=== PATIENT | male | born 1935 | race Caucasian/White ===

== ENCOUNTER 2018-07-28 12:15 | Inpatient (IN) | payer MEDICARE, SELFPAY ==
[2018-07-28] VITALS (18 sets, daily range): BP systolic 102–166; BP diastolic 55–80; PULSE 86–126; RESP 16–36; TEMP 36.4–37.7; O2SAT 92–98; BMI 24.1; BMI 22.6; BMI 22.7
--- NOTE | 2018-07-28 12:29 | EKG12_ITS ---
Test Reason : SOB Blood Pressure : / mmHG Vent. Rate : 105 BPM Atrial Rate : 105 BPM P-R Int : 144 ms QRS Dur : 076 ms QT Int : 324 ms P-R-T Axes : 073 072 028 degrees QTc Int : 428 ms Sinus tachycardia Nonspecific ST abnormality Abnormal ECG Confirmed by AMANDA CALLEJAS, JENNIFER ([id number]), associate entertainment editor BEBO CHANG ([id number]) on 07/31/2018 3:16:14 PM Referred By: Khang Crawford Confirmed By:JENNIFER PATEL MD
[2018-07-28] MEDS: Albuterol 2.5 MG/3 ML VIAL.NEB. INHALATION (12:49)
[2018-07-28] MEDS: Ipratropium/Albuterol Sulfate 3 ML AMPUL.NEB INHALATION (12:49)
[2018-07-28 13:03] LABS: Absolute Lymphocyte Count 5.32 X10^3/ul (0.83-4.51); Absolute Neutrophil Count 13.1 X10^3/uL (2.0-7.7); Basophil# 0.03 X10^3/uL; Basophil% 0.2 % (0-1); Eosinophil# 0.05 X10^3/uL; Eosinophils% 0.3 % (0-5); Hematocrit 39.6 % (40-54); Hemoglobin 13.4 g/dl (13.0-16.5); Lymphocyte # 5.32 X10^3/ul (4.0); Lymphocyte % 26.6 % (19-41); Mean Corp Hgb Conc 33.8 g/gl (32-36); Mean Corpuscular Hgb 30.7 pg (27.0-32.0); Mean Corpuscular Volume 90.8 fL (80-94); Mean Platelet Vol. 9.8 fl (6.2-12.0); Monocyte# 1.41 X10^3/uL; Monocyte% 7.1 % (0-10); Neutrophil # 13.11 X10^3/uL (2.7-7.7); Neutrophil % 65.5 % (47-70); Platelet Count 209 K/mm3 (150-450); RBC Distribution Width CV 12.5 % (11.6-14.6); RBC Distribution Width SD 41.6 fl (35.1-43.9); Red Blood Count 4.36 M/mm3 (4.6-6.2)
--- NOTE | 2018-07-28 13:10 | RAD_ITS ---
STUDY: X-RAY CHEST REASON FOR EXAM: Male, 82 years old. Cough and shortness of breath TECHNIQUE: PA and lateral views of the chest. COMPARISON: None. FINDINGS: There is hyperinflation of the lungs consistent with chronic obstructive lung disease (COPD). In the right upper lobe and right lower lobe, there is masslike consolidation. Right upper lobe area measuring 1.9 x 1.7 cm and right lower lobe measuring 2.5 x 3.5 cm. No focal infiltrate Normal size heart. Normal mediastinum and chuck. Normal visualized pulmonary arteries. Normal visualized aortic arch and descending thoracic aorta. There are diffuse degenerative changes of the visualized thoracic spine. There is degenerative osteoarthritis of the bilateral shoulders. There is no demonstrated abnormality of the visualized soft tissue structures of the upper abdomen. RAD/Chest PA and Lateral IMPRESSION: Masslike consolidation in the right upper lobe and right lower lobe. Lungs are otherwise clear. CT chest needed to further evaluate. Electronically Signed: Javid Patterson DO at 14:13 EST Tel , Service support ,
[2018-07-28 13:13] LABS: Anion Gap 12 (5-15); BUN 20 mg/dL (7-18); BUN/Creat Ratio 15.7 RATIO (10-20); Calcium,Total 9.1 mg/dL (8.5-10.1); Chloride 98 mmol/L (98-107); Creatinine, Serum 1.27 mg/dL (0.70-1.30); Differential Indicated SCAN CRITERIA MET; EST Glomerular Filtration Rate 58 mL/min (>60); Est Glom Filt Rate - Afr Amer 70 mL/min (>60); Estimated Creatinine Clearance 35.83 ml/min; Glucose 119 mg/dL (74-106); POSITIVE COUNT NO; POSITIVE DIFFERENTIAL YES; POSITIVE MORPHOLOGY YES; Potassium 3.6 mmol/L (3.5-5.1); Sodium Level 133 mmol/L (136-145)
[2018-07-28 13:20] LABS: Differential Comment SCANNED
--- NOTE | 2018-07-28 13:39 | ED.RN ---
DR. MARVIN AWARE OFF LAB CALL OF LACTIC 2.3
[2018-07-28 13:40] LABS: Lactic Acid 2.3 mmol/L (0.4-2.0)
--- NOTE | 2018-07-28 13:46 | ED.VISSUMM ---
- ER Visit Summary Date of Service: 07/28/18 Chief Complaint: Cough, fever and I feel terrible History of Present Illness: The patient is a 82 M who presents with respiratory symptoms that started several days ago. He was seen in urgent care on Friday and reports they did nothing for me . He presents with subjective fever. He does report nasal symptoms. He denies ocular or auditory symptoms. Denies sore throat. Denies change in voice. Does report cough, which is nonproductive. Does report shortness of breath at rest and difficulty walking room to room. Minimal activity and his saturation dropped from 90-93% on room air to 90%. He denies nausea, vomiting diarrhea. He denies hematemesis, melena hematochezia. He denies dysuria, frequency, urgency or hematuria. He denies history of PE or DVT. He denies leg pain, swelling discoloration. He states he is weak and has difficulty walking. He states he almost fell several times today. Patient states he got his flu shot and Pneumovax shot this year. He was a smoker until 4 years ago. He admits to 1 pack/day since he was a teenager. Physical Examination: Vital signs noted and remarkable for tachycardia, tachypnea. Temporal temperature is 97.7. Patient appears ill. Pupils equal round reactive. Extra muscle intact. TMs normal. Nares minimal clear drainage. Posterior pharynx without erythema or exudate. Trachea midline. There is no stridor. There is decreased breath sounds bilaterally with increased x-ray phase and wheezing. There is rales noted right side posteriorly. Abdomen is soft nontender. There is no hepatospleno megaly. There is no palpable cell mass. There is no abdominal bruit. There are no skin lesions noted. Neuro exam is nonfocal. Test Results: EKG sinus tachycardia at 105 with decreased anterior force. There is artifact secondary to his breathing. Two-view chest x-ray reveals infiltrate right lower lobe. White count is 20,000 with shift. There is no bandemia. Electric panel is remarkable for BUN of 20 and a creatinine 1.27. Lactate is 2.3. Emergency Department Course and Treatment: Appropriate blood work was obtained including lactate and blood cultures. Patient was treated with DuoNeb and albuterol. He received 700 mg levofloxacin. He was reassessed at 1345. He is still tachycardic and tachypneic. His wheezing has improved. Treatment Plan: IV antibiotics, aerosol treatments and monitoring Disposition: PCU Impression: 1. Severe sepsis 2. Sinus tachycardia documented on monitor and EKG 3. Bronchospasm 4. Continued acquired pneumonia 5. History of hypercholesterolemia 6. History of obstructive sleep apnea This note was generated with [employer] dictation software. It may contain incorrect words, spelling, and punctuation that were not noted in review of the chart prior to signing ED Disposition - Plan for ED Patient: Chief Complaint: Shortness of Breath Referrals: Vidhi Main MD [Primary Care Provider] -
[2018-07-28] MEDS: levoFLOXacin IV 750 MG/150 ML BAG 100 MG IV (13:57)
[2018-07-28] MEDS: 0.9% Normal Saline 1,000 ML 999 ML IV ×2 (14:27→18:20)
--- NOTE | 2018-07-28 14:52 | HP.PCM_ITS ---
Problem List (1) Pneumonia Status: Acute Qualifiers: Laterality: right (2) HTN (hypertension) Status: Chronic (3) Restless leg syndrome Status: Chronic (4) Hyperlipidemia Status: Chronic (5) DELANEY (obstructive sleep apnea) Status: Chronic History of Present Illness Date of Admission: 07/28/18 Chief Complaint: Cough The patient is a 82 year old M with a PMH as below who presents with a 5-day history of not feeling well. He states that he went to an urgent care when he had upper respiratory-like symptoms. He was told that it was a virus at that time and was sent home. He presents now with worsening cough, shortness of breath which is not normal for him. In the ER he was found to be tachycardic, but afebrile. His lactic acid was 2.3 and a chest x-ray reveals an infiltrate in the right lower lobe, with a leukocytosis of 20,000. He was given a 1 L bolus done in the ER as well as a dose of Levaquin. He was also tachypneic to 24 Past Medical History Past Medical History (Chronic Problems): Chronic Problems HTN (hypertension) (Chronic) S/P laminectomy (Chronic) Restless leg syndrome (Chronic) Hyperlipidemia (Chronic) Osteoarthritis of lumbar spine (Chronic) Generalized anxiety disorder (Chronic) Spondylolisthesis, cervical region (Chronic) Cervical spondylosis (Chronic) Cervical spine degeneration (Chronic) DELANEY (obstructive sleep apnea) (Chronic) Allergies niacin Allergy (Verified 07/28/18 12:17) Rash Home Medications: Ambulatory Orders Medication Instructions Recorded Aspirin E.C. [Ecotrin] 81 mg PO DAILY@0800 10/22/15 Clonazepam [Klonopin] 1 mg PO QHS 10/22/15 Pramipexole Di-HCl [Mirapex] 0.25 mg PO BID 10/22/15 Venlafaxine XR [Effexor Xr] 37.5 mg PO BID 10/22/15 Magnesium Oxide [Mag-Ox 400] 400 mg PO DAILYCM #0 tablet 10/27/15 Pravastatin [Pravachol] 20 mg PO QHS #30 tablet 10/27/15 Cyanocobalamin (Vitamin B-12) 2,500 mcg PO DAILY 02/13/17 [Vitamin B-12] DiphenhydrAMINE [Benadryl] 50 mg PO QHS PRN PRN 07/13/17 Ergocalciferol [Vitamin D] 50,000 unit PO Q7D 02/13/17 Hydrocodone Bitart/Apap 5-325 1 tablet PO Q6H PRN PRN 02/13/17 [[place] 5/325] Lactobacillus Acidophilus 1 each PO PRN PRN 02/13/17 [Acidophilus] buPROPion XL [Wellbutrin Xl] 150 mg PO DAILY 02/13/17 Amlodipine Besylate 2.5 mg PO DAILY 07/28/18 Surgical History: appendectomy, herniorrhaphy, - - Back surgery 2011, basal cell cancer right eye 2013 Psychiatric History: No pertinent psych hx Smoking Status: Former smoker Alcohol: None Drugs: None - *Family History Maternal History Items: Heart Disease - age 90 Paternal History Items: Cancer - lung, age 88 Review of Systems Constitutional: Reports: Fever. Denies: Chills, Weight Change HEENT: Denies: Head Aches, Sinus Congestion, Sinus Drainage Cardiovascular: Denies: Chest Pain, Palpitations Respiratory: Reports: Cough - Nonproductive, Shortness of Breath. Denies: Shortness of breath at rest, Sputum production Gastrointestinal: Denies: Abdominal Pain, Diarrhea, Nausea, Vomiting Genitourinary: Denies: Dysuria Musculoskeletal: Denies: Joint Pain, Joint Tenderness Skin: Denies: Rash, Wounds Neurological: Denies: Numbness, Tingling, Focal weakness Psychiatric: Denies: Anxiety, Depression Hematologic/ Lymphatic: Denies: Easy Bruising, Easy Bleeding VTE Information - Inpt Only VTE Present on Admission: No Patient Problems: Active and Suspected Problems Pneumonia (Acute) - Physical Exam General: Alert, Oriented x3, Cooperative, No apparent distress HEENT: Atraumatic, EOMI, Normocephalic Oral: Dry Mucosa Neck: Supple, No JVD Lungs: Clear to auscultation, Normal air movement, No rhonchi, No wheeze, No rales Cardiovascular: Regular Rhythm, Normal S1, Normal S2, No murmurs, Tachycardic Abdomen: Soft, Non Tender, Non-Distended, No Hepato-splenomegaly Extremities: No edema, Capillary Refill Less than 3 Seconds Skin: No rashes, No breakdown Neurological: Neuro grossly intact, Sensory exam intact to light touch and pain Psych/Mental Status: Normal Affect, Appropriate Vital Signs Temp Pulse Resp BP Pulse Ox 97.7 F L 115 H 19 H 122/60 H 93 07/28/18 14:30 07/28/18 14:30 07/28/18 14:30 07/28/18 14:30 07/28/18 14:30 Oxygen Delivery Method Room Air Weight: 132 lb Body Mass Index (BMI) 24.1 Microbiology Past 72 Hours 07/28/18 12:46 Influenza Types A,B Direct FA (LEXY) - Final Mucosa - Nose Laboratory Tests Past 24 Hrs 07/28/18 07/28/18 07/28/18 12:34 12:34 12:34 WBC 20.0 H RBC 4.36 L Hgb 13.4 Hct 39.6 L MCV 90.8 MCH 30.7 MCHC 33.8 RDW 12.5 RDW Differential 41.6 Plt Count 209 MPV 9.8 Immature Gran % (Auto) 0.300 Neut % (Auto) 65.5 Lymph % (Auto) 26.6 [place] % (Auto) 7.1 Eos % (Auto) 0.3 Baso % (Auto) 0.2 Absolute Neuts (auto) 13.1 H Absolute Lymphs (auto) 5.32 H Total Counted Not Reportable Differential Comment SCANNED Sodium 133 L Potassium 3.6 Chloride 98 Carbon Dioxide 23.0 Anion Gap 12 BUN 20 H Creatinine 1.27 Estim Creat Clear Calc 35.83 Est GFR (MDRD) Af Amer 70 Est GFR (MDRD) Non-Af 58 L BUN/Creatinine Ratio 15.7 Glucose 119 H Lactic Acid Cancelled Calcium 9.1 07/28/18 13:05 WBC RBC Hgb Hct MCV MCH MCHC RDW RDW Differential Plt Count MPV Immature Gran % (Auto) Neut % (Auto) Lymph % (Auto) [place] % (Auto) Eos % (Auto) Baso % (Auto) Absolute Neuts (auto) Absolute Lymphs (auto) Total Counted Differential Comment Sodium Potassium Chloride Carbon Dioxide Anion Gap BUN Creatinine Estim Creat Clear Calc Est GFR (MDRD) Af Amer Est GFR (MDRD) Non-Af BUN/Creatinine Ratio Glucose Lactic Acid 2.3 H Calcium Assessment/Plan All Active Problems Pneumonia (Acute) Spinal stenosis (Acute) Urinary retention (Acute) S/P lumbar fusion (Acute) History of TIA (transient ischemic attack) (Resolved) 1. Sepsis secondary to community-acquired pneumonia/right lung mass/history of tobacco use -In the setting of a leukocytosis we will treat as a community-acquired pneumonia given 3 out of 4 Sirs criteria were met -Pending repeat lactic acid -Will obtain CT chest in a.m. with contrast to better evaluate the right lung masses -IVF at 100 -Levaquin 750 mg every 48 hours -CBC and BMP in a.m. 2. Hypertension/hyperlipidemia -SBP in the 120s -Continue with home medications of Norvasc and pravastatin 3. Restless leg syndrome -Stable -Continue with Mirapex 4. Depression/anxiety -Stable -Continue with home medications DVT: Heparin/SCDs Code Visit Inpatient E&M: 52663 Init Hosp L3
[2018-07-28] MEDS: 0.9% Normal Saline 1,000 ML 100 ML IV ×2 (16:24→19:26)
[2018-07-28 17:08] LABS: Reflex Lactate? Y
[2018-07-28 18:29] LABS: Lactic Acid 2.7 mmol/L (0.4-2.0)
[2018-07-28] MEDS: Heparin Injection (Vial) 5,000 UNIT/ML VIAL 5000 UNIT SC (21:28)
[2018-07-29] VITALS (7 sets, daily range): BP systolic 102–138; BP diastolic 43–62; PULSE 67–98; RESP 17–31; TEMP 36.5–37.3; O2SAT 94–98
[2018-07-29] MEDS: guaiFENesin 1,200 MG Tablet 1200 MG PO ×3 (00:18→21:09)
[2018-07-29 06:28] LABS: Absolute Lymphocyte Count 3.99 X10^3/ul (0.83-4.51); Absolute Neutrophil Count 9.3 X10^3/uL (2.0-7.7); Basophil# 0.02 X10^3/uL; Basophil% 0.1 % (0-1); Eosinophil# 0.04 X10^3/uL; Eosinophils% 0.3 % (0-5); Hematocrit 34.7 % (40-54); Hemoglobin 11.6 g/dl (13.0-16.5); Lymphocyte # 3.99 X10^3/ul (4.0); Lymphocyte % 26.7 % (19-41); Mean Corp Hgb Conc 33.4 g/gl (32-36); Mean Corpuscular Hgb 30.9 pg (27.0-32.0); Mean Corpuscular Volume 92.5 fL (80-94); Neutrophil # 9.33 X10^3/uL (2.7-7.7); Neutrophil % 62.6 % (47-70); POSITIVE COUNT NO; POSITIVE DIFFERENTIAL NO; POSITIVE MORPHOLOGY NO; Platelet Count 165 K/mm3 (150-450); RBC Distribution Width CV 12.5 % (11.6-14.6); Red Blood Count 3.75 M/mm3 (4.6-6.2); White Blood Count 14.9 K/mm3 (4.4-11.0)
[2018-07-29] MEDS: 0.9% Normal Saline 1,000 ML 100 ML IV ×2 (06:29→15:43)
[2018-07-29 06:47] LABS: Anion Gap 10 (5-15); BUN 15 mg/dL (7-18); BUN/Creat Ratio 14.4 RATIO (10-20); Calcium,Total 8.2 mg/dL (8.5-10.1); Chloride 104 mmol/L (98-107); Creatinine, Serum 1.04 mg/dL (0.70-1.30); EST Glomerular Filtration Rate 73 mL/min (>60); Est Glom Filt Rate - Afr Amer 88 mL/min (>60); Estimated Creatinine Clearance 47.44 ml/min; Glucose 98 mg/dL (74-106); Potassium 3.8 mmol/L (3.5-5.1); Sodium Level 137 mmol/L (136-145)
--- NOTE | 2018-07-29 06:59 | PN_ITS ---
Patient Problems: Active and Suspected Problems Pneumonia (Acute) Subjective: feeling better. Remains afebrile still with non-productive cough Vitals/I&O's: Vital Signs Temp Pulse Resp BP Pulse Ox 99.1 F 98 24 H 138/62 H 94 07/29/18 03:02 07/29/18 03:02 07/29/18 03:11 07/29/18 03:02 07/29/18 03:02 Oxygen Delivery Method Room Air Weight: 132 lb Body Mass Index (BMI) 22.6 Intake and Output for Last 24 Hours 07/27/18 07/28/18 07/29/18 23:59 23:59 23:59 Intake Total 600 / 600 2140 / 2140 Output Total 450 / 450 Balance 600 / 600 1690 / 1690 General: Alert, Oriented x3, Cooperative, No apparent distress HEENT: Atraumatic, EOMI, Normocephalic Oral: Dry Mucosa Neck: Supple, No JVD Lungs: Clear to auscultation, Normal air movement, No rhonchi, No wheeze, No rales Cardiovascular: Regular Rhythm, Normal S1, Normal S2, No murmurs, Tachycardic Abdomen: Soft, Non Tender, Non-Distended, No Hepato-splenomegaly Extremities: No edema, Capillary Refill Less than 3 Seconds Skin: No rashes, No breakdown Neurological: Neuro grossly intact, Sensory exam intact to light touch and pain Psych/Mental Status: Normal Affect, Appropriate Microbiology Past 72 Hours 07/28/18 12:46 Mucosa - Nose Influenza Types A,B Direct FA (LEXY) - Final Laboratory Results 07/28/18 12:34: WBC 20.0 H, RBC 4.36 L, Hgb 13.4, Hct 39.6 L, MCV 90.8, MCH 30.7, MCHC 33.8, RDW 12.5, RDW Differential 41.6, Plt Count 209, MPV 9.8, Immature Gran % (Auto) 0.300, Neut % (Auto) 65.5, Lymph % (Auto) 26.6, [place] % (Auto) 7.1, Eos % (Auto) 0.3, Baso % (Auto) 0.2, Absolute Neuts (auto) 13.1 H, Absolute Lymphs (auto) 5.32 H, Total Counted Not Reportable, Differential Comment SCANNED 07/28/18 12:34: Sodium 133 L, Potassium 3.6, Chloride 98, Carbon Dioxide 23.0, Anion Gap 12, BUN 20 H, Creatinine 1.27, Estim Creat Clear Calc 35.83, Est GFR (MDRD) Af Amer 70, Est GFR (MDRD) Non-Af 58 L, BUN/Creatinine Ratio 15.7, Glucose 119 H, Calcium 9.1 07/28/18 12:34: Lactic Acid Cancelled 07/28/18 13:05: Lactic Acid 2.3 H 07/28/18 17:40: Lactic Acid 2.7 H 07/29/18 05:40: WBC 14.9 H, RBC 3.75 L, Hgb 11.6 L, Hct 34.7 L, MCV 92.5, MCH 30.9, MCHC 33.4, RDW 12.5, RDW Differential 41.0, Plt Count 165, MPV 10.0, Immature Gran % (Auto) 0.300, Neut % (Auto) 62.6, Lymph % (Auto) 26.7, [place] % (Auto) 10.0, Eos % (Auto) 0.3, Baso % (Auto) 0.1, Absolute Neuts (auto) 9.3 H, Absolute Lymphs (auto) 3.99, Total Counted Not Reportable 07/29/18 05:40: Sodium 137, Potassium 3.8, Chloride 104, Carbon Dioxide 23.0, Anion Gap 10, BUN 15, Creatinine 1.04, Estim Creat Clear Calc 47.44, Est GFR (MDRD) Af Amer 88, Est GFR (MDRD) Non-Af 73, BUN/Creatinine Ratio 14.4, Glucose 98, Calcium 8.2 L Current Medications Guaifenesin (Mucinex) 1,200 mg PO BID [facility] Last Admin: 07/29/18 00:18 Dose: 1,200 mg Heparin Sodium (Porcine) (Heparin Na) 5,000 unit SC Q12 [facility] Last Admin: 07/28/18 21:28 Dose: 5,000 unit Sodium Chloride () 1,000 mls @ 100 mls/hr IV .Q10H [facility] Last Admin: 07/29/18 06:29 Dose: 100 mls/hr Levofloxacin (Levaquin Iv) 750 mg in 150 mls @ 100 mls/hr IV Q48 [facility] Magnesium Hydroxide (Milk Of Magnesia) 30 ml PO DAILY PRN PRN PRN Reason: Constipation Sodium Chloride () 5 - 15 ml IV UD PRN PRN Reason: SALINE FLUSH Medical Necessity - Tobacco Use Smoking Status: Former smoker Assessment/Plan All Active Problems Pneumonia (Acute) Spinal stenosis (Acute) Urinary retention (Acute) S/P lumbar fusion (Acute) History of TIA (transient ischemic attack) (Resolved) 1. Sepsis secondary to community-acquired pneumonia/right lung mass/history of tobacco use -In the setting of a leukocytosis we will treat as a community-acquired pneumonia given 3 out of 4 Sirs criteria were met -Pending repeat lactic acid -Will obtain CT chest with contrast to better evaluate the right lung masses -IVF at 100 -Levaquin 750 mg every 48 hours -CBC and BMP in a.m. 2. Hypertension/hyperlipidemia -SBP in the 120s -Continue with home medications of Norvasc and pravastatin 3. Restless leg syndrome -Stable -Continue with Mirapex 4. Depression/anxiety -Stable -Continue with home medications DVT: Heparin/SCDs
[2018-07-29 07:48] LABS: Lactic Acid 1.2 mmol/L (0.4-2.0)
[2018-07-29] MEDS: Heparin Injection (Vial) 5,000 UNIT/ML VIAL 5000 UNIT SC ×2 (11:00→21:09)
--- NOTE | 2018-07-29 13:10 | CASEMGMT ---
Addendum entered by Adan Boudreaux 07/29/18 17:44: 1620: Call placed to pt's daughter, Melva. Melva states she plans for pt to come stay with her upon discharge. She states she is agreeable for HHC to come see pt while he is in her home. Inquired if she has a preference of HHC agency and she states she would like a list of [facility] agencies that Insurance will cover. List of [facility] agencies within network with [facility] printed off. CM to give pt list tomorrow 07/30. Original Note: RN AMANDA ASSESSMENT Face to Face with patient for initial transition planning/care coordination assessment. CHINO PATEL introduced self and role at [facility]. Pt voices understanding and consents to assessment at this time. Pt resting in bed in no distress at this time. Pt is A/O at this time and answers all questions appropriately. Care providers, pharmacy, and demographics verified/updated at this time. PCP: Etelvina Specialists: Denies Preferred [facility]: [facility] Prescription Benefit: Yes Living Will/HPOA: Pt states he has both LW and HCPOA, who is his daughter, Melva. LNOK: , Ann, who lives at [facility]. Has a daughter, Melva, and 2 sons, Richard and You. Living Arrangements: Lives alone in a one-story home. States prior to this past week, he was fairly independent. States since he has been become ill this past week that his vision has worsened and he is only able to see shadows now. Pt states his daughter wants him to come stay with her once he is discharged. He states she lives in a one-story home as well. Transportation: Pt does not drive. States his friend helps provide transportation or his daughter and granddaughters. DME: States has the following DME: shower chair, grab bars in the shower, walker. Does not wear home O2. Pt may need Home O2 qualification testing completed prior to discharge. Pt states no need for further DME at this time. HHC/SNF: Pt states he has never used HHC or been to a SNF. States he does not want to go to a nursing facility but would be agreeable to HHC for therapy. Pt states he will probably be going home to stay with his daughter on discharge. He states he is agreeable to HHC at her home. He does not have a preference of agency. CM to follow for home oxygen needs and any further discharge planning/needs. Pt voices no further concerns/needs at this time. Advised pt to ask for CM if any further questions/concerns/needs arise. Voices understanding. Plan: Discharge to daughter's home with family support and HHC for PT/OT. Tristin PRAJAPATI RN CM
[2018-07-29] MEDS: Pramipexole Di-HCl 0.25 MG Tablet PO ×2 (16:15→21:09)
[2018-07-29] MEDS: guaiFENesin/Codeine 5 ML UDC PO ×2 (16:15→23:27)
[2018-07-29] MEDS: Venlafaxine XR 37.5 MG Capsule PO (21:09)
[2018-07-29] MEDS: clonazePAM 1 MG Tablet PO (21:11)
[2018-07-30] VITALS (8 sets, daily range): BP systolic 115–170; BP diastolic 46–76; PULSE 85–109; RESP 18–28; TEMP 36.3–37.4; O2SAT 88–97
[2018-07-30] MEDS: 0.9% Normal Saline 1,000 ML 100 ML IV (01:58)
[2018-07-30 06:01] LABS: Absolute Lymphocyte Count 4.97 X10^3/ul (0.83-4.51); Absolute Neutrophil Count 7.5 X10^3/uL (2.0-7.7); Basophil# 0.04 X10^3/uL; Basophil% 0.3 % (0-1); Eosinophils% 2.1 % (0-5); Hematocrit 35.9 % (40-54); Hemoglobin 11.7 g/dl (13.0-16.5); Lymphocyte # 4.97 X10^3/ul (4.0); Lymphocyte % 34.7 % (19-41); Mean Corp Hgb Conc 32.6 g/gl (32-36); Mean Corpuscular Hgb 30.5 pg (27.0-32.0); Mean Corpuscular Volume 93.7 fL (80-94); Mean Platelet Vol. 10.1 fl (6.2-12.0); Monocyte# 1.42 X10^3/uL; Monocyte% 9.9 % (0-10); Neutrophil # 7.52 X10^3/uL (2.7-7.7); Neutrophil % 52.4 % (47-70); Platelet Count 190 K/mm3 (150-450); RBC Distribution Width CV 12.7 % (11.6-14.6); RBC Distribution Width SD 42.4 fl (35.1-43.9); Red Blood Count 3.83 M/mm3 (4.6-6.2); White Blood Count 14.3 K/mm3 (4.4-11.0)
[2018-07-30 06:22] LABS: POSITIVE COUNT NO; POSITIVE DIFFERENTIAL NO; POSITIVE MORPHOLOGY NO
[2018-07-30] MEDS: guaiFENesin/Codeine 5 ML UDC PO ×2 (06:57→18:41)
--- NOTE | 2018-07-30 09:36 | NURSING ---
PT WITH WHEEZES THROUGHOUT, SOB W/EXERTION. DR BARNETT NOTIFIED, NEW ORDER FOR AEROSOLS.
[2018-07-30] MEDS: Heparin Injection (Vial) 5,000 UNIT/ML VIAL 5000 UNIT SC ×2 (09:40→22:39)
[2018-07-30] MEDS: guaiFENesin 1,200 MG Tablet 1200 MG PO ×2 (09:40→22:40)
[2018-07-30] MEDS: levoFLOXacin IV 750 MG/150 ML BAG 100 MG IV (09:40)
[2018-07-30] MEDS: amLODIPine 2.5 MG Tablet PO (09:40)
[2018-07-30] MEDS: Pramipexole Di-HCl 0.25 MG Tablet PO ×2 (09:40→22:39)
[2018-07-30] MEDS: Venlafaxine XR 37.5 MG Capsule PO ×2 (09:40→22:39)
[2018-07-30] MEDS: Ipratropium/Albuterol Sulfate 3 ML AMPUL.NEB INHALATION ×3 (10:10→19:31)
--- NOTE | 2018-07-30 11:43 | PCM.PN.HOSP ---
Patient Problems: Active and Suspected Problems Pneumonia (Acute) Subjective: Still feels SOB, no CP. He is oxygenating well on 1 L NC. Cough is improved, still non-productive Vitals/I&O's: Vital Signs Temp Pulse Resp BP Pulse Ox 99.3 F H 100 23 H 118/46 L 95 07/30/18 07:51 07/30/18 10:10 07/30/18 10:10 07/30/18 07:51 07/30/18 10:10 Oxygen Flow Rate (L/min) 1 Oxygen Delivery Method Nasal Cannula Weight: 132 lb 0.91 oz Body Mass Index (BMI) 22.6 Intake and Output for Last 24 Hours 07/28/18 07/29/18 07/30/18 23:59 23:59 23:59 Intake Total 600 / 600 3873 / 3873 1724 / 1724 Output Total 950 / 950 250 / 250 Balance 600 / 600 2923 / 2923 1474 / 1474 General: Alert, Oriented x3, Cooperative, No apparent distress HEENT: Atraumatic, EOMI, Normocephalic Oral: Dry Mucosa Neck: Supple, No JVD Lungs: Normal air movement, Wheezing and coarse BS in RLL Cardiovascular: Regular Rhythm, Normal S1, Normal S2, No murmurs, Tachycardic Abdomen: Soft, Non Tender, Non-Distended, No Hepato-splenomegaly Extremities: No edema, Capillary Refill Less than 3 Seconds Skin: No rashes, No breakdown Neurological: Neuro grossly intact, Sensory exam intact to light touch and pain Psych/Mental Status: Normal Affect, Appropriate Microbiology Past 72 Hours 07/28/18 12:46 Mucosa - Nose Influenza Types A,B Direct FA (LEXY) - Final Laboratory Results 07/30/18 05:15: WBC 14.3 H, RBC 3.83 L, Hgb 11.7 L, Hct 35.9 L, MCV 93.7, MCH 30.5, MCHC 32.6, RDW 12.7, RDW Differential 42.4, Plt Count 190, MPV 10.1, Immature Gran % (Auto) 0.600, Neut % (Auto) 52.4, Lymph % (Auto) 34.7, [place] % (Auto) 9.9, Eos % (Auto) 2.1, Baso % (Auto) 0.3, Absolute Neuts (auto) 7.5, Absolute Lymphs (auto) 4.97 H, Total Counted Not Reportable Current Medications Albuterol/Ipratropium (Duoneb) 3 ml INHALATION Q4HWA.RT [facility] Last Admin: 07/30/18 10:10 Dose: 3 ml Amlodipine Besylate (Norvasc) 2.5 mg PO DAILY [facility] Last Admin: 07/30/18 09:40 Dose: 2.5 mg Clonazepam (Klonopin) 1 mg PO QHS [facility] Last Admin: 07/29/18 21:11 Dose: 1 mg Guaifenesin (Mucinex) 1,200 mg PO BID [facility] Last Admin: 07/30/18 09:40 Dose: 1,200 mg Guaifenesin/Codeine Phosphate (Robitussin Ac) 5 ml PO Q6H PRN PRN PRN Reason: COUGH Last Admin: 07/30/18 06:57 Dose: 5 ml Heparin Sodium (Porcine) (Heparin Na) 5,000 unit SC Q12 [facility] Last Admin: 07/30/18 09:40 Dose: 5,000 unit Sodium Chloride () 1,000 mls @ 100 mls/hr IV .Q10H [facility] Last Admin: 07/30/18 01:58 Dose: 100 mls/hr Levofloxacin (Levaquin Iv) 750 mg in 150 mls @ 100 mls/hr IV Q48 [facility] Last Admin: 07/30/18 09:40 Dose: 100 mls/hr Magnesium Hydroxide (Milk Of Magnesia) 30 ml PO DAILY PRN PRN PRN Reason: Constipation Pramipexole Dihydrochloride (Mirapex) 0.25 mg PO BID [facility] Last Admin: 07/30/18 09:40 Dose: 0.25 mg Sodium Chloride () 5 - 15 ml IV UD PRN PRN Reason: SALINE FLUSH Venlafaxine HCl (Effexor Xr) 37.5 mg PO BID [facility] Last Admin: 07/30/18 09:40 Dose: 37.5 mg Medical Necessity - Tobacco Use Smoking Status: Former smoker Assessment/Plan All Active Problems Pneumonia (Acute) Spinal stenosis (Acute) Urinary retention (Acute) S/P lumbar fusion (Acute) History of TIA (transient ischemic attack) (Resolved) 1. Sepsis secondary to community-acquired pneumonia/right lung mass/history of tobacco use -In the setting of a leukocytosis we will treat as a community-acquired pneumonia given 3 out of 4 Sirs criteria were met -Will obtain CT chest with contrast to better evaluate the right lung masses -IVF at 100, will DC for now and encourage PO intake - Duoneb -Levaquin 750 mg every 48 hours -CBC and BMP in a.m. 2. Hypertension/hyperlipidemia -SBP in the 120s -Continue with home medications of Norvasc and pravastatin 3. Restless leg syndrome -Stable -Continue with Mirapex 4. Depression/anxiety -Stable -Continue with home medications DVT: Heparin/SCDs Code Visit Inpatient E&M: 77366 Subs Hosp L2
--- NOTE | 2018-07-30 11:46 | CT_ITS ---
STUDY: CT CHEST WITH CONTRAST REASON FOR EXAM: Male, 82 years old. Nodule. Abnormal chest x-ray RADIATION DOSAGE (If Supplied By Facility): CTDIvol = ( 13.99 ) mGy, DLP = ( 261.19 ) mGycm TECHNIQUE: Transaxial imaging was performed following intravenous administration of 100 ml of Isovue 300 contrast material. Multiplanar coronal and sagittal images were reformatted. Individualized dose optimization techniques were used for this CT. COMPARISON: July 28, 2018 chest x-ray FINDINGS: There are moderate groundglass, reticulonodular, and airspace infiltrates of the right upper and lower lung. Small patchy areas of similar consolidation in the left lung. There are granulomatous calcifications on the right and left. There is moderate right pleural effusion. There is small left pleural effusion. There are calcifications of the coronary arteries. There are calcified mediastinal lymph nodes. Normal hilar regions. Normal enhanced pulmonary arteries. There is atherosclerotic calcification of the aortic arch with tortuosity and elongation of the aortic arch and descending thoracic aorta. There are multi-level degenerative changes of the thoracic spine. There is no demonstrated abnormality of the visualized upper abdomen. Calcified granulomata in the spleen. CT/Chest WITH Contrast IMPRESSION: Right greater than left infiltrates and pleural effusions. Electronically Signed: Claus Chandra MD at 18:40 EST , Service support ,
--- NOTE | 2018-07-30 11:49 | PN_ITS ---
Patient Problems: Active and Suspected Problems Pneumonia (Acute) Subjective: Still feels SOB, no CP. He is oxygenating well on 1 L NC. Cough is improved, still non-productive Vitals/I&O's: Vital Signs Temp Pulse Resp BP Pulse Ox 99.3 F H 100 23 H 118/46 L 95 07/30/18 07:51 07/30/18 10:10 07/30/18 10:10 07/30/18 07:51 07/30/18 10:10 Oxygen Flow Rate (L/min) 1 Oxygen Delivery Method Nasal Cannula Weight: 132 lb 0.91 oz Body Mass Index (BMI) 22.6 Intake and Output for Last 24 Hours 07/28/18 07/29/18 07/30/18 23:59 23:59 23:59 Intake Total 600 / 600 3873 / 3873 1724 / 1724 Output Total 950 / 950 250 / 250 Balance 600 / 600 2923 / 2923 1474 / 1474 General: Alert, Oriented x3, Cooperative, No apparent distress HEENT: Atraumatic, EOMI, Normocephalic Oral: Dry Mucosa Neck: Supple, No JVD Lungs: Normal air movement, Wheezing and coarse BS in RLL Cardiovascular: Regular Rhythm, Normal S1, Normal S2, No murmurs, Tachycardic Abdomen: Soft, Non Tender, Non-Distended, No Hepato-splenomegaly Extremities: No edema, Capillary Refill Less than 3 Seconds Skin: No rashes, No breakdown Neurological: Neuro grossly intact, Sensory exam intact to light touch and pain Psych/Mental Status: Normal Affect, Appropriate Microbiology Past 72 Hours 07/28/18 12:46 Mucosa - Nose Influenza Types A,B Direct FA (LEXY) - Final Laboratory Results 07/30/18 05:15: WBC 14.3 H, RBC 3.83 L, Hgb 11.7 L, Hct 35.9 L, MCV 93.7, MCH 30.5, MCHC 32.6, RDW 12.7, RDW Differential 42.4, Plt Count 190, MPV 10.1, Immature Gran % (Auto) 0.600, Neut % (Auto) 52.4, Lymph % (Auto) 34.7, [place] % (Auto) 9.9, Eos % (Auto) 2.1, Baso % (Auto) 0.3, Absolute Neuts (auto) 7.5, Absolute Lymphs (auto) 4.97 H, Total Counted Not Reportable Current Medications Albuterol/Ipratropium (Duoneb) 3 ml INHALATION Q4HWA.RT [facility] Last Admin: 07/30/18 10:10 Dose: 3 ml Amlodipine Besylate (Norvasc) 2.5 mg PO DAILY [facility] Last Admin: 07/30/18 09:40 Dose: 2.5 mg Clonazepam (Klonopin) 1 mg PO QHS [facility] Last Admin: 07/29/18 21:11 Dose: 1 mg Guaifenesin (Mucinex) 1,200 mg PO BID [facility] Last Admin: 07/30/18 09:40 Dose: 1,200 mg Guaifenesin/Codeine Phosphate (Robitussin Ac) 5 ml PO Q6H PRN PRN PRN Reason: COUGH Last Admin: 07/30/18 06:57 Dose: 5 ml Heparin Sodium (Porcine) (Heparin Na) 5,000 unit SC Q12 [facility] Last Admin: 07/30/18 09:40 Dose: 5,000 unit Sodium Chloride () 1,000 mls @ 100 mls/hr IV .Q10H [facility] Last Admin: 07/30/18 01:58 Dose: 100 mls/hr Levofloxacin (Levaquin Iv) 750 mg in 150 mls @ 100 mls/hr IV Q48 [facility] Last Admin: 07/30/18 09:40 Dose: 100 mls/hr Magnesium Hydroxide (Milk Of Magnesia) 30 ml PO DAILY PRN PRN PRN Reason: Constipation Pramipexole Dihydrochloride (Mirapex) 0.25 mg PO BID [facility] Last Admin: 07/30/18 09:40 Dose: 0.25 mg Sodium Chloride () 5 - 15 ml IV UD PRN PRN Reason: SALINE FLUSH Venlafaxine HCl (Effexor Xr) 37.5 mg PO BID [facility] Last Admin: 07/30/18 09:40 Dose: 37.5 mg Medical Necessity - Tobacco Use Smoking Status: Former smoker Assessment/Plan All Active Problems Pneumonia (Acute) Spinal stenosis (Acute) Urinary retention (Acute) S/P lumbar fusion (Acute) History of TIA (transient ischemic attack) (Resolved) 1. Sepsis secondary to community-acquired pneumonia/right lung mass/history of tobacco use -In the setting of a leukocytosis we will treat as a community-acquired pneumonia given 3 out of 4 Sirs criteria were met -Will obtain CT chest with contrast to better evaluate the right lung masses -IVF at 100, will DC for now and encourage PO intake - Duoneb -Levaquin 750 mg every 48 hours -CBC and BMP in a.m. 2. Hypertension/hyperlipidemia -SBP in the 120s -Continue with home medications of Norvasc and pravastatin 3. Restless leg syndrome -Stable -Continue with Mirapex 4. Depression/anxiety -Stable -Continue with home medications DVT: Heparin/SCDs Code Visit Inpatient E&M: 77667 Subs Hosp L2
--- NOTE | 2018-07-30 13:16 | PCA ---
pt off floor
[2018-07-30] MEDS: clonazePAM 1 MG Tablet PO (22:39)
[2018-07-30] MEDS: Magnesium Hydroxide 30 ML UDC PO (22:40)
[2018-07-31] VITALS (9 sets, daily range): BP systolic 97–124; BP diastolic 50–65; PULSE 79–98; RESP 18–20; TEMP 36.3–37.5; O2SAT 91–95
[2018-07-31] MEDS: guaiFENesin/Codeine 5 ML UDC PO ×3 (00:45→22:02)
[2018-07-31 06:00] LABS: Absolute Lymphocyte Count 3.29 X10^3/ul (0.83-4.51); Absolute Neutrophil Count 5.7 X10^3/uL (2.0-7.7); Basophil# 0.03 X10^3/uL; Basophil% 0.3 % (0-1); Eosinophil# 0.26 X10^3/uL; Eosinophils% 2.5 % (0-5); Hemoglobin 10.6 g/dl (13.0-16.5); Lymphocyte # 3.29 X10^3/ul (4.0); Lymphocyte % 31.7 % (19-41); Mean Corp Hgb Conc 33.1 g/gl (32-36); Mean Corpuscular Volume 93.6 fL (80-94); Mean Platelet Vol. 9.9 fl (6.2-12.0); Monocyte# 1.01 X10^3/uL; Monocyte% 9.7 % (0-10); Neutrophil # 5.73 X10^3/uL (2.7-7.7); Neutrophil % 55.1 % (47-70); Platelet Count 211 K/mm3 (150-450); RBC Distribution Width CV 12.6 % (11.6-14.6); RBC Distribution Width SD 41.5 fl (35.1-43.9); Red Blood Count 3.42 M/mm3 (4.6-6.2); White Blood Count 10.4 K/mm3 (4.4-11.0)
[2018-07-31 06:08] LABS: Anion Gap 10 (5-15); BUN 13 mg/dL (7-18); BUN/Creat Ratio 15.3 RATIO (10-20); Calcium,Total 8.4 mg/dL (8.5-10.1); Chloride 105 mmol/L (98-107); Creatinine, Serum 0.85 mg/dL (0.70-1.30); EST Glomerular Filtration Rate 92 mL/min (>60); Est Glom Filt Rate - Afr Amer 111 mL/min (>60); Estimated Creatinine Clearance 58.04 ml/min; Glucose 95 mg/dL (74-106); Potassium 3.5 mmol/L (3.5-5.1); Sodium Level 139 mmol/L (136-145)
[2018-07-31 06:12] LABS: Differential Indicated SCAN CRITERIA MET; POSITIVE COUNT NO; POSITIVE DIFFERENTIAL NO; POSITIVE MORPHOLOGY YES
[2018-07-31] MEDS: Ipratropium/Albuterol Sulfate 3 ML AMPUL.NEB INHALATION ×3 (06:29→15:29)
[2018-07-31] MEDS: Venlafaxine XR 37.5 MG Capsule PO ×2 (09:27→21:51)
--- NOTE | 2018-07-31 09:27 | PCM.PN.HOSP ---
Patient Problems: Active and Suspected Problems Pneumonia (Acute) Subjective: Feels much better today, his work of breathing seems improved. No chest pain and shortness of breath is better, afebrile Vitals/I&O's: Vital Signs Temp Pulse Resp BP Pulse Ox 97.7 F L 83 18 118/65 91 07/31/18 06:09 07/31/18 06:29 07/31/18 06:29 07/31/18 06:09 07/31/18 06:29 Oxygen Flow Rate (L/min) 2 Oxygen Delivery Method Nasal Cannula Weight: 132 lb 0.91 oz Body Mass Index (BMI) 22.6 Intake and Output for Last 24 Hours 07/29/18 07/30/18 07/31/18 23:59 23:59 23:59 Intake Total 3873 / 3873 2494 / 2494 400 / 400 Output Total 950 / 950 400 / 400 200 / 200 Balance 2923 / 2923 2094 / 2094 200 / 200 General: Alert, Oriented x3, Cooperative, No apparent distress HEENT: Atraumatic, EOMI, Normocephalic Oral: Dry Mucosa Neck: Supple, No JVD Lungs: Normal air movement, minimal wheeze, no rales or rhonchi Cardiovascular: Regular Rhythm, Normal S1, Normal S2, No murmurs, Tachycardic Abdomen: Soft, Non Tender, Non-Distended, No Hepato-splenomegaly Extremities: No edema, Capillary Refill Less than 3 Seconds Skin: No rashes, No breakdown Neurological: Neuro grossly intact, Sensory exam intact to light touch and pain Psych/Mental Status: Normal Affect, Appropriate Microbiology Past 72 Hours 07/28/18 13:05 Blood Culture (Wb) #2 - Anticubital Right Blood Culture - Preliminary No growth in 48 hours. 07/28/18 12:34 Blood Culture (Wb) - Anticubital Left Blood Culture - Preliminary No growth in 48 hours. 07/28/18 12:46 Mucosa - Nose Influenza Types A,B Direct FA (LEXY) - Final Laboratory Results 07/31/18 05:00: WBC 10.4, RBC 3.42 L, Hgb 10.6 L, Hct 32.0 L, MCV 93.6, MCH 31.0, MCHC 33.1, RDW 12.6, RDW Differential 41.5, Plt Count 211, MPV 9.9, Immature Gran % (Auto) 0.700, Neut % (Auto) 55.1, Lymph % (Auto) 31.7, [place] % (Auto) 9.7, Eos % (Auto) 2.5, Baso % (Auto) 0.3, Absolute Neuts (auto) 5.7, Absolute Lymphs (auto) 3.29, Total Counted Not Reportable 07/31/18 05:00: Sodium 139, Potassium 3.5, Chloride 105, Carbon Dioxide 24.0, Anion Gap 10, BUN 13, Creatinine 0.85, Estim Creat Clear Calc 58.04, Est GFR (MDRD) Af Amer 111, Est GFR (MDRD) Non-Af 92, BUN/Creatinine Ratio 15.3, Glucose 95, Calcium 8.4 L Current Medications Albuterol/Ipratropium (Duoneb) 3 ml INHALATION Q4HWA.RT [facility] Last Admin: 07/31/18 06:29 Dose: 3 ml Amlodipine Besylate (Norvasc) 2.5 mg PO DAILY [facility] Last Admin: 07/30/18 09:40 Dose: 2.5 mg Clonazepam (Klonopin) 1 mg PO QHS [facility] Last Admin: 07/30/18 22:39 Dose: 1 mg Guaifenesin (Mucinex) 1,200 mg PO BID [facility] Last Admin: 07/30/18 22:40 Dose: 1,200 mg Guaifenesin/Codeine Phosphate (Robitussin Ac) 5 ml PO Q6H PRN PRN PRN Reason: COUGH Last Admin: 07/31/18 00:45 Dose: 5 ml Heparin Sodium (Porcine) (Heparin Na) 5,000 unit SC Q12 [facility] Last Admin: 07/30/18 22:39 Dose: 5,000 unit Levofloxacin (Levaquin Tablet) 750 mg PO Q48@0600 [facility] Magnesium Hydroxide (Milk Of Magnesia) 30 ml PO DAILY PRN PRN PRN Reason: Constipation Last Admin: 07/30/18 22:40 Dose: 30 ml Pramipexole Dihydrochloride (Mirapex) 0.25 mg PO BID [facility] Last Admin: 07/30/18 22:39 Dose: 0.25 mg Sodium Chloride () 5 - 15 ml IV UD PRN PRN Reason: SALINE FLUSH Venlafaxine HCl (Effexor Xr) 37.5 mg PO BID [facility] Last Admin: 07/30/18 22:39 Dose: 37.5 mg Medical Necessity - Tobacco Use Smoking Status: Former smoker Assessment/Plan All Active Problems Pneumonia (Acute) Spinal stenosis (Acute) Urinary retention (Acute) S/P lumbar fusion (Acute) History of TIA (transient ischemic attack) (Resolved) 1. Sepsis secondary to community-acquired pneumonia/right lung mass/history of tobacco use -In the setting of a leukocytosis we will treat as a community-acquired pneumonia given 3 out of 4 Sirs criteria were met -CT chest demonstrated infiltrates no mention of lung masses seen on chest x-ray. -DuoNeb, significant improvement in cough -Levaquin 750 mg every 48 hours -Attempt to wean oxygen today, his plan for discharge is to live with his daughter until he is able to get back on his feet. 2. Hypertension/hyperlipidemia -SBP in the 120s -Continue with home medications of Norvasc and pravastatin 3. Restless leg syndrome -Stable -Continue with Mirapex 4. Depression/anxiety -Stable -Continue with home medications DVT: Heparin/SCDs Code Visit Inpatient E&M: 02215 Subs Hosp L2
[2018-07-31] MEDS: amLODIPine 2.5 MG Tablet PO (09:28)
[2018-07-31] MEDS: Heparin Injection (Vial) 5,000 UNIT/ML VIAL 5000 UNIT SC ×2 (09:28→21:51)
[2018-07-31] MEDS: Pramipexole Di-HCl 0.25 MG Tablet PO ×2 (09:28→21:50)
[2018-07-31] MEDS: guaiFENesin 1,200 MG Tablet 1200 MG PO ×2 (09:28→21:50)
--- NOTE | 2018-07-31 09:30 | PN_ITS ---
Patient Problems: Active and Suspected Problems Pneumonia (Acute) Subjective: Feels much better today, his work of breathing seems improved. No chest pain and shortness of breath is better, afebrile Vitals/I&O's: Vital Signs Temp Pulse Resp BP Pulse Ox 97.7 F L 83 18 118/65 91 07/31/18 06:09 07/31/18 06:29 07/31/18 06:29 07/31/18 06:09 07/31/18 06:29 Oxygen Flow Rate (L/min) 2 Oxygen Delivery Method Nasal Cannula Weight: 132 lb 0.91 oz Body Mass Index (BMI) 22.6 Intake and Output for Last 24 Hours 07/29/18 07/30/18 07/31/18 23:59 23:59 23:59 Intake Total 3873 / 3873 2494 / 2494 400 / 400 Output Total 950 / 950 400 / 400 200 / 200 Balance 2923 / 2923 2094 / 2094 200 / 200 General: Alert, Oriented x3, Cooperative, No apparent distress HEENT: Atraumatic, EOMI, Normocephalic Oral: Dry Mucosa Neck: Supple, No JVD Lungs: Normal air movement, minimal wheeze, no rales or rhonchi Cardiovascular: Regular Rhythm, Normal S1, Normal S2, No murmurs, Tachycardic Abdomen: Soft, Non Tender, Non-Distended, No Hepato-splenomegaly Extremities: No edema, Capillary Refill Less than 3 Seconds Skin: No rashes, No breakdown Neurological: Neuro grossly intact, Sensory exam intact to light touch and pain Psych/Mental Status: Normal Affect, Appropriate Microbiology Past 72 Hours 07/28/18 13:05 Blood Culture (Wb) #2 - Anticubital Right Blood Culture - Preliminary No growth in 48 hours. 07/28/18 12:34 Blood Culture (Wb) - Anticubital Left Blood Culture - Preliminary No growth in 48 hours. 07/28/18 12:46 Mucosa - Nose Influenza Types A,B Direct FA (LEXY) - Final Laboratory Results 07/31/18 05:00: WBC 10.4, RBC 3.42 L, Hgb 10.6 L, Hct 32.0 L, MCV 93.6, MCH 31.0, MCHC 33.1, RDW 12.6, RDW Differential 41.5, Plt Count 211, MPV 9.9, Immature Gran % (Auto) 0.700, Neut % (Auto) 55.1, Lymph % (Auto) 31.7, [place] % (Auto) 9.7, Eos % (Auto) 2.5, Baso % (Auto) 0.3, Absolute Neuts (auto) 5.7, Absolute Lymphs (auto) 3.29, Total Counted Not Reportable 07/31/18 05:00: Sodium 139, Potassium 3.5, Chloride 105, Carbon Dioxide 24.0, Anion Gap 10, BUN 13, Creatinine 0.85, Estim Creat Clear Calc 58.04, Est GFR (MDRD) Af Amer 111, Est GFR (MDRD) Non-Af 92, BUN/Creatinine Ratio 15.3, Glucose 95, Calcium 8.4 L Current Medications Albuterol/Ipratropium (Duoneb) 3 ml INHALATION Q4HWA.RT [facility] Last Admin: 07/31/18 06:29 Dose: 3 ml Amlodipine Besylate (Norvasc) 2.5 mg PO DAILY [facility] Last Admin: 07/30/18 09:40 Dose: 2.5 mg Clonazepam (Klonopin) 1 mg PO QHS [facility] Last Admin: 07/30/18 22:39 Dose: 1 mg Guaifenesin (Mucinex) 1,200 mg PO BID [facility] Last Admin: 07/30/18 22:40 Dose: 1,200 mg Guaifenesin/Codeine Phosphate (Robitussin Ac) 5 ml PO Q6H PRN PRN PRN Reason: COUGH Last Admin: 07/31/18 00:45 Dose: 5 ml Heparin Sodium (Porcine) (Heparin Na) 5,000 unit SC Q12 [facility] Last Admin: 07/30/18 22:39 Dose: 5,000 unit Levofloxacin (Levaquin Tablet) 750 mg PO Q48@0600 [facility] Magnesium Hydroxide (Milk Of Magnesia) 30 ml PO DAILY PRN PRN PRN Reason: Constipation Last Admin: 07/30/18 22:40 Dose: 30 ml Pramipexole Dihydrochloride (Mirapex) 0.25 mg PO BID [facility] Last Admin: 07/30/18 22:39 Dose: 0.25 mg Sodium Chloride () 5 - 15 ml IV UD PRN PRN Reason: SALINE FLUSH Venlafaxine HCl (Effexor Xr) 37.5 mg PO BID [facility] Last Admin: 07/30/18 22:39 Dose: 37.5 mg Medical Necessity - Tobacco Use Smoking Status: Former smoker Assessment/Plan All Active Problems Pneumonia (Acute) Spinal stenosis (Acute) Urinary retention (Acute) S/P lumbar fusion (Acute) History of TIA (transient ischemic attack) (Resolved) 1. Sepsis secondary to community-acquired pneumonia/right lung mass/history of tobacco use -In the setting of a leukocytosis we will treat as a community-acquired pneumonia given 3 out of 4 Sirs criteria were met -CT chest demonstrated infiltrates no mention of lung masses seen on chest x- ray. -DuoNeb, significant improvement in cough -Levaquin 750 mg every 48 hours -Attempt to wean oxygen today, his plan for discharge is to live with his daughter until he is able to get back on his feet. 2. Hypertension/hyperlipidemia -SBP in the 120s -Continue with home medications of Norvasc and pravastatin 3. Restless leg syndrome -Stable -Continue with Mirapex 4. Depression/anxiety -Stable -Continue with home medications DVT: Heparin/SCDs Code Visit Inpatient E&M: 62621 Subs Hosp L2
--- NOTE | 2018-07-31 16:29 | CASEMGMT ---
RN AMANDA spoke with daughter Melva regarding home health care. Patient and family agreeable to [facility]. Referral sent to [facility] and they can accept the patient. CM will continue to follow this patient and plan for a safe discharge.
[2018-07-31] MEDS: clonazePAM 1 MG Tablet PO (21:54)
[2018-08-01 03:00] VITALS: BP 114/58; PULSE 88; RESP 20; TEMP 37.1; O2SAT 94
[2018-08-01] MEDS: Benzonatate 100 MG Capsule PO (03:04)
[2018-08-01 03:10] VITALS: PULSE 88; RESP 20; O2SAT 94
[2018-08-01] MEDS: levoFLOXacin 750 MG Tablet PO (05:38)
[2018-08-01] MEDS: guaiFENesin/Codeine 5 ML UDC PO (05:38)
[2018-08-01 06:40] LABS: Absolute Lymphocyte Count 3.21 X10^3/ul (0.83-4.51); Absolute Neutrophil Count 4.8 X10^3/uL (2.0-7.7); Basophil# 0.04 X10^3/uL; Basophil% 0.4 % (0-1); Eosinophils% 3.3 % (0-5); Hematocrit 31.5 % (40-54); Hemoglobin 10.5 g/dl (13.0-16.5); Lymphocyte # 3.21 X10^3/ul (4.0); Lymphocyte % 34.9 % (19-41); Mean Corp Hgb Conc 33.3 g/gl (32-36); Mean Corpuscular Hgb 31.2 pg (27.0-32.0); Mean Corpuscular Volume 93.5 fL (80-94); Mean Platelet Vol. 9.9 fl (6.2-12.0); Monocyte# 0.82 X10^3/uL; Monocyte% 8.9 % (0-10); Neutrophil # 4.76 X10^3/uL (2.7-7.7); Neutrophil % 51.6 % (47-70); Platelet Count 230 K/mm3 (150-450); RBC Distribution Width CV 12.6 % (11.6-14.6); RBC Distribution Width SD 41.6 fl (35.1-43.9); Red Blood Count 3.37 M/mm3 (4.6-6.2); White Blood Count 9.2 K/mm3 (4.4-11.0)
[2018-08-01 06:45] LABS: POSITIVE COUNT NO; POSITIVE DIFFERENTIAL NO; POSITIVE MORPHOLOGY NO
[2018-08-01 07:01] LABS: Anion Gap 8 (5-15); BUN 13 mg/dL (7-18); BUN/Creat Ratio 15.6 RATIO (10-20); Calcium,Total 8.1 mg/dL (8.5-10.1); Chloride 102 mmol/L (98-107); Creatinine, Serum 0.84 mg/dL (0.70-1.30); EST Glomerular Filtration Rate 94 mL/min (>60); Est Glom Filt Rate - Afr Amer 114 mL/min (>60); Estimated Creatinine Clearance 58.73 ml/min; Glucose 88 mg/dL (74-106); Potassium 3.6 mmol/L (3.5-5.1); Sodium Level 136 mmol/L (136-145)
[2018-08-01 08:18] VITALS: O2SAT 92
[2018-08-01] MEDS: Venlafaxine XR 37.5 MG Capsule PO (10:30)
[2018-08-01] MEDS: Pramipexole Di-HCl 0.25 MG Tablet PO (10:31)
[2018-08-01] MEDS: guaiFENesin 1,200 MG Tablet 1200 MG PO (10:31)
[2018-08-01] MEDS: amLODIPine 2.5 MG Tablet PO (10:31)
[2018-08-01] MEDS: Heparin Injection (Vial) 5,000 UNIT/ML VIAL 5000 UNIT SC (10:31)
[2018-08-01 10:41] VITALS: BP 99/46; PULSE 81; RESP 20; TEMP 37.1; O2SAT 93
--- NOTE | 2018-08-01 10:56 | DCINST_ITS ---
- Discharge Diagnoses Current Active Problems: Current Active and Chronic Problems Pneumonia (Acute) HTN (hypertension) (Chronic) You will use the following diet at home:: Regular Your food should be the consistency of: Regular Your liquids should be the consistency of: Regular/Thin Discharge Activity: Return to Normal Activity Call your doctor if you observe: Fever of 101 or Higher, Shortness of breath, Dizziness, Fainting spells Allergies/Adverse Reactions: Allergies niacin Allergy (Verified 07/28/18 12:17) Rash Medications to take at Discharge Aspirin E.C. [Ecotrin] 81 mg PO DAILY@0800 10/22/15 Clonazepam [Klonopin] 1 mg PO QHS 10/22/15 Pramipexole Di-HCl [Mirapex] 0.25 mg PO BID 10/22/15 Venlafaxine XR [Effexor Xr] 37.5 mg PO BID 10/22/15 Magnesium Oxide [Mag-Ox 400] 400 mg PO DAILYCM #0 tablet 10/27/15 Cyanocobalamin (Vitamin B-12) [Vitamin B-12] 2,500 mcg PO DAILY 02/13/17 DiphenhydrAMINE [Benadryl] 50 mg PO QHS PRN PRN 02/13/17 Ergocalciferol [Vitamin D] 50,000 unit PO Q7D 02/13/17 Hydrocodone Bitart/Apap 5-325 [[place] 5/325] 1 tablet PO Q6H PRN PRN 02/13/17 Lactobacillus Acidophilus [Acidophilus] 1 each PO PRN PRN 02/13/17 buPROPion XL [Wellbutrin Xl] 150 mg PO DAILY 02/13/17 Amlodipine Besylate 2.5 mg PO DAILY 07/28/18 Albuterol Inhaler [Ventolin Hfa] 2 puff INHALATION Q4H PRN PRN 07/29/18 Benzonatate [Tessalon Perle] 100 mg PO TID PRN PRN 07/29/18 Pravastatin [Pravachol] 20 mg PO QHS 07/29/18 levoFLOXacin tablet [Levaquin tablet] 750 mg PO DAILY #6 tablet 08/01/18 The following prescriptions were given: levoFLOXacin tablet [Levaquin tablet] 750 mg PO DAILY #6 tablet Primary Care Physician: Vidhi Main MD [Primary Care Provider] - Please follow up with your Primary Care Physician in: 3-5 days Test Results: Test results from this visit will be discussed in further detail at your follow- up appointment, if applicable.
--- NOTE | 2018-08-01 10:56 | PCM.DC.SUM ---
Discharge Date and Diagnosis - Problem List Patient Problems: Active and Suspected Problems Pneumonia (Acute) Date of Admission: 07/28/18 Date of Discharge: 08/01/18 - Primary Discharge Diagnosis Active and Suspected Problems Pneumonia (Acute) - Secondary Discharge Diagnosis Chronic Problems HTN (hypertension) (Chronic) S/P laminectomy (Chronic) Restless leg syndrome (Chronic) Hyperlipidemia (Chronic) Osteoarthritis of lumbar spine (Chronic) Generalized anxiety disorder (Chronic) Spondylolisthesis, cervical region (Chronic) Cervical spondylosis (Chronic) Cervical spine degeneration (Chronic) DELANEY (obstructive sleep apnea) (Chronic) Hospital Course and Treatment Imaging Results: CXR: IMPRESSION: Masslike consolidation in the right upper lobe and right lower lobe. Lungs are otherwise clear. CT chest needed to further evaluate. CT Chest: FINDINGS: There are moderate groundglass, reticulonodular, and airspace infiltrates of the right upper and lower lung. Small patchy areas of similar consolidation in the left lung. There are granulomatous calcifications on the right and left. There is moderate right pleural effusion. There is small left pleural effusion. There are calcifications of the coronary arteries. There are calcified mediastinal lymph nodes. Normal hilar regions. Normal enhanced pulmonary arteries. There is atherosclerotic calcification of the aortic arch with tortuosity and elongation of the aortic arch and descending thoracic aorta. There are multi-level degenerative changes of the thoracic spine. There is no demonstrated abnormality of the visualized upper abdomen. Calcified granulomata in the spleen. Consults: None Operations: None Procedures: None Summary of Care Provided: Per HPI: The patient is a 82 year old M with a PMH as below who presents with a 5-day history of not feeling well. He states that he went to an urgent care when he had upper respiratory-like symptoms. He was told that it was a virus at that time and was sent home. He presents now with worsening cough, shortness of breath which is not normal for him. In the ER he was found to be tachycardic, but afebrile. His lactic acid was 2.3 and a chest x-ray reveals an infiltrate in the right lower lobe, with a leukocytosis of 20,000. He was given a 1 L bolus done in the ER as well as a dose of Levaquin. He was also tachypneic to 24 General: Alert, Oriented x3, Cooperative, No apparent distress HEENT: Atraumatic, EOMI, Normocephalic Oral: Dry Mucosa Neck: Supple, No JVD Lungs: Normal air movement, minimal wheeze, no rales or rhonchi Cardiovascular: Regular Rhythm, Normal S1, Normal S2, No murmurs, Tachycardic Abdomen: Soft, Non Tender, Non-Distended, No Hepato-splenomegaly Extremities: No edema, Capillary Refill Less than 3 Seconds Skin: No rashes, No breakdown Neurological: Neuro grossly intact, Sensory exam intact to light touch and pain Psych/Mental Status: Normal Affect, Appropriate Hospital Course: 1. Sepsis secondary to community-acquired pneumonia/right lung mass/history of tobacco use - He was admitted with 3-4-day history of upper respiratory infection he had gone to urgent care and was told that he does have a virus and was sent home. He presented to the ER with new infiltrates and possible mass. He was tachypneic so CT scan was done a couple of days after admission, and just demonstrated groundglass opacities consistent with an infiltrate in both right and left lungs. He has been on Levaquin 750 mg since admission initially as every 48 hours due to his creatinine clearance being less than 49, however his renal function has recovered and his creatinine clearance is at 58 on the day of discharge and therefore he will be discharged on Levaquin 750 mg daily. His cough has significantly improved, and on room air he is satting 93%, I obtained an ambulatory pulse ox prior to discharge for home oxygen, however he maintained his saturations above 92%. Follow-up with his primary care physician in 3-5 days. I discussed with him this plan which she is agreeable to he states that he will be living with his daughter until he gets stronger and back on his feet. 2. Other diagnoses were evaluated and his home medications were continued where appropriate Patient Problems: Active and Suspected Problems Pneumonia (Acute) - Physical Exam Vital Signs Temp Pulse Resp BP Pulse Ox 98.7 F 81 20 H 99/46 L 93 08/01/18 10:41 08/01/18 10:41 08/01/18 10:41 08/01/18 10:41 08/01/18 10:41 Oxygen Flow Rate (L/min) 1 Oxygen Delivery Method Room Air Weight: 132 lb 0.91 oz Body Mass Index (BMI) 22.6 Intake and Output for Last 24 Hours 07/30/18 07/31/18 08/01/18 23:59 23:59 23:59 Intake Total 2494 / 2494 400 / 400 850 / 850 Output Total 400 / 400 200 / 200 675 / 675 Balance 2093 / 2093 200 / 200 175 / 175 Microbiology Past 72 Hours 07/28/18 13:05 Blood Culture - Preliminary Blood Culture (Wb) #2 - Anticubital Right No growth in 48 hours. 07/28/18 12:34 Blood Culture - Preliminary Blood Culture (Wb) - Anticubital Left No growth in 48 hours. Laboratory Tests Past 24 Hrs 08/01/18 08/01/18 06:05 06:05 WBC 9.2 RBC 3.37 L Hgb 10.5 L Hct 31.5 L MCV 93.5 MCH 31.2 MCHC 33.3 RDW 12.6 RDW Differential 41.6 Plt Count 230 MPV 9.9 Immature Gran % (Auto) 0.900 Neut % (Auto) 51.6 Lymph % (Auto) 34.9 [place] % (Auto) 8.9 Eos % (Auto) 3.3 Baso % (Auto) 0.4 Absolute Neuts (auto) 4.8 Absolute Lymphs (auto) 3.21 Total Counted Not Reportable Sodium 136 Potassium 3.6 Chloride 102 Carbon Dioxide 26.0 Anion Gap 8 BUN 13 Creatinine 0.84 Estim Creat Clear Calc 58.73 Est GFR (MDRD) Af Amer 114 Est GFR (MDRD) Non-Af 94 BUN/Creatinine Ratio 15.6 Glucose 88 Calcium 8.1 L Discharge Activity: Return to Normal Activity Call your doctor if you observe: Fever of 101 or Higher, Shortness of breath, Dizziness, Fainting spells Home Medications: Medications to take at Discharge Aspirin E.C. [Ecotrin] 81 mg PO DAILY@0800 10/22/15 Clonazepam [Klonopin] 1 mg PO QHS 10/22/15 Pramipexole Di-HCl [Mirapex] 0.25 mg PO BID 10/22/15 Venlafaxine XR [Effexor Xr] 37.5 mg PO BID 10/22/15 Magnesium Oxide [Mag-Ox 400] 400 mg PO DAILYCM #0 tablet 10/27/15 Cyanocobalamin (Vitamin B-12) [Vitamin B-12] 2,500 mcg PO DAILY 02/13/17 DiphenhydrAMINE [Benadryl] 50 mg PO QHS PRN PRN 02/13/17 Ergocalciferol [Vitamin D] 50,000 unit PO Q7D 02/13/17 Hydrocodone Bitart/Apap 5-325 [[place] 5/325] 1 tablet PO Q6H PRN PRN 02/13/17 Lactobacillus Acidophilus [Acidophilus] 1 each PO PRN PRN 02/13/17 buPROPion XL [Wellbutrin Xl] 150 mg PO DAILY 02/13/17 Amlodipine Besylate 2.5 mg PO DAILY 07/28/18 Albuterol Inhaler [Ventolin Hfa] 2 puff INHALATION Q4H PRN PRN 07/29/18 Benzonatate [Tessalon Perle] 100 mg PO TID PRN PRN 07/29/18 Pravastatin [Pravachol] 20 mg PO QHS 07/29/18 levoFLOXacin tablet [Levaquin tablet] 750 mg PO DAILY #6 tablet 08/01/18 Following Prescrptions Were Given to Patient: levoFLOXacin tablet [Levaquin tablet] 750 mg PO DAILY #6 tablet Primary Care Physician: Vidhi Main MD [Primary Care Provider] - Please follow up with your Primary Care Physician in: 3-5 days Disposition: Home Minutes spent on discharge:: 35 Patient Condition:: Good Medical Necessity - Tobacco Use Smoking Status: Former smoker Meaningful Use Info Meaningful Use Diagnoses (Choose all that apply): None applicable Code Visit Inpatient E&M: 58478 Disch Hosp
[2018-08-01 14:38] VITALS: BP 110/49; PULSE 95; RESP 18; TEMP 36.7; O2SAT 93
== END 2018-08-01 14:52 | disposition home or self-care (01) | DRG 195 ==
LOC: ED 13:07 → MS3 18:16
PROVIDERS: Admitting Provider Family Medicine; Emergency Provider Emergency Medicine; Family Provider Internal Medicine; PCP Internal Medicine; Referring Provider Family Medicine; Visit Provider Family Medicine
DX: J18.9 Pneumonia, unspecified organism (principal); E78.5 Hyperlipidemia, unspecified; I10 Essential (primary) hypertension; G25.81 Restless legs syndrome; M43.12 Spondylolisthesis, cervical region; M47.812 Spondylosis without myelopathy or radiculopathy, cervical region; G47.33 Obstructive sleep apnea (adult) (pediatric); M47.816 Spondylosis without myelopathy or radiculopathy, lumbar region; F41.1 Generalized anxiety disorder; Z87.891 Personal history of nicotine dependence
CPT/HCPCS: 36415; 71046; 71260; 80048; 83605; 85025; 87040; 87804; 93005; 94640; 97110; 97162; 97165; 97530; 97802; 99283; J7030; A4216

== ENCOUNTER 2018-10-23 02:30 | Emergency (ER) | payer MEDICARE, SELFPAY ==
[2018-10-23 02:30] VITALS: BMI 24.1
[2018-10-23 02:31] VITALS: BP 132/55; PULSE 78; RESP 26; TEMP 36.3; O2SAT 93; BMI 23.1
--- NOTE | 2018-10-23 02:40 | EKG12_ITS ---
Test Reason : GEN ILLNESS Blood Pressure : / mmHG Vent. Rate : 077 BPM Atrial Rate : 077 BPM P-R Int : 150 ms QRS Dur : 090 ms QT Int : 394 ms P-R-T Axes : 067 064 027 degrees QTc Int : 445 ms Normal sinus rhythm Normal ECG No previous ECGs available Confirmed by RESHMA CALLEJAS, CEDRICK ([id number]), pictures editor MASSIEL MELO ([id number]) on 10/30/2018 2:06:05 PM Referred By: GIOVANNI Confirmed By:CEDRICK JUSTICE MD
--- NOTE | 2018-10-23 02:40 | RAD_ITS ---
HISTORY: SOB EXAM:XR Chest 1 View: Portable COMPARISON: 07/28/2018 FINDINGS: EKG leads in place. Shallow inspiration. Normal heart size. Subcarinal calcified lymph nodes and left mid and lower lung calcified granulomas. No vascular congestion or acute pulmonary infiltration. No significant pleural effusion. No pneumothorax. Atherosclerotic thoracic aorta. RAD/Chest 1 View (Portable) IMPRESSION: 1. No acute cardiopulmonary disease. 2. Old, healed granulomatous disease. at 0308 Reported and signed by: Stanley Smith MD Electronically Signed: Stanley Smith, at 3:07 EDT Tel , Service support ,
[2018-10-23 02:44] VITALS: RESP 25; O2SAT 95
[2018-10-23 02:53] LABS: Absolute Lymphocyte Count 2.07 X10^3/ul (0.83-4.51); Absolute Neutrophil Count 3.1 X10^3/uL (2.0-7.7); Basophil# 0.01 X10^3/uL; Basophil% 0.2 % (0-1); Hematocrit 37.2 % (40-54); Hemoglobin 12.5 g/dl (13.0-16.5); Lymphocyte # 2.07 X10^3/ul (4.0); Lymphocyte % 38.3 % (19-41); Mean Corp Hgb Conc 33.6 g/gl (32-36); Mean Corpuscular Hgb 30.6 pg (27.0-32.0); Mean Corpuscular Volume 91.2 fL (80-94); Mean Platelet Vol. 10.5 fl (6.2-12.0); Monocyte# 0.22 X10^3/uL; Monocyte% 4.1 % (0-10); Neutrophil % 57.4 % (47-70); POSITIVE COUNT NO; POSITIVE DIFFERENTIAL NO; POSITIVE MORPHOLOGY NO; Platelet Count 134 K/mm3 (150-450); RBC Distribution Width CV 13.1 % (11.6-14.6); RBC Distribution Width SD 42.9 fl (35.1-43.9); Red Blood Count 4.08 M/mm3 (4.6-6.2); White Blood Count 5.4 K/mm3 (4.4-11.0)
[2018-10-23 03:12] LABS: Anion Gap 5 (5-15); BUN 24 mg/dL (7-18); BUN/Creat Ratio 20.5 RATIO (10-20); Calcium,Total 8.6 mg/dL (8.5-10.1); Chloride 107 mmol/L (98-107); Creatinine, Serum 1.17 mg/dL (0.70-1.30); EST Glomerular Filtration Rate 64 mL/min (>60); Est Glom Filt Rate - Afr Amer 77 mL/min (>60); Estimated Creatinine Clearance 42.17 ml/min; Glucose 257 mg/dL (74-106); Potassium 4.1 mmol/L (3.5-5.1); Sodium Level 137 mmol/L (136-145)
--- NOTE | 2018-10-23 03:28 | ED.VISSUMM ---
- ER Visit Summary Date of Service: 10/23/18 Chief Complaint: Cough History of Present Illness: The patient is a 82 M who presents with a nonproductive cough. It is been present for 1 week. He reports subjective fever no documented fever. He was seen in urgent care and prescribed cough syrup. He then saw his primary care physician and was put on antibiotics and steroids. He denies feeling short of breath. He denies any pain. No nausea vomiting or diarrhea. Family was concerned because he seemed restless tonight was kicking his legs. Physical Examination: Afebrile vitals unremarkable Patient resting comfortably no distress able to speak full sentences Patient has scattered wheezing he is not tachypneic Heart is regular rate and rhythm Abdomen soft Alert Test Results: EKG shows sinus rhythm at a rate of 77. Chest x-ray shows no acute disease. Labs unremarkable with a negative troponin. Emergency Department Course and Treatment: Patient's presentation is consistent with bronchitis. He is not febrile. He is not tachycardic. He has no leukocytosis. There is no infiltrate on chest x-ray. I advised that he continue current treatment. He was given a DuoNeb aerosol here prior to discharge. They understand return for new or worsening symptoms and otherwise to follow-up with primary care. Treatment Plan: [] Disposition: Discharge Impression: Bronchitis This note was generated with [employer] dictation software. It may contain incorrect words, spelling, and punctuation that were not noted in review of the chart prior to signing ED Disposition - Plan for ED Patient: Referrals: Vidhi Main MD [Primary Care Provider] -
--- NOTE | 2018-10-23 03:29 | ED.DEP ---
ED Disposition - Plan for ED Patient: Instructions: Acute Bronchitis Referrals: Vidhi Main MD [Primary Care Provider] -
[2018-10-23 03:40] VITALS: PULSE 72; RESP 18
[2018-10-23] MEDS: Ipratropium/Albuterol Sulfate 3 ML AMPUL.NEB INHALATION (03:40)
[2018-10-23 03:45] VITALS: O2SAT 95
[2018-10-23 04:15] VITALS: BP 122/53; PULSE 77; RESP 25; O2SAT 95; O2SAT 96
== END 2018-10-23 04:16 | disposition home or self-care (01) ==
PROVIDERS: Emergency Provider Emergency Medicine; Family Provider Internal Medicine; PCP Internal Medicine
DX: J40 Bronchitis, not specified as acute or chronic (principal); I10 Essential (primary) hypertension; Z79.82 Long term (current) use of aspirin; Z79.899 Other long term (current) drug therapy
CPT/HCPCS: 71045; 80048; 84484; 85025; 93005; 94640; 94760; 99285; A4216

== ENCOUNTER → 2018-12-04 | Outpatient (CLI) | payer MEDICARE, SELFPAY ==
[2018-12-04 11:40] LABS: Cholesterol 203 mg/dL (200); Creatinine, Serum 1.07 mg/dL (0.70-1.30); EST Glomerular Filtration Rate 71 mL/min (>60); Est Glom Filt Rate - Afr Amer 85 mL/min (>60); High Density Lipoprotein 43 mg/dL; Triglycerides 108 mg/dL; Very Low Density Lipoprotein 22 mg/dL (5-40)
== END | disposition home or self-care (01) ==
PROVIDERS: Family Provider Internal Medicine; PCP Internal Medicine; Referring Provider Internal Medicine; Visit Provider Internal Medicine
DX: I67.89 Other cerebrovascular disease (principal); E78.2 Mixed hyperlipidemia; Z13.89 Encounter for screening for other disorder
CPT/HCPCS: 80061; 82565

== ENCOUNTER 2019-02-06 19:37 | Emergency (ER) | payer MEDICARE, SELFPAY ==
[2019-02-06 19:38] VITALS: BP 156/74; PULSE 74; RESP 15; TEMP 36.3; BMI 23.1
--- NOTE | 2019-02-06 20:38 | ED.DCSUM_ITS ---
- ER Visit Summary Date of Service: 02/06/19 Chief Complaint: Left index finger laceration History of Present Illness: The patient is a 83 M who presents with a left index finger laceration that occurred today. Patient was using a knife to open a bag of vegetables when it slipped and cut his left index finger. Patient is right- hand dominant. Patient states his last tetanus was within 5 years. Patient states the bleeding stopped after several minutes of pressure. Patient denies any paresthesias or weakness. Patient describes the pain as a burning. Patient states nothing makes it better or worse. Physical Examination: Vital signs are stable. Patient is afebrile. Patient is in no acute distress. Skin is warm dry. There is a 0.7 cm flap laceration on the pad of the left index finger. There is only one small area of skin holding it on. There is no active bleeding noted. There are no foreign bodies noted. Sensation was intact to light touch in all digits. Capillary refill is less than 2 seconds in all digits. Emergency Department Course and Treatment: The small flap of skin was removed. Bacitracin dressing was applied. Patient tolerated procedure well. Patient was instructed to keep the area clean. Patient was instructed to follow-up with his primary care physician in 5 to 7 days. Patient understood and was agreeable with the plan. All questions were answered. Disposition: Discharge home Impression: Avulsion laceration left index finger This note was generated with [employer] (ABAM) dictation software. It may contain incorrect words, spelling, and punctuation that were not noted in review of the chart prior to signing ED Disposition - Plan for ED Patient: Disposition: Home or Assisted Living Diagnosis: Avulsion of skin of finger Instructions: LACERATION, Small/superficial, Not sutured Referrals: Vidhi Main MD [Primary Care Provider] - 5-7 Days
--- NOTE | 2019-02-06 20:44 | ED.RN ---
PT DID NOT WANT TO WAIT FOR D/C INSTRUCTIONS. PT STATES I HAVE A TAXI WAITING. PT AMBULATES FROM DEPARTMENT ON OWN WITHOUT ASSISTANCE FROM STAFF. DR BOYCE NOTIFIED OF THE SAME
== END 2019-02-06 20:45 | disposition home or self-care (01) ==
PROVIDERS: Emergency Provider Emergency Medicine; Family Provider Internal Medicine; PCP Internal Medicine
DX: S61.211A Laceration without foreign body of left index finger without damage to nail, initial encounter (principal); W26.0XXA Contact with knife, initial encounter; Y93.9 Activity, unspecified; Y92.9 Unspecified place or not applicable; H54.7 Unspecified visual loss; Z86.73 Personal history of transient ischemic attack (TIA), and cerebral infarction without residual deficits; Z79.82 Long term (current) use of aspirin; Z79.899 Other long term (current) drug therapy
CPT/HCPCS: 99282

== ENCOUNTER → 2019-04-14 12:47 | Outpatient (CLI) | payer MEDICARE, SELFPAY ==
[2019-04-14 14:31] LABS: Hematocrit 40.8 % (40-54); Hemoglobin 13.4 g/dL (13.0-16.5); Mean Corp Hgb Conc 32.8 g/dL (32-36); Mean Corpuscular Hgb 31.4 pg (27.0-32.0); Mean Corpuscular Volume 95.6 fL (80-94); Mean Platelet Vol. 9.8 fl (6.2-12.0); Platelet Count 179 K/mm3 (150-450); RBC Distribution Width CV 12.4 % (11.6-14.6); RBC Distribution Width SD 43.6 fl (35.1-43.9); Red Blood Count 4.27 M/mm3 (4.6-6.2); White Blood Count 7.7 K/mm3 (4.4-11.0)
[2019-04-14 14:44] LABS: Erythrocyte Sedimentation Rate 9 mm/hr (0-20)
[2019-04-14 14:50] LABS: Vitamin D,25 Hydroxy 26.5 ng/mL (29.95-100.01)
[2019-04-14 14:51] LABS: AST(SGOT) 13 U/L (15-37); Alanine Aminotransfer ALT/SGPT 18 U/L (16-61); Albumin, Serum 3.4 g/dL (3.2-5.0); Alkaline Phosphatase 92 U/L (45-117); Anion Gap 3 (5-15); BUN 18 mg/dL (7-18); BUN/Creat Ratio 17.6 RATIO (10-20); Calcium,Total 9.1 mg/dL (8.5-10.1); Chloride 109 mmol/L (98-107); Creatinine, Serum 1.02 mg/dL (0.70-1.30); EST Glomerular Filtration Rate 74 mL/min (>60); Est Glom Filt Rate - Afr Amer 90 mL/min (>60); Globulin 3.5 g/dL (2.2-4.2); Glucose 114 mg/dL (74-106); Potassium 4.4 mmol/L (3.5-5.1); Protein, Total 6.9 g/dL (6.4-8.2); Sodium Level 140 mmol/L (136-145); T4 Free Direct 0.86 ng/dL (0.76-1.46); Thyroid Stim Hormone (TSH) 1.31 uIU/mL (0.358-3.74)
[2019-04-19 12:07] LABS: Lyme IgG P18 Ab Absent (.); Lyme IgG P23 Ab Absent (.); Lyme IgG P28 Ab Absent (.); Lyme IgG P30 Ab Absent (.); Lyme IgG P39 Ab Absent (.); Lyme IgG P41 Ab Absent (.); Lyme IgG P45 Ab Absent (.); Lyme IgG P58 Ab Absent (.); Lyme IgG P66 Ab Absent (.); Lyme IgG P93 Ab Absent (.); Lyme IgM P23 Ab Absent (.); Lyme IgM P39 Ab Absent (.); Lyme IgM P41 Ab Absent (.)
[2019-04-19 13:43] LABS: Lyme IgG WB Interpretation Negative (.); Lyme IgM WB Interpretation Negative (.)
== END ==
PROVIDERS: Family Provider Internal Medicine; PCP Internal Medicine; Referring Provider Internal Medicine; Visit Provider Internal Medicine
DX: M19.041 Primary osteoarthritis, right hand (principal); M19.042 Primary osteoarthritis, left hand; F41.1 Generalized anxiety disorder; R53.83 Other fatigue; Z79.899 Other long term (current) drug therapy; E55.9 Vitamin D deficiency, unspecified
CPT/HCPCS: 80053; 82306; 84439; 84443; 85027; 85652; 86617

== ENCOUNTER → 2019-04-28 12:28 | Outpatient (CLI) | payer MEDICARE, SELFPAY | PROVIDERS: Family Provider Internal Medicine; PCP Internal Medicine | DX: J02.9 Acute pharyngitis, unspecified (principal) | CPT/HCPCS: 87880 ==

== ENCOUNTER 2019-05-12 11:04 | Emergency (ER) | payer MEDICARE, SELFPAY ==
[2019-05-12 11:05] VITALS: BP 120/62; PULSE 92; RESP 25; TEMP 36.3; O2SAT 96; BMI 24.7
[2019-05-12 11:11] VITALS: O2SAT 96
--- NOTE | 2019-05-12 11:34 | EKG12_ITS ---
Test Reason : SOB Blood Pressure : / mmHG Vent. Rate : 089 BPM Atrial Rate : 089 BPM P-R Int : 140 ms QRS Dur : 074 ms QT Int : 356 ms P-R-T Axes : 064 047 020 degrees QTc Int : 433 ms Normal sinus rhythm Nonspecific ST and T wave abnormality Abnormal ECG Confirmed by BERENICE CALLEJAS, GUS ([id number]), multimedia editor MASSIEL MELO ([id number]) on 05/19/2019 9:36:44 A M Referred By: GINGER Confirmed By:ZARIA NG MD
--- NOTE | 2019-05-12 11:35 | ED.DCSUM_ITS ---
History of Present Illness Chief Complaint: Shortness of Breath Informant: Patient, EMS Onset: Weeks - 1 Activity at onset: Rest Timing: Continuous, Waxes and wanes Quality: Wheezing. Negative for: Dyspnea on exertion Current Severity: Gone Maximum Severity: Mild Worsened by: Nothing. Not Worsened By: Coughing, Exertion, Lying flat Relieved by: Albuterol Associated Symptoms: Negative for: Cough Chest Pain: None Narrative: Patient states his dyspnea has been when wheezing and has been mild. He went to urgent care today because a family member was talking with him over the phone and thought he sounded short of breath although he did not think he really did. He denies having any chest discomfort or having any significant coughing. Denies any fevers, palpitations, leg pain or swelling, recent travel, or hospitalization although he did have an outpatient screening colonoscopy about a week ago. He states his abdomen has been fine since then, and he is now back to eating normally and having normal stools. Reviewed notes from urgent care, which are relatively limited but states he is being transferred to the emergency department with complaints of shortness of breath and weakness for 1 week, pulse ox 94% before and after an albuterol treatment, which the patient states helped, and he really does not feel dyspneic now, and they state that patient is mildly confused, weak, requiring the assistance of one for ambulation in the office and dyspnea with exertion. Past Medical History - Allergies and Home Meds Allergies/Adverse Reactions: Allergies niacin Allergy (Verified 05/12/19 11:10) Rash Primary Care Physician: Vidhi Main MD [Primary Care Provider] - Surgical History: appendectomy, herniorrhaphy, - - Back surgery 2011, basal cell cancer right eye 2014 Smoking Status: Former smoker - Family History Maternal Family History: Reports: Heart Disease - age 90 Paternal Family History: Reports: Cancer - lung, age 88 Review of Systems General: Reports: Malaise. Denies: Chills, Fever, Sweats Eyes: Denies: Visual changes - bilaterally, Diplopia ENT: Denies: Rhinorrhea, Sore throat Cardiovascular: Denies: Chest pain, Palpitations, Heart racing Respiratory: Reports: Dyspnea. Denies: Cough, Dyspnea on exertion Gastrointestinal: Denies: Abdominal pain, Nausea, Vomiting, Diarrhea, Melena, Hematochezia Genitourinary: Denies: Dysuria, Hematuria, Frequency Musculoskeletal: Denies: Back pain, Swelling, Extremity Pain Skin: Denies: Rash, Wounds Neurological: Denies: Headache, Weakness, Numbness Physical Exam Vital Signs/Narrative: Vital Signs Temp Pulse Resp BP Pulse Ox 05/12/19 11:05 97.4 F L 92 25 H 120/62 96 Inital Vital Signs reviewed: Yes General: Well nourished, Well developed, No Acute Distress Head: Normocephalic, Atraumatic Eyes: Perrl, EOMI ENT: Moist mucous membranes, No rhinorrhea Neck: Supple, Nontender Cardiovascular: Regular rate, Regular rhythm, No murmurs Respiratory: No distress, Chest nontender, Rhonchi - very mild, high-pitched bilat bases, - - Mild upper lobe asymmetry, sounds more bronchial on right and comparably diminished on left, but trachea midline. Abdomen: Soft, Nontender, Nondistended, Normal bowel sounds Back: Nontender, Normal Inspection Extremities: Nontender, Edema - 1+ BLE symmetric to ankles. Negative for: Calf Tenderness Skin: Normal color, No rash, No Trauma Neurological: Alert, Oriented x3, Cranial nerves II-XII grossly intact, Normal Strength, Normal Sensation Psychological: Normal affect, Normal Mood Diagnostic/Tx/Re-eval Impressions Chest X-Ray 05/12/19 11:58 IMPRESSION: Early pneumonic infiltrate with apical pleural thickening right upper lobe and right lung apex which has increased. Electronically Signed: Mahesh Bass, at 12:20 EDT Tel , Service support , 05/12/19 11:58 Chest PA and Lateral [RAD] Stat Laboratory Results 05/12/19 05/12/19 05/12/19 11:45 11:45 11:45 WBC 11.0 RBC 4.15 L Hgb 12.8 L Hct 39.9 L MCV 96.1 H MCH 30.8 MCHC 32.1 RDW Std Deviation 46.4 H RDW Coeff of Franco 13.1 Plt Count 138 L MPV 8.6 Immature Gran % (Auto) 0.500 Neut % (Auto) 60.4 Lymph % (Auto) 30.2 [place] % (Auto) 6.0 Eos % (Auto) 2.6 Baso % (Auto) 0.3 Absolute Neuts (auto) 6.6 Absolute Lymphs (auto) 3.31 Nucleated RBC % 0 Sodium 137 Potassium 3.9 Chloride 102 Carbon Dioxide 33.0 H Anion Gap 2 L BUN 15 Creatinine 1.07 Estim Creat Clear Calc 45.34 Est GFR (MDRD) Af Amer 85 Est GFR (MDRD) Non-Af 70 BUN/Creatinine Ratio 14.0 Glucose 101 Calcium 8.9 Troponin I < 0.015 B-Natriuretic Peptide 42.9 - Rhythm Strip Rhythm Strip: Sinus Rhythm Rate: 90 Ectopy: None - EKG Initial EKG Interpretation: Sinus Rhythm, No Acute Injury Pattern, Non-Specific ST Changes Prior: Unchanged - Medical Decision Making Chest x-ray shows right upper lobe early infiltrate. Cardiac work-up is unremarkable, EKG is similar to his prior. He was given a dose of IV Zosyn. We ambulated him, he did very well, required no assistance, and I do not think he is confused at all. He initially was a very poor historian with regards to details of his symptoms, but I suspect that is because his symptoms have been relatively mild. He provides details about his colonoscopy and states I wonder if this could be related. Certainly it is possible that he developed pneumonia or aspirated due to the sedation, but he does not recall any obvious events and I do not have access to these records which were performed at [facility]. I offered admission, if he was feeling bad enough to stay. He refuses and wants to go home. For that reason we will place him on Augmentin and I advised that he follow-up with his PCP Dr. Main closely. He is comfortable with that plan and we discussed reasons to return to the ER. ED Disposition - Plan for ED Patient: Disposition: Home or Assisted Living Diagnosis: Community acquired pneumonia Instructions: PNEUMONIA (Adult) Prescriptions: Amoxicillin/Potassium Clav [Augmentin 875-125 Tablet] 1 ea PO BID #20 tab Transmission Status: Pending to [id number] Albuterol Inhaler [Ventolin Hfa] 1 - 2 puff INHALATION Q4H PRN PRN #1 inhaler PRN Reason: Wheezing Transmission Status: Pending to [id number] Referrals: Vidhi Main MD [Primary Care Provider] - 3-5 Days
[2019-05-12 11:53] LABS: Absolute Lymphocyte Count 3.31 X10^3/uL (0.83-4.51); Absolute Neutrophil Count 6.6 X10^3/uL (2.0-7.7); Basophil# 0.03 X10^3/uL; Basophil% 0.3 % (0-1); Eosinophil# 0.29 X10^3/uL; Eosinophils% 2.6 % (0-5); Hematocrit 39.9 % (40-54); Hemoglobin 12.8 g/dL (13.0-16.5); Lymphocyte # 3.31 X10^3/ul (4.0); Lymphocyte % 30.2 % (19-41); Mean Corp Hgb Conc 32.1 g/dL (32-36); Mean Corpuscular Hgb 30.8 pg (27.0-32.0); Mean Corpuscular Volume 96.1 fL (80-94); Mean Platelet Vol. 8.6 fl (6.2-12.0); Monocyte# 0.66 X10^3/uL; NRBC Flagged by Analyzer 0 % (0-5); Neutrophil # 6.63 X10^3/uL (2.7-7.7); Neutrophil % 60.4 % (47-70); Platelet Count 138 K/mm3 (150-450); RBC Distribution Width CV 13.1 % (11.6-14.6); RBC Distribution Width SD 46.4 fl (35.1-43.9); Red Blood Count 4.15 M/mm3 (4.6-6.2)
--- NOTE | 2019-05-12 11:58 | RAD_ITS ---
EXAM DESCRIPTION: PA and lateral chest CLINICAL HISTORY: 83 years Male, wheezing shortness of breath COMPARISON: Previous chest obtained on 10/28/2018, previous CT scan of the chest obtained on 07/30/2018 FINDINGS: The thorax is intact. The heart and mediastinum appear to be within normal limits. Apical pleural thickening is again identified with some faint alveolar infiltrates in the right upper lobe which have increased when compared with the chest obtained on 10/23/2018. This most likely represents an early pneumonic infiltrate with right apical pleural thickening which is also slightly increased. RAD/Chest PA and Lateral IMPRESSION: Early pneumonic infiltrate with apical pleural thickening right upper lobe and right lung apex which has increased. Electronically Signed: Mahesh Bass, at 12:20 EDT Tel , Service support ,
[2019-05-12 12:09] LABS: Anion Gap 2 (5-15); BUN 15 mg/dL (7-18); Calcium,Total 8.9 mg/dL (8.5-10.1); Chloride 102 mmol/L (98-107); Creatinine, Serum 1.07 mg/dL (0.70-1.30); EST Glomerular Filtration Rate 70 mL/min (>60); Est Glom Filt Rate - Afr Amer 85 mL/min (>60); Estimated Creatinine Clearance 45.34 ml/min; Glucose 101 mg/dL (74-106); Potassium 3.9 mmol/L (3.5-5.1); Sodium Level 137 mmol/L (136-145)
[2019-05-12 12:22] LABS: BNP,B-Type NATRIURETIC PEPTIDE 42.9 pg/mL (0-100)
[2019-05-12 13:04] VITALS: BP 127/61; PULSE 78; RESP 16; O2SAT 97
[2019-05-12 14:23] VITALS: O2SAT 96
== END 2019-05-12 15:11 | disposition home or self-care (01) ==
PROVIDERS: Emergency Provider Emergency Medicine; Family Provider Internal Medicine; PCP Internal Medicine
DX: J18.9 Pneumonia, unspecified organism (principal); R06.00 Dyspnea, unspecified; Z87.891 Personal history of nicotine dependence
CPT/HCPCS: 71046; 80048; 83880; 84484; 85025; 93005; 96365; 96366; 99285; A4216

== ENCOUNTER 2019-05-18 14:29 | Emergency (ER) | payer MEDICARE, SELFPAY ==
[2019-05-18] VITALS (7 sets, daily range): BP systolic 129–138; BP diastolic 61–70; PULSE 85–104; RESP 16–24; TEMP 37.7; O2SAT 92–96; BMI 24.1
--- NOTE | 2019-05-18 15:57 | RAD_ITS ---
STUDY: X-RAY CHEST REASON FOR EXAM: Male, 83 years old. Pain. TECHNIQUE: Frontal view of the chest COMPARISON: 05/12/2019 FINDINGS: There are calcified granulomata noted in the lungs. The lungs are otherwise clear. There are no pleural effusions. There is no pneumothorax. The heart is normal in size. The visualized osseous structures are within normal limits. RAD/Chest 1 View (Portable) IMPRESSION: No acute thoracic pathology. Electronically Signed: Sean Rangel, at 16:21 EDT Tel , Service support ,
--- NOTE | 2019-05-18 15:58 | EKG12_ITS ---
Test Reason : Blood Pressure : / mmHG Vent. Rate : 086 BPM Atrial Rate : 086 BPM P-R Int : 146 ms QRS Dur : 076 ms QT Int : 352 ms P-R-T Axes : 074 060 032 degrees QTc Int : 421 ms Normal sinus rhythm Normal ECG Confirmed by NATALIE QUINN ([id number]), newspaper photo editor DELIA PATTERSON ([id number]) on 05/21/2019 10:13:46 AM Referred By: PHILLIP Confirmed By:NATALIE QUINN
--- NOTE | 2019-05-18 16:04 | ED.VIS.GEN ---
History of Present Illness Chief Complaint: GI Bleed Informant: Patient Onset: Days Context: Gradual Onset Narrative: Patient is an 83-year-old male presenting initially for concern of GI bleed. 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 Patient did bring him in a stool sample which was green in color. He notes that 2 weeks ago he had a colonoscopy and is concerned that this might be related. Of note triage note said that he had an ileostomy but in fact he had a colonoscopy. Patient was also diagnosed with pneumonia 1 week ago (05/12/2019) and started on Augmentin. Patient finished that course of antibiotics and that was prescribed Levaquin and urgent care earlier today. He states he is continued to feel very weak and had decreased appetite. He states he is been laying in bed a lot. He notes that he lives home alone and normally is able to take care of himself well. Patient states he has had 2-3 episodes of diarrhea today. He denies any nausea or vomiting but does state he has some mild periumbilical abdominal pain. He continues to have some cough and shortness of breath. He does not have any chest pain or fevers. Past Medical History - Allergies and Home Meds Allergies/Adverse Reactions: Allergies niacin Allergy (Verified 05/18/19 14:30) Rash Primary Care Physician: Vidhi Main MD [Primary Care Provider] - Past Medical History: - - Hypertension, spinal stenosis, restless leg syndrome, hyperlipidemia, anxiety, DELANEY Surgical History: appendectomy, herniorrhaphy, - - Back surgery 2011, basal cell cancer right eye 2013 Lives: Alone Smoking Status: Former smoker - Family History Maternal Family History: Reports: Heart Disease - age 90 Paternal Family History: Reports: Cancer - lung, age 88 Review of Systems All systems negative except as indicated General: Reports: Malaise Eyes: Reports: - - Legally blind Respiratory: Reports: Dyspnea, Cough Gastrointestinal: Reports: Abdominal pain, Diarrhea, - - Concern for blood in stool Physical Exam Vital Signs/Narrative: Vital Signs Temp Pulse Resp BP Pulse Ox 05/18/19 14:31 100 F H 104 H 16 132/64 H 95 Inital Vital Signs reviewed: Yes General: Well nourished, Well developed, No Acute Distress Head: Normocephalic, Atraumatic Eyes: Perrl, EOMI ENT: Moist mucous membranes, No rhinorrhea Neck: Supple, Nontender Cardiovascular: Regular rate, Regular rhythm, No murmurs Respiratory: No distress, CTA bilaterally, Chest nontender Abdomen: Soft, Nontender, Nondistended, Normal bowel sounds Back: Nontender, Normal Inspection Extremities: Nontender, No edema Skin: Normal color, No rash Neurological: Alert, Oriented x3, Cranial nerves II-XII grossly intact, Normal Strength, Normal Sensation Psychological: Normal affect, Normal Mood Diagnostic/Tx/Re-eval Chest X-Ray - ED: 2 View, Read by Radiologist, No Acute Disease Clinical Impression(s) from Imaging Studies Chest X-Ray 05/18/19 15:57 IMPRESSION: No acute thoracic pathology. Electronically Signed: Sean Juan Carlos, at 16:21 EDT Tel , Service support , Abdomen/Pelvis CT 05/18/19 18:55 IMPRESSION: No acute abdominal or pelvic pathology demonstrated on this noncontrast CT. No acute findings, as above. Electronically Signed: Sean Juan Carlos, at 19:38 EDT Tel , Service support , Laboratory Data 05/18/19 05/18/19 05/18/19 16:15 16:15 16:15 WBC 9.2 RBC 4.22 L Hgb 13.1 Hct 39.1 L MCV 92.7 MCH 31.0 MCHC 33.5 RDW Std Deviation 42.5 RDW Coeff of Franco 12.5 Plt Count 239 MPV 8.4 Immature Gran % (Auto) 0.600 Neut % (Auto) 58.1 Lymph % (Auto) 29.7 [place] % (Auto) 8.1 Eos % (Auto) 3.1 Baso % (Auto) 0.4 Absolute Neuts (auto) 5.4 Absolute Lymphs (auto) 2.74 Nucleated RBC % 0 PT 14.9 INR 1.2 APTT 41.6 H Sodium 134 L Potassium 4.2 Chloride 99 Carbon Dioxide 27.0 Anion Gap 8 BUN 19 H Creatinine 1.09 Estim Creat Clear Calc 41.05 Est GFR (MDRD) Af Amer 83 Est GFR (MDRD) Non-Af 69 BUN/Creatinine Ratio 17.4 Glucose 90 Lactic Acid Calcium 9.1 Total Bilirubin 0.90 AST 27 ALT 32 Alkaline Phosphatase 97 Troponin I < 0.015 Total Protein 7.2 Albumin 2.8 L Globulin 4.4 H Albumin/Globulin Ratio 0.6 L Lipase 92 Urine Color Urine Clarity Urine pH Ur Specific [place] Urine Protein Urine Glucose (UA) Urine Ketones Urine Occult Blood Urine Nitrite Urine Bilirubin Urine Urobilinogen Ur Leukocyte Esterase Urine RBC Urine WBC Ur Squamous Epith Cells Urine Bacteria Urine Mucus 05/18/19 05/18/19 16:15 18:23 WBC RBC Hgb Hct MCV MCH MCHC RDW Std Deviation RDW Coeff of Franco Plt Count MPV Immature Gran % (Auto) Neut % (Auto) Lymph % (Auto) [place] % (Auto) Eos % (Auto) Baso % (Auto) Absolute Neuts (auto) Absolute Lymphs (auto) Nucleated RBC % PT INR APTT Sodium Potassium Chloride Carbon Dioxide Anion Gap BUN Creatinine Estim Creat Clear Calc Est GFR (MDRD) Af Amer Est GFR (MDRD) Non-Af BUN/Creatinine Ratio Glucose Lactic Acid 1.2 Calcium Total Bilirubin AST ALT Alkaline Phosphatase Troponin I Total Protein Albumin Globulin Albumin/Globulin Ratio Lipase Urine Color Yellow Urine Clarity Clear Urine pH 6.0 Ur Specific [place] 1.015 Urine Protein Negative Urine Glucose (UA) Normal Urine Ketones 5 H Urine Occult Blood 25 H Urine Nitrite Negative Urine Bilirubin Negative Urine Urobilinogen Normal Ur Leukocyte Esterase Negative Urine RBC 0 SEEN Urine WBC 0 SEEN Ur Squamous Epith Cells 0 SEEN Urine Bacteria 0 SEEN Urine Mucus 0 SEEN - Rhythm Strip Rhythm Strip: Sinus Rhythm Rate: 86 Ectopy: None - EKG Initial EKG Interpretation: Sinus Rhythm, - - Sinus rhythm at a rate of 86 [place] interval 146 QRS 76 QT/QTc 352/[address] segments No acute change compared to prior EKG on 10/23/2018 - Medical Decision Making Patient is evaluated for shortness of breath and weakness is been occurring over the past 1 to 2 weeks. Patient attributes this to his recent colonoscopy. He was recently treated for pneumonia. Patient completed a course of Augmentin. Chest x-ray shows no infiltrate. Patient has mild tachypnea but otherwise has normal vital signs. He is afebrile. His normal white blood cell count. CBC and BMP are largely unremarkable. He does have trace blood in his urine but no red blood cells and a CT abdomen and pelvis is obtained. This is negative for any acute process. Patient does not have any blood in his stool and I do not suspect GI bleed at this time. His hemoglobin is normal. Patient is given IV fluids in the ER. He is ambulated and his O2 saturation does not go below 92%. He states he feels great. I suspect patient has viral syndrome or is still healing from his prior pneumonia which is why he is feeling weak. He does not have signs of colitis or GI bleed. He does not have gross diarrhea in the ER and I do not suspect C. difficile. Patient had been prescribed a course of Levaquin today but in light of a resolved chest x-ray, normal white blood cell count and normal O2 saturation I do not think he should take it. I suspect that antibiotics are contributing to his diarrhea. Patient is informed of this. Patient is counseled on signs and symptoms requiring return to the emergency room. Patient verbalizes agreement and understand this plan. Patient discharged home in stable and improved condition. ED Disposition - Plan for ED Patient: Disposition: Home or Assisted Living Diagnosis: Weakness, Diarrhea Instructions: Self-Care for Vomiting and Diarrhea, WEAKNESS, Unk Cause Referrals: Vidhi Main MD [Primary Care Provider] - Additional Instructions: Do not start new antibiotics. Follow-up with your primary care doctor in 1 to 2 days for reevaluation. You do not have any signs of blood in your stool today. Return to the emergency room if you have any worsening symptoms.
[2019-05-18 16:31] LABS: Absolute Lymphocyte Count 2.74 X10^3/uL (0.83-4.51); Absolute Neutrophil Count 5.4 X10^3/uL (2.0-7.7); Basophil# 0.04 X10^3/uL; Basophil% 0.4 % (0-1); Eosinophil# 0.29 X10^3/uL; Eosinophils% 3.1 % (0-5); Hematocrit 39.1 % (40-54); Hemoglobin 13.1 g/dL (13.0-16.5); Lymphocyte # 2.74 X10^3/ul (4.0); Lymphocyte % 29.7 % (19-41); Mean Corp Hgb Conc 33.5 g/dL (32-36); Mean Corpuscular Volume 92.7 fL (80-94); Mean Platelet Vol. 8.4 fl (6.2-12.0); Monocyte# 0.75 X10^3/uL; Monocyte% 8.1 % (0-10); NRBC Flagged by Analyzer 0 % (0-5); Neutrophil # 5.36 X10^3/uL (2.7-7.7); Neutrophil % 58.1 % (47-70); Platelet Count 239 K/mm3 (150-450); RBC Distribution Width CV 12.5 % (11.6-14.6); RBC Distribution Width SD 42.5 fl (35.1-43.9); Red Blood Count 4.22 M/mm3 (4.6-6.2); White Blood Count 9.2 K/mm3 (4.4-11.0)
[2019-05-18 16:38] LABS: International Normalized Ratio 1.2; Prothrombin Time (Protime)PT. 14.9 SECONDS (11.7-14.9)
[2019-05-18 16:39] LABS: Partial Thromboplast Time 41.6 Seconds (24.1-36.2)
[2019-05-18] MEDS: 0.9% Normal Saline 1,000 ML 1000 ML IV (16:40)
[2019-05-18 16:49] LABS: ALB/GLOB Ratio 0.6 RATIO (0.9-2.4); AST(SGOT) 27 U/L (15-37); Alanine Aminotransfer ALT/SGPT 32 U/L (16-61); Albumin, Serum 2.8 g/dL (3.2-5.0); Alkaline Phosphatase 97 U/L (45-117); Anion Gap 8 (5-15); BUN 19 mg/dL (7-18); BUN/Creat Ratio 17.4 RATIO (10-20); Calcium,Total 9.1 mg/dL (8.5-10.1); Chloride 99 mmol/L (98-107); Creatinine, Serum 1.09 mg/dL (0.70-1.30); EST Glomerular Filtration Rate 69 mL/min (>60); Est Glom Filt Rate - Afr Amer 83 mL/min (>60); Estimated Creatinine Clearance 41.05 ml/min; Globulin 4.4 g/dL (2.2-4.2); Glucose 90 mg/dL (74-106); Lipase 92 U/L (73-393); Potassium 4.2 mmol/L (3.5-5.1); Protein, Total 7.2 g/dL (6.4-8.2); Sodium Level 134 mmol/L (136-145)
[2019-05-18 17:02] LABS: Lactic Acid 1.2 mmol/L (0.4-2.0)
[2019-05-18 18:30] LABS: Bacteria 0 SEEN /hpf (None Seen); Mucous, Urine 0 SEEN /hpf (<or=2+); Red Blood Cells-Urine 0 SEEN /hpf (0-5); Squamous Epithelial Cells - UA 0 SEEN /hpf (0-5); White Blood Cells 0 SEEN /hpf (0-5)
[2019-05-18 18:34] LABS: Color, Urine Yellow (Yellow); Glucose, Dipstick Normal (Normal); Ketone-Dipstick 5 mg/dl (Negative); Leukocyte Esterase-Dipstick Negative /ul (Negative); Nitrite-Dipstick Negative (Negative); Occult Blood-Urine 25 /ul (Negative); Protein-Dipstick Negative (Negative); Specific Gravity, Urine 1.015 (1.002-1.030); Urine Bilirubin Dipstick Negative (Negative); Urine Clarity Clear (Clear); Urine Urobilinogen Normal (Normal)
--- NOTE | 2019-05-18 18:55 | CT_ITS ---
STUDY: CT ABDOMEN AND PELVIS WITHOUT CONTRAST REASON FOR EXAM: Male, 83 years old. Diarrhea. History of ileostomy and appendectomy. RADIATION DOSAGE (If Supplied By Facility): CTDIvol = ( 10.96 ) mGy, DLP = ( 399.80 ) mGycm TECHNIQUE: Transaxial images were obtained from the dome of the diaphragm to the symphysis pubis without oral contrast, and without intravenous contrast. Sagittal and coronal images were reconstructed. Individualized dose optimization techniques were used for this CT. COMPARISON: None. FINDINGS: Evaluation of the abdominal viscera is limited in the absence of intravenous contrast. There is a calcified granuloma in the left lower lobe. The visualized portions of the heart and pericardium are within normal limits. There are no calcified gallstones present. The liver demonstrates an unremarkable unenhanced appearance. The spleen is normal in size. There are calcified granulomata noted in the spleen. The pancreas demonstrates an unremarkable unenhanced appearance. The adrenal glands are within normal limits. There are no renal or ureteral stones. There is no hydronephrosis. Normal visualized stomach. There is no bowel obstruction or inflammation. The patient is status post appendectomy. The patient is status post prior hernia repair. There is no evidence of a recurrent hernia. The aorta is normal in caliber. There are atherosclerotic calcifications noted in the aorta and its branches. There is no abdominal or pelvic free air, free fluid, fluid collection or lymphadenopathy. The prostate is enlarged. There are no destructive osseous lesions. There is posterior fusion hardware spanning L3-L5. There is grade 1 anterolisthesis of L4 with respect to L5. CT/Abdomen/Pelvis W IV Cont ONLY IMPRESSION: No acute abdominal or pelvic pathology demonstrated on this noncontrast CT. No acute findings, as above. Electronically Signed: Sean Rangel, at 19:38 EDT Tel , Service support ,
== END 2019-05-18 21:33 | disposition home or self-care (01) ==
PROVIDERS: Emergency Provider Emergency Medicine; Family Provider Internal Medicine; PCP Internal Medicine
DX: R53.1 Weakness (principal); R19.7 Diarrhea, unspecified; R10.33 Periumbilical pain; R05 Cough; R06.00 Dyspnea, unspecified; I10 Essential (primary) hypertension; M48.00 Spinal stenosis, site unspecified; G25.81 Restless legs syndrome; E78.5 Hyperlipidemia, unspecified; F41.9 Anxiety disorder, unspecified; G47.33 Obstructive sleep apnea (adult) (pediatric); H54.8 Legal blindness, as defined in USA; Z87.01 Personal history of pneumonia (recurrent); Z85.828 Personal history of other malignant neoplasm of skin; Z79.899 Other long term (current) drug therapy; Z87.891 Personal history of nicotine dependence
CPT/HCPCS: 71045; 74177; 80053; 81001; 82274; 83605; 83690; 84484; 85025; 85610; 85730; 87040; 93005; 96360; 96361; 99285; J7030; Q9967; A4216

== ENCOUNTER → 2019-05-21 15:59 | Outpatient (CLI) | payer MEDICARE, SELFPAY ==
[2019-05-18 14:31] VITALS: BMI 24.1
== END ==
PROVIDERS: Family Provider Internal Medicine; PCP Internal Medicine; Referring Provider Nurse Practitioner Primary Care; Visit Provider Nurse Practitioner Primary Care
DX: R19.7 Diarrhea, unspecified (principal)
CPT/HCPCS: 87493; 87506

== ENCOUNTER 2019-05-24 10:21 | Emergency (ER) | payer MEDICARE, SELFPAY ==
[2019-05-18 14:31] VITALS: BMI 24.1
[2019-05-24 10:26] VITALS: BP 116/68; PULSE 115; RESP 20; TEMP 37.6; O2SAT 95; BMI 24.1
--- NOTE | 2019-05-24 11:01 | EKG12_ITS ---
Test Reason : SOB Blood Pressure : / mmHG Vent. Rate : 093 BPM Atrial Rate : 093 BPM P-R Int : 140 ms QRS Dur : 082 ms QT Int : 334 ms P-R-T Axes : 069 050 037 degrees QTc Int : 415 ms Normal sinus rhythm Normal ECG Confirmed by RESHMA CALLEJAS, CEDRICK ([id number]), restaurant expeditor BEBO CHANG ([id number]) on 05/28/2019 10:34:00 AM Referred By: Jm Templeton Confirmed By:CEDRICK JUSTICE MD
--- NOTE | 2019-05-24 11:02 | ED.DCSUM_ITS ---
- ER Visit Summary Date of Service: 05/24/19 Chief Complaint: Generalized weakness History of Present Illness: The patient is a 83 M 3 of prior TIAs, hypertension and status post pneumonia about 2 weeks ago which was treated with Augmentin. Patient states that a colonoscopy 3 weeks ago done at the [facility] here in town and just has not felt well. Generally weak. Denies nausea, vomiting or diarrhea. No melena. No fever. No chest pain. No dysuria. No hematuria. Physical Examination: Elderly male no acute distress. Vital signs are stable. Temperature 99.2 orally. Pulse ox 95% on room air no signs of hypoxia. HEENT exam dry mixed memories. Otherwise unremarkable. No signs of trauma. Pupils round react to light. Neck nontender no lymphadenopathy. Lungs clear to auscultation bilaterally. Heart regular rate and rhythm no murmur. Rate about 100. Abdomen is soft and nontender normal bowel sounds no peritoneal signs. No signs of obstruction. Soft. Patient moving all 4 extremities. Neurovascular intact. Calves are nontender without edema. No cords. Neurologically is awake alert with no focal motor deficits. He is legally blind. Test Results: See white count 8. Hemoglobin 12.1. Letter lites unremarkable sodium less than 3. Normal gap is 6. Creatinine 18 1. UA normal. Troponin less than 0.015. Patient EKG sinus rhythm rate 93 with no signs of TN or ischemia. Chest x-ray shows chronic changes and streaking in the right upper lobe that may be a pneumonia or could also be chronic scarring and chronic lung changes. Radiologist is reading out as a acute infiltrate. I discussed all test results with patient and family. Emergency Department Course and Treatment: Dehydrated. We will do screening labs along with an x-ray and urinalysis. He will be treated with IV fluids x1 L. Treatment Plan: Patient and daughter and I will discuss his care. Recently been written for antibiotics and codeine cough syrup. She was concerned with antibiotic they chose which was Levaquin. Reportedly he is done well with Zithromax in the past and she preferred that. Will be given a dose of Zithromax here and placed on for 4 more days. He needs to follow-up with his primary care physician this week. Return if he is feeling worse. He really does not want to be admitted and clinically his vital signs are stable and he wants to be discharged home. I will add blood cultures. Disposition: Discharge Impression: Acute generalized weakness Recurrent or non-resolved right upper lobe infiltrate treated as pneumonia This note was generated with [employer] dictation software. It may contain incorrect words, spelling, and punctuation that were not noted in review of the chart prior to signing ED Disposition - Plan for ED Patient: Referrals: Vidhi Main MD [Primary Care Provider] -
[2019-05-24 11:16] LABS: Absolute Lymphocyte Count 2.08 X10^3/uL (0.83-4.51); Absolute Neutrophil Count 5.2 X10^3/uL (2.0-7.7); Basophil# 0.06 X10^3/uL; Basophil% 0.7 % (0-1); Eosinophil# 0.26 X10^3/uL; Eosinophils% 3.1 % (0-5); Hematocrit 35.7 % (40-54); Hemoglobin 12.1 g/dL (13.0-16.5); Lymphocyte # 2.08 X10^3/ul (4.0); Lymphocyte % 24.5 % (19-41); Mean Corp Hgb Conc 33.9 g/dL (32-36); Mean Corpuscular Hgb 31.1 pg (27.0-32.0); Mean Corpuscular Volume 91.8 fL (80-94); Mean Platelet Vol. 8.5 fl (6.2-12.0); Monocyte# 0.73 X10^3/uL; Monocyte% 8.6 % (0-10); NRBC Flagged by Analyzer 0 % (0-5); Neutrophil # 5.24 X10^3/uL (2.7-7.7); Neutrophil % 61.7 % (47-70); Platelet Count 267 K/mm3 (150-450); RBC Distribution Width CV 12.4 % (11.6-14.6); RBC Distribution Width SD 41.5 fl (35.1-43.9); Red Blood Count 3.89 M/mm3 (4.6-6.2); White Blood Count 8.5 K/mm3 (4.4-11.0)
[2019-05-24 11:33] LABS: Anion Gap 6 (5-15); BUN 18 mg/dL (7-18); BUN/Creat Ratio 17.3 RATIO (10-20); Calcium,Total 9.2 mg/dL (8.5-10.1); Chloride 99 mmol/L (98-107); Creatinine, Serum 1.04 mg/dL (0.70-1.30); EST Glomerular Filtration Rate 73 mL/min (>60); Est Glom Filt Rate - Afr Amer 88 mL/min (>60); Estimated Creatinine Clearance 43.02 ml/min; Glucose 107 mg/dL (74-106); Potassium 4.3 mmol/L (3.5-5.1); Sodium Level 133 mmol/L (136-145)
[2019-05-24] MEDS: 0.9% Normal Saline 1,000 ML 999 ML IV (11:40)
[2019-05-24 11:43] VITALS: BP 138/60; PULSE 100; RESP 27; O2SAT 95
[2019-05-24 11:47] LABS: Bacteria 0 SEEN /hpf (None Seen)
[2019-05-24 11:48] LABS: Color, Urine Yellow (Yellow); Glucose, Dipstick Normal (Normal); Ketone-Dipstick 5 mg/dl (Negative); Leukocyte Esterase-Dipstick 25 /ul (Negative); Nitrite-Dipstick Negative (Negative); Occult Blood-Urine 50 /ul (Negative); Protein-Dipstick 30 mg/dl (Negative); Specific Gravity, Urine 1.025 (1.002-1.030); Urine Bilirubin Dipstick Negative (Negative); Urine Clarity Sl. Cloudy (Clear); Urine Urobilinogen 1 mg/dl (Normal)
[2019-05-24 11:54] LABS: Mucous, Urine 1+ /hpf (<or=2+); Red Blood Cells-Urine 0-5 SEEN /hpf (0-5); Squamous Epithelial Cells - UA 0-5 SEEN /hpf (0-5); White Blood Cells 0-5 SEEN /hpf (0-5)
--- NOTE | 2019-05-24 12:26 | RAD_ITS ---
STUDY: X-RAY CHEST REASON FOR EXAM: Male, 83 years old. Dyspnea. Recent diagnosis of pneumonia. TECHNIQUE: PA and lateral views of the chest. COMPARISON: Comparison is made with prior study dated May 18, 2019. FINDINGS: EKG electrodes are seen. Focal infiltrate in the right upper lobe. Follow-up is recommended. There is no demonstrated pleural abnormality. Normal size heart. Normal mediastinum and chuck. Normal visualized pulmonary arteries. There is atherosclerotic calcification of the aortic arch with tortuosity. There are diffuse degenerative changes of the visualized thoracic spine. Normal visualized ribs, clavicles, and shoulders. There is no demonstrated abnormality of the visualized soft tissue structures of the upper abdomen. RAD/Chest PA and Lateral IMPRESSION: Focal right upper lobe infiltrate. Follow-up is recommended. Electronically Signed: Rosendo Diaz, at 13:00 EDT , Service support ,
[2019-05-24 13:04] VITALS: BP 128/57; PULSE 88; RESP 30; O2SAT 93
[2019-05-24 15:13] VITALS: BP 112/48; PULSE 87; RESP 16; O2SAT 99
--- NOTE | 2019-05-24 15:14 | ED.DEP ---
ED Disposition - Plan for ED Patient: Disposition: Home or Assisted Living Instructions: PNEUMONIA (Adult) Prescriptions: Azithromycin [Zithromax] 250 mg PO DAILY #4 tab Prescription Printed Referrals: Vidhi Main MD [Primary Care Provider] - 3-5 Days Additional Instructions: Follow-up with Dr. Main later this week. Plenty of fluids and rest. Zithromax 1 pill a day starting tomorrow for 4 more days.
[2019-05-24] MEDS: Azithromycin 250 MG Tablet 500 MG PO (15:29)
== END 2019-05-24 15:47 | disposition home or self-care (01) ==
PROVIDERS: Emergency Provider Emergency Medicine; Family Provider Internal Medicine; PCP Internal Medicine
DX: R53.1 Weakness (principal); J18.9 Pneumonia, unspecified organism; I10 Essential (primary) hypertension; Z86.73 Personal history of transient ischemic attack (TIA), and cerebral infarction without residual deficits; Z85.828 Personal history of other malignant neoplasm of skin; Z79.82 Long term (current) use of aspirin; Z79.899 Other long term (current) drug therapy
CPT/HCPCS: 71046; 80048; 81001; 84484; 85025; 87040; 93005; 96360; 96361; 99285; J7030; A4216

== ENCOUNTER 2019-08-29 01:43 | Emergency (ER) | payer MEDICARE, SELFPAY ==
[2019-08-29 01:44] VITALS: BP 204/85; PULSE 86; RESP 22; TEMP 36.3; BMI 26.5
--- NOTE | 2019-08-29 01:50 | CT_ITS ---
HISTORY: DICKSON, RIGHT SIDED FACIAL NUMBNESS X 1 HOUR Technique:CT Head or Brain W/O Contrast Injection Number of Images including paperwork:247 Comparison: Comparison study is a CT scan of the brain from May 24, 2012 Findings: CT images of the head were obtained without contrast. Periventricular deep and subcortical white matter disease is present. 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 This was present previously. Paranasal sinuses are clear. The brain is atrophic. Calcific ASCVD involves intracranial arteries. No acute intracranial edema or hemorrhage. No acute abnormality of orbits. Middle ear cavities and mastoid air cells are well aerated. Skull is normal. CT/Brain/Head without Contrast IMPRESSION: No acute intracranial abnormality. Chronic changes as above. ASPECT 10. Individualized dose optimization techniques were used for this CT. at 0255 Reported and signed by: Tutu Dean MD Electronically Signed: Tutu Dean MD at 2:54 EST Tel , Service support ,
--- NOTE | 2019-08-29 01:51 | EKG12_ITS ---
Test Reason : NUMB TINGLING Blood Pressure : / mmHG Vent. Rate : 080 BPM Atrial Rate : 080 BPM P-R Int : 158 ms QRS Dur : 076 ms QT Int : 376 ms P-R-T Axes : 058 055 003 degrees QTc Int : 433 ms Normal sinus rhythm Normal ECG Confirmed by RESHMA CALLEJAS, CEDRICK ([id number]), photography editor DARYL DIAZ ([id number]) on 08/30/2019 12:30:38 PM Referred By: Vidhi Main Confirmed By:CEDRICK JUSTICE MD
--- NOTE | 2019-08-29 01:59 | ED.DCSUM_ITS ---
- ER Visit Summary Date of Service: 08/29/19 Chief Complaint: Facial weakness and headache History of Present Illness: The patient is a 83 M who presents with left facial weakness and headache that began approximately 1 hour prior to arrival. Patient states this began rather suddenly. Patient states he has almost no vision but this is chronic. There are no visual changes. Patient denies any extremity paresthesias or weakness. Patient states the paresthesias are localized to the left side of his face. Patient denies any difficulty swallowing or difficulty breathing. Patient denies any changes in his speech. Physical Examination: Vital signs are stable except for an elevated blood pressure 204/85. Patient is afebrile. Patient is in no acute distress. Cranial nerves II through XII are intact except for left facial droop including some weakness of his left forehead. Strength is 5/5 bilaterally upper and lower extremities. There are no sensory deficits in the upper and lower extremities. Sensation was diminished to light touch in the face on the left. [id number] was intact. Heart was regular rate and rhythm. Lungs are clear and equal bilaterally. Abdomen is soft. Bowel sounds are normal. There is no tenderness. Test Results: EKG showed normal sinus rhythm with a rate of 80. There are no acute ST or T wave changes. CBC, comprehensive metabolic profile, and troponin were obtained were within normal limits. CT scan of the brain was obtained. There is no acute intracranial process. This was interpreted by the radiologist and reviewed by myself. Emergency Department Course and Treatment: Patient was ordered a dose of labetalol here however his blood pressure improved without this. Patient states his numbness has resolved. Patient still has some left facial weakness includi ng his forehead. Patient was given a prescription for prednisone. Patient states he also needs a refill of his albuterol inhaler. Patient was given a prescription for this. Patient was instructed to follow-up with his primary care physician in 3 to 5 days. Patient understood and was agreeable with the plan. All questions were answered. Disposition: Discharge home Impression: Tracey's palsy This note was generated with [employer] software. It may contain incorrect words, spelling, and punctuation that were not noted in review of the chart prior to signing ED Disposition - Plan for ED Patient: Disposition: Home or Assisted Living Diagnosis: Tracey's palsy Instructions: Tracey's Palsy Prescriptions: Prednisone 10 mg PO DAILY #63 tab Prescription Printed Albuterol Inhaler [Ventolin Hfa] 1 - 2 puff INHALATION Q4H PRN PRN #1 inhaler PRN Reason: Wheezing Prescription Printed Referrals: Vidhi Main MD [Primary Care Provider] - 3-5 Days
[2019-08-29 02:02] VITALS: BP 164/71; PULSE 75; RESP 26; O2SAT 97
[2019-08-29 02:26] VITALS: BP 131/64
--- NOTE | 2019-08-29 02:26 | ED.RN ---
DR BOYCE SAID TO HOLD THE TRANDATE BECAUSE HIS BP IS COMING DOWN.
[2019-08-29 02:53] LABS: Absolute Lymphocyte Count 5.19 X10^3/uL (0.83-4.51); Absolute Neutrophil Count 3.9 X10^3/uL (2.0-7.7); Basophil# 0.04 X10^3/uL; Basophil% 0.4 % (0-1); Eosinophil# 0.15 X10^3/uL; Eosinophils% 1.5 % (0-5); Hematocrit 42.7 % (40-54); Hemoglobin 13.8 g/dL (13.0-16.5); Lymphocyte # 5.19 X10^3/ul (4.0); Lymphocyte % 50.9 % (19-41); Mean Corp Hgb Conc 32.3 g/dL (32-36); Mean Corpuscular Volume 92.8 fL (80-94); Mean Platelet Vol. 9.3 fl (6.2-12.0); Monocyte# 0.85 X10^3/uL; Monocyte% 8.3 % (0-10); NRBC Flagged by Analyzer 0 % (0-5); Neutrophil # 3.94 X10^3/uL (2.7-7.7); Neutrophil % 38.6 % (47-70); POSITIVE DIFFERENTIAL YES; Platelet Count 180 K/mm3 (150-450); RBC Distribution Width CV 12.8 % (11.6-14.6); RBC Distribution Width SD 43.7 fl (35.1-43.9); White Blood Count 10.2 K/mm3 (4.4-11.0)
[2019-08-29 02:55] LABS: AST(SGOT) 18 U/L (15-37); Alanine Aminotransfer ALT/SGPT 20 U/L (16-61); Albumin, Serum 3.7 g/dL (3.2-5.0); Alkaline Phosphatase 83 U/L (45-117); Anion Gap 4 (5-15); BUN 21 mg/dL (7-18); BUN/Creat Ratio 18.9 RATIO (10-20); Calcium,Total 9.3 mg/dL (8.5-10.1); Chloride 108 mmol/L (98-107); Creatinine, Serum 1.11 mg/dL (0.70-1.30); Differential Indicated SCAN CRITERIA MET; EST Glomerular Filtration Rate 68 mL/min (>60); Est Glom Filt Rate - Afr Amer 82 mL/min (>60); Estimated Creatinine Clearance 40.31 ml/min; Globulin 3.7 g/dL (2.2-4.2); Glucose 91 mg/dL (74-106); Potassium 4.3 mmol/L (3.5-5.1); Protein, Total 7.4 g/dL (6.4-8.2); Sodium Level 140 mmol/L (136-145)
[2019-08-29 03:03] VITALS: BP 139/81; PULSE 75; RESP 24; O2SAT 97
[2019-08-29 03:34] LABS: Reactive Lymphocyte 2+
[2019-08-29 03:42] VITALS: BP 163/81; PULSE 78; RESP 24; O2SAT 96
[2019-08-29 03:51] LABS: Bedside Glucose 87 mg/dL (70-110)
== END 2019-08-29 03:49 | disposition home or self-care (01) ==
PROVIDERS: Emergency Provider Emergency Medicine; PCP Internal Medicine; Referring Provider Internal Medicine
DX: G51.0 Bell's palsy (principal); R51 Headache; R03.0 Elevated blood-pressure reading, without diagnosis of hypertension; Z79.899 Other long term (current) drug therapy; Z79.82 Long term (current) use of aspirin
CPT/HCPCS: 70450; 80053; 82962; 84484; 85025; 93005; 99283; A4216

== ENCOUNTER → 2019-12-22 14:18 | Outpatient (CLI) | payer MEDICARE, SELFPAY ==
--- NOTE | 2019-12-22 15:29 | NEURO ---
NCS and/or EMG Patient Report Ordering Doctor: Claus Fernandez DATE OF SERVICE: 12/22/19 Per Kwan is an 84-year-old male presents for electrodiagnostic testing of the right upper limb. He reports numbness and tingling in the right hand. Electrodiagnostic findings: The right median motor nerve demonstrates prolonged distal latency with normal amplitude and reduced conduction velocity. Normal right ulnar motor response, including conduction across the elbow. Prolonged right median F wave. Absent right median sensory responses at the wrist and palm. Normal ulnar and radial sensory responses. On needle EMG, all muscles tested in the right upper limb showed no evidence of denervation with normal motor unit action potentials. Electrodiagnostic assessment: This is an abnormal study in the right upper limb. 1. Electrodiagnostic findings demonstrate right-sided median mononeuropathy. This is consistent with advanced right carpal tunnel syndrome.
== END ==
LOC: PSN 14:19
PROVIDERS: PCP Internal Medicine; Referring Provider Orthopaedic Surgery; Visit Provider Orthopaedic Surgery
DX: G56.03 Carpal tunnel syndrome, bilateral upper limbs (principal)
CPT/HCPCS: 95886; 95910

== ENCOUNTER → 2020-01-03 16:53 | Outpatient (CLI) | payer MEDICARE, SELFPAY ==
--- NOTE | 2020-01-03 17:00 | RAD_ITS ---
STUDY: X-RAY - LUMBAR SPINE REASON FOR EXAM: Male, 84 years old. BACK PAIN TECHNIQUE: 2 view(s) of the lumbar spine were obtained. COMPARISON: None FINDINGS: Again seen are changes of prior L3-L5 laminectomies and posterior L3-L5 fusion with metal hardware. Bilateral transpedicular screws L3-L5 are connected on either side the longitudinal metal rods. Normal lumbar lordosis. There is no substantial scoliosis. There is stable grade 1 spondylolisthesis of L4 on L5. There is stable mild multilevel endplate spondylosis of the thoracolumbar vertebrae compress most prominent at L2-3. There is multi-level degenerative disc disease with multi-level disc space narrowing. There is no demonstrated osseous destructive lesion or acute fracture. There is stable degenerative arthroses of the lumbar facet joints. There is atherosclerotic calcification of the abdominal aorta without a demonstrated aneurysm. The numerous to count metal fixation coils consistent with prior herniorrhaphies again project in the anterior low abdomen. RAD/Lumbar Spine 2 or 3 Views IMPRESSION: 1. Stable post surgical and degenerative changes of the lumbar spine, as described. 2. Stable aortoiliac T calcific plaquing. No demonstrated aneurysm. 3. Stable changes of probable bilateral herniorrhaphies at the low anterior abdominal wall. Electronically Signed: Jim Singh MD at 20:03 EDT , Service support ,
== END ==
LOC: RAD 16:54
PROVIDERS: PCP Internal Medicine; Visit Provider Anesthesiology Pain Medicine
DX: M54.9 Dorsalgia, unspecified (principal)
CPT/HCPCS: 72100

== ENCOUNTER 2020-04-09 17:29 | Inpatient (IN) | payer MEDICARE, SELFPAY ==
[2020-04-09] VITALS (7 sets, daily range): BP systolic 164–200; BP diastolic 58–78; PULSE 94–109; RESP 16–20; TEMP 36.6–37; O2SAT 96–98; BMI 25.7; BMI 24.0
--- NOTE | 2020-04-09 17:44 | CT_ITS ---
STUDY: CT ABDOMEN AND PELVIS WITHOUT CONTRAST REASON FOR EXAM: Male, 84 years old. DIFFUSE ABD PAIN/NAUSEA X 3-4 HOURS. Prior appendectomy, ileostomy and back surgery. Hx of TIA, HTN RADIATION DOSAGE (If Supplied By Facility): CTDIvol = ( 8.03 ) mGy, DLP = ( 568.31 ) mGycm TECHNIQUE: Transaxial images were obtained from the dome of the diaphragm to the symphysis pubis without oral contrast, and without intravenous contrast. Sagittal and coronal images were reconstructed. Individualized dose optimization techniques were used for this CT. COMPARISON: 05/18/2019 FINDINGS: Mild chronic interstitial and emphysematous changes at the lung bases.. The visualized portions of the heart are within normal limits. Normal liver. Normal gallbladder and extrahepatic biliary system. Tiny granulomatous calcifications within normal size spleen.. Normal pancreas. Normal bilateral adrenal glands. Normal right kidney. Normal left kidney. Diffuse gastric distention with air-fluid level. Multiple distended loops of large and small bowel consistent with ileus. No definitive evidence for small bowel obstruction.. Diverticular disease of the colon most pronounced in the descending and sigmoid segments without evidence for acute diverticulitis. Appendix not visualized consistent with appendectomy Atherosclerotic changes of the aorta without evidence for aneurysm.. Normal inferior vena cava. Normal retroperitoneum. Incompletely distended thick-walled bladder likely of no significance Postsurgical changes status post herniorrhaphy. Lumbar spine demonstrates degenerative changes. Grade 1 spondylolisthesis at L4-5. Status post bilateral laminectomy and posterior fusion at L4-5 and L3-4 CT/Abdomen/Pelvis W IV Cont ONLY IMPRESSION: Distended stomach and diffuse ileus possibly on the basis of gastroenteritis. No definitive evidence for small bowel obstruction. Diverticular disease of the descending and sigmoid colon without evidence for acute diverticulitis Electronically Signed: Blu Ozuna MD at 19:26 EDT , Service support ,
--- NOTE | 2020-04-09 17:47 | ED.DCSUM_ITS ---
History of Present Illness Chief Complaint: Abd Pain Informant: Patient - Abdominal Pain/Flank Pain Onset: Hours - several Context: Gradual Onset - worsened Timing: Continuous Quality: Aching Location: Diffuse Current Severity: Moderate Maximum Severity: Moderate Worsened by: Nothing Relieved by: Nothing - Nausea/Vomiting/Emesis GI Symptom: Nausea. Negative for: Vomiting - Diarrhea/Melena/Hematochezia GI Symptom: - - last BM yesterday. unk appearance, pt is blind.. Negative for: Diarrhea Associated Symptoms: Negative for: Dysuria, Frequency Narrative: Patient had diffuse abdominal pain that started couple hours prior to arrival. He is nauseated but has not vomited. He feels bloated. States he has never had this before. Had remote herniorrhaphy and appendectomy. No issues urinating or having bowel movements, his last one was yesterday. No other recent illnesses or injuries. Patient states he is legally blind and does not know what his last bowel movement look like. - Past Medical History (1) Spinal stenosis Status: Chronic (2) Cervical spondylosis Status: Chronic (3) Generalized anxiety disorder Status: Chronic (4) HTN (hypertension) Status: Chronic (5) Hyperlipidemia Status: Chronic (6) DELANEY (obstructive sleep apnea) Status: Chronic (7) Restless leg syndrome Status: Chronic Past Medical History - Allergies and Home Meds Allergies/Adverse Reactions: Allergies niacin Allergy (Verified 04/09/20 17:31) Rash Primary Care Physician: Vidhi Main MD [Primary Care Provider] - Surgical History: appendectomy, herniorrhaphy, - - Back surgery 2011, basal cell cancer right eye 2013 Smoking Status: Former smoker Alcohol: None - Family History Maternal Family History: Reports: Heart Disease - age 90 Paternal Family History: Reports: Cancer - lung, age 88 Review of Systems General: Denies: Chills, Fever, Sweats Eyes: Denies: Visual changes - bilaterally, Diplopia ENT: Denies: Rhinorrhea, Sore throat Cardiovascular: Denies: Chest pain, Palpitations Respiratory: Denies: Dyspnea, Cough, Dyspnea on exertion Gastrointestinal: Reports: Abdominal pain, Nausea. Denies: Vomiting, Diarrhea Genitourinary: Denies: Dysuria, Frequency Musculoskeletal: Denies: Myalgias, Swelling, Extremity Pain Skin: Denies: Rash, Wounds Neurological: Denies: Headache, Weakness, Numbness Physical Exam Vital Signs/Narrative: Vital Signs Temp Pulse Resp BP Pulse Ox 04/09/20 17:30 97.9 F 94 16 176/78 H 98 Inital Vital Signs reviewed: Yes General: Well nourished, Well developed, No Acute Distress Head: Normocephalic, Atraumatic Eyes: Perrl, EOMI ENT: Moist mucous membranes, No rhinorrhea Neck: Supple, Nontender Cardiovascular: Regular rate, Regular rhythm, No murmurs Respiratory: No distress, CTA bilaterally, Chest nontender Abdomen: Soft, Tender - Diffusely, Hypoactive bowel sounds, - - Mildly distended, very soft. Negative for: Guarding, Rebound tenderness, Pulsatile mass Back: Nontender, Normal Inspection. Negative for: CVA tenderness Extremities: Nontender, No edema. Negative for: Calf Tenderness Skin: Normal color, No rash, No Trauma Neurological: Alert, Oriented x3, Cranial nerves II-XII grossly intact, Normal Strength, Normal Sensation Psychological: Normal affect, Normal Mood Diagnostic/Tx/Re-eval Impressions Abdomen/Pelvis CT 04/09/20 17:44 IMPRESSION: Distended stomach and diffuse ileus possibly on the basis of gastroenteritis. No definitive evidence for small bowel obstruction. Diverticular disease of the descending and sigmoid colon without evidence for acute diverticulitis Electronically Signed: Blu Ozuna MD at 19:26 EDT , Service support , 04/09/20 17:44 Abdomen/Pelvis W IV Cont ONLY [CT] Stat Laboratory Results 04/09/20 04/09/20 18:07 18:07 WBC 22.0 H RBC 5.04 Hgb 16.3 Hct 47.9 MCV 95.0 H MCH 32.3 H MCHC 34.0 RDW Std Deviation 46.2 H RDW Coeff of Franco 13.2 Plt Count 219 MPV 9.2 Immature Gran % (Auto) 0.600 Neut % (Auto) 66.6 Lymph % (Auto) 29.4 Boyd % (Auto) 2.9 Eos % (Auto) 0.4 Baso % (Auto) 0.1 Absolute Neuts (auto) 14.7 H Absolute Lymphs (auto) 6.47 H Nucleated RBC % 0 Sodium 142 Potassium 4.0 Chloride 107 Carbon Dioxide 29.0 Anion Gap 6 BUN 19 H Creatinine 1.12 Estim Creat Clear Calc 40.93 Est GFR (MDRD) Af Amer 81 Est GFR (MDRD) Non-Af 67 BUN/Creatinine Ratio 17.0 Glucose 108 H Calcium 9.4 Total Bilirubin 0.70 AST 27 ALT 46 Alkaline Phosphatase 89 Troponin I < 0.015 Total Protein 7.9 Albumin 4.0 Globulin 3.9 Albumin/Globulin Ratio 1.0 Lipase 690 H - Medical Decision Making Patiently was initially treated with IV fluids, Zofran, morphine, but he had no improvement. He tried have a bowel movement but was unable, except for very small amounts of some mucus. His nausea is improved, and he has not vomited. CT as above, he has had no surgery or medication changes recently that could explain an ileus. CT is inconsistent with a bowel or stomach outlet obstruction. He does have a significant leukocytosis. Lipase is elevated but there is no radiographic evidence of pancreatitis. Will retreat his pain and plan is for admission. Discussed with hospitalist who is requesting an NG tube be placed in the ED prior to admission. ED Disposition - Plan for ED Patient: Disposition: Acute Care Hospital [facility] Diagnosis: Diffuse abdominal pain, Ileus, unspecified, Elevated lipase Referrals: Vidhi Main MD [Primary Care Provider] -
[2020-04-09] MEDS: Ondansetron 4 MG/2 ML Vial IV (18:09)
[2020-04-09] MEDS: 0.9% Normal Saline 1,000 ML 1000 ML IV (18:09)
[2020-04-09] MEDS: Morphine 2 MG/ML Syringe IV ×2 (18:09→23:25)
[2020-04-09 18:18] LABS: Absolute Lymphocyte Count 6.47 X10^3/uL (0.83-4.51); Absolute Neutrophil Count 14.7 X10^3/uL (2.0-7.7); Basophil# 0.03 X10^3/uL; Basophil% 0.1 % (0-1); Eosinophil# 0.09 X10^3/uL; Eosinophils% 0.4 % (0-5); Hematocrit 47.9 % (40-54); Hemoglobin 16.3 g/dL (13.0-16.5); Lymphocyte # 6.47 X10^3/ul (4.0); Lymphocyte % 29.4 % (19-41); Mean Corpuscular Hgb 32.3 pg (27.0-32.0); Mean Platelet Vol. 9.2 fl (6.2-12.0); Monocyte# 0.63 X10^3/uL; Monocyte% 2.9 % (0-10); NRBC Flagged by Analyzer 0 % (0-5); Neutrophil # 14.65 X10^3/uL (2.7-7.7); Neutrophil % 66.6 % (47-70); POSITIVE DIFFERENTIAL YES; Platelet Count 219 K/mm3 (150-450); RBC Distribution Width CV 13.2 % (11.6-14.6); RBC Distribution Width SD 46.2 fl (35.1-43.9); Red Blood Count 5.04 M/mm3 (4.6-6.2)
[2020-04-09 18:19] LABS: Differential Indicated SCAN CRITERIA MET
[2020-04-09 18:37] LABS: AST(SGOT) 27 U/L (15-37); Alanine Aminotransfer ALT/SGPT 46 U/L (16-61); Alkaline Phosphatase 89 U/L (45-117); Anion Gap 6 (5-15); BUN 19 mg/dL (7-18); Calcium,Total 9.4 mg/dL (8.5-10.1); Chloride 107 mmol/L (98-107); Creatinine, Serum 1.12 mg/dL (0.70-1.30); EST Glomerular Filtration Rate 67 mL/min (>60); Est Glom Filt Rate - Afr Amer 81 mL/min (>60); Estimated Creatinine Clearance 40.93 ml/min; Globulin 3.9 g/dL (2.2-4.2); Glucose 108 mg/dL (74-106); Lipase 690 U/L (73-393); Protein, Total 7.9 g/dL (6.4-8.2); Sodium Level 142 mmol/L (136-145)
--- NOTE | 2020-04-09 19:52 | HP.PCM_ITS ---
Problem List (1) HTN (hypertension) Status: Chronic (2) Diffuse abdominal pain Status: Acute (3) Ileus, unspecified Status: Acute (4) Elevated lipase Status: Acute (5) Spinal stenosis Status: Chronic Qualifiers: Spinal region: lumbar (6) S/P laminectomy Status: Chronic (7) Restless leg syndrome Status: Chronic (8) Hyperlipidemia Status: Chronic (9) Osteoarthritis of lumbar spine Status: Chronic Qualifiers: Spinal osteoarthritis complication: with radiculopathy Qualified Code(s): M47.26 - Other spondylosis with radiculopathy, lumbar region (10) Generalized anxiety disorder Status: Chronic (11) Spondylolisthesis, cervical region Status: Chronic (12) Cervical spondylosis Status: Chronic (13) Cervical spine degeneration Status: Chronic (14) S/P lumbar fusion Status: Chronic (15) DELANEY (obstructive sleep apnea) Status: Chronic History of Present Illness Date of Admission: 04/09/20 Chief Complaint: abdominal pain The patient is a 84 year old M with a significant history of legal blindness; depression; appendectomy and hernia repair who presents at the emergency department with excruciating progressively worsening bartolome-umbilical pain that started about 2 hours after eating a trail balogna sandwich. He describes his pain as a pressure and with a feeling of a bloated stomach. He denies any aggravating or ameliorating factors to his pain. His pain radiates to his back. He is very nauseous and feels the taste of his dinner in his mouth. He has not vomited yet. Last time his bowels moved was a day before presentation. Abdomen and pelvis CT at emergency department showed distended stomach and diffuse ileus. Patient's lipase was only mildly elevated. His white count was elevated at 22,000. Past Medical History Past Medical History (Chronic Problems): Chronic Problems HTN (hypertension) (Chronic) Spinal stenosis (Chronic) S/P laminectomy (Chronic) Restless leg syndrome (Chronic) Hyperlipidemia (Chronic) Osteoarthritis of lumbar spine (Chronic) Generalized anxiety disorder (Chronic) Spondylolisthesis, cervical region (Chronic) Cervical spondylosis (Chronic) Cervical spine degeneration (Chronic) S/P lumbar fusion (Chronic) DELANEY (obstructive sleep apnea) (Chronic) Allergies niacin Allergy (Verified 04/09/20 17:31) Rash Home Medications: Ambulatory Orders Medication Instructions Recorded Clonazepam [Klonopin] 1 - 2 tab PO QHS 03/20/16 Pramipexole Di-HCl [Mirapex] 1 - 2 tab PO BID 10/22/15 Venlafaxine XR [Effexor Xr] 37.5 mg PO BID 10/22/15 Cyanocobalamin (Vitamin B-12) 2,500 mcg PO DAILY 02/13/17 [Vitamin B-12] DiphenhydrAMINE [Benadryl] 50 mg PO QHS 02/13/17 Lactobacillus Acidophilus 1 each PO PRN PRN 02/13/17 [Acidophilus] Amlodipine Besylate 2.5 mg PO DAILY 07/28/18 Albuterol Inhaler [Ventolin Hfa] 2 puff INHALATION Q4H PRN PRN 07/29/18 Pravastatin [Pravachol] 20 mg PO QHS 07/29/18 Codeine Phosphate/Guaifenesin 5 ml PO TID PRN PRN 10/23/18 [Guaifen-Codeine 100-10 mg/5 ml] Tamsulosin HCl [Flomax] 0.4 mg PO QHS 10/23/18 Albuterol Inhaler [Ventolin Hfa] 1 - 2 puff INHALATION Q4H PRN PRN 08/29/19 #1 inhaler Aspirin 650 mg PO DAILY 08/29/19 Prednisone 10 mg PO DAILY #63 tab 08/29/19 Surgical History: appendectomy, herniorrhaphy, - - Back surgery 2011, basal cell cancer right eye 2013 Psychiatric History: Depression Smoking Status: Former smoker Alcohol: None - *Family History Maternal History Items: Heart Disease - age 90 Paternal History Items: Cancer - lung, age 88 Review of Systems Constitutional: Denies: Chills, Fever, Weight Change HEENT: Denies: Head Aches, Sinus Congestion, Sinus Drainage Cardiovascular: Denies: Chest Pain, Palpitations Respiratory: Denies: Cough, Shortness of breath at rest, Sputum production Gastrointestinal: Reports: Abdominal Pain, Nausea, Vomiting Genitourinary: Denies: Dysuria Musculoskeletal: Reports: Back Pain. Denies: Joint Pain, Joint Tenderness Skin: Denies: Rash, Wounds Neurological: Denies: Numbness, Tingling, Focal weakness Psychiatric: Denies: Anxiety, Depression, Homicidal Ideations, Suicidal Ideations Hematologic/ Lymphatic: Denies: Easy Bruising, Easy Bleeding VTE Information - Inpt Only VTE Present on Admission: No VTE Mechan Device Prophylaxis: SCD's VTE Pharm Prophylaxis ordered?: No Patient Problems: Active and Suspected Problems Diffuse abdominal pain (Acute) Ileus, unspecified (Acute) Elevated lipase (Acute) - Physical Exam Vitals/I&O's: Vital Signs Temp Pulse Resp BP Pulse Ox 97.9 F 94 16 176/78 H 98 04/09/20 17:30 04/09/20 17:30 04/09/20 17:30 04/09/20 17:30 04/09/20 17:30 Oxygen Delivery Method Room Air Weight: 65.771 kg Body Mass Index (BMI) 25.7 General: Alert, Oriented x3, Cooperative HEENT: Atraumatic, PERRLA, EOMI, Normocephalic Neck: Supple, No JVD, Negative Carotid Bruits Lungs: Clear to auscultation, Normal air movement Cardiovascular: Regular rate, Regular Rhythm, Normal S1, Normal S2, No murmurs Abdomen: Bowel Sounds Present, Soft, Tender Extremities: No edema, Capillary Refill Less than 3 Seconds Skin: No rashes, No breakdown Musculoskeletal: No Tenderness to Palpation of Joints or Extremities Neurological: Cranial nerves II-XII grossly intact - Poor vision. Psych/Mental Status: Normal Affect, Appropriate Laboratory Results 04/09/20 18:07: WBC 22.0 H, RBC 5.04, Hgb 16.3, Hct 47.9, MCV 95.0 H, MCH 32.3 H , MCHC 34.0, RDW Std Deviation 46.2 H, RDW Coeff of Franco 13.2, Plt Count 219, MPV 9.2, Immature Gran % (Auto) 0.600, Neut % (Auto) 66.6, Lymph % (Auto) 29.4, [place] % (Auto) 2.9, Eos % (Auto) 0.4, Baso % (Auto) 0.1, Absolute Neuts (auto) 14.7 H, Absolute Lymphs (auto) 6.47 H, Nucleated RBC % 0 04/09/20 18:07: Sodium 142, Potassium 4.0, Chloride 107, Carbon Dioxide 29.0, Anion Gap 6, BUN 19 H, Creatinine 1.12, Estim Creat Clear Calc 40.93, Est GFR (MDRD) Af Amer 81, Est GFR (MDRD) Non-Af 67, BUN/Creatinine Ratio 17.0, Glucose 108 H, Calcium 9.4, Total Bilirubin 0.70, AST 27, ALT 46, Alkaline Phosphatase 89, Troponin I < 0.015, Total Protein 7.9, Albumin 4.0, Globulin 3.9, Albumin/Globulin Ratio 1.0, Lipase 690 H Assessment/Plan All Active Problems Diffuse abdominal pain (Acute) Ileus, unspecified (Acute) Elevated lipase (Acute) History of TIA (transient ischemic attack) (Resolved) The patient is a 84 year old M with a significant history of legal blindness; depression; appendectomy and hernia repair who presents emergency department with excruciating progressively worsening bartolome-umbilical pain that started about 2 hours after eating a trail balogna and with nausea; leukocytosis; mild elevation of lipase and CT of abdomen and pelvis finding of distended stomach and diffuse ileus. Ileus Etiology is unclear at this time. Actual abdomen and pelvis CT was independently reviewed. Diffuse stomach and ileus distention noted. NG tube was attempted at emergency department. After the first attempt patient refused any further NG. 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 Received morphine IV and zofran IV at emergency department. Morphine IV PRN; Zofran IV PRN and Compazine IV as needed ordered. Received normal saline bolus in the emergency department. Lactated Ringer's 100 MS per hour. Discussed the case with , General Surgeon; appreciate his assistance. Will follow recommendation and get a UA; repeat lipase in a.m. and Check CMP in a.m. Can not rule out gastroenteritis causing ileus. Metronidazole IV and Cipro Floxin IV ordered. CBC in a.m. Hypertensive emergency PRN hydralazine IV ordered Trend blood parameters. Adjust blood pressure medications as necessary. DVT prophylaxis SCD ordered. No chemical thromboprophylaxis at this time since his cause of ileus and course is unclear at this time. Inpatient E&M: [id number] Init Hosp L3
[2020-04-09] MEDS: Morphine 4 MG/ML Syringe IV (20:02)
[2020-04-09] MEDS: Oxymetazoline 0.05% 1 SPRAY SPRAY.BTL 2 SPRAY NASAL (20:37)
[2020-04-09] MEDS: Lidocaine 2% Jelly 1 APPLIC Tube 3 APPLIC TOPICAL (20:38)
--- NOTE | 2020-04-09 20:39 | ED.RN ---
Addendum entered by Jermaine Mauricio 04/09/20 20:40: Pt refused additional attempts. Original Note: one NG attempt failed by Carolynn Paez RN and this RN. Dr Langley and Dr Pizarro aware.
[2020-04-09] MEDS: Lactated Ringers 1,000 ML 100 ML IV (21:00)
[2020-04-09] MEDS: proCHLORPERazine 10 MG/2 ML Vial 5 MG IV (21:06)
[2020-04-09] MEDS: metroNIDAZOLE 500 MG/100 ML BAG 100 MG IV (21:31)
[2020-04-09] MEDS: hydrALAZINE 20 MG/ML Vial 10 MG IV (21:31)
[2020-04-09] MEDS: Ciprofloxacin 400 MG/200 ML BAG 200 MG IV (23:25)
[2020-04-09 23:41] LABS: Bacteria 0 SEEN /hpf (None Seen); Mucous, Urine 0 SEEN /hpf (<or=2+); Red Blood Cells-Urine 0 SEEN /hpf (0-5); Squamous Epithelial Cells - UA 0 SEEN /hpf (0-5)
[2020-04-09 23:43] LABS: Color, Urine Yellow (Yellow); Glucose, Dipstick Normal (Normal); Ketone-Dipstick Negative (Negative); Leukocyte Esterase-Dipstick Negative /ul (Negative); Nitrite-Dipstick Negative (Negative); Occult Blood-Urine 10 /ul (Negative); Protein-Dipstick 30 mg/dl (Negative); Urine Bilirubin Dipstick Negative (Negative); Urine Clarity Clear (Clear); Urine Urobilinogen Normal (Normal)
[2020-04-09] MEDS: LORazepam 2 MG/ML Syringe 1 MG IV (23:44)
[2020-04-09 23:52] LABS: White Blood Cells 0-5 SEEN /hpf (0-5)
[2020-04-10 02:18] VITALS: BP 141/65; PULSE 89; RESP 18; TEMP 37.2; O2SAT 97
[2020-04-10] MEDS: metroNIDAZOLE 500 MG/100 ML BAG 100 MG IV ×3 (06:02→21:09)
[2020-04-10 06:07] LABS: Absolute Lymphocyte Count 4.62 X10^3/uL (0.83-4.51); Absolute Neutrophil Count 8.5 X10^3/uL (2.0-7.7); Basophil# 0.02 X10^3/uL; Basophil% 0.1 % (0-1); Eosinophil# 0.04 X10^3/uL; Eosinophils% 0.3 % (0-5); Hematocrit 42.3 % (40-54); Lymphocyte # 4.62 X10^3/ul (4.0); Lymphocyte % 32.8 % (19-41); Mean Corp Hgb Conc 33.1 g/dL (32-36); Mean Corpuscular Volume 96.6 fL (80-94); Mean Platelet Vol. 9.2 fl (6.2-12.0); Monocyte# 0.86 X10^3/uL; Monocyte% 6.1 % (0-10); NRBC Flagged by Analyzer 0 % (0-5); Neutrophil # 8.49 X10^3/uL (2.7-7.7); Neutrophil % 60.2 % (47-70); Platelet Count 184 K/mm3 (150-450); RBC Distribution Width CV 13.4 % (11.6-14.6); Red Blood Count 4.38 M/mm3 (4.6-6.2); White Blood Count 14.1 K/mm3 (4.4-11.0)
[2020-04-10] MEDS: Morphine 2 MG/ML Syringe IV (06:33)
[2020-04-10] MEDS: 0.9% Saline Lock 10 ML Syringe IV (06:37)
[2020-04-10 06:58] LABS: AST(SGOT) 13 U/L (15-37); Alanine Aminotransfer ALT/SGPT 30 U/L (16-61); Albumin, Serum 2.8 g/dL (3.2-5.0); Alkaline Phosphatase 62 U/L (45-117); Anion Gap 8 (5-15); BUN 18 mg/dL (7-18); BUN/Creat Ratio 17.6 RATIO (10-20); Calcium,Total 7.9 mg/dL (8.5-10.1); Chloride 106 mmol/L (98-107); Creatinine, Serum 1.02 mg/dL (0.70-1.30); EST Glomerular Filtration Rate 74 mL/min (>60); Est Glom Filt Rate - Afr Amer 90 mL/min (>60); Estimated Creatinine Clearance 46.75 ml/min; Globulin 2.8 g/dL (2.2-4.2); Glucose 110 mg/dL (74-106); Lipase 65 U/L (73-393); Potassium 3.7 mmol/L (3.5-5.1); Protein, Total 5.6 g/dL (6.4-8.2); Sodium Level 141 mmol/L (136-145)
[2020-04-10 08:00] VITALS: RESP 18
[2020-04-10 08:15] VITALS: BP 151/65; PULSE 73; RESP 18; TEMP 37.2; O2SAT 98
--- NOTE | 2020-04-10 08:28 | CON.PCM_ITS ---
Problem List (1) Ileus, unspecified Status: Acute Reason for Consult Date of Consultation: 04/10/20 Reason for Consultation: Ileus History of Present Illness: The patient is a 84 year old M who presented to the emergency room with nausea and epigastric/left upper quadrant pain. Patient reports he has not been able to pass gas or have a bowel movement and he feels like he needs to. The patient has never had bowel obstruction in the past. His only abdominal surgery was hernia repair. Patient does not report any fevers or chills. He did not have any vomiting but he did have nausea. The patient reports his nausea is improved since yesterday. NG was attempted but is unable to be placed. Past Medical History Past Medical History (Chronic Problems): Chronic Problems HTN (hypertension) (Chronic) Spinal stenosis (Chronic) S/P laminectomy (Chronic) Restless leg syndrome (Chronic) Hyperlipidemia (Chronic) Osteoarthritis of lumbar spine (Chronic) Generalized anxiety disorder (Chronic) Spondylolisthesis, cervical region (Chronic) Cervical spondylosis (Chronic) Cervical spine degeneration (Chronic) S/P lumbar fusion (Chronic) DELANEY (obstructive sleep apnea) (Chronic) Allergies niacin Allergy (Verified 04/09/20 17:31) Rash Home Medications: Ambulatory Orders Medication Instructions Recorded Clonazepam [Klonopin] 1 - 2 tab PO QHS 10/22/15 Pramipexole Di-HCl [Mirapex] 1 - 2 tab PO BID 10/22/15 Venlafaxine XR [Effexor Xr] 37.5 mg PO BID 10/22/15 Cyanocobalamin (Vitamin B-12) 2,500 mcg PO DAILY 02/13/17 [Vitamin B-12] DiphenhydrAMINE [Benadryl] 50 mg PO QHS 02/13/17 Lactobacillus Acidophilus 1 each PO PRN PRN 02/13/17 [Acidophilus] Amlodipine Besylate 2.5 mg PO DAILY 07/28/18 Albuterol Inhaler [Ventolin Hfa] 2 puff INHALATION Q4H PRN PRN 07/29/18 Pravastatin [Pravachol] 20 mg PO QHS 07/29/18 Codeine Phosphate/Guaifenesin 5 ml PO TID PRN PRN 10/23/18 [Guaifen-Codeine 100-10 mg/5 ml] Tamsulosin HCl [Flomax] 0.4 mg PO QHS 10/23/18 Albuterol Inhaler [Ventolin Hfa] 1 - 2 puff INHALATION Q4H PRN PRN 08/29/19 #1 inhaler Aspirin 650 mg PO DAILY 08/29/19 Prednisone 10 mg PO DAILY #63 tab 08/29/19 Surgical History: appendectomy, herniorrhaphy, - - Back surgery 2011, basal cell cancer right eye 2014 Psychiatric History: Depression Smoking Status: Former smoker Alcohol: None - *Family History Maternal History Items: Heart Disease - age 90 Paternal History Items: Cancer - lung, age 88 Review of Systems Constitutional: Denies: Anorexia, Fever Eyes: Denies: Blurred vision HEENT: Denies: Difficulty Hearing, Difficulty Swallowing Cardiovascular: Denies: Chest Pain Respiratory: Denies: Cough, Shortness of Breath Gastrointestinal: Reports: Abdominal Pain, Nausea. Denies: Hematemesis, Hematochezia, Melena, Vomiting Genitourinary: Reports: Dysuria, Retention Skin: Denies: Jaundice Neurological: Denies: Balance problems Hematologic/ Lymphatic: Denies: Anemia Patient Problems: Active and Suspected Problems Diffuse abdominal pain (Acute) Ileus, unspecified (Acute) Elevated lipase (Acute) - Physical Exam Vitals/I&O's: Vital Signs Temp Pulse Resp BP Pulse Ox 98.9 F 89 18 141/65 H 97 04/10/20 02:18 04/10/20 02:18 04/10/20 02:18 04/10/20 02:18 04/10/20 02:18 Oxygen Delivery Method Room Air Weight: 139 lb 15.896 oz Body Mass Index (BMI) 24.0 Intake and Output for Last 24 Hours 04/08/20 04/09/20 04/10/20 23:59 23:59 23:59 Intake Total 1240 / 1240 200 / 200 Output Total 750 / 750 Balance 1240 / 1140 -550 / -550 General: Alert, Oriented x3 Neck: No JVD Lungs: Clear to auscultation, Normal air movement Cardiovascular: Regular rate, Regular Rhythm Abdomen: Soft, Distended, Tender - Mild epigastric tenderness Extremities: No clubbing Musculoskeletal: No Muscle Wasting Neurological: Cranial nerves II-XII grossly intact Psych/Mental Status: Normal Affect Laboratory Results 04/09/20 18:07: WBC 22.0 H, RBC 5.04, Hgb 16.3, Hct 47.9, MCV 95.0 H, MCH 32.3 H , MCHC 34.0, RDW Std Deviation 46.2 H, RDW Coeff of Franco 13.2, Plt Count 219, MPV 9.2, Immature Gran % (Auto) 0.600, Neut % (Auto) 66.6, Lymph % (Auto) 29.4, [place] % (Auto) 2.9, Eos % (Auto) 0.4, Baso % (Auto) 0.1, Absolute Neuts (auto) 14.7 H, Absolute Lymphs (auto) 6.47 H, Nucleated RBC % 0 04/09/20 18:07: Sodium 142, Potassium 4.0, Chloride 107, Carbon Dioxide 29.0, Anion Gap 6, BUN 19 H, Creatinine 1.12, Estim Creat Clear Calc 40.93, Est GFR (MDRD) Af Amer 81, Est GFR (MDRD) Non-Af 67, BUN/Creatinine Ratio 17.0, Glucose 108 H, Calcium 9.4, Total Bilirubin 0.70, AST 27, ALT 46, Alkaline Phosphatase 89, Troponin I < 0.015, Total Protein 7.9, Albumin 4.0, Globulin 3.9, Albumin/Globulin Ratio 1.0, Lipase 690 H 04/09/20 22:50: Urine Color Yellow, Urine Clarity Clear, Urine pH 5.0, Ur Specific [place] 1.020, Urine Protein 30 H, Urine Glucose (UA) Normal, Urine Ketones Negative, Urine Occult Blood 10 H, Urine Nitrite Negative, Urine Bilirubin Negative, Urine Urobilinogen Normal, Ur Leukocyte Esterase Negative, Urine RBC 0 SEEN, Urine WBC 0-5 SEEN, Ur Squamous Epith Cells 0 SEEN, Urine Bacteria 0 SEEN, Urine Mucus 0 SEEN 04/10/20 05:44: WBC 14.1 H, RBC 4.38 L, Hgb 14.0, Hct 42.3, MCV 96.6 H, MCH 32.0, MCHC 33.1, RDW Std Deviation 48.0 H, RDW Coeff of Franco 13.4, Plt Count 184, MPV 9.2, Immature Gran % (Auto) 0.500, Neut % (Auto) 60.2, Lymph % (Auto) 32.8, [place] % (Auto) 6.1, Eos % (Auto) 0.3, Baso % (Auto) 0.1, Absolute Neuts (auto) 8.5 H, Absolute Lymphs (auto) 4.62 H, Nucleated RBC % 0 04/10/20 05:44: Sodium 141, Potassium 3.7, Chloride 106, Carbon Dioxide 27.0, Anion Gap 8, BUN 18, Creatinine 1.02, Estim Creat Clear Calc 46.75, Est GFR (MDRD) Af Amer 90, Est GFR (MDRD) Non-Af 74, BUN/Creatinine Ratio 17.6, Glucose 110 H, Calcium 7.9 L, Total Bilirubin 0.90, AST 13 L, ALT 30, Alkaline Phosphatase 62, Total Protein 5.6 L, Albumin 2.8 L, Globulin 2.8, Albumin/Globulin Ratio 1.0, Lipase 65 L Clinical Impression(s) from Imaging Studies Abdomen/Pelvis CT 04/09/20 17:44 IMPRESSION: Distended stomach and diffuse ileus possibly on the basis of gastroenteritis. No definitive evidence for small bowel obstruction. Diverticular disease of the descending and sigmoid colon without evidence for acute diverticulitis Electronically Signed: Blu Ozuna MD at 19:26 EDT , Service support , Current Medications Hydralazine HCl (Apresoline Iv) 10 mg IV Q4H PRN PRN PRN Reason: SBP > 160 or DBP > 120 Last Admin: 04/09/20 21:31 Dose: 10 mg Documented by: Lactated Ringer's () 1,000 mls @ 100 mls/hr IV .Q10H [facility] Last Infusion: 04/10/20 00:30 Dose: 100 mls/hr Documented by: Ciprofloxacin (Cipro) 400 mg in 200 mls @ 200 mls/hr IV Q12 [facility] Last Infusion: 04/10/20 00:30 Dose: Infused Documented by: Metronidazole (Flagyl) 500 mg in 100 mls @ 100 mls/hr IV Q8 [facility] Last Admin: 04/10/20 06:02 Dose: 100 mls/hr Documented by: Sodium Chloride () 250 mls @ 15 mls/hr IV .[id number] PRN PRN Reason: Saline Flush Sodium Chloride () 250 mls @ 15 mls/hr IV .[id number] PRN PRN Reason: Additional IVPB Infusion Morphine Sulfate () 2 mg IV Q3H PRN PRN PRN Reason: Pain Score 6-10/10 Last Admin: 04/10/20 06:33 Dose: 2 mg Documented by: Ondansetron HCl (Zofran) 4 mg IV Q8H PRN PRN PRN Reason: NAUSEA/VOMITING Prochlorperazine Edisylate (Compazine Iv) 5 mg IV Q4H PRN PRN PRN Reason: Breakthrough nausea/vomiting Last Admin: 04/09/20 21:06 Dose: 5 mg Documented by: Sodium Chloride () 10 - 40 ml IV UD PRN PRN Reason: SALINE FLUSH Last Admin: 04/10/20 06:37 Dose: 10 ml Documented by: Assessment/Plan All Active Problems Diffuse abdominal pain (Acute) Ileus, unspecified (Acute) Elevated lipase (Acute) History of TIA (transient ischemic attack) (Resolved) 84-year-old male with ileus versus gastroenteritis 1. Patient reports his symptoms started after eating [place] bologna. The patient is not having diarrhea which I would expect if he was having gastroenteritis. This is likely an ileus but I am unsure of the etiology. The patient reports no coughing or shortness of breath. He does say that he was having some burning with urination and he needed a straight cath overnight due to retention. The patient has not urinated since his straight cath at 2 AM. The UA was normal with no signs of UTI. The patient's prostate appears enlarged on his CT scan. 2. At this time the patient does not have any peritoneal signs. We are unable to place an NG in the emergency room yesterday due to previous facial surgery. The patient should be kept n.p.o. and encouraged ambulation and up to chair. The patient is still not passing any flatus. Continue n.p.o. with IV fluids. I am unsure as to the etiology of his ileus but it may have something to do with his urinary tract as that is the only other issue he is having at this time. Kenny Abraham MD Pager: [facility] [address] [place] [address], [address] [place] [address] Office:
[2020-04-10] MEDS: Ciprofloxacin 400 MG/200 ML BAG 200 MG IV ×2 (10:08→22:32)
[2020-04-10] MEDS: Lactated Ringers 1,000 ML 100 ML IV ×2 (10:09→21:07)
--- NOTE | 2020-04-10 11:51 | PCM.PN.HOSP ---
<Ney Esparza - Last Filed: 04/10/20 11:51> Patient Problems: Active and Suspected Problems Diffuse abdominal pain (Acute) Ileus, unspecified (Acute) Elevated lipase (Acute) Reason for Visit: Mild nausea no vomiting today. Ongoing severe abdominal pain - diffuse. No BM. No flatus. + bowel sounds. No fever/chills. Vitals/I&O's: Vital Signs Temp Pulse Resp BP Pulse Ox 98.9 F 73 18 151/65 H 98 04/10/20 08:15 04/10/20 08:15 04/10/20 08:15 04/10/20 08:15 04/10/20 08:15 Oxygen Delivery Method Room Air Weight: 139 lb 15.896 oz Body Mass Index (BMI) 24.0 Intake and Output for Last 24 Hours 04/08/20 04/09/20 04/10/20 23:59 23:59 23:59 Intake Total 1240 / 1240 1360 / 1360 Output Total 750 / 750 Balance 1240 / 1140 610 / 610 General: Alert, Oriented x3, Cooperative HEENT: Atraumatic, PERRLA, EOMI, Normocephalic Neck: Supple, No JVD, Negative Carotid Bruits Lungs: Clear to auscultation, Normal air movement Cardiovascular: Regular rate, No murmurs Abdomen: Bowel Sounds Present, Soft, Tender - diffusely Extremities: No edema, Capillary Refill Less than 3 Seconds Skin: No rashes, No breakdown Musculoskeletal: No Tenderness to Palpation of Joints or Extremities Neurological: Cranial nerves II-XII grossly intact Psych/Mental Status: Normal Affect, Appropriate, Alert and oriented to time, place, person, mood and affect Laboratory Results 04/09/20 18:07: WBC 22.0 H, RBC 5.04, Hgb 16.3, Hct 47.9, MCV 95.0 H, MCH 32.3 H, MCHC 34.0, RDW Std Deviation 46.2 H, RDW Coeff of Franco 13.2, Plt Count 219, MPV 9.2, Immature Gran % (Auto) 0.600, Neut % (Auto) 66.6, Lymph % (Auto) 29.4, [place] % (Auto) 2.9, Eos % (Auto) 0.4, Baso % (Auto) 0.1, Absolute Neuts (auto) 14.7 H, Absolute Lymphs (auto) 6.47 H, Nucleated RBC % 0 04/09/20 18:07: Sodium 142, Potassium 4.0, Chloride 107, Carbon Dioxide 29.0, Anion Gap 6, BUN 19 H, Creatinine 1.12, Estim Creat Clear Calc 40.93, Est GFR (MDRD) Af Amer 81, Est GFR (MDRD) Non-Af 67, BUN/Creatinine Ratio 17.0, Glucose 108 H, Calcium 9.4, Total Bilirubin 0.70, AST 27, ALT 46, Alkaline Phosphatase 89, Troponin I < 0.015, Total Protein 7.9, Albumin 4.0, Globulin 3.9, Albumin/Globulin Ratio 1.0, Lipase 690 H 04/09/20 22:50: Urine Color Yellow, Urine Clarity Clear, Urine pH 5.0, Ur Specific Isabela 1.020, Urine Protein 30 H, Urine Glucose (UA) Normal, Urine Ketones Negative, Urine Occult Blood 10 H, Urine Nitrite Negative, Urine Bilirubin Negative, Urine Urobilinogen Normal, Ur Leukocyte Esterase Negative, Urine RBC 0 SEEN, Urine WBC 0-5 SEEN, Ur Squamous Epith Cells 0 SEEN, Urine Bacteria 0 SEEN, Urine Mucus 0 SEEN 04/10/20 05:44: WBC 14.1 H, RBC 4.38 L, Hgb 14.0, Hct 42.3, MCV 96.6 H, MCH 32.0, MCHC 33.1, RDW Std Deviation 48.0 H, RDW Coeff of Franco 13.4, Plt Count 184, MPV 9.2, Immature Gran % (Auto) 0.500, Neut % (Auto) 60.2, Lymph % (Auto) 32.8, [place] % (Auto) 6.1, Eos % (Auto) 0.3, Baso % (Auto) 0.1, Absolute Neuts (auto) 8.5 H, Absolute Lymphs (auto) 4.62 H, Nucleated RBC % 0 04/10/20 05:44: Sodium 141, Potassium 3.7, Chloride 106, Carbon Dioxide 27.0, Anion Gap 8, BUN 18, Creatinine 1.02, Estim Creat Clear Calc 46.75, Est GFR (MDRD) Af Amer 90, Est GFR (MDRD) Non-Af 74, BUN/Creatinine Ratio 17.6, Glucose 110 H, Calcium 7.9 L, Total Bilirubin 0.90, AST 13 L, ALT 30, Alkaline Phosphatase 62, Total Protein 5.6 L, Albumin 2.8 L, Globulin 2.8, Albumin/Globulin Ratio 1.0, Lipase 65 L Current Medications Hydralazine HCl (Apresoline Iv) 10 mg IV Q4H PRN PRN PRN Reason: SBP > 160 or DBP > 120 Last Admin: 04/09/20 21:31 Dose: 10 mg Documented by: Lactated Ringer's () 1,000 mls @ 100 mls/hr IV .Q10H [facility] Last Admin: 04/10/20 10:09 Dose: 100 mls/hr Documented by: Ciprofloxacin (Cipro) 400 mg in 200 mls @ 200 mls/hr IV Q12 [facility] Last Infusion: 04/10/20 11:10 Dose: Infused Documented by: Metronidazole (Flagyl) 500 mg in 100 mls @ 100 mls/hr IV Q8 [facility] Last Infusion: 04/10/20 07:05 Dose: Infused Documented by: Sodium Chloride () 250 mls @ 15 mls/hr IV .[id number] PRN PRN Reason: Saline Flush Sodium Chloride () 250 mls @ 15 mls/hr IV .[id number] PRN PRN Reason: Additional IVPB Infusion Morphine Sulfate () 2 mg IV Q3H PRN PRN PRN Reason: Pain Score 6-10/10 Last Admin: 04/10/20 06:33 Dose: 2 mg Documented by: Ondansetron HCl (Zofran) 4 mg IV Q8H PRN PRN PRN Reason: NAUSEA/VOMITING Prochlorperazine Edisylate (Compazine Iv) 5 mg IV Q4H PRN PRN PRN Reason: Breakthrough nausea/vomiting Last Admin: 04/09/20 21:06 Dose: 5 mg Documented by: Sodium Chloride () 10 - 40 ml IV UD PRN PRN Reason: SALINE FLUSH Last Admin: 04/10/20 06:37 Dose: 10 ml Documented by: STROKE Vital Signs/Narrative: Vital Signs Temp Pulse Resp BP Pulse Ox 04/10/20 08:15 98.9 F 73 18 151/65 H 98 04/10/20 08:00 18 Medical Necessity - Tobacco Use Smoking Status: Former smoker Assessment/Plan All Active Problems Diffuse abdominal pain (Acute) Ileus, unspecified (Acute) Elevated lipase (Acute) History of TIA (transient ischemic attack) (Resolved) 1. Ileus - + BS but ongoing pain, nausea, no BM/flatus. Gen surg following. Continue supportive care consider NG. CT does not show diverticulitis. Lipase negative. 2. Possible gastroenteritis associated with #1 - cipro flagyl. WBCs improving. No fever UA neg 3. HTN emergency - impvoed. possibly 2/2 pain. prn hydralazine. 4. BPH - flomax (held) 5. Chronic prednisone use - pt unsure why he is on this. 6. RLS - mirapex (hed) 7. Anx/depression - klonopin, effexor, held. prn ativan if needed. DVT ppx: SCDs This patient was seen by Ney Espazra PA-C under the supervision of Doctor Yusra. <Lyudmila Meng - Last Filed: 04/10/20 12:46> Vitals/I&O's: Vital Signs Temp Pulse Resp BP Pulse Ox 98.9 F 73 18 151/65 H 98 04/10/20 08:15 04/10/20 08:15 04/10/20 08:15 04/10/20 08:15 04/10/20 08:15 Oxygen Delivery Method Room Air Weight: 139 lb 15.896 oz Body Mass Index (BMI) 24.0 Intake and Output for Last 24 Hours 04/08/20 04/09/20 04/10/20 23:59 23:59 23:59 Intake Total 1240 / 1240 1360 / 1360 Output Total 750 / 750 Balance 1240 / 1140 610 / 610 Laboratory Results 04/09/20 18:07: WBC 22.0 H, RBC 5.04, Hgb 16.3, Hct 47.9, MCV 95.0 H, MCH 32.3 H, MCHC 34.0, RDW Std Deviation 46.2 H, RDW Coeff of Franco 13.2, Plt Count 219, MPV 9.2, Immature Gran % (Auto) 0.600, Neut % (Auto) 66.6, Lymph % (Auto) 29.4, [place] % (Auto) 2.9, Eos % (Auto) 0.4, Baso % (Auto) 0.1, Absolute Neuts (auto) 14.7 H, Absolute Lymphs (auto) 6.47 H, Nucleated RBC % 0 04/09/20 18:07: Sodium 142, Potassium 4.0, Chloride 107, Carbon Dioxide 29.0, Anion Gap 6, BUN 19 H, Creatinine 1.12, Estim Creat Clear Calc 40.93, Est GFR (MDRD) Af Amer 81, Est GFR (MDRD) Non-Af 67, BUN/Creatinine Ratio 17.0, Glucose 108 H, Calcium 9.4, Total Bilirubin 0.70, AST 27, ALT 46, Alkaline Phosphatase 89, Troponin I < 0.015, Total Protein 7.9, Albumin 4.0, Globulin 3.9, Albumin/Globulin Ratio 1.0, Lipase 690 H 04/09/20 22:50: Urine Color Yellow, Urine Clarity Clear, Urine pH 5.0, Ur Specific Isabela 1.020, Urine Protein 30 H, Urine Glucose (UA) Normal, Urine Ketones Negative, Urine Occult Blood 10 H, Urine Nitrite Negative, Urine Bilirubin Negative, Urine Urobilinogen Normal, Ur Leukocyte Esterase Negative, Urine RBC 0 SEEN, Urine WBC 0-5 SEEN, Ur Squamous Epith Cells 0 SEEN, Urine Bacteria 0 SEEN, Urine Mucus 0 SEEN 04/10/20 05:44: WBC 14.1 H, RBC 4.38 L, Hgb 14.0, Hct 42.3, MCV 96.6 H, MCH 32.0, MCHC 33.1, RDW Std Deviation 48.0 H, RDW Coeff of Franco 13.4, Plt Count 184, MPV 9.2, Immature Gran % (Auto) 0.500, Neut % (Auto) 60.2, Lymph % (Auto) 32.8, [place] % (Auto) 6.1, Eos % (Auto) 0.3, Baso % (Auto) 0.1, Absolute Neuts (auto) 8.5 H, Absolute Lymphs (auto) 4.62 H, Nucleated RBC % 0 04/10/20 05:44: Sodium 141, Potassium 3.7, Chloride 106, Carbon Dioxide 27.0, Anion Gap 8, BUN 18, Creatinine 1.02, Estim Creat Clear Calc 46.75, Est GFR (MDRD) Af Amer 90, Est GFR (MDRD) Non-Af 74, BUN/Creatinine Ratio 17.6, Glucose 110 H, Calcium 7.9 L, Total Bilirubin 0.90, AST 13 L, ALT 30, Alkaline Phosphatase 62, Total Protein 5.6 L, Albumin 2.8 L, Globulin 2.8, Albumin/Globulin Ratio 1.0, Lipase 65 L Current Medications Hydralazine HCl (Apresoline Iv) 10 mg IV Q4H PRN PRN PRN Reason: SBP > 160 or DBP > 120 Last Admin: 04/09/20 21:31 Dose: 10 mg Documented by: Lactated Ringer's () 1,000 mls @ 100 mls/hr IV .Q10H [facility] Last Admin: 04/10/20 10:09 Dose: 100 mls/hr Documented by: Ciprofloxacin (Cipro) 400 mg in 200 mls @ 200 mls/hr IV Q12 [facility] Last Infusion: 04/10/20 11:10 Dose: Infused Documented by: Metronidazole (Flagyl) 500 mg in 100 mls @ 100 mls/hr IV Q8 [facility] Last Infusion: 04/10/20 07:05 Dose: Infused Documented by: Sodium Chloride () 250 mls @ 15 mls/hr IV .[id number] PRN PRN Reason: Saline Flush Sodium Chloride () 250 mls @ 15 mls/hr IV .[id number] PRN PRN Reason: Additional IVPB Infusion Morphine Sulfate () 2 mg IV Q3H PRN PRN PRN Reason: Pain Score 6-10/10 Last Admin: 04/10/20 06:33 Dose: 2 mg Documented by: Ondansetron HCl (Zofran) 4 mg IV Q8H PRN PRN PRN Reason: NAUSEA/VOMITING Prochlorperazine Edisylate (Compazine Iv) 5 mg IV Q4H PRN PRN PRN Reason: Breakthrough nausea/vomiting Last Admin: 04/09/20 21:06 Dose: 5 mg Documented by: Sodium Chloride () 10 - 40 ml IV UD PRN PRN Reason: SALINE FLUSH Last Admin: 04/10/20 06:37 Dose: 10 ml Documented by: Assessment/Plan Patient seen by Ney Esparza PA-C under my supervision Patient was admitted with a complaint of abdominal pain after he ate a sandwich. He was found to have intestinal ileus per CT. patient still complained of abdominal pain this morning. He denies any vomiting or nausea. He has not been able to pass gas or have a bowel movement. He was unable to tolerate having an NG tube passed. General surgery on board. Lipase was initially 690 but has trended down significantly. Review of symptoms otherwise negative. O/E: Vital Signs Temp Pulse Resp BP Pulse Ox 98.9 F 73 18 151/65 H 98 04/10/20 08:15 04/10/20 08:15 04/10/20 08:15 04/10/20 08:15 04/10/20 08:15 General: Alert, Oriented x3, Cooperative HEENT: Atraumatic, PERRLA, EOMI, Normocephalic, legally blind Neck: Supple, No JVD, Negative Carotid Bruits Lungs: Clear to auscultation, Normal air movement Cardiovascular: Regular rate, No murmurs Abdomen: mild generalised tenderness on palpation; bowel sounds hyperactive and Extremities: No edema, Capillary Refill Less than 3 Seconds Skin: No rashes, No breakdown Musculoskeletal: No Tenderness to Palpation of Joints or Extremities Neurological: Cranial nerves II-XII grossly intact Psych/Mental Status: Normal Affect, Appropriate, Alert and oriented to time, place, person, mood and affect Plan is continue gentle hydration with IV fluid. Continue keeping n.p.o. I will assess likely due to gastroenteritis which patient had after eating a burger before the onset of current symptoms. CT of the abdomen and pelvis showed distended stomach and diffuse ileus with no definite evidence of small bowel obstruction and diverticular disease in the descending and sigmoid colon without evidence for acute diverticulitis. General surgery on board. Are very conservative management for now. WBC has trended down from 22-14.1. Continue IV ciprofloxacin and IV Flagyl. Rest as per Ney Esparza PA-C's notes which I reviewed and endorsed. Inpatient E&M: 26602 Subs Hosp L2
[2020-04-10] MEDS: Tamsulosin HCl 0.4 MG Capsule PO (21:10)
[2020-04-10] MEDS: Venlafaxine XR 37.5 MG Capsule PO (21:10)
[2020-04-10] MEDS: Pravastatin 20 MG Tablet PO (21:10)
[2020-04-10] MEDS: clonazePAM 1 MG Tablet PO (21:13)
[2020-04-10] MEDS: Pramipexole Di-HCl 0.25 MG Tablet PO (21:14)
[2020-04-10 21:15] VITALS: BP 151/43; PULSE 100; RESP 18; TEMP 37.2; O2SAT 95
[2020-04-11 03:21] VITALS: BP 128/44; PULSE 99; RESP 18; TEMP 36.9; O2SAT 96
[2020-04-11] MEDS: metroNIDAZOLE 500 MG/100 ML BAG 100 MG IV (05:06)
[2020-04-11 05:33] LABS: Absolute Lymphocyte Count 4.44 X10^3/uL (0.83-4.51); Absolute Neutrophil Count 7.6 X10^3/uL (2.0-7.7); Basophil# 0.04 X10^3/uL; Basophil% 0.3 % (0-1); Eosinophil# 0.05 X10^3/uL; Eosinophils% 0.4 % (0-5); Hematocrit 40.2 % (40-54); Hemoglobin 13.3 g/dL (13.0-16.5); Lymphocyte # 4.44 X10^3/ul (4.0); Lymphocyte % 33.5 % (19-41); Mean Corp Hgb Conc 33.1 g/dL (32-36); Mean Corpuscular Hgb 31.8 pg (27.0-32.0); Mean Corpuscular Volume 96.2 fL (80-94); Mean Platelet Vol. 9.3 fl (6.2-12.0); Monocyte% 7.6 % (0-10); NRBC Flagged by Analyzer 0 % (0-5); Neutrophil # 7.64 X10^3/uL (2.7-7.7); Neutrophil % 57.7 % (47-70); Platelet Count 171 K/mm3 (150-450); RBC Distribution Width CV 13.6 % (11.6-14.6); RBC Distribution Width SD 48.7 fl (35.1-43.9); Red Blood Count 4.18 M/mm3 (4.6-6.2); White Blood Count 13.2 K/mm3 (4.4-11.0)
[2020-04-11 05:48] LABS: Anion Gap 5 (5-15); BUN 17 mg/dL (7-18); BUN/Creat Ratio 15.7 RATIO (10-20); Calcium,Total 8.4 mg/dL (8.5-10.1); Chloride 103 mmol/L (98-107); Creatinine, Serum 1.08 mg/dL (0.70-1.30); EST Glomerular Filtration Rate 70 mL/min (>60); Est Glom Filt Rate - Afr Amer 84 mL/min (>60); Estimated Creatinine Clearance 44.16 ml/min; Glucose 107 mg/dL (74-106); Potassium 3.9 mmol/L (3.5-5.1); Sodium Level 138 mmol/L (136-145)
--- NOTE | 2020-04-11 07:10 | PN.SURG_ITS ---
Patient Problems: Active and Suspected Problems Diffuse abdominal pain (Acute) Ileus, unspecified (Acute) Elevated lipase (Acute) Subjective: Patient had Padilla catheter placed yesterday due to urinary retention. The patient started to pass flatus yesterday evening and had 2 bowel movements overnight and 1 this morning. The patient not having any abdominal pain this morning or nausea or vomiting. - Physical Exam Vitals/I&O's: Vital Signs Temp Pulse Resp BP Pulse Ox 98.4 F 99 18 128/44 H 96 04/11/20 03:21 04/11/20 03:21 04/11/20 03:21 04/11/20 03:21 04/11/20 03:21 Oxygen Delivery Method Room Air Weight: 139 lb 15.896 oz Body Mass Index (BMI) 24.0 Intake and Output for Last 24 Hours 04/09/20 04/10/20 04/11/20 23:59 23:59 23:59 Intake Total 1240 / 1240 2763.33 / 2763.33 641.67 / 641.67 Output Total 3275 / 3275 200 / 200 Balance 1240 / 1140 -511.67 / -511.67 441.67 / 441.67 General: Alert, Oriented x3 Lungs: Normal air movement Cardiovascular: Regular rate Abdomen: Soft, Non Tender, Non-Distended Laboratory Results 04/11/20 05:20: WBC 13.2 H, RBC 4.18 L, Hgb 13.3, Hct 40.2, MCV 96.2 H, MCH 31.8, MCHC 33.1, RDW Std Deviation 48.7 H, RDW Coeff of Franco 13.6, Plt Count 171, MPV 9.3, Immature Gran % (Auto) 0.500, Neut % (Auto) 57.7, Lymph % (Auto) 33.5, [place] % (Auto) 7.6, Eos % (Auto) 0.4, Baso % (Auto) 0.3, Absolute Neuts (auto) 7.6, Absolute Lymphs (auto) 4.44, Nucleated RBC % 0 04/11/20 05:20: Sodium 138, Potassium 3.9, Chloride 103, Carbon Dioxide 30.0, Anion Gap 5, BUN 17, Creatinine 1.08, Estim Creat Clear Calc 44.16, Est GFR (MDRD) Af Amer 84, Est GFR (MDRD) Non-Af 70, BUN/Creatinine Ratio 15.7, Glucose 107 H, Calcium 8.4 L Current Medications Amlodipine Besylate (Norvasc) 2.5 mg PO DAILY [facility] Clonazepam (Klonopin) 1 mg PO QHS [facility] Last Admin: 04/10/20 21:13 Dose: 1 mg Documented by: Famotidine (Pepcid) 20 mg PO DAILY [facility] Hydralazine HCl (Apresoline Iv) 10 mg IV Q4H PRN PRN PRN Reason: SBP > 160 or DBP > 120 Last Admin: 04/09/20 21:31 Dose: 10 mg Documented by: Lactated Ringer's () 1,000 mls @ 100 mls/hr IV .Q10H [facility] Last Infusion: 04/11/20 06:08 Dose: 100 mls/hr Documented by: Ciprofloxacin (Cipro) 400 mg in 200 mls @ 200 mls/hr IV Q12 [facility] Last Infusion: 04/10/20 23:32 Dose: Infused Documented by: Metronidazole (Flagyl) 500 mg in 100 mls @ 100 mls/hr IV Q8 [facility] Last Infusion: 04/11/20 06:08 Dose: Infused Documented by: Sodium Chloride () 250 mls @ 15 mls/hr IV .[id number] PRN PRN Reason: Saline Flush Sodium Chloride () 250 mls @ 15 mls/hr IV .[id number] PRN PRN Reason: Additional IVPB Infusion Morphine Sulfate () 2 mg IV Q3H PRN PRN PRN Reason: Pain Score 6-10/10 Last Admin: 04/10/20 06:33 Dose: 2 mg Documented by: Ondansetron HCl (Zofran) 4 mg IV Q8H PRN PRN PRN Reason: NAUSEA/VOMITING Pramipexole Dihydrochloride (Mirapex) 0.25 mg PO BID [facility] Last Admin: 04/10/20 21:14 Dose: 0.25 mg Documented by: Pravastatin Sodium (Pravachol) 20 mg PO QHS [facility] Last Admin: 04/10/20 21:10 Dose: 20 mg Documented by: Prochlorperazine Edisylate (Compazine Iv) 5 mg IV Q4H PRN PRN PRN Reason: Breakthrough nausea/vomiting Last Admin: 04/09/20 21:06 Dose: 5 mg Documented by: Sodium Chloride () 10 - 40 ml IV UD PRN PRN Reason: SALINE FLUSH Last Admin: 04/10/20 06:37 Dose: 10 ml Documented by: Tamsulosin HCl (Flomax) 0.4 mg PO QHS [facility] Last Admin: 04/10/20 21:10 Dose: 0.4 mg Documented by: Venlafaxine HCl (Effexor Xr) 37.5 mg PO BID [facility] Last Admin: 04/10/20 21:10 Dose: 37.5 mg Documented by: Medical Necessity - Tobacco Use Smoking Status: Former smoker Assessment/Plan All Active Problems Diffuse abdominal pain (Acute) Ileus, unspecified (Acute) Elevated lipase (Acute) History of TIA (transient ischemic attack) (Resolved) 84-year-old male with ileus 1. Patient is ileus seem to be resolved. The patient had 3 bowel movements and he is passing flatus. His abdomen is soft and nontender. I will advance him to a clear liquid diet and advance as tolerated. He had a Padilla catheter placed yesterday due to urinary retention. He is still on antibiotics. I am unsure if the urinary tract is involved but the UA was negative. 2. Advance diet as tolerated once tolerating patient is okay for discharge from my standpoint. Patient may want to follow-up with urology for his urinary retention. Kenny Abraham MD Pager: [facility] [address] [place] [address], [address] [place] [address] Office:
[2020-04-11 09:00] VITALS: RESP 18
[2020-04-11 09:30] VITALS: BP 110/74; PULSE 89; RESP 18; TEMP 37.2; O2SAT 98
[2020-04-11] MEDS: Ciprofloxacin 400 MG/200 ML BAG 200 MG IV (09:47)
[2020-04-11] MEDS: Famotidine 20 MG Tablet PO (09:48)
[2020-04-11] MEDS: Venlafaxine XR 37.5 MG Capsule PO (09:48)
[2020-04-11] MEDS: Pramipexole Di-HCl 0.25 MG Tablet PO (09:48)
[2020-04-11] MEDS: amLODIPine 2.5 MG Tablet PO (09:48)
--- NOTE | 2020-04-11 10:40 | CASEMGMT ---
RN CM Face to Face with patient for initial transition planning/care coordination assessment. RN CM introduced self and role at [facility]. Patient sitting in chair, alert and oriented. Patient willing to participate in assessment and is able to answer all questions appropriately. Care providers, pharmacy, and demographics verified. Patient wishes to discharge home, denies need for home health at this time. Patient states he has no further needs or concerns at this time. CM to follow for discharge planning needs that may arise. PCP: Etelvina Specialists:none Preferred Pharmacy: [facility] Pres[facility] Benefit: yes Living Will/HPOA: yes, daughter Melva Cannon LNOK: daughter, brother Living Arrangements: patient lives alone in 1 story home with 2 steps and railing to enter. Paitent states he is independent at home. Transportation: public transport, brother DME/HHC: Patient states he has shower chair, cane, grab bars, and walker at home. [facility]. Disposition Plan: Patient to discharge home with family support and follow-up plans in place. Nasrin PRAJAPATI, RN, CM
--- NOTE | 2020-04-11 10:55 | DCINST_ITS ---
- Discharge Diagnoses Current Active Problems: Current Active and Chronic Problems Diffuse abdominal pain (Acute) Ileus, unspecified (Acute) Elevated lipase (Acute) You will use the following diet at home:: Cardiac Your food should be the consistency of: Regular Your liquids should be the consistency of: Regular/Thin Discharge Activity: Return to Normal Activity, May Not Drive Call your doctor if you observe: Fever of 101 or Higher, Uncontrolled pain Allergies/Adverse Reactions: Allergies niacin Allergy (Verified 04/09/20 17:31) Rash Medications to take at Discharge Clonazepam [Klonopin] 1 - 2 tab PO QHS 10/22/15 Pramipexole Di-HCl [Mirapex] 1 - 2 tab PO BID 10/22/15 Venlafaxine XR [Effexor Xr] 37.5 mg PO BID 10/22/15 Cyanocobalamin (Vitamin B-12) [Vitamin B-12] 2,500 mcg PO DAILY 02/13/17 Amlodipine Besylate 2.5 mg PO DAILY 07/28/18 Albuterol Inhaler [Ventolin Hfa] 2 puff INHALATION Q4H PRN PRN 07/29/18 Pravastatin [Pravachol] 20 mg PO QHS 07/29/18 Tamsulosin HCl [Flomax] 0.4 mg PO QHS 10/23/18 Albuterol Inhaler [Ventolin Hfa] 1 - 2 puff INHALATION Q4H PRN PRN #1 inhaler 08/29/19 Aspirin 650 mg PO DAILY 08/29/19 Famotidine [Acid Controller] 20 mg PO BID 04/10/20 Primary Care Physician: Vidhi Main MD [Primary Care Provider] - Please follow up with your Primary Care Physician in: 1-2 weeks Test Results: Test results from this visit will be discussed in further detail at your follow- up appointment, if applicable. Please Follow Up With: Kenny Abraham MD When: 2 weeks Proposed Discharge Date: 04/11/20
--- NOTE | 2020-04-11 11:59 | PCM.DC.SUM ---
<Ney Esparza - Last Filed: 04/11/20 11:59> Discharge Date and Diagnosis - Problem List Patient Problems: Active and Suspected Problems Diffuse abdominal pain (Acute) Ileus, unspecified (Acute) Elevated lipase (Acute) Date of Admission: 04/09/20 Date of Discharge: 04/11/20 - Primary Discharge Diagnosis Acute Problems: Active Problems Ileus Gastroenteritis ruled out HTN emergency resolved RLS Anx/Depression - Secondary Discharge Diagnosis Chronic Problems: Chronic Problems HTN (hypertension) (Chronic) Spinal stenosis (Chronic) S/P laminectomy (Chronic) Restless leg syndrome (Chronic) Hyperlipidemia (Chronic) Osteoarthritis of lumbar spine (Chronic) Generalized anxiety disorder (Chronic) Spondylolisthesis, cervical region (Chronic) Cervical spondylosis (Chronic) Cervical spine degeneration (Chronic) S/P lumbar fusion (Chronic) DELANEY (obstructive sleep apnea) (Chronic) Hospital Course and Treatment Imaging Results: CT/Abdomen/Pelvis W IV Cont ONLY IMPRESSION: Distended stomach and diffuse ileus possibly on the basis of gastroenteritis. No definitive evidence for small bowel obstruction. Diverticular disease of the descending and sigmoid colon without evidence for acute diverticulitis Consults: Gen Surgery [facility] Operations: None Procedures: None Summary of Care Provided: Hospital course: The patient is a 84 year old M with pmhx as above who presented to the ER with c/o abd pain nausea and vomiting. The patient had a CT demonstrating ileus. Blood pressure and WBC were markedly elevated. He was admitted to the Med surg floor with surgical consult. He was treated conservatively with bowel rest and IV fluids, antiemetics. He was given IV abx prophylactically for possible associated enteritis however this was ruled out and abx were discontinud. He had improvement in his blood pressure with pain and nausea control. He began to have bowel movements and his diet was advanced. He was discharged home in stable condition. He will need to follow-up with his PCP in 1 to 2 weeks, follow-up with general surgery in 2 weeks. This patient was seen by Ney Esparza PA-C under the supervision of Doctor Yusra. [] Patient Problems: Active and Suspected Problems Diffuse abdominal pain (Acute) Ileus, unspecified (Acute) Elevated lipase (Acute) - Physical Exam Vitals/I&O's: Vital Signs Temp Pulse Resp BP Pulse Ox 98.9 F 89 18 110/74 98 09/08/20 09:30 04/11/20 09:30 04/11/20 09:30 04/11/20 09:30 04/11/20 09:30 Oxygen Delivery Method Room Air Weight: 139 lb 15.896 oz Body Mass Index (BMI) 24.0 Intake and Output for Last 24 Hours 04/09/20 04/10/20 04/11/20 23:59 23:59 23:59 Intake Total 1240 / 1240 2763.33 / 2763.33 2496.67 / 2496.67 Output Total 3275 / 3275 950 / 950 Balance 1240 / 1140 -511.67 / -511.67 1546.67 / 1546.67 General: Alert, Oriented x3, Cooperative HEENT: Atraumatic, PERRLA, EOMI, Normocephalic, - - blind, mildly hard of hearing. Neck: Supple, No JVD, Negative Carotid Bruits Lungs: Clear to auscultation, Normal air movement Cardiovascular: Regular rate, No murmurs Abdomen: Bowel Sounds Present, Soft, Non Tender Extremities: No edema, Capillary Refill Less than 3 Seconds Skin: No rashes, No breakdown Musculoskeletal: No Tenderness to Palpation of Joints or Extremities Neurological: Cranial nerves II-XII grossly intact Psych/Mental Status: Normal Affect, Appropriate, Alert and oriented to time, place, person, mood and affect Microbiology Past 72 Hours 04/09/20 22:50 Urine, Clean Catch Urine Culture - Preliminary Culture exhibits no growth. Laboratory Results 04/11/20 05:20: WBC 13.2 H, RBC 4.18 L, Hgb 13.3, Hct 40.2, MCV 96.2 H, MCH 31.8, MCHC 33.1, RDW Std Deviation 48.7 H, RDW Coeff of Franco 13.6, Plt Count 171, MPV 9.3, Immature Gran % (Auto) 0.500, Neut % (Auto) 57.7, Lymph % (Auto) 33.5, Stearns % (Auto) 7.6, Eos % (Auto) 0.4, Baso % (Auto) 0.3, Absolute Neuts (auto) 7.6, Absolute Lymphs (auto) 4.44, Nucleated RBC % 0 04/11/20 05:20: Sodium 138, Potassium 3.9, Chloride 103, Carbon Dioxide 30.0, Anion Gap 5, BUN 17, Creatinine 1.08, Estim Creat Clear Calc 44.16, Est GFR (MDRD) Af Amer 84, Est GFR (MDRD) Non-Af 70, BUN/Creatinine Ratio 15.7, Glucose 107 H, Calcium 8.4 L Current Medications Amlodipine Besylate (Norvasc) 2.5 mg PO DAILY [facility] Last Admin: 04/11/20 09:48 Dose: 2.5 mg Documented by: Clonazepam (Klonopin) 1 mg PO QHS [facility] Last Admin: 04/10/20 21:13 Dose: 1 mg Documented by: Famotidine (Pepcid) 20 mg PO DAILY [facility] Last Admin: 04/11/20 09:48 Dose: 20 mg Documented by: Hydralazine HCl (Apresoline Iv) 10 mg IV Q4H PRN PRN PRN Reason: SBP > 160 or DBP > 120 Last Admin: 04/09/20 21:31 Dose: 10 mg Documented by: Sodium Chloride () 250 mls @ 15 mls/hr IV .[id number] PRN PRN Reason: Saline Flush Sodium Chloride () 250 mls @ 15 mls/hr IV .[id number] PRN PRN Reason: Additional IVPB Infusion Morphine Sulfate () 2 mg IV Q3H PRN PRN PRN Reason: Pain Score 6-10/10 Last Admin: 04/10/20 06:33 Dose: 2 mg Documented by: Ondansetron HCl (Zofran) 4 mg IV Q8H PRN PRN PRN Reason: NAUSEA/VOMITING Pramipexole Dihydrochloride (Mirapex) 0.25 mg PO BID [facility] Last Admin: 04/11/20 09:48 Dose: 0.25 mg Documented by: Pravastatin Sodium (Pravachol) 20 mg PO QHS [facility] Last Admin: 04/10/20 21:10 Dose: 20 mg Documented by: Prochlorperazine Edisylate (Compazine Iv) 5 mg IV Q4H PRN PRN PRN Reason: Breakthrough nausea/vomiting Last Admin: 04/09/20 21:06 Dose: 5 mg Documented by: Sodium Chloride () 10 - 40 ml IV UD PRN PRN Reason: SALINE FLUSH Last Admin: 04/10/20 06:37 Dose: 10 ml Documented by: Tamsulosin HCl (Flomax) 0.4 mg PO QHS [facility] Last Admin: 04/10/20 21:10 Dose: 0.4 mg Documented by: Venlafaxine HCl (Effexor Xr) 37.5 mg PO BID [facility] Last Admin: 04/11/20 09:48 Dose: 37.5 mg Documented by: Discharge Diet: Low fat/ Low Cholesterol, 2000 mg Sodium Diet Discharge Activity: Return to Normal Activity, May Not Drive Call your doctor if you observe: Fever of 101 or Higher, Uncontrolled pain Home Medications: Medications to take at Discharge Clonazepam [Klonopin] 1 - 2 tab PO QHS 10/22/15 Pramipexole Di-HCl [Mirapex] 1 - 2 tab PO BID 10/22/15 Venlafaxine XR [Effexor Xr] 37.5 mg PO BID 10/22/15 Cyanocobalamin (Vitamin B-12) [Vitamin B-12] 2,500 mcg PO DAILY 02/13/17 Amlodipine Besylate 2.5 mg PO DAILY 07/28/18 Albuterol Inhaler [Ventolin Hfa] 2 puff INHALATION Q4H PRN PRN 07/29/18 Pravastatin [Pravachol] 20 mg PO QHS 07/29/18 Tamsulosin HCl [Flomax] 0.4 mg PO QHS 10/23/18 Albuterol Inhaler [Ventolin Hfa] 1 - 2 puff INHALATION Q4H PRN PRN #1 inhaler 08/29/19 Aspirin 650 mg PO DAILY 08/29/19 Famotidine [Acid Controller] 20 mg PO BID 04/10/20 Primary Care Physician: Vidhi Main MD [Primary Care Provider] - Please follow up with your Primary Care Physician in: 1-2 weeks Please Follow Up With: Kenny Abraham MD When: 2 weeks Please Follow Up With: Neida Main When: Friday Disposition: Home Minutes spent on discharge:: 35 Patient Condition:: Stable Medical Necessity - Tobacco Use Smoking Status: Former smoker Meaningful Use Info Meaningful Use Diagnoses (Choose all that apply): None applicable <Lyudmila Meng - Last Filed: 04/11/20 12:35> Discharge Date and Diagnosis - Primary Discharge Diagnosis Acute Problems: Active Problems Diffuse abdominal pain (Acute) Ileus, unspecified (Acute) Elevated lipase (Acute) - Secondary Discharge Diagnosis Chronic Problems: Chronic Problems HTN (hypertension) (Chronic) Spinal stenosis (Chronic) S/P laminectomy (Chronic) Restless leg syndrome (Chronic) Hyperlipidemia (Chronic) Osteoarthritis of lumbar spine (Chronic) Generalized anxiety disorder (Chronic) Spondylolisthesis, cervical region (Chronic) Cervical spondylosis (Chronic) Cervical spine degeneration (Chronic) S/P lumbar fusion (Chronic) DELANEY (obstructive sleep apnea) (Chronic) Hospital Course and Treatment Summary of Care Provided: Patient seen by Ney Esparza PA-C under my supervision The patient is a 84 year old M with an extensive past medical history as outlined was admitted through the ED on 04/09/2020 with a complaint of excruciating progressively worsening abdominal pain which started about 2 hours after eating a sandwich. CT of the abdomen done on admission showed distended stomach and diffuse IVS. Lipase was mildly elevated at 690 and white cell count was up at 22,000. He was admitted and managed for paralytic ileus likely due to the sandwich that he ate. He was kept n.p.o and hydrated with IV fluids. General surgery was consulted. Patient could not tolerate passage of an NG tube. Abdominal pain gradually improved. By the subsequent day, he had been started having a bowel movement or passing gas but this subsequently resolved. He subsequently started passing gas and had 3 bowel movements. Abdominal pain also resolved. Patient was started on clear liquid diet which he tolerated. Diet was slowly advanced which he also tolerated. Of note, patient also had some urinary retention but urinalysis done was negative. She was started on his Flomax. He remained stable and was discharged home on 04/11/2020. He is follow-up with his primary care doctor and general surgery. Patient seen and examined prior to discharge. He had no complaints. Review of systems otherwise negative. Labs and vitals reviewed. Home medication reviewed and reconciled. O/E: Vital Signs Temp Pulse Resp BP Pulse Ox 98.9 F 89 18 110/74 98 04/11/20 09:30 04/11/20 09:30 04/11/20 09:30 04/11/20 09:30 04/11/20 09:30 [] General: Alert, Oriented x3, Cooperative HEENT: Atraumatic, PERRLA, EOMI, Normocephalic, legally blind Neck: Supple, No JVD, Negative Carotid Bruits Lungs: Clear to auscultation, Normal air movement Cardiovascular: Regular rate, No murmurs Abdomen: mild generalised tenderness on palpation; bowel sounds hyperactive and Extremities: No edema, Capillary Refill Less than 3 Seconds Skin: No rashes, No breakdown Musculoskeletal: No Tenderness to Palpation of Joints or Extremities Neurological: Cranial nerves II-XII grossly intact Psych/Mental Status: Normal Affect, Appropriate, Alert and oriented to time, place, person, mood and affect Plan is for discharge home today. Rest as per Ney Esparza PA-C's notes which I reviewed and endorsed. - Physical Exam Vitals/I&O's: Vital Signs Temp Pulse Resp BP Pulse Ox 98.9 F 89 18 110/74 98 04/11/20 09:30 04/11/20 09:30 04/11/20 09:30 04/11/20 09:30 04/11/20 09:30 Oxygen Delivery Method Room Air Weight: 139 lb 15.896 oz Body Mass Index (BMI) 24.0 Intake and Output for Last 24 Hours 04/09/20 04/10/20 04/11/20 23:59 23:59 23:59 Intake Total 1240 / 1240 2763.33 / 2763.33 2496.67 / 2496.67 Output Total 3275 / 3275 950 / 950 Balance 1240 / 1140 -511.67 / -511.67 1546.67 / 1546.67 Microbiology Past 72 Hours 04/09/20 22:50 Urine, Clean Catch Urine Culture - Preliminary Culture exhibits no growth. Laboratory Results 04/11/20 05:20: WBC 13.2 H, RBC 4.18 L, Hgb 13.3, Hct 40.2, MCV 96.2 H, MCH 31.8, MCHC 33.1, RDW Std Deviation 48.7 H, RDW Coeff of Franco 13.6, Plt Count 171, MPV 9.3, Immature Gran % (Auto) 0.500, Neut % (Auto) 57.7, Lymph % (Auto) 33.5, Stearns % (Auto) 7.6, Eos % (Auto) 0.4, Baso % (Auto) 0.3, Absolute Neuts (auto) 7.6, Absolute Lymphs (auto) 4.44, Nucleated RBC % 0 04/11/20 05:20: Sodium 138, Potassium 3.9, Chloride 103, Carbon Dioxide 30.0, Anion Gap 5, BUN 17, Creatinine 1.08, Estim Creat Clear Calc 44.16, Est GFR (MDRD) Af Amer 84, Est GFR (MDRD) Non-Af 70, BUN/Creatinine Ratio 15.7, Glucose 107 H, Calcium 8.4 L Current Medications Amlodipine Besylate (Norvasc) 2.5 mg PO DAILY [facility] Last Admin: 04/11/20 09:48 Dose: 2.5 mg Documented by: Clonazepam (Klonopin) 1 mg PO QHS [facility] Last Admin: 04/10/20 21:13 Dose: 1 mg Documented by: Famotidine (Pepcid) 20 mg PO DAILY [facility] Last Admin: 04/11/20 09:48 Dose: 20 mg Documented by: Hydralazine HCl (Apresoline Iv) 10 mg IV Q4H PRN PRN PRN Reason: SBP > 160 or DBP > 120 Last Admin: 04/09/20 21:31 Dose: 10 mg Documented by: Sodium Chloride () 250 mls @ 15 mls/hr IV .[id number] PRN PRN Reason: Saline Flush Sodium Chloride () 250 mls @ 15 mls/hr IV .[id number] PRN PRN Reason: Additional IVPB Infusion Morphine Sulfate () 2 mg IV Q3H PRN PRN PRN Reason: Pain Score 6-10/10 Last Admin: 04/10/20 06:33 Dose: 2 mg Documented by: Ondansetron HCl (Zofran) 4 mg IV Q8H PRN PRN PRN Reason: NAUSEA/VOMITING Pramipexole Dihydrochloride (Mirapex) 0.25 mg PO BID [facility] Last Admin: 04/11/20 09:48 Dose: 0.25 mg Documented by: Pravastatin Sodium (Pravachol) 20 mg PO QHS [facility] Last Admin: 04/10/20 21:10 Dose: 20 mg Documented by: Prochlorperazine Edisylate (Compazine Iv) 5 mg IV Q4H PRN PRN PRN Reason: Breakthrough nausea/vomiting Last Admin: 04/09/20 21:06 Dose: 5 mg Documented by: Sodium Chloride () 10 - 40 ml IV UD PRN PRN Reason: SALINE FLUSH Last Admin: 04/10/20 06:37 Dose: 10 ml Documented by: Tamsulosin HCl (Flomax) 0.4 mg PO QHS [facility] Last Admin: 04/10/20 21:10 Dose: 0.4 mg Documented by: Venlafaxine HCl (Effexor Xr) 37.5 mg PO BID [facility] Last Admin: 04/11/20 09:48 Dose: 37.5 mg Documented by: Inpatient E&M: [id number] Disch Hosp
[2020-04-11 15:15] VITALS: BP 126/68; PULSE 87; RESP 18; TEMP 36.8
--- NOTE | 2020-04-12 15:23 | CASEMGMT ---
CHINO PATEL Discharge Follow-Up Phone Call. Lace: 10 Strata: 3 Discharge Date: 04/11/20 Adm Dx: Ileus Attempted discharge follow-up phone call. No answer. VM message left for pt to return call if he has any questions/concerns. Phone number provided. Tristin PRAJAPATI RN CM
== END 2020-04-11 15:25 | disposition home or self-care (01) | DRG 389 ==
LOC: ED 19:52 → MS3 21:26
PROVIDERS: Physician Assistant; Admitting Provider Hospitalist; Emergency Provider Emergency Medicine; PCP Internal Medicine; Visit Provider Student in an Organized Health Care Education/Training Program
DX: K56.0 Paralytic ileus (principal); I16.1 Hypertensive emergency; I10 Essential (primary) hypertension; E78.5 Hyperlipidemia, unspecified; G25.81 Restless legs syndrome; N40.1 Benign prostatic hyperplasia with lower urinary tract symptoms; R30.9 Painful micturition, unspecified; R33.8 Other retention of urine; G47.33 Obstructive sleep apnea (adult) (pediatric); F32.9 Major depressive disorder, single episode, unspecified; F41.1 Generalized anxiety disorder; H54.8 Legal blindness, as defined in USA; Z79.82 Long term (current) use of aspirin; Z79.52 Long term (current) use of systemic steroids; Z79.899 Other long term (current) drug therapy; Z87.891 Personal history of nicotine dependence; Z86.73 Personal history of transient ischemic attack (TIA), and cerebral infarction without residual deficits
CPT/HCPCS: 36415; 74177; 80048; 80053; 81001; 83690; 84484; 85025; 87086; 99284; J7030; J7120; Q9967; A4216; J0744; J2405

== ENCOUNTER → 2020-04-20 | Outpatient (CLI) | payer MEDICARE, SELFPAY ==
[2020-04-09 21:02] VITALS: BMI 24.0
[2020-04-20 16:15] LABS: Absolute Lymphocyte Count 4.54 X10^3/uL (0.83-4.51); Absolute Neutrophil Count 5.8 X10^3/uL (2.0-7.7); Basophil# 0.05 X10^3/uL; Basophil% 0.4 % (0-1); Eosinophil# 0.07 X10^3/uL; Eosinophils% 0.6 % (0-5); Hematocrit 41.8 % (40-54); Lymphocyte # 4.54 X10^3/ul (4.0); Lymphocyte % 40.7 % (19-41); Mean Corp Hgb Conc 33.5 g/dL (32-36); Mean Corpuscular Volume 95.7 fL (80-94); Mean Platelet Vol. 9.5 fl (6.2-12.0); Monocyte# 0.58 X10^3/uL; Monocyte% 5.2 % (0-10); NRBC Flagged by Analyzer 0 % (0-5); Neutrophil # 5.84 X10^3/uL (2.7-7.7); Neutrophil % 52.4 % (47-70); Platelet Count 269 K/mm3 (150-450); RBC Distribution Width CV 12.7 % (11.6-14.6); RBC Distribution Width SD 44.9 fl (35.1-43.9); Red Blood Count 4.37 M/mm3 (4.6-6.2); White Blood Count 11.2 K/mm3 (4.4-11.0)
[2020-04-20 16:28] LABS: Vitamin D,25 Hydroxy 67.3 ng/mL
[2020-04-20 16:34] LABS: ALB/GLOB Ratio 1.1 RATIO (0.9-2.4); AST(SGOT) 32 U/L (15-37); Alanine Aminotransfer ALT/SGPT 44 U/L (16-61); Albumin, Serum 3.7 g/dL (3.2-5.0); Alkaline Phosphatase 70 U/L (45-117); Anion Gap 5 (5-15); BUN 19 mg/dL (7-18); BUN/Creat Ratio 18.3 RATIO (10-20); Calcium,Total 8.7 mg/dL (8.5-10.1); Chloride 103 mmol/L (98-107); Cholesterol 210 mg/dL (200); Creatinine, Serum 1.04 mg/dL (0.70-1.30); EST Glomerular Filtration Rate 73 mL/min (>60); Est Glom Filt Rate - Afr Amer 88 mL/min (>60); Globulin 3.3 g/dL (2.2-4.2); Glucose 95 mg/dL (74-106); High Density Lipoprotein 47 mg/dL; Magnesium 2.1 mg/dL (1.6-2.6); Potassium 3.9 mmol/L (3.5-5.1); Sodium Level 138 mmol/L (136-145); T4 Free Direct 1.07 ng/dL (0.76-1.46); Thyroid Stim Hormone (TSH) 0.94 uIU/mL (0.358-3.74); Triglycerides 129 mg/dL; Very Low Density Lipoprotein 26 mg/dL (5-40)
== END | disposition home or self-care (01) ==
LOC: LABSPEC 15:30
PROVIDERS: PCP Internal Medicine; Referring Provider Clinical Nurse Specialist; Visit Provider Clinical Nurse Specialist
DX: K56.7 Ileus, unspecified (principal); E78.2 Mixed hyperlipidemia; R25.2 Cramp and spasm; E55.9 Vitamin D deficiency, unspecified; Z79.899 Other long term (current) drug therapy
CPT/HCPCS: 80053; 80061; 82306; 83735; 84439; 84443; 85025

== ENCOUNTER 2020-09-26 11:51 | Emergency (ER) | payer MEDICARE, SELFPAY ==
[2020-04-09 21:02] VITALS: BMI 24.0
[2020-09-26 11:52] VITALS: BP 140/57; PULSE 86; RESP 18; TEMP 36.1; O2SAT 95; BMI 22.5
[2020-09-26 12:01] VITALS: BMI 22.5
--- NOTE | 2020-09-26 12:04 | EKG12_ITS ---
Test Reason : NEURO Blood Pressure : / mmHG Vent. Rate : 075 BPM Atrial Rate : 075 BPM P-R Int : 148 ms QRS Dur : 084 ms QT Int : 388 ms P-R-T Axes : 058 058 021 degrees QTc Int : 433 ms Normal sinus rhythm Normal ECG Confirmed by RESHMA CALLEJAS, CEDRICK ([id number]), videotape editor MASSIEL MELO () on 09/27/2020 12:52:15 PM Referred By: MAYRA Confirmed By:CEDRICK JUSTICE MD
--- NOTE | 2020-09-26 12:04 | CT_ITS ---
STUDY: CTA HEAD AND NECK WITH CONTRAST REASON FOR EXAM: Male, 84 years old. FACIAL DROOP, SLURRED SPEECH, CONFUSION RADIATION DOSAGE (If Supplied By Facility): CTDIvol = ( 31.76 ) mGy, DLP = ( 1433.96 ) mGycm TECHNIQUE: CT angiography was performed with a multi-detector CT scanner. Data acquisition was obtained from the skull base through the vertex following intravenous administration of IV 100mL [id number]-370. MIP images were reconstructed from the axial data set. Post-processing of the angiographic images was performed, with multiplanar reformation and 3D reconstruction. Individualized dose optimization techniques were used for this CT. COMPARISON: No relevant priors. FINDINGS: Normal bilateral petrous carotid arteries. There is calcified plaque formation of the right cavernous carotid artery, without a cross-sectional luminal stenosis. There is calcified plaque formation of the left cavernous carotid artery, without a cross-sectional luminal stenosis. There is hypoplastic development of the right A1 segment of the anterior cerebral arteries with an atretic but intact artery. Normal left A1 segments of the anterior cerebral artery. Normal intact anterior communicating artery (ACOM). Normal bilateral A2 segments of the anterior cerebral arteries. Normal right M1 and M2 segments of the middle cerebral arteries, with a normal M1 bifurcation. Normal left M1 and M2 segments of the middle cerebral arteries, with a normal M1 bifurcation. Normal right posterior communicating artery (PCOM). Normal left posterior communicating artery (PCOM). Normal bilateral vertebral arteries. Normal basilar artery with a normal basilar bifurcation. The visualized bilateral superior cerebellar (SCA) arteries are normal. Normal bilateral P1, P2 and visualized P3 segments of the posterior cerebral arteries. There is no demonstrated aneurysm of the [place]. Focal area of decreased attenuation in the right frontal lobe. Evidence of old lacunar infarcts in the body of the right caudate lobe as well as the insular cortex of the right temporal lobe. AORTIC ARCH: There is atherosclerotic calcific plaque formation of the aortic arch and great vessels arising from the aortic arch, without a hemodynamically significant stenosis. There is a normal origin of the brachiocephalic, left common carotid, and left subclavian arteries. Atherosclerotic plaque formation at the origin of the left subclavian artery and right brachiocephalic artery. RIGHT CAROTID ARTERIES: Normal right common carotid artery (CCA). Normal right common carotid bulb. Normal origin of the right internal carotid (ICA) artery without a hemodynamically significant stenosis. Normal visualized cervical portion of the right internal carotid artery. Normal origin of the right external carotid artery (ECA). LEFT CAROTID ARTERIES: Normal left common carotid artery (CCA). Normal left common carotid bulb. There is mild atherosclerotic plaque formation of the origin of the left internal carotid artery with less than 50% cross sectional diameter stenosis. Normal visualized cervical portion of the left internal carotid artery. Normal origin of the left external carotid artery (ECA). VERTEBRAL ARTERIES: There is enhancement within the bilateral vertebral arteries with a small left vertebral artery, and a dominant right vertebral artery. CT/STROKE CTA Head AND Neck W/Con IMPRESSION: Decreased attenuation in the right frontal lobe suggestive of a ischemic changes. Old right lacunar infarcts of the basal ganglion. Less than 50% narrowing at the origin of the left internal carotid artery. Hypoplasia or atherosclerotic changes of the right A1 segment of the anterior cerebral artery. N.B. : The above information has been verbally conveyed by Rosendo Diaz MD to Blu Yuval on 09/26/2020 13:16:34 (ET). Electronically Signed: Rosendo Diaz MD at 13:17 EST , Service support ,
--- NOTE | 2020-09-26 12:05 | ED.VISSUMM ---
- ER Visit Summary Date of Service: 09/26/20 Chief Complaint: Left facial droop History of Present Illness: The patient is a 84 M prior TIA and CVA. Also history of prior hypertension, high cholesterol and legally blind. Patient states he went to his primary care physician's office and he had hip x-ray he had no other complaints. He denies any headache and he did not notice any slurred speech. Reportedly when they got there they noticed a left facial droop which may or may not be old from his prior stroke. They also felt that he had slurred speech and may be a mental status change. Going to the paramedics all this is improved. Patient himself denies any complaints. States he was only at his doctor's office for a different problem. Physical Examination: Older male no acute distress initial blood pressure 140/57 otherwise vital signs stable afebrile. H EENT exam left facial droop. Normal speech. Pupils round react light his motions are intact. Neck nontender. Lungs clear to auscultation bilaterally. Heart regular rhythm rate about 85 no murmur. Chest wall nontender. Abdomen soft nontender. Patient moving all 4 extremities. Normal sensation. 5-5 executive wellness programs director strength bilaterally. Dorsi plantarflexion intact. He is able lift either arm or either leg without any drift. Neurologically is awake alert. He is legally blind. He has left facial droop but that may be old. He has normal speech is not slurring. He speaks without any difficulty. He has no expressive or receptive aphasia. Both lower extremities and upper extremities are neurovascular intact and good coordination. Fingertip to nose is then normal limits bilaterally. Test Results: CBC normal white count of 10. Hemoglobin 13. Chemistries unremarkable normal creatinine and gap. Normal glucose. PT PTT INR unremarkable. Troponin normal. EKG normal sinus rhythm rate of 75 with no acute signs of AR or ischemia. CTA of the head neck showed chronic changes. An old right lacunar infarct. Less than 50% stenosis of the left internal carotid artery. Chronic changes. This is read by the radiologist. Reviewed by me. It was also reviewed by the [facility] neurologist. Emergency Department Course and Treatment: 84-year-old male legally blind with prior TIA and CVA. He has a facial droop. I do not know if this is old. I tend to think that this is chronic problems and not an acute stroke he will go through stroke protocol. Both myself and the neurologist from [facility] think these are all old findings. Patient does not need to be admitted. He does not need TPA. Amta exam no change. I spoke to the patient's family members at bedside and she said the facial droop is chronic and old and she does not see any change in him whatsoever. Treatment Plan: Outpatient follow-up. Disposition: Discharge Impression: Left facial droop from prior CVA History of hypertension and high cholesterol History of blindness This note was generated with [employer] dictation software. It may contain incorrect words, spelling, and punctuation that were not noted in review of the chart prior to signing ED Disposition - Plan for ED Patient: Referrals: Vidhi Main MD [Primary Care Provider] -
[2020-09-26 12:08] VITALS: BP 121/43; PULSE 76; RESP 20; O2SAT 96
[2020-09-26 12:19] LABS: Absolute Lymphocyte Count 4.13 X10^3/uL (0.83-4.51); Absolute Neutrophil Count 4.8 X10^3/uL (2.0-7.7); Basophil# 0.05 X10^3/uL; Basophil% 0.5 % (0-1); Eosinophil# 0.25 X10^3/uL; Eosinophils% 2.5 % (0-5); Hematocrit 40.4 % (40-54); Hemoglobin 13.7 g/dL (13.0-16.5); Lymphocyte # 4.13 X10^3/ul (4.0); Lymphocyte % 41.1 % (19-41); Mean Corp Hgb Conc 33.9 g/dL (32-36); Mean Corpuscular Hgb 31.5 pg (27.0-32.0); Mean Corpuscular Volume 92.9 fL (80-94); Mean Platelet Vol. 9.5 fl (6.2-12.0); Monocyte# 0.76 X10^3/uL; Monocyte% 7.6 % (0-10); NRBC Flagged by Analyzer 0 % (0-5); Neutrophil # 4.82 X10^3/uL (2.7-7.7); Neutrophil % 47.9 % (47-70); Platelet Count 177 K/mm3 (150-450); RBC Distribution Width CV 12.3 % (11.6-14.6); RBC Distribution Width SD 42.4 fl (35.1-43.9); Red Blood Count 4.35 M/mm3 (4.6-6.2); White Blood Count 10.1 K/mm3 (4.4-11.0)
[2020-09-26 12:22] LABS: Prothrombin Time (Protime)PT. 13.1 SECONDS (11.7-14.9)
[2020-09-26 12:23] LABS: Partial Thromboplast Time 31.1 Seconds (24.1-36.2)
[2020-09-26 12:29] LABS: Anion Gap 5 (5-15); BUN 17 mg/dL (7-18); BUN/Creat Ratio 17.7 RATIO (10-20); Calcium,Total 9.2 mg/dL (8.5-10.1); Chloride 104 mmol/L (98-107); Creatinine, Serum 0.96 mg/dL (0.70-1.30); EST Glomerular Filtration Rate 79 mL/min (>60); Est Glom Filt Rate - Afr Amer 96 mL/min (>60); Estimated Creatinine Clearance 45.82 ml/min; Glucose 86 mg/dL (74-106); Potassium 3.9 mmol/L (3.5-5.1); Sodium Level 138 mmol/L (136-145)
[2020-09-26 12:52] VITALS: BP 160/64; PULSE 78; RESP 23; O2SAT 97
[2020-09-26 13:25] VITALS: BP 133/67; PULSE 80; RESP 24; O2SAT 98
[2020-09-26 13:29] VITALS: O2SAT 97
--- NOTE | 2020-09-26 14:13 | ED.DEP ---
ED Disposition - Plan for ED Patient: Disposition: Home or Assisted Living Referrals: Vidhi Main MD [Primary Care Provider] - As Needed Additional Instructions: With your doctor regarding your hip pain. The left facial droop you have is from an old stroke and nothing looks bad today.
[2020-09-26 14:38] VITALS: BP 147/94; PULSE 81; RESP 16; O2SAT 98
== END 2020-09-26 14:39 | disposition home or self-care (01) ==
PROVIDERS: Emergency Provider Emergency Medicine; PCP Internal Medicine
DX: I69.392 Facial weakness following cerebral infarction (principal); I10 Essential (primary) hypertension; E78.00 Pure hypercholesterolemia, unspecified; I65.22 Occlusion and stenosis of left carotid artery; H54.8 Legal blindness, as defined in USA; Z79.82 Long term (current) use of aspirin; Z79.899 Other long term (current) drug therapy
CPT/HCPCS: 70496; 70498; 80048; 84484; 85025; 85610; 85730; 93005; 99285; Q9967

== ENCOUNTER → 2021-03-07 | Outpatient (CLI) | payer MEDICARE, SELFPAY ==
[2021-03-07 14:38] LABS: Hematocrit 39.9 % (40-54); Hemoglobin 13.1 g/dL (13.0-16.5); Mean Corp Hgb Conc 32.8 g/dL (32-36); Mean Corpuscular Hgb 31.3 pg (27.0-32.0); Mean Corpuscular Volume 95.2 fL (80-94); Mean Platelet Vol. 9.7 fl (6.2-12.0); Platelet Count 172 K/mm3 (150-450); RBC Distribution Width SD 45.4 fl (35.1-43.9); Red Blood Count 4.19 M/mm3 (4.6-6.2); White Blood Count 10.6 K/mm3 (4.4-11.0)
[2021-03-07 15:08] LABS: Vitamin D,25 Hydroxy 61.7 ng/mL
[2021-03-07 15:13] LABS: ALB/GLOB Ratio 1.2 RATIO (0.9-2.4); AST(SGOT) 19 U/L (15-37); Alanine Aminotransfer ALT/SGPT 24 U/L (16-61); Albumin, Serum 3.6 g/dL (3.2-5.0); Alkaline Phosphatase 90 U/L (45-117); Anion Gap 8 (5-15); BUN 15 mg/dL (7-18); BUN/Creat Ratio 15.1 RATIO (10-20); Calcium,Total 9.3 mg/dL (8.5-10.1); Chloride 104 mmol/L (98-107); Creatinine, Serum 0.99 mg/dL (0.70-1.30); EST Glomerular Filtration Rate 76 mL/min (>60); Est Glom Filt Rate - Afr Amer 93 mL/min (>60); Globulin 3.1 g/dL (2.2-4.2); Glucose 110 mg/dL (74-106); Potassium 3.9 mmol/L (3.5-5.1); Protein, Total 6.7 g/dL (6.4-8.2); Sodium Level 140 mmol/L (136-145); T4 Free Direct 0.81 ng/dL (0.76-1.46); Thyroid Stim Hormone (TSH) 0.99 uIU/mL (0.358-3.74)
== END | disposition home or self-care (01) ==
LOC: LABSPEC 14:04
PROVIDERS: PCP Internal Medicine; Visit Provider Internal Medicine
DX: R42 Dizziness and giddiness (principal); R19.7 Diarrhea, unspecified; R41.3 Other amnesia; E55.9 Vitamin D deficiency, unspecified
CPT/HCPCS: 80053; 82306; 84439; 84443; 85027

== ENCOUNTER → 2021-03-17 08:49 | Outpatient (CLI) | payer MEDICARE, SELFPAY ==
--- NOTE | 2021-03-17 08:59 | CT_ITS ---
HISTORY: Stroke, blurry vision. TECHNIQUE: Multiple axial images were obtained of the brain without intravenous contrast. A radiation dose optimization technique was used for this scan. # of images incl. paperwork: [id number]. COMPARISON: 09/26/2020. FINDINGS: BRAIN PARENCHYMA:Multiple small foci and zones of low attenuation in the cerebral white matter most compatible with chronic small vessel ischemic gliosis. INTRACRANIAL HEMORRHAGE: No acute intracranial hemorrhage. CSF SPACES/MASS EFFECT: Diffuse atrophy with compensatory ventricular enlargement. No midline shift or other significant mass effect. ORBITS: Bilateral lens resections. CALVARIUM: Intact. PARANASAL SINUSES AND MASTOID AIR CELLS: Clear. Probable augmentation prostheses at the nose and face. CT/Brain/Head without Contrast IMPRESSION: No acute intracranial process identified. Chronic right periventricular and basal ganglia lacunar infarcts. Chronic small vessel ischemic gliosis. Individualized dose optimization techniques were used for this CT. at 1043 Reported and signed by: Ayaka Dao MD Electronically Signed: Ayaka Dao MD at 10:41 EDT Tel , Service support ,
== END ==
PROVIDERS: PCP Internal Medicine; Referring Provider Ophthalmology; Visit Provider Ophthalmology
DX: H53.8 Other visual disturbances (principal)
CPT/HCPCS: 70450

== ENCOUNTER 2021-04-14 16:03 | Emergency (ER) | payer MEDICARE, SELFPAY ==
[2021-04-14 16:04] VITALS: BP 175/67; PULSE 89; RESP 18; TEMP 36.8; O2SAT 95; BMI 24.6
--- NOTE | 2021-04-14 16:23 | CT_ITS ---
HISTORY: trauma EXAMINATION: CT Spine Cervical W/O Contrast Injection TECHNIQUE: Helically acquired images were obtained of the cervical spine. 2D reformatted images were reviewed. A radiation dose optimization technique was used for this scan. IV Contrast dosage and agent: None. COMPARISON: 05/24/12 FINDINGS: VERTEBRAE: No fracture or traumatic subluxation. No discrete lytic or blastic abnormality observed. Normal alignment. Normal craniocervical junction and cervicothoracic junction. DISCS and SPINAL CANAL: Disc heights are preserved. No critical stenosis. NECK SOFT TISSUES: No prevertebral soft tissue swelling. There is no cervical adenopathy. LUNG APICES: Clear. CT/Spine Cervical without Contras IMPRESSION: No evidence of acute cervical spinal fracture. Individualized dose optimization techniques were used for this CT. at 1842 Reported and signed by: Ubaldo Farmer MD Electronically Signed: Ubaldo Farmer MD at 18:41 EDT Tel , Service support ,
--- NOTE | 2021-04-14 16:23 | CT_ITS ---
STUDY: CT BRAIN WITHOUT CONTRAST REASON FOR EXAM: Male, 85 years old. Fall trauma RADIATION DOSAGE (If Supplied By Facility): CTDIvol = ( 44.99 ) mGy, DLP = ( 796.11 ) mGycm TECHNIQUE: Transaxial CT imaging of the brain was performed without administration of intravenous contrast material. Individualized dose optimization techniques were used for this CT. COMPARISON: No relevant priors. FINDINGS: There are moderately extensive bilateral frontal hemorrhagic contusions. There is moderately extensive frontal subarachnoid hemorrhage as well as arachnoid hemorrhage outlining the left ambient cistern. There is small amount of hemorrhage in the ventricles bilaterally. There is no shift, hydrocephalus or herniation. The skull is intact. 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 CT/Brain/Head without Contrast IMPRESSION: 1. Moderately extensive bifrontal hemorrhagic contusions. 2. Moderately extensive subarachnoid and intraventricular hemorrhage. 3. Emergency neurosurgical consultation advised. N.B. : The above Results were Read Back by Caroline Choudhary MD to CE KENDALL MD, and understanding confirmed on 04/14/2021 18:48:30 (ET). Electronically Signed: Caroline Choudhary MD at 18:27 EDT Tel , Service support ,
--- NOTE | 2021-04-14 16:26 | EKG12_ITS ---
Test Reason : SYNCOPE Blood Pressure : / mmHG Vent. Rate : 081 BPM Atrial Rate : 081 BPM P-R Int : 160 ms QRS Dur : 082 ms QT Int : 372 ms P-R-T Axes : 069 051 022 degrees QTc Int : 432 ms Normal sinus rhythm Nonspecific ST abnormality Abnormal ECG Confirmed by RESHMA CALLEJAS, CEDRICK ([id number]), publications editor MASSIEL MELO ([id number]) on 04/16/2021 1:31:36 PM Referred By: RACHELE Confirmed By:CEDRICK JUSTICE MD
--- NOTE | 2021-04-14 16:29 | EX.ED.DYSGE1 ---
HPI History of Present Illness Chief Complaint: Syncope Informant: patient and family Narrative Narrative: htis patient fell in his house last evening. This patient is blind but still lives alone. Per his son-in-law he knows his house like the back of his hand.Patient fell His son-in-law also manages the patient's medications. He thinks the patient might have got into his clonazepam and taken extra by accident. This is not for certain but is concerning. However, at this time the patient is acting totally normal. The patient's sole and only complaint is that he has some soreness in the left side of his head. He was actually able to walk to his son-in-law's car to come in here. He has a negative review of systems other than head pain. The only anticoagulation that he takes is aspirin. PFSH PFSH Home Medications clonazepam 1 - 2 tab PO QHS 10/22/15 [History Last Taken 10/21/15] pramipexole [Mirapex] 1 - 2 tab PO BID 10/22/15 [History Last Taken 10/22/15 09:15] venlafaxine 37.5 mg PO BID 10/22/15 [History Last Taken 10/21/15] cyanocobalamin (vitamin B-12) [Vitamin B-12] 2,500 mcg PO DAILY 02/13/17 [History Last Taken Unknown] albuterol sulfate [Ventolin HFA] 2 puff INHALATION Q4H PRN PRN 07/29/18 [History Last Taken Unknown] pravastatin 40 mg PO QHS 07/29/18 [History Last Taken Unknown] tamsulosin [Flomax] 0.4 mg PO QHS 10/23/18 [History Last Taken Unknown] albuterol sulfate 1 - 2 puff INHALATION Q4H PRN PRN #1 inhaler 08/29/19 [Rx Last Taken Unknown] aspirin 81 mg PO DAILY 08/29/19 [History Last Taken Unknown] famotidine 20 mg PO BID 04/10/20 [History Last Taken Unknown] amlodipine 2.5 mg PO DAILY 09/26/20 [History Last Taken Unknown] benzonatate 100 mg PO DAILY PRN PRN 09/26/20 [History Last Taken Unknown] cholecalciferol (vitamin D3) 50,000 unit PO QWEEK 09/26/20 [History Last Taken Unknown] ondansetron HCl 4 mg PO Q4H PRN PRN 09/26/20 [History Last Taken Unknown] Allergy/AdvReac Type Severity Reaction Status Date / Time niacin Allergy Rash Verified 04/14/21 16:04 Social History Smoking Status: Former smoker ROS ROS ED Constitutional Constitutional ED: Denies chills or fever(s) Eyes Eyes: Reports other Details: Patient is legally blind chronically. ENT ENT ED: Denies rhinorrhea or sore throat Cardiovascular Cardiovascular: Denies chest pain or palpitations Respiratory/Chest Respiratory/Chest: Denies cough or dyspnea Gastrointestinal Gastrointestinal: Denies diarrhea, nausea or vomiting Genitourinary Genitourinary ED: Denies dysuria or hematuria Musculoskeletal Musculoskeletal: Denies arthralgias, back pain or neck pain Integumentary Denies rash Neurologic Neurologic: Reports headache(s); Denies paresthesias or weakness Psychiatric Psychiatric: Denies anxiety or depression Endocrine Endocrinology: Denies polyuria Allergic/Immunologic Allergic/Immunologic ED: Denies urticaria EXAM Physical Exam Const Vital Signs: 04/14/21 16:04 04/14/21 16:59 04/14/21 19:28 Temperature 98.2 F Temperature Source Temporal Pulse Rate 89 98 Respiratory Rate 18 16 Respiratory Effort Normal Blood Pressure 175/67 H 109/71 Blood Pressure Mean 103 83 Pulse Ox 95 Oxygen Delivery Method Room Air 04/14/21 20:50 Temperature 98.2 F Temperature Source Pulse Rate 84 Respiratory Rate 16 Respiratory Effort Blood Pressure 168/78 H Blood Pressure Mean 108 Pulse Ox 96 Oxygen Delivery Method Positive well nourished and well developed General Appearance ED: well developed and NAD HEENT HEENT Narrative: Patient has contusion/abrasion above his left eye area. There is a small amount of bleeding. There is no laceration that could be sutured though. Eyes EOMs intact bilaterally General Eye ED: Negative for pale conjunctiva Neck no lymphadenopathy Chest Wall inspection of chest normal Chest Narrative: No tenderness with AP or lateral compression or twisting. Resp normal respiratory effort and clear to auscultation bilaterally Auscultation: Negative for wheezes Cardio regular rate and regular rhythm GI normal to inspection, nondistended, normoactive bowel sounds and non-tender Palpation: soft Back/Spine no CVA tenderness Extremity normal to inspection General Extremety ED: Negative for tenderness Neuro oriented x3 Sensorium / Orientation: alert Psych mental status grossly normal Skin Trauma: abrasion MDM MDM MDM Narrative Medical decision making narrative: After patient had CT scan of the head, he started complaining of lower abdominal pain. I talked to him and his son-in-law. He had not been complaining of this before. He has some mild tenderness. But the abdomen is not distended. He still has peripheral pulses and warm extremities. He has no back pain. He states he has not been having this until just recently now. I looked at an old scan from 2019 and that showed a normal aorta. However, we will send off further scan because of the trauma. Blood work shows minimal elevation white count. Electrolytes normal. Coagulation studies are normal. I looked at his CT of his head. He has frontal contusions along with small area of intraparenchymal and subarachnoid bleeding. Yet patient is still awake alert and appropriate. CT of his neck is read as no acute. Patient started complaining of lower abdominal pain significantly. He also complained that he had trouble urinating. Although I do not feel an enlarged bladder I think this is likely the source. A catheter was put in and the symptoms have resolved. Because he is older and is a trauma patient we will continue we will and scan his chest abdomen to make sure there is no secondary injury. I discussed the case with call center and was transferred to the emergency department and then spoke with Dr. Richard Waldrop at [facility] emergency who will accept the patient in transfer. Lab Data Attestation: I reviewed the patient's lab results. Labs: Laboratory Results - last 24 hr 04/14/21 04/14/21 04/14/21 17:56 17:56 18:34 WBC 11.4 H RBC 4.43 L Hgb 14.1 Hct 41.5 MCV 93.7 MCH 31.8 MCHC 34.0 RDW Std Deviation 42.9 RDW Coeff of Franco 12.3 Plt Count 161 MPV 9.1 Immature Gran % (Auto) 0.400 Neut % (Auto) 56.2 Lymph % (Auto) 36.7 [place] % (Auto) 5.1 Eos % (Auto) 1.2 Baso % (Auto) 0.4 Absolute Neuts (auto) 6.4 Absolute Lymphs (auto) 4.17 Nucleated RBC % 0 PT 13.2 INR 1.1 APTT 29.8 Sodium 138 Potassium 4.3 Chloride 103 Carbon Dioxide 31.0 Anion Gap 4 L BUN 12 Creatinine 0.97 Estim Creat Clear Calc 46.44 Est GFR (MDRD) Af Amer 95 Est GFR (MDRD) Non-Af 79 BUN/Creatinine Ratio 12.4 Glucose 104 Calcium 9.0 Radiography Diagnostic Testing: Radiology Impression Brain CT 04/14/21 16:23 IMPRESSION: 1. Moderately extensive bifrontal hemorrhagic contusions. 2. Moderately extensive subarachnoid and intraventricular hemorrhage. 3. Emergency neurosurgical consultation advised. N.B. : The above Results were Read Back by Caroline Choudhary MD to MOHAN ALMAZAN MD, and understanding confirmed on 04/14/2021 18:48:30 (ET). Electronically Signed: Caroline Choudhary MD at 18:27 EDT Tel , Service support , Cervical Spine CT 04/14/21 16:23 IMPRESSION: No evidence of acute cervical spinal fracture. Individualized dose optimization techniques were used for this CT. at 1842 Reported and signed by: Ubaldo Farmer MD Electronically Signed: Ubaldo Farmer MD at 18:41 EDT Tel , Service support , Chest/Abdomen/Pelvis CT 04/14/21 18:40 IMPRESSION: Mild bilateral hydronephrosis without obstructing ureteral calculus. Hydronephrosis may be due to bladder outlet obstruction from prostatic hypertrophy or recent passage of renal calculi. The 2 bladder calculi are new since the prior study. Right apical airspace opacities of uncertain chronicity. Findings may reflect contusion or infection. Individualized dose optimization techniques were used for this CT. at 2019 Reported and signed by: Ubaldo Farmer MD Electronically Signed: Ubaldo Farmer MD at 20:18 EDT Tel , Service support , EKG Initial EKG: Comments: EKG done for syncope read by me did show normal sinus rhythm with a rate of 81. No ventricular ectopy. Nonspecific ST changes but no sign of infarct or ischemia. MN interval, QRS duration and QTc normal. Critical Care Time Critical Care Time: Yes Critical care time (excluding procedures): 30-74 minutes and - (45 minutes of critical care time was used. I had multiple repeat evaluations with the patient. I discussed the findings with him and his son-in-law and consultants. We arrange transfer. Patient remained stable alert and appropriate. However, he was certainly at risk for decompensation with mult) Discharge Plan Triage Chief Complaint: Syncope Other Complaint: Fall Head Injury ED Provider: Mohan Almazan Dx/Rx/DC Orders Clinical Impression: Fall at home, Hemorrhage of brain, traumatic, Acute urinary retention Prescriptions: No Action venlafaxine 37.5 MG capsule 37.5 mg PO BID RF: 0 clonazepam 1 MG tablet 1 - 2 tab PO QHS RF: 0 pramipexole [Mirapex] 0.25 MG tablet 1 - 2 tab PO BID RF: 0 cyanocobalamin (vitamin B-12) [Vitamin B-12] 1,000 MCG tablet 2,500 mcg PO DAILY RF: 0 albuterol sulfate [Ventolin HFA] 1 INHALER inhaler 2 puff inhalation Q4H PRN PRN (Reason: Dyspnea/Wheezing/Sob) RF: 0 pravastatin 20 MG tablet 40 mg PO QHS RF: 0 tamsulosin [Flomax] 0.4 MG capsule 0.4 mg PO QHS RF: 0 aspirin 325 MG tablet 81 mg PO DAILY RF: 0 albuterol sulfate 1 INHALER inhaler 1 - 2 puff inhalation Q4H PRN PRN (Reason: Wheezing) Qty: 1 RF: 0 famotidine 20 MG tablet 20 mg PO BID RF: 0 ondansetron HCl 4 MG tablet 4 mg PO Q4H PRN PRN (Reason: Nausea) RF: 0 amlodipine 2.5 MG tablet 2.5 mg PO DAILY RF: 0 benzonatate 100 MG capsule 100 mg PO DAILY PRN PRN (Reason: Cough) RF: 0 cholecalciferol (vitamin D3) 1,250 MCG capsule 50,000 unit PO QWEEK RF: 0 Primary Care Provider: Vidhi Main Referrals: Vidhi Main MD [Primary Care Provider] - Disposition Disposition: Acute Care Hospital Discharge Location: [facility] Discharge Date/Time: 04/14/21 20:25
[2021-04-14 18:02] LABS: Absolute Lymphocyte Count 4.17 X10^3/uL (0.83-4.51); Absolute Neutrophil Count 6.4 X10^3/uL (2.0-7.7); Basophil# 0.04 X10^3/uL; Basophil% 0.4 % (0-1); Eosinophil# 0.14 X10^3/uL; Eosinophils% 1.2 % (0-5); Hematocrit 41.5 % (40-54); Hemoglobin 14.1 g/dL (13.0-16.5); Lymphocyte # 4.17 X10^3/ul (0.83-4.51); Lymphocyte % 36.7 % (19-41); Mean Corpuscular Hgb 31.8 pg (27.0-32.0); Mean Corpuscular Volume 93.7 fL (80-94); Mean Platelet Vol. 9.1 fl (6.2-12.0); Monocyte# 0.58 X10^3/uL; Monocyte% 5.1 % (0-10); NRBC Flagged by Analyzer 0 % (0-5); Neutrophil # 6.38 X10^3/uL (2.7-7.7); Neutrophil % 56.2 % (47-70); Platelet Count 161 K/mm3 (150-450); RBC Distribution Width CV 12.3 % (11.6-14.6); RBC Distribution Width SD 42.9 fl (35.1-43.9); Red Blood Count 4.43 M/mm3 (4.6-6.2); White Blood Count 11.4 K/mm3 (4.4-11.0)
[2021-04-14 18:15] LABS: Anion Gap 4 (5-15); BUN 12 mg/dL (7-18); BUN/Creat Ratio 12.4 RATIO (10-20); Chloride 103 mmol/L (98-107); Creatinine, Serum 0.97 mg/dL (0.70-1.30); EST Glomerular Filtration Rate 79 mL/min (>60); Est Glom Filt Rate - Afr Amer 95 mL/min (>60); Estimated Creatinine Clearance 46.44 ml/min; Glucose 104 mg/dL (74-106); Potassium 4.3 mmol/L (3.5-5.1); Sodium Level 138 mmol/L (136-145)
--- NOTE | 2021-04-14 18:40 | CT_ITS ---
HISTORY: trauma TECHNIQUE: Helically acquired images were obtained of the chest, abdomen, and pelvis following IV contrast. Non-angiographic protocol was performed. A radiation dose optimization technique was used for this scan. IV Contrast dosage and agent: 100mL [id number]-370 Oral contrast: None. COMPARISON: CT abdomen and pelvis 04/09/20. FINDINGS: ----Chest: LUNGS, PLEURA AND LARGE AIRWAYS: Small focus of airspace disease right apex anterolaterally. No masses, consolidation, or edema. No pleural effusion or thickening. No pneumothorax. Calcified granuloma in the lingula peripherally. THYROID: No thyroid lesions. HEART AND PERICARDIUM: Heart size is normal. No pericardial effusion. VESSELS: Thoracic aorta is not dilated. No aortic dissection. No obvious central pulmonary embolism although this study was not performed with the pulmonary embolism protocol. MEDIASTINUM AND SOFY: No mediastinal or hilar adenopathy. Calcified subcarinal lymph nodes. Esophagus is unremarkable. No hiatal hernia. BONES: No acute or aggressive abnormality. ----Abdomen/Pelvis: LIVER: Homogeneous. No focal mass. GALLBLADDER AND BILIARY TREE: No calcified gallstones. No gallbladder distension or wall edema. No intra- or extrahepatic biliary ductal dilation. PANCREAS: No focal cystic or solid mass. SPLEEN: Normal size without focal cystic or solid mass. ADRENAL GLANDS: No nodules. KIDNEYS AND URETERS: No renal calculi bilaterally. Mild bilateral hydroureteronephrosis without ureteral calculus bilaterally. PERITONEUM: No ascites or free air. No other fluid collection. BOWEL: No evidence of acute appendicitis. No stomach or bowel distension. Colonic diverticulosis without focal inflammatory bowel wall changes. LYMPH NODES: No enlarged mesenteric or retroperitoneal lymph nodes. VESSELS: Aorta is non-dilated. URINARY BLADDER: Marked distention. 2 bladder calculi, each 2 mm. One calculus along the posterolateral right bladder wall, second calculus in the midline posteriorly. REPRODUCTIVE ORGANS: No pelvic masses. Prostatic hypertrophy. ABDOMINAL WALL: Bilateral inguinal herniorrhaphy changes. Small fat-containing umbilical hernia. BONES: No acute or aggressive abnormality. Stable posterior lumbar fusion surgery with hardware L3-L5. CT/CT Chest, Abd, Pel w/Contrast IMPRESSION: Mild bilateral hydronephrosis without obstructing ureteral calculus. Hydronephrosis may be due to bladder outlet obstruction from prostatic hypertrophy or recent passage of renal calculi. The 2 bladder calculi are new since the prior study. Right apical airspace opacities of uncertain chronicity. Findings may reflect contusion or infection. Individualized dose optimization techniques were used for this CT. at 2019 Reported and signed by: Ubaldo Farmer MD Electronically Signed: Ubaldo Farmer MD at 20:18 EDT Tel , Service support ,
[2021-04-14 19:02] LABS: International Normalized Ratio 1.1; Prothrombin Time (Protime)PT. 13.2 SECONDS (11.7-14.9)
[2021-04-14 19:03] LABS: Partial Thromboplast Time 29.8 Seconds (24.1-36.2)
[2021-04-14 19:28] VITALS: BP 109/71; PULSE 98; RESP 16
--- NOTE | 2021-04-14 19:54 | NURSING ---
CALLED [facility], ETA IS 10 TO15 MIN
[2021-04-14 20:50] VITALS: BP 168/78; PULSE 84; RESP 16; TEMP 36.8; O2SAT 96
== END 2021-04-14 20:25 | disposition short-term general hospital (02) ==
PROVIDERS: Emergency Provider Emergency Medicine; PCP Internal Medicine
DX: S06.6X0A Traumatic subarachnoid hemorrhage without loss of consciousness, initial encounter (principal); S00.12XA Contusion of left eyelid and periocular area, initial encounter; W19.XXXA Unspecified fall, initial encounter; Y93.9 Activity, unspecified; Y92.009 Unspecified place in unspecified non-institutional (private) residence as the place of occurrence of the external cause; Y99.9 Unspecified external cause status; R10.30 Lower abdominal pain, unspecified; R33.9 Retention of urine, unspecified; H54.3 Unqualified visual loss, both eyes; Z79.82 Long term (current) use of aspirin; Z79.899 Other long term (current) drug therapy; Z87.891 Personal history of nicotine dependence
CPT/HCPCS: 36415; 51702; 70450; 71260; 72125; 74177; 80048; 85025; 85610; 85730; 93005; 99285; Q9967; A4216

== ENCOUNTER 2021-04-18 18:08 | Inpatient (IN) | payer MEDICARE, SELFPAY ==
[2021-04-18 18:20] VITALS: BP 176/76; PULSE 78; RESP 18; TEMP 36.1; O2SAT 96; BMI 24.6
[2021-04-18 20:17] VITALS: BP 163/79; PULSE 83; RESP 18; TEMP 36.7; O2SAT 94
[2021-04-18] MEDS: Acetaminophen 500 MG Tablet 1000 MG PO (20:40)
[2021-04-18] MEDS: Carbamide Peroxide 15 ML Bottle 5 DRP OTIC (22:21)
[2021-04-18] MEDS: Tamsulosin HCl 0.4 MG Capsule PO (22:22)
[2021-04-18] MEDS: Pramipexole Di-HCl 0.5 MG Tablet PO (22:22)
[2021-04-18] MEDS: levETIRAcetam 1,000 MG Tablet 1000 MG PO (22:22)
[2021-04-18] MEDS: Pravastatin 40 MG Tablet PO (22:23)
[2021-04-18] MEDS: Famotidine 20 MG Tablet PO (22:23)
[2021-04-18] MEDS: Acyclovir 5% Tube 1 APPLIC TOPICAL (22:23)
[2021-04-18] MEDS: clonazePAM 0.5 MG Tablet PO (22:26)
--- NOTE | 2021-04-18 22:38 | PCA ---
At 2215 pt was found walking outside of room confused and naked. PROFESSOR OF RELIGIOUS STUDIES redirected pt to room. Pt stated im lost. Pt had removed gown with PA still attached, bed was soiled. PROFESSOR OF RELIGIOUS STUDIES toileted pt and provided HS care. Nurse was notified and assisted. Additional pressure alarm was placed on bed.
[2021-04-19] MEDS: Acyclovir 5% Tube 1 APPLIC TOPICAL (05:36)
[2021-04-19] MEDS: Acetaminophen 500 MG Tablet 1000 MG PO ×3 (05:37→21:28)
[2021-04-19 07:01] LABS: Absolute Lymphocyte Count 3.74 X10^3/uL (0.83-4.51); Absolute Neutrophil Count 4.9 X10^3/uL (2.0-7.7); Basophil# 0.03 X10^3/uL; Basophil% 0.3 % (0-1); Eosinophil# 0.09 X10^3/uL; Eosinophils% 0.9 % (0-5); Hematocrit 40.1 % (40-54); Hemoglobin 13.4 g/dL (13.0-16.5); Lymphocyte # 3.74 X10^3/ul (0.83-4.51); Mean Corp Hgb Conc 33.4 g/dL (32-36); Mean Corpuscular Hgb 31.3 pg (27.0-32.0); Mean Corpuscular Volume 93.7 fL (80-94); Mean Platelet Vol. 9.2 fl (6.2-12.0); Monocyte# 0.79 X10^3/uL; Monocyte% 8.2 % (0-10); NRBC Flagged by Analyzer 0 % (0-5); Neutrophil # 4.92 X10^3/uL (2.7-7.7); Neutrophil % 51.3 % (47-70); Platelet Count 200 K/mm3 (150-450); RBC Distribution Width CV 12.2 % (11.6-14.6); RBC Distribution Width SD 42.1 fl (35.1-43.9); Red Blood Count 4.28 M/mm3 (4.6-6.2); White Blood Count 9.6 K/mm3 (4.4-11.0)
[2021-04-19 07:42] LABS: ALB/GLOB Ratio 0.7 RATIO (0.9-2.4); AST(SGOT) 13 U/L (15-37); Alanine Aminotransfer ALT/SGPT 21 U/L (16-61); Albumin, Serum 2.9 g/dL (3.2-5.0); Alkaline Phosphatase 84 U/L (45-117); Anion Gap 6 (5-15); BUN 17 mg/dL (7-18); BUN/Creat Ratio 18.8 RATIO (10-20); Chloride 100 mmol/L (98-107); EST Glomerular Filtration Rate 85 mL/min (>60); Est Glom Filt Rate - Afr Amer 103 mL/min (>60); Estimated Creatinine Clearance 50.05 ml/min; Glucose 139 mg/dL (74-106); Phosphorus 2.9 mg/dL (2.5-4.9); Potassium 3.7 mmol/L (3.5-5.1); Protein, Total 6.9 g/dL (6.4-8.2); Sodium Level 132 mmol/L (136-145)
[2021-04-19 08:14] VITALS: BP 132/62; PULSE 66; RESP 16; TEMP 36.4; O2SAT 95
--- NOTE | 2021-04-19 09:03 | HP.PCM_ITS ---
[facility] Date of Admission: 04/18/21 HPI Narrative ELDON ESTRADA, is a 85 YO M with a PMH of hypertension, lumbar spinal stenosis, history of laminectomy and lumbar fusion, restless leg syndrome, hyperlipidemia, osteoarthritis, spondylolisthesis in the cervical spine, gene ralized anxiety disorder, GERD, depression, diarrhea reticulosis, DELANEY (he does not use CPAP), vitamin D deficiency, remote CVA, BPH, tobacco dependence in remission, chronic benzodiazepine use at bedtime for insomnia, basal cell skin cancer and vision loss (legally blind) who was admitted to [facility] on 04/14/2021 after a fall. 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 He was evaluated by neurosurgery who recommended nonoperative management. He is currently finishing a 7-day course of Keppra 1 g p.o. twice daily for seizure prophylaxis. He is to follow-up with Dr. Lilly Ko in [address] Elle Langley in 3 weeks (formal cognitive assessment and comprehensive geriatric assessment) He lives alone with his dog. His daughter and son-in-law manage his finances and his medications. They also do his shopping for him. He had a Padilla catheter while at [facility]. He uses no assistive devices at home. [facility] Medical History (Updated 04/20/21 @ 13:[address] Marcy Mike, ) Legal blindness Lumbar spinal stenosis Home Medications clonazepam 1 - 2 tab PO QHS 10/22/15 [History Last Taken 10/21/15] pramipexole [Mirapex] 1 - 2 tab PO BID 10/22/15 [History Last Taken 10/22/15 09:15] venlafaxine 37.5 mg PO BID 10/22/15 [History Last Taken 10/21/15] cyanocobalamin (vitamin B-12) [Vitamin B-12] 2,500 mcg PO DAILY 02/13/17 [History Last Taken Unknown] albuterol sulfate [Ventolin HFA] 2 puff INHALATION Q4H PRN PRN 07/29/18 [History Last Taken Unknown] pravastatin 40 mg PO QHS 07/29/18 [History Last Taken Unknown] tamsulosin [Flomax] 0.4 mg PO QHS 10/23/18 [History Last Taken Unknown] aspirin 81 mg PO DAILY 08/29/19 [History Last Taken Unknown] famotidine 20 mg PO BID 04/10/20 [History Last Taken Unknown] amlodipine 2.5 mg PO DAILY 09/26/20 [History Last Taken Unknown] benzonatate 100 mg PO DAILY PRN PRN 09/26/20 [History Last Taken Unknown] cholecalciferol (vitamin D3) 50,000 unit PO QWEEK 09/26/20 [History Last Taken Unknown] Allergy/AdvReac Type Severity Reaction Status Date / Time niacin Allergy Rash Verified 04/14/21 16:04 Family History (Updated 04/19/21 @ 11:[address] Marcy Mike DO) Brother Diabetes Surgical History (Updated 04/19/21 @ 12:[address] Marcy Mike DO) H/O inguinal hernia repair H/O lumbosacral spine surgery History of appendectomy Social History (Updated 04/19/21 @ 11:[address] Marcy Mike DO) household members: other details: Lives alone with his dog pets and animals: Yes Smoking Status: Former smoker how long ago did patient quit smokin years ago alcohol intake: current details: Has 2 glasses of wine per week ROS Constitutional Constitutional: Reports fatigue and weakness; Denies anorexia, chills or fever(s) Eyes Eyes: Reports other Details: He has been legally blind for several years seconda ry to optic neuritis ENT HEENT: Denies headache(s), loss taste/smell, nasal congestion or sore throat Cardiovascular Cardiovascular: Reports other Details: He fell at home and had intracerebral bleeding.....he can not recall what caused him to fall. It may been syncope.....I can not rule this out. ; Denies chest pain, edema, orthopnea or palpitations Respiratory/Chest Respiratory/Chest: Denies cough or shortness of breath at rest Gastrointestinal Gastrointestinal: Denies abdominal pain, constipation, diarrhea, dyspepsia, nausea or vomiting Genitourinary Genitourinary: Denies dysuria Musculoskeletal Musculoskeletal: Denies extremity pain Integumentary Integumentary: Reports other Details: He has periorbital ecchymosis and a small laceration above the eye on the R side ; Denies jaundice or rash Neurologic Neurologic: Denies numbness, seizures, tingling or weakness Psychiatric Psychiatric: Reports anxiety; Denies homicidal ideation or suicidal ideation Endocrine Endocrinology: Denies cold intolerance, heat intolerance, polydipsia or polyuria Hematologic/Lymphatic Hematologic/Lymphatic: Denies anemia Vital Signs Vital Signs Vital Signs: 04/18/21 18:20 04/18/21 20:17 04/19/21 08:14 Temperature 97.0 F L 98.0 F 97.6 F L Temperature Source Oral Oral Oral Pulse Rate 78 83 66 Respiratory Rate 18 18 16 Blood Pressure 176/76 H 163/79 H 132/62 H Blood Pressure Mean 109 107 85 Blood Pressure Source Monitor Monitor Monitor Blood Pressure Position Semi-Fowlers Semi-Fowlers Semi-Fowlers Blood Pressure Location Right Arm Right Arm Left Arm Pulse Ox 96 94 95 Oxygen Delivery Method Room Air Room Air Room Air Weight Weight: 139 lb Body Mass Index (BMI) 24.6 Indicators for Scoring Admitted with or Primary Diagnosis of CVA/Stroke: No Hx of CVA/Stroke: Yes Modified Mcmullen Score MRS Score at time of Evaluation: 1-No significant disability NIHSS NIHSS 1a. Level of Consciousness: Alert; keenly responsive (He is drowsy but able to follow commands) 1b. LOC Questions: Answers neither question correctly. 1c. LOC Commands: Performs both tasks correctly. 4. Facial Palsy: Partial paralysis (total or near-total paralysis of lower face) 5a. Left Arm: No drift; arm holds 90 (or 45) degrees for full 10 seconds 5b. Right Arm: No drift; arm holds 90 (or 45) degrees for full 10 seconds 6a. Left Leg: No drift; leg holds 30-degree position for full 5 seconds 6b. Right Leg: No drift; leg holds 30-degree position for full 5 seconds 7. Limb Ataxia: Absent 8. Sensory: Normal; no sensory loss 9. Best Language: No aphasia; normal 10. Dysarthria: [id number] dysarthria; 11. Extinction and Inattention: Visual, tactile, auditory, spatial, or personal inattention (Neglecting the left side at times with sensory exam) Total: 6 Stroke Questions Stroke Team Activated: No Physical Exam Const alert and no apparent distress Constitutional Narrative: He ws lying in bed resting. He was qable to tell me his dog's name is Evita Wood and she is a Bichon Friese General Appearance: cooperative HEENT HEENT Narrative: He has periorbital ecchymosis on the R and a small laceration near the eyebrow on the R Neck supple General: trachea midline; Negative for lymphadenopathy Lymph Lymphatic: no lymphadenopathy noted Resp normal respiratory effort and clear to auscultation bilaterally Resp Narrative: Not tachypneic, no conversational dyspnea, no accessory muscle use, able to speak in full sentences Cardio regular rate, regular rhythm, S1 normal heart sound, S2 normal heart sound, no murmurs, no rub and no gallops Cardio Narrative: No ectopy GI normal to inspection, nondistended, normoactive bowel sounds and soft to palpation GI Narrative: Bladder is not distended Extremity normal capillary refill and no calf tenderness General Extremity: Negative for clubbing, cyanosis or edema Skin Rashes: no rashes Neuro no sensory deficits noted Neuro Narrative: He can feel me touch him on the left when I only touch the left side but, when I touch both arms or both legs at the same time he only reports I am touching him on the R Coordination / Balance: [id number] test normal Speech: speech abnormal Details: Positive for slurred (a little slurred) Psych Psych Narrative: He is polite and he is well kempt. Appearance: appropriate Mood & Affect: flat affect Results Lab / Micro Data Result Diagrams: 04/19/21 06:50 04/19/21 06:50 Labs: Laboratory Results - last 24 hr 04/19/21 06:50: WBC 9.6, RBC 4.28 L, Hgb 13.4, Hct 40.1, MCV 93.7, MCH 31.3, MCHC 33.4, RDW Std Deviation 42.1, RDW Coeff of Franco 12.2, Plt Count 200, MPV 9.2, Immature Gran % (Auto) 0.300, Neut % (Auto) 51.3, Lymph % (Auto) 39.0, [place] % (Auto) 8.2, Eos % (Auto) 0.9, Baso % (Auto) 0.3, Absolute Neuts (auto) 4.9, Absolute Lymphs (auto) 3.74, Nucleated RBC % 0 04/19/21 06:50: Sodium 132 L, Potassium 3.7, Chloride 100, Carbon Dioxide 26.0, Anion Gap 6, BUN 17, Creatinine 0.90, Estim Creat Clear Calc 50.05, Est GFR (MDRD) Af Amer 103, Est GFR (MDRD) Non-Af 85, BUN/Creatinine Ratio 18.8, Glucose 139 H, Calcium 9.0, Phosphorus 2.9, Magnesium 2.0, Total Bilirubin 1.10 H, AST 13 L, ALT 21, Alkaline Phosphatase 84, Total Protein 6.9, Albumin 2.9 L, Globulin 4.0, Albumin/Globulin Ratio 0.7 L Assessment & Plan Assessment/Plan (1) Debility: (2) Fall at home: (3) Cognitive changes: (4) Traumatic brain injury: (5) Subarachnoid hemorrhage: (6) Intraventricular hemorrhage: (7) Intraparenchymal hemorrhage of brain: (8) HTN (hypertension): (9) Acute urinary retention: (10) Restless leg syndrome: (11) Hyperlipidemia: (12) Osteoarthritis of lumbar spine: QUALIFIERS: Spinal osteoarthritis complication: with radiculopathy Qualified Code(s): M47.26 - Other spondylosis with radiculopathy, lumbar region (13) Generalized anxiety disorder: (14) Spondylolisthesis, cervical region: (15) Cervical spondylosis: (16) S/P lumbar fusion: (17) DELANEY (obstructive sleep apnea): (18) Hyponatremia: (19) Legal blindness: PLAN: PLAN PT for gait stability OT for ADL's ST for evaluation Analgesics as needed Bowel protocol Fall precautions Assess for Anxiety/Depression GI prophylaxis with famotidine DVT prophylaxis with SCDs and ADI mock. No aspirin or anticoagulation at this time due to the multiple areas of bleeding in the brain Follow up with PCP following DC from IP Rehab Charges/Coding Visit Charges Inpatient E&M: 03506 Init Hosp L3
--- NOTE | 2021-04-19 09:10 | REHABEVAL_ITS ---
Admission Information Primary Diagnosis:: Debility due to a recent fall resulting in TBI and multiple brain bleeds Actual Problem List:: Bleeding, Falls, Skin Intergrity, Pain, ALteration in Cmfrt, Cognitve Impr/Memory Loss and Mobility Impaired Potential Problem List:: DVT, Bleeding, Infection, UTI, Aspiration, Falls, Skin Integrity and Depression Risk of Complications DVT: LMWH and ADI Hose Bleeding: Monitor Lab Values, Nursing to Teach Precautions for anti-coagulation therapy., Wound, if applicable, to be assessed every shift. and Stroke patients assessed for lethargy or change in status. Infection: Clinical Staff to Monitor for S/S of infection: and S/S of infection include fever, redness, warmth, etc. Urinary Tract Infection: Monitor for frequency, burning, discomfort, or incontinence. and Nursing will obtain urine sample for urinalysis and C&S when ordered. Aspiration: Clinical staff will monitor for coughing, drooling, congestion., Sp eech will evaluate swallowing and dsyphasia. and Nursing will monitor patient swallowing during meals. Falls: Patient will be evaluated for Fall Precautions and Patient will be placed on Fall Precautions as indicated per protocol. Skin Breakdown: Nursing will assess skin daily using assessment tool. and Nursing will place on Skin Breakdown Precautions as indicated. Pain: Clinical staff will assess patient's pain level per protocol., Medications will be given, if needed, and the pain level reassessed. and Other methods: Mas marlo, distraction, decrease stimulus, etc. used PRN. Plan of Care Patient requires physician specializing in physical medicine and rehab oversight to provide close medical supervision of rehab issues including: Pain Management, Sleep Problems, Bowel and Bladder, Medical and co-morbidity Management, DVT prophylaxis, Rehabilitation Leadership and Coordination of treatment team Patient needs Physical Therapy: For a minimum of 1 hour and At least 5 out of 7 days Patient needs Physical Therapy to improve:: Mobility, Strengthening, Transfers, Stretching, ROM, Endurance, Stairs, Gait and Balance Patient needs Occupational Therapy: For a minimum of 1 hour and At least 5 out of 7 days Patient needs Occupational Therapy to improve ADL's incl.: Eating, Grooming, Bathing, Dressing, Toileting, Toilet transfers, Community Reintegration, Higher functioning activities, Household tasks, Adaptive Equipment, Splinting and Other activities as determined Patient requires speech therapy: For a minimum of 1 hour and At least 5 out of 7 days Patient requires speech therapy for: Swallowing, Cognition, Language Skills and Compensatory Strategies Patient requires 24/ Rehabilitation Nursing for: Pain Issues, Identifying and preventing risk factors, Monitoring and reporting current medical conditions, Assisting with ambulation, transfer, and all ADL's, Teaching patients about disease process and medications, Family teaching, Providing safe environment, Bowel and Bladder Issues, Skin integrity and Medication Management Patient needs Payroll Accounting Clerk/ Case Management for: Discharge Planning, Arranging Home Equipment or Services and Family Interventions Patient needs Dietary and Nutrition Services for: Adequate Nutrition, Nutritional Supplements and Nutritional Education Goals Patient will remain: free from falls and or injury at time of discharge. Patient will perform bed mobility at: MOD I level of assist. Patient will complete transfers from bed to chair at: MOD I level of assist. Patient will ambulate: 100 feet and with LRD Patient will complete upper body dressing at: MOD I level of assist. Patient will complete lower body dressing at: MOD I level of assist. Patient will complete toileting at: MOD I level of assist. Patient will perform bathing at: MOD I level of assist. Patient will complete grooming at: MOD I level of assist. Patient will complete home management skills at: MOD I level of assist. Patient will achieve: - (1 curb step) Patient will have pain level of: of 3 or less Patient's skin will: remain intact Patient will receive: adequate nutrition. Discharge Planning Estimated Length of stay (days): 14 Anticipated D/C Destination: undetermin Was Preadmission Assessment Accurate?: Yes
[2021-04-19] MEDS: levETIRAcetam 1,000 MG Tablet 1000 MG PO ×2 (09:36→21:29)
[2021-04-19] MEDS: Venlafaxine XR 75 MG Capsule PO (09:36)
[2021-04-19] MEDS: amLODIPine 2.5 MG Tablet PO (09:36)
[2021-04-19] MEDS: Famotidine 20 MG Tablet PO ×2 (09:36→21:29)
[2021-04-19] MEDS: Carbamide Peroxide 15 ML Bottle 5 DRP OTIC ×2 (09:36→21:29)
[2021-04-19] MEDS: Cyanocobalamin 500 MCG Tablet 2500 MCG PO (09:36)
[2021-04-19] MEDS: Pramipexole Di-HCl 0.25 MG Tablet PO (09:36)
[2021-04-19] MEDS: Tamsulosin HCl 0.4 MG Capsule PO (17:33)
[2021-04-19] MEDS: clonazePAM 0.5 MG Tablet PO (20:07)
[2021-04-19 20:22] VITALS: BP 148/59; PULSE 65; RESP 18; TEMP 36.6; O2SAT 97
[2021-04-19] MEDS: Pramipexole Di-HCl 0.5 MG Tablet PO (21:28)
[2021-04-19] MEDS: Pravastatin 40 MG Tablet PO (21:28)
[2021-04-19] MEDS: Senna/Docusate Sodium 1 Tablet 2 TABLET PO (21:32)
--- NOTE | 2021-04-19 22:45 | NURSING ---
PT C/O FRONTAL HEADACHE. SPEECH IS CLEAR AND APPROPRIATE. PERRL. NO NEURO CHANGES FROM EARLIER THIS SHIFT. PT REPOSITIONED AND COOL CLOTH PROVIDED FOR FOREHEAD. PT THEN STATES HIS HEADACHE FEELS BETTER AND HE FEELS HE WILL BE ABLE TO FALL ASLEEP.
--- NOTE | 2021-04-19 23:05 | NURSING ---
PT AWAKE AND RESTLESS AGAIN IN BED. C/O HEADACHE PAIN AND FACIAL GRIMACING NOTED. PAGE PLACED TO HOSPITALIST BY [facility] DESK LIEUTENANT AT [id number]
--- NOTE | 2021-04-19 23:37 | NURSING ---
DR COTO INFORMED OF PT'S DICKSON PAIN AND ORDER WILL BE PLACED BY HIM.
[2021-04-19] MEDS: proCHLORPERazine 5 MG Tablet 10 MG PO (23:55)
--- NOTE | 2021-04-20 03:55 | NURSING ---
PT NOTED WITH CALL LIGHT IN HAND. PT REPORTS HIS FRONTAL DICKSON IS A #1 ON 1-10 PAIN SCALE AND STATES HE WILL RETURN TO SLEEP. DENIES NEED TO VOID AT THIS TIME AND DENIES ANY FURTHER NEEDS.
[2021-04-20] MEDS: Acetaminophen 500 MG Tablet 1000 MG PO ×3 (06:50→21:04)
[2021-04-20] MEDS: Acyclovir 5% Tube 1 APPLIC TOPICAL ×3 (06:51→17:23)
[2021-04-20 07:15] VITALS: O2SAT 96
[2021-04-20] MEDS: Famotidine 20 MG Tablet PO ×2 (08:02→21:04)
[2021-04-20] MEDS: levETIRAcetam 1,000 MG Tablet 1000 MG PO ×2 (08:02→21:04)
[2021-04-20] MEDS: Carbamide Peroxide 15 ML Bottle 5 DRP OTIC ×2 (08:02→21:04)
[2021-04-20] MEDS: Venlafaxine XR 75 MG Capsule PO (08:02)
[2021-04-20] MEDS: amLODIPine 2.5 MG Tablet PO ×2 (08:03→14:31)
[2021-04-20] MEDS: Pramipexole Di-HCl 0.25 MG Tablet PO (08:03)
[2021-04-20] MEDS: Cyanocobalamin 500 MCG Tablet 2500 MCG PO (08:03)
[2021-04-20 08:27] VITALS: BP 166/70; PULSE 78; RESP 16; TEMP 36.6; O2SAT 96
[2021-04-20] MEDS: Senna/Docusate Sodium 1 Tablet 2 TABLET PO ×2 (12:07→21:05)
[2021-04-20 13:57] VITALS: BP 149/70; BP 156/70; BP 160/72; PULSE 70; PULSE 76; PULSE 79
[2021-04-20 14:33] VITALS: PULSE 70
[2021-04-20] MEDS: hydrALAZINE 10 MG Tablet PO (14:33)
--- NOTE | 2021-04-20 15:48 | CHAPLAIN ---
Type of Pastoral Visit _x__ Initial Visit ___ Follow-up Visit ___ On-call Visit ___ General Patient Visit ___ Spiritual Assessment ___ Family Conference ___ Bereavement ___ Rapid Response ___ Code Blue ___ Other (describe below) Pastoral Care Referral From _x__ Patient ___ Family ___ Nurse ___ Physician ___ Distance Learning Program Coordinator ___ Grain Sampler ___ Other (describe below) Sacrament/Intervention _x__ Active listening ___ Anointing ___ Mosque ___ Bereavement ___ Communion ___ Jessica exploration ___ ___ Life review _x__ Prayer ___ Reconciliation ___ Sacrament of Sick _x__ Supportive presence ___ Wedding ___ Other (describe below) Pastoral Comments patient was in bed resting but with much leg movement; pt states he is restless; talked with patient and asked questions; pt welcomed presence and prayer; pt would like follow up visit; notified RN of pt discomfort
[2021-04-20] MEDS: Tamsulosin HCl 0.4 MG Capsule PO (17:23)
[2021-04-20] MEDS: clonazePAM 0.5 MG Tablet PO (21:03)
[2021-04-20] MEDS: Pramipexole Di-HCl 0.5 MG Tablet PO (21:04)
[2021-04-20] MEDS: Pravastatin 40 MG Tablet PO (21:04)
[2021-04-20 22:00] VITALS: BP 149/68; PULSE 85; RESP 16; TEMP 36.6; O2SAT 96
[2021-04-21] MEDS: Acetaminophen 500 MG Tablet 1000 MG PO ×3 (05:15→21:50)
[2021-04-21] MEDS: Acyclovir 5% Tube 1 APPLIC TOPICAL ×4 (05:15→21:47)
[2021-04-21] MEDS: Venlafaxine XR 75 MG Capsule PO (07:59)
[2021-04-21] MEDS: amLODIPine 5 MG Tablet PO (07:59)
[2021-04-21] MEDS: Senna/Docusate Sodium 1 Tablet 2 TABLET PO (07:59)
[2021-04-21] MEDS: Cyanocobalamin 500 MCG Tablet 2500 MCG PO (07:59)
[2021-04-21] MEDS: Famotidine 20 MG Tablet PO ×2 (07:59→21:50)
[2021-04-21] MEDS: Pramipexole Di-HCl 0.25 MG Tablet PO (07:59)
[2021-04-21] MEDS: levETIRAcetam 1,000 MG Tablet 1000 MG PO ×2 (08:02→21:51)
[2021-04-21 09:09] VITALS: BP 143/55; PULSE 73; RESP 16; TEMP 36.9; O2SAT 97
--- NOTE | 2021-04-21 10:28 | PCM.PN.BLA ---
Progress Note Afebrile VSS Maintaining appropriate oxygen saturation on RA Oral intake is Discussed with nursing - no problems that need addressed Reviewed the PT/OT/ST notes Medication list reviewed. Nurse reports that Per did not sleep last night and they feel it is secondary to restless legs rather than pain. He denies pain. He is on Mirapex for RLS but, I do not know how long he has been on this medication or if he has been experiencing increased sx due to possible augmentation. His dtr is going to try and be here for rounds tomorrow and will try and get some information from her. Per has no complaints. He denies shaking chills, night sweats, nausea/vomiting/abdominal pain, calf pain, lightheadedness, vertigo, chest pain, shortness of breath, cough, dysuria. Physical Exam Const Constitutional Narrative: drowsy, oriented to person. Pleasant and appropriate when I am talking with him but, slow to respond to questions. Does not appear in any distress. He is fidgety when he is sitting in the nursing station so they can watch him. General Appearance: cooperative HEENT HEENT Narrative: The bartolome-orbital ecchymosis is fading. Resp normal respiratory effort, no use of accessory muscles and clear to auscultation bilaterally Effort and Inspection: able to speak in complete sentences Cardio regular rate, regular rhythm and no gallops GI normal to inspection, nondistended, normoactive bowel sounds and soft to palpation Extremity no calf tenderness and no pedal edema Neuro Neuro Narrative: unchanged from admission Assessment & Plan Assessment/Plan (1) Restless leg syndrome: (2) Legal blindness: (3) Debility: (4) Intraparenchymal hemorrhage of brain: (5) Intraventricular hemorrhage: (6) Subarachnoid hemorrhage: (7) Traumatic brain injury: (8) HTN (hypertension): (9) Generalized anxiety disorder: (10) DELANEY (obstructive sleep apnea): PLAN: 1. Add Lyrica 25 mg p.o. nightly at 8 PM. If Lyrica is effective in controlling restless leg and he sleeps well would consider tapering Mirapex. 2. Will research the treatment for non 24. 3. Continue therapy 4. Continue to adjust the medications to get good control of the BP......goal is less than 135/80. Orthostatics were negative yesterday. Visit Charges Inpatient E&M: 32581 Subs Hosp L2
[2021-04-21] MEDS: Carbamide Peroxide 15 ML Bottle 5 DRP OTIC ×2 (12:42→22:22)
[2021-04-21] MEDS: Tamsulosin HCl 0.4 MG Capsule PO (16:54)
[2021-04-21] MEDS: Pregabalin 25 MG Capsule PO (19:39)
[2021-04-21] MEDS: clonazePAM 0.5 MG Tablet PO (19:39)
[2021-04-21 19:43] VITALS: BP 141/65; PULSE 70; RESP 16; TEMP 36.3; O2SAT 96
[2021-04-21] MEDS: Pravastatin 40 MG Tablet PO (21:51)
[2021-04-21] MEDS: Pramipexole Di-HCl 0.5 MG Tablet PO (21:53)
[2021-04-21 22:00] VITALS: RESP 16; O2SAT 16
[2021-04-22] MEDS: Acyclovir 5% Tube 1 APPLIC TOPICAL ×4 (06:53→21:01)
[2021-04-22] MEDS: Acetaminophen 500 MG Tablet 1000 MG PO ×3 (06:54→21:01)
[2021-04-22 10:00] VITALS: BP 151/46; PULSE 76; RESP 18; TEMP 36.8; O2SAT 95
[2021-04-22] MEDS: Pramipexole Di-HCl 0.25 MG Tablet PO (10:39)
[2021-04-22] MEDS: Cyanocobalamin 500 MCG Tablet 2500 MCG PO (10:39)
[2021-04-22] MEDS: amLODIPine 5 MG Tablet PO (10:39)
[2021-04-22] MEDS: Famotidine 20 MG Tablet PO ×2 (10:39→21:02)
[2021-04-22] MEDS: Venlafaxine XR 75 MG Capsule PO (10:39)
[2021-04-22] MEDS: Carbamide Peroxide 15 ML Bottle 5 DRP OTIC ×2 (10:39→21:01)
[2021-04-22] MEDS: Ergocalciferol 1.25 MG (50, 000 UNIT) Capsule PO (10:41)
[2021-04-22 16:23] LABS: Bacteria 0 SEEN /hpf (None Seen); Mucous, Urine 0 SEEN /hpf (<or=2+); Squamous Epithelial Cells - UA 0 SEEN /hpf (0-5)
[2021-04-22 16:26] LABS: Color, Urine Yellow (Yellow); Glucose, Dipstick Normal (Normal); Ketone-Dipstick 5 mg/dl (Negative); Leukocyte Esterase-Dipstick Negative /ul (Negative); Nitrite-Dipstick Negative (Negative); Occult Blood-Urine 10 /ul (Negative); Protein-Dipstick Negative (Negative); Urine Bilirubin Dipstick Negative (Negative); Urine Clarity Clear (Clear); Urine Urobilinogen Normal (Normal)
[2021-04-22 16:56] LABS: Red Blood Cells-Urine 0-5 SEEN /hpf (0-5)
[2021-04-22 16:57] LABS: White Blood Cells 0-5 SEEN /hpf (0-5)
[2021-04-22] MEDS: Tamsulosin HCl 0.4 MG Capsule PO (17:05)
[2021-04-22 19:32] VITALS: BP 147/60; PULSE 75; RESP 18; TEMP 36.8; O2SAT 97
--- NOTE | 2021-04-22 19:38 | NURSING ---
Notified Dr. Mike of patient continuing to climb out of bed and chair. 1:1 sitter. Received order for Seroquel 25mg x1 now.
[2021-04-22] MEDS: Pregabalin 25 MG Capsule PO (19:55)
[2021-04-22] MEDS: clonazePAM 0.5 MG Tablet PO (19:55)
[2021-04-22] MEDS: QUEtiapine 25 MG Tablet PO (19:55)
--- NOTE | 2021-04-22 20:00 | NURSING ---
Restless legs continue and pt with staff 1:1 at desk for safety measures. Pt impulsive at times and trying to get out of recliner unassisted. Pt reoriented to time of day and reassured of needs for safety.
[2021-04-22 20:14] VITALS: RESP 18
[2021-04-22] MEDS: Pravastatin 40 MG Tablet PO (21:01)
[2021-04-22] MEDS: Pramipexole Di-HCl 0.5 MG Tablet PO (21:02)
--- NOTE | 2021-04-22 23:36 | NURSING ---
1:1 staff with pt d/t impulsivity and attempting to get out of bed. Pt found with pj bottoms and Attends removed in bed. Incontinence protocol provided and repositioned in bed for comfort. Pt restless.
[2021-04-23] MEDS: Acetaminophen 500 MG Tablet 1000 MG PO ×3 (06:13→21:16)
--- NOTE | 2021-04-23 06:16 | NURSING ---
Pt setting off alarm and getting up stating he was looking for the pants he removed in bed. Pt did not need toileting and was repositioned in bed. Will continue to monitor
[2021-04-23 07:30] VITALS: BP 131/59; PULSE 82; RESP 16; TEMP 36.8; O2SAT 97
[2021-04-23] MEDS: Venlafaxine XR 75 MG Capsule PO (09:00)
[2021-04-23] MEDS: Pramipexole Di-HCl 0.25 MG Tablet PO (09:00)
[2021-04-23] MEDS: Famotidine 20 MG Tablet PO ×2 (09:01→21:16)
[2021-04-23] MEDS: amLODIPine 5 MG Tablet PO (09:01)
[2021-04-23] MEDS: Cyanocobalamin 500 MCG Tablet 2500 MCG PO (09:01)
[2021-04-23] MEDS: Carbamide Peroxide 15 ML Bottle 5 DRP OTIC ×2 (09:07→21:16)
--- NOTE | 2021-04-23 09:24 | CASEMGMT ---
Social Work Pt unable to complete social work assessment. Left message with dtr to complete. Team meeting this date. Will continue to follow. Kadi Kelley, INVESTIGATOR NARCOTICS PSYCH ARNP
--- NOTE | 2021-04-23 11:52 | PN_ITS ---
Progress Note Per was seen on TEAM rounds today. His dtr Patti was present for rounds today. VSS - systolic is mildly elevated at times but, the diastolic is WNL Maintaining appropriate oxygen saturation on RA Oral intake is adequate The last bowel movement was 04/21/2021. He is incontinent of urine Discussed with nursing - He has not been sleeping at night. I suspect this is related to blindness and disruption in Circadian rhythm. Also he had a stroke, he is in a strange place and there are many different care takers and he does not know the voices. He is very restless at night. At home he takes 0.5-1 mg of Klonopin at night. We have been giving him 0.5 mg at bedtime. He is drowsy and sleeping during the day. Prior to the stroke Per was living by himself, cooking for himself, completing all ADL's and walking his dog around the block. His dtr and son-in-law manage his medications and finances. Reviewed the PT/OT/ST notes Medication list reviewed. Per is complaining of restless legs. He is on Mirapex 0.25 mg every morning and 0.5 mg at at bedtime. He tells me that he was also having jerky legs at home and he needs to keep moving. Patti tells me that they were only giving Per 0.5 mg of Klonopin at home because he was too sleepy during the day with 1 mg but, his anxiety level here is the hospital is likely much higher. Patti and her are both working and can not be present 24H. The SW discussed possible alternative care solutions and Patti was given a list of local agencies that provide home care. Per denies cough, SOB, calf pain, dysuria, CP, N/V, lightheadedness. The UA done yesterday was negative. Physical Exam Const no apparent distress Constitutional Narrative: He appears sleepy General Appearance: cooperative Neck supple General: trachea midline; Negative for lymphadenopathy Resp normal respiratory effort and clear to auscultation bilaterally Resp Narrative: Not tachypneic, no conversational dyspnea, no accessory muscle use, able to speak in full sentences Cardio regular rate, regular rhythm, S1 normal heart sound, S2 normal heart sound, no murmurs, no rub and no gallops Cardio Narrative: No ectopy GI normal to inspection, nondistended, normoactive bowel sounds and soft to palpation GI Narrative: Bladder is not distended Extremity normal capillary refill and no calf tenderness General Extremity: Negative for clubbing, cyanosis or edema Skin Rashes: no rashes Neuro no sensory deficits noted Neuro Narrative: He can feel me touch him on the left when I only touch the left side but, when I touch both arms or both legs at the same time he only reports I am touching him on the R. He has persistent left facial droop. He is oriented to person and place today but, not to year, month, age. He is slow to answer questions. Coordination / Balance: [id number] test normal Speech: speech abnormal Details: Positive for slurred (a little slurred) Psych Psych Narrative: He is polite and he is well kempt. 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 Add Melatonin to the drug regimen. Increase the Klonopin to 1 mg PO at bedtime. discontinue Seroquel and start Lyrica 25 mg Q HS for RLS. I suspect the untreated sleep apnea contributes to the RLS. He also may be experiencing augmentation from the Mirapex. The Mirapex may be contributing to the daytime somnolence. It can also cause muscle spasms and hypertonicity. Will DC the AM dose of Mirapex. Continue the HS dose for now. Get a overnight trending pulse ox tonight......if he will not wear CPAP it may help the RLS if he wears O2 at night. 2. Find out what time he normally goes to bed at night when he is home - 11:30. 3. I suspect if we can get him sleeping at night he will function better in the day. He will also settle in to the new surroundings. I think it is possible to get him home and he will definitely function better in his own surroundings. He is very cooperative with therapy and motivated to get home......or at least to h is daughter's house. He is impulsive right now and we have to allow him some time to adjust.......Will monitor closely for signs of depression. Visit Charges Inpatient E&M: 11838 Subs Hosp L2
--- NOTE | 2021-04-23 17:06 | CASEMGMT ---
Addendum entered by Kadi Kelley 04/24/21 10:29: Palliative Screen completed. Referral made to [facility]. Original Note: Social Work IDT met with patient and dtr for Team meeting. Discussed patient's progress in therapy and nursing. IDT and dtr agree pt would do better in home environment d/t being blind, however, some concern with pt being home alone. Dtr and SAMI both work during the day. The dtr is considering taking pt to her home as her /SAMI is home for periods throughout his day as he is a preschool assistant director and they are both home by 4 pm. Provided list of psychological aide agencies to possibly set up for aides to assist pt during the day. Dtr will consider but unsure of financial ability. Explained [employer] insurance with NRD 04/23 and continued stay is not guaranteed. Will ReTeam next week. Pt approved with DC plans in place, NRD 05/01. OZZIE BahenaW
[2021-04-23] MEDS: Tamsulosin HCl 0.4 MG Capsule PO (18:37)
[2021-04-23 19:39] VITALS: BP 126/54; PULSE 70; RESP 18; TEMP 36.3; O2SAT 97
[2021-04-23 20:03] VITALS: PULSE 70; RESP 18
[2021-04-23] MEDS: Pramipexole Di-HCl 0.5 MG Tablet PO (21:16)
[2021-04-23] MEDS: Pravastatin 40 MG Tablet PO (21:16)
[2021-04-23] MEDS: Senna/Docusate Sodium 1 Tablet 2 TABLET PO (21:16)
[2021-04-23] MEDS: Pregabalin 25 MG Capsule PO (21:20)
[2021-04-23] MEDS: MELATONIN 3 MG TABLET PO (21:30)
[2021-04-23] MEDS: clonazePAM 1 MG Tablet PO (21:30)
--- NOTE | 2021-04-23 21:49 | NURSING ---
Pt set off alarms and found on all 4's at end of bed saying he can't sleep here tonight. Staff reoriented pt to time of day and encouraged to try to relax. BA & PA are activated. Pt restless and staff reassuring pt of safety concerns. Soft music has been added.
[2021-04-23 22:35] VITALS: PULSE 73; O2SAT 93
[2021-04-24 06:14] VITALS: BP 165/66; PULSE 78
[2021-04-24] MEDS: Acetaminophen 500 MG Tablet 1000 MG PO ×3 (06:14→21:40)
[2021-04-24] MEDS: hydrALAZINE 10 MG Tablet PO (06:14)
--- NOTE | 2021-04-24 06:26 | NURSING ---
Pt removed PA and was found standing at side of bed with Attends removed, attempting to put on new Attends. Pt reminded of safety needs and to use call light for staff. Bed alarm failed to alarm. Pt repositioned into recliner after replacing Attends.
[2021-04-24 07:21] VITALS: BP 165/66; PULSE 78; RESP 16; TEMP 36.6; O2SAT 96
--- NOTE | 2021-04-24 09:29 | PCM.PN.BLA ---
Progress Note Afebrile VSS-systolic blood pressures remain mildly increased but the diastolics are still within normal limits. Maintaining appropriate oxygen saturation on RA Oral intake is adequate He is still incontinent of urine. Discussed with nursing - last night he managed to remove his alarm and he was found standing on the side of his bed with his attends off and he was attempting to change the Attends. He did not sleep well last night again per nursing but, Per tells me he is feeling better today because he slept last night. Several med changes were made to help get his sleep/wake cycle back on track. He received Reviewed the PT/OT/ST notes Medication list reviewed. I reviewed the overnight trending pulse ox and 99.07% of the time his pulse ox is 90 or above. 20.6% of the time the heart rate is less than 60. The total duration of desaturation events was 1 minute and the number of desaturated duration events was 1. His legs are no longer jumping today. He received Lyrica last night. He seems more alert today. He denies pain, CP, SOB, cough, dysuria, N/V, lightheadedness, calf pain. Physical Exam Const alert and no apparent distress Constitutional Narrative: less drowsy General Appearance: cooperative Resp normal respiratory effort and clear to auscultation bilaterally Cardio regular rate and regular rhythm GI normal to inspection, nondistended, normoactive bowel sounds and soft to palpation Extremity no calf tenderness and no pedal edema Extremity Narrative: No restless leg currently. Skin Skin Narrative: The ecchymosis around the left eye is resolving. He has no rashes and there is no skin breakdown. 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 Dc the daily dose of Mirapex 2. continue the Klonopin 1 mg at HS and Lyrica 25 mg. Continue the Melatonin. 3. Continue therapy 4. Recheck a BMP in the AM and an ALB. Calcium is a little low. the vitamin D level in March was maria ines. 5. If the systolic BP stays elevated over the next few days will increase the Amlodipine dose Visit Charges Inpatient E&M: 70005 Subs Hosp L2
[2021-04-24] MEDS: Famotidine 20 MG Tablet PO ×2 (10:47→21:40)
[2021-04-24] MEDS: Carbamide Peroxide 15 ML Bottle 5 DRP OTIC ×2 (10:47→21:40)
[2021-04-24] MEDS: Cyanocobalamin 500 MCG Tablet 2500 MCG PO (10:47)
[2021-04-24] MEDS: amLODIPine 5 MG Tablet PO (10:47)
[2021-04-24] MEDS: Senna/Docusate Sodium 1 Tablet 2 TABLET PO (10:47)
[2021-04-24] MEDS: Venlafaxine XR 75 MG Capsule PO (10:47)
[2021-04-24 13:59] VITALS: PULSE 69; RESP 18; O2SAT 93
[2021-04-24] MEDS: Tamsulosin HCl 0.4 MG Capsule PO (17:39)
[2021-04-24 19:30] VITALS: BP 134/50; PULSE 69; RESP 18; TEMP 36.7; O2SAT 93
[2021-04-24 21:30] VITALS: BP 129/61; PULSE 86; RESP 18; O2SAT 93
[2021-04-24] MEDS: Pramipexole Di-HCl 0.5 MG Tablet PO (21:39)
[2021-04-24] MEDS: Pregabalin 25 MG Capsule PO (21:40)
[2021-04-24] MEDS: Pravastatin 40 MG Tablet PO (21:40)
[2021-04-24] MEDS: MELATONIN 3 MG TABLET PO (21:40)
--- NOTE | 2021-04-24 23:28 | NURSING ---
KLONOPIN NOT GIVEN TILL LATE D/T HAD NOT RECEIVED FROM PHARMACY, AFTER CALLING AT 4810. FINALLY RECEIVED AT 6130
[2021-04-24] MEDS: clonazePAM 1 MG Tablet PO (23:58)
--- NOTE | 2021-04-25 01:23 | NURSING ---
pt sleeping at short intervals and remains restless. pt reports that his legs are hurting, staff suggested to pt to take a shower to let the warm water run over his legs. shower completed and pt returned to bed and given assurance that staff would be checking in on him and try to sleep, pt acknowledges, alarms put on for safety. pt had a sitter for safety from 7-11pm for safety and restlessness.
--- NOTE | 2021-04-25 03:58 | NURSING ---
Reviewed and agree with MANAGER PUBLIC documentation and charting.
[2021-04-25] MEDS: Acetaminophen 500 MG Tablet 1000 MG PO ×3 (09:06→21:03)
[2021-04-25] MEDS: Famotidine 20 MG Tablet PO ×2 (09:07→21:04)
[2021-04-25] MEDS: Cyanocobalamin 500 MCG Tablet 2500 MCG PO (09:07)
[2021-04-25] MEDS: Carbamide Peroxide 15 ML Bottle 5 DRP OTIC ×2 (09:07→21:13)
[2021-04-25] MEDS: Venlafaxine XR 75 MG Capsule PO (09:07)
[2021-04-25 09:09] VITALS: BP 105/48; PULSE 77; RESP 16; TEMP 36.1; O2SAT 92
[2021-04-25 11:07] VITALS: BP 123/51; PULSE 77
[2021-04-25] MEDS: amLODIPine 5 MG Tablet PO (11:07)
[2021-04-25] MEDS: Tamsulosin HCl 0.4 MG Capsule PO (17:42)
[2021-04-25 20:38] VITALS: BP 107/61; PULSE 83; RESP 16; TEMP 36.8; O2SAT 96
[2021-04-25] MEDS: Pramipexole Di-HCl 0.5 MG Tablet PO (21:04)
[2021-04-25] MEDS: Pregabalin 25 MG Capsule PO (21:04)
[2021-04-25] MEDS: Pravastatin 40 MG Tablet PO (21:04)
[2021-04-25] MEDS: clonazePAM 1 MG Tablet PO (21:05)
[2021-04-25] MEDS: MELATONIN 3 MG TABLET PO (21:10)
[2021-04-26] MEDS: Acetaminophen 500 MG Tablet 1000 MG PO ×3 (04:27→21:43)
[2021-04-26 05:59] LABS: Hematocrit 39.7 % (40-54); Hemoglobin 13.5 g/dL (13.0-16.5)
[2021-04-26 06:27] LABS: Anion Gap 4 (5-15); BUN 20 mg/dL (7-18); BUN/Creat Ratio 21.5 RATIO (10-20); Calcium,Total 9.2 mg/dL (8.5-10.1); Chloride 101 mmol/L (98-107); Creatinine, Serum 0.93 mg/dL (0.70-1.30); EST Glomerular Filtration Rate 82 mL/min (>60); Est Glom Filt Rate - Afr Amer 100 mL/min (>60); Estimated Creatinine Clearance 48.44 ml/min; Glucose 110 mg/dL (74-106); Potassium 4.1 mmol/L (3.5-5.1); Sodium Level 132 mmol/L (136-145)
[2021-04-26 08:31] VITALS: BP 139/49; PULSE 73; RESP 16; TEMP 36.5; O2SAT 97
[2021-04-26] MEDS: Famotidine 20 MG Tablet PO ×2 (09:57→21:43)
[2021-04-26] MEDS: Venlafaxine XR 75 MG Capsule PO (09:57)
[2021-04-26] MEDS: Cyanocobalamin 500 MCG Tablet 2500 MCG PO (09:58)
[2021-04-26] MEDS: Gabapentin 100 MG Capsule PO (09:58)
[2021-04-26] MEDS: amLODIPine 5 MG Tablet PO (10:04)
[2021-04-26] MEDS: Senna/Docusate Sodium 1 Tablet 2 TABLET PO (10:05)
[2021-04-26] MEDS: Carbamide Peroxide 15 ML Bottle 5 DRP OTIC ×2 (11:57→21:42)
--- NOTE | 2021-04-26 14:16 | PN_ITS ---
Progress Note Afebrile VSS-blood pressure is now well controlled. Heart rate is within normal limits. He did not require any PRN Hydralazine yesterday. Maintaining appropriate oxygen saturation on RA Oral intake is good Discussed with nursing - the RLS is doing better and he is no longer having RLS at night. He is sleeping better at night. He had some RLS yesterday afternoon. We started him on GAbapentin 100 mg in the AM today and so far today he has not c/o his legs jumping. He is more alert during the day since the Mirapex was discontinued. Reviewed the PT/OT/ST notes Medication list reviewed. All lab from today was personally reviewed. Hemoglobin is stable at 13.5. Sodium is still mildly decreased at 132 but it is stable. Potassium is 4.1 and the BUN is 20 with a creatinine stable at 0.93. Calcium is within normal limits. He was able to do a sit to stand and sit to supine at standby assist today. He is slow but is doing it without assistance now. Today he was also able to ascend/descend 5 steps of various heights at [facility]. He needs minimal assistance to dress himself and groom himself. He walked 15 ft with OT with SCREEN WRITER. He requires total assistance with eating. Physical Exam Const alert and no apparent distress Constitutional Narrative: less drowsy. He is sitting in the recliner. He is appropriate and able to follow commands. General Appearance: cooperative Neck supple General: trachea midline; Negative for lymphadenopathy Lymph Lymphatic: no lymphadenopathy noted Resp normal respiratory effort, no use of accessory muscles and clear to auscultation bilaterally Resp Narrative: Not tachypneic, no conversational dyspnea, no accessory muscle use, able to speak in full sentences. Able to take deep breaths when asked. Effort and Inspection: able to speak in complete sentences and symmetric chest movement Cardio regular rate, regular rhythm, S1 normal heart sound, S2 normal heart sound, no murmurs, no rub and no gallops Cardio Narrative: No ectopy GI normal to inspection, nondistended, normoactive bowel sounds and soft to palpation Extremity normal capillary refill, no calf tenderness and no pedal edema Extremity Narrative: No restless leg currently. General Extremity: Negative for clubbing, cyanosis or edema Skin Skin Narrative: The ecchymosis around the left eye is resolving. He has no rashes and there is no skin breakdown. Rashes: no rashes Neuro no sensory deficits noted Neuro Narrative: unchanged from admission. Persistent L facial droop. More alert today. Told me that he is sleeping better Coordination / Balance: [id number] test normal Speech: speech abnormal Details: Positive for slurred (a little slurred) Psych Psych Narrative: He is polite and he is well kempt. His affect is less flat than at admission Appearance: appropriate Assessment & Plan Assessment/Plan (1) Debility: PLAN: Continue therapy. We are hopeful that he will be able to return home after an initial period of living with his dtr. He will need 24/7 supervision initially (2) History of recent fall: PLAN: He does not recall why he fell. 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 Will recheck the Lab on Friday. Check a urine and serum osmolality now and also a urine sodium. TSH was normal in March. The likely etiology of the low sodium is either Cerebral salt wasting or SIADH related to the brain injuries. If it is FUNDRAISING SPECIALIST then the uric acid should be low. He is not fluid overloaded on PE. His oral intake is consistently < 1200 so he is restricting his own fluids. (10) Restless leg syndrome: PLAN: doing better on Lyrica........he had Gabapentin 100 mg this AM because we could not do 12.5 of Lyrica. Will change him to Gabapentin 100 mg BID and 200 mg at 9:30 PM. DC the Lyrica. He is also on Mirapex 0.5 mg at HS but, I suspect he was experiencing augmentation. We discontinued the Am Mirapex. In another week will decrease the HS dose to 0.25 mg (it must be tapered off) (11) DELANEY (obstructive sleep apnea): PLAN: The overnight trending pulse ox revealed no significant oxygen desaturations. No need for any treatment. (12) Chronic prescription benzodiazepine use: PLAN: I would like to taper this back down to 0.5 mg Q HS or better yet off. Anxiety increased recently due to fall/injuries/new place/many new voices. Visit Charges Inpatient E&M: 12764 Subs Hosp L2
--- NOTE | 2021-04-26 14:24 | CASEMGMT ---
Addendum entered by Kadi Kelley 04/26/21 16:24: Spoke with dtr and explained insurance NRD 05/01 and requesting DC plans in place. Dtr would like pt to remain in [facility] until more progress in made. she and IDT feel pt could benefit from continued stay. IDT not recommending pt transfer to a SNF as that is another environment change, however, dtr and SAMI work during the day and is concerned about how he will get care at home. Pt's is at [facility] and dtr would like referral there. Explained insurance may not cover SNF stay but SW will refer. Encouraged dtr to contact nonskilled [facility] agencies. Dtr expressed understanding. SW to continue to follow. Original Note: Social Work Left message with dtr to discuss insurance and DC plans. Kadi Kelley, OZZIE STRUCTURAL FITTER
[2021-04-26] MEDS: Tamsulosin HCl 0.4 MG Capsule PO (15:20)
[2021-04-26 20:20] LABS: Uric Acid 5.8 mg/dL (3.5-7.2)
[2021-04-26 20:39] LABS: Osmolality, Serum 281 mOsm/KG (280-301)
[2021-04-26 21:38] VITALS: BP 115/40; PULSE 56; RESP 14; TEMP 36.6; O2SAT 100
[2021-04-26] MEDS: MELATONIN 3 MG TABLET PO (21:42)
[2021-04-26] MEDS: Gabapentin 100 MG Capsule 200 MG PO ×2 (21:42→23:07)
[2021-04-26] MEDS: Pramipexole Di-HCl 0.5 MG Tablet PO (21:43)
[2021-04-26] MEDS: Pravastatin 40 MG Tablet PO (21:43)
[2021-04-26] MEDS: clonazePAM 1 MG Tablet PO (22:15)
--- NOTE | 2021-04-27 03:54 | NURSING ---
REVIEWED AND AGREE WITH FLOOR RENOVATOR'S HANDOFF CHARTING AND FUNCTIONAL ASSESSMENT.
[2021-04-27] MEDS: Acetaminophen 500 MG Tablet 1000 MG PO ×3 (06:08→22:11)
[2021-04-27 07:26] VITALS: BP 122/50; PULSE 68; RESP 16; TEMP 36.3; O2SAT 97
[2021-04-27] MEDS: Famotidine 20 MG Tablet PO ×2 (09:16→22:11)
[2021-04-27] MEDS: Carbamide Peroxide 15 ML Bottle 5 DRP OTIC ×2 (09:16→22:07)
[2021-04-27] MEDS: Cyanocobalamin 500 MCG Tablet 2500 MCG PO (09:16)
[2021-04-27] MEDS: Venlafaxine XR 75 MG Capsule PO (09:16)
[2021-04-27] MEDS: amLODIPine 5 MG Tablet PO (09:16)
[2021-04-27 14:14] LABS: Urine Sodium 12 mmol/L (Not Establ.)
[2021-04-27 14:17] LABS: Osmolality, Urine 316 mOsm/KG
[2021-04-27] MEDS: Tamsulosin HCl 0.4 MG Capsule PO (17:29)
[2021-04-27 19:21] VITALS: BP 121/52; PULSE 79; RESP 18; TEMP 36.7; O2SAT 97
[2021-04-27] MEDS: clonazePAM 1 MG Tablet PO (20:29)
[2021-04-27] MEDS: MELATONIN 3 MG TABLET PO (20:29)
[2021-04-27] MEDS: Gabapentin 100 MG Capsule 200 MG PO ×2 (20:29→22:11)
[2021-04-27] MEDS: Pramipexole Di-HCl 0.5 MG Tablet PO (22:11)
[2021-04-27] MEDS: Pravastatin 40 MG Tablet PO (22:12)
[2021-04-28] MEDS: amLODIPine 5 MG Tablet PO (09:00)
[2021-04-28] MEDS: Cyanocobalamin 500 MCG Tablet 2500 MCG PO (09:00)
[2021-04-28] MEDS: Famotidine 20 MG Tablet PO ×2 (09:00→21:10)
[2021-04-28] MEDS: Acetaminophen 500 MG Tablet 1000 MG PO ×3 (09:00→21:10)
[2021-04-28] MEDS: Carbamide Peroxide 15 ML Bottle 5 DRP OTIC ×2 (09:01→21:10)
[2021-04-28] MEDS: Venlafaxine XR 75 MG Capsule PO (09:02)
[2021-04-28 10:00] VITALS: BP 128/52; PULSE 71; RESP 16; TEMP 36.3; O2SAT 94
[2021-04-28] MEDS: Tamsulosin HCl 0.4 MG Capsule PO (17:09)
[2021-04-28] MEDS: clonazePAM 1 MG Tablet PO (20:26)
[2021-04-28] MEDS: Gabapentin 100 MG Capsule 200 MG PO ×2 (20:26→21:11)
[2021-04-28 21:00] VITALS: PULSE 83; RESP 14; O2SAT 97
[2021-04-28] MEDS: Pravastatin 40 MG Tablet PO (21:10)
[2021-04-28] MEDS: MELATONIN 3 MG TABLET PO (21:10)
[2021-04-28] MEDS: Pramipexole Di-HCl 0.5 MG Tablet PO (21:10)
[2021-04-28 21:40] VITALS: BP 123/48; PULSE 83; RESP 14; TEMP 36.5; O2SAT 97
[2021-04-28 22:00] VITALS: BP 137/56; PULSE 86
--- NOTE | 2021-04-29 00:45 | NURSING ---
Reviewed and agree with GEAR NICKER documentation and assessment charting.
[2021-04-29 10:00] VITALS: BP 118/58; PULSE 82; RESP 17; TEMP 36.3; O2SAT 97
[2021-04-29] MEDS: Acetaminophen 500 MG Tablet 1000 MG PO ×3 (10:06→22:10)
[2021-04-29] MEDS: Cyanocobalamin 500 MCG Tablet 2500 MCG PO (10:56)
[2021-04-29] MEDS: Venlafaxine XR 75 MG Capsule PO (10:56)
[2021-04-29] MEDS: Ergocalciferol 1.25 MG (50, 000 UNIT) Capsule PO (10:56)
[2021-04-29] MEDS: Famotidine 20 MG Tablet PO ×2 (10:56→20:33)
[2021-04-29] MEDS: amLODIPine 5 MG Tablet PO (10:56)
[2021-04-29] MEDS: Carbamide Peroxide 15 ML Bottle 5 DRP OTIC ×2 (10:57→20:41)
[2021-04-29] MEDS: Tamsulosin HCl 0.4 MG Capsule PO (15:39)
[2021-04-29 19:21] VITALS: BP 129/53; PULSE 81; RESP 16; TEMP 36.4; O2SAT 98
[2021-04-29] MEDS: Gabapentin 100 MG Capsule 200 MG PO ×2 (20:33→22:10)
[2021-04-29] MEDS: Pramipexole Di-HCl 0.5 MG Tablet PO (20:33)
[2021-04-29] MEDS: MELATONIN 3 MG TABLET PO (20:33)
[2021-04-29] MEDS: Pravastatin 40 MG Tablet PO (20:36)
[2021-04-29] MEDS: clonazePAM 1 MG Tablet PO (20:36)
[2021-04-29 22:00] VITALS: BP 101/49; PULSE 73; PULSE 81; RESP 16; O2SAT 98
--- NOTE | 2021-04-30 03:05 | NURSING ---
REVIEWED AND AGREE WITH ROVING SIZER'S HANDOFF AND FUNCTIONAL ASSESSMENT CHARTING.
[2021-04-30] MEDS: Acetaminophen 500 MG Tablet 1000 MG PO ×3 (06:26→21:12)
[2021-04-30 07:47] VITALS: BP 133/57; PULSE 64; RESP 18; TEMP 36.1; O2SAT 97
[2021-04-30] MEDS: Famotidine 20 MG Tablet PO ×2 (08:59→21:13)
[2021-04-30] MEDS: amLODIPine 5 MG Tablet PO (08:59)
[2021-04-30] MEDS: Venlafaxine XR 75 MG Capsule PO (08:59)
[2021-04-30] MEDS: Carbamide Peroxide 15 ML Bottle 5 DRP OTIC ×2 (09:00→20:11)
[2021-04-30] MEDS: Cyanocobalamin 500 MCG Tablet 2500 MCG PO (09:00)
--- NOTE | 2021-04-30 10:47 | CASEMGMT ---
Addendum entered by Kadi Kelley 05/01/21 15:27: Insurance issued LCD 05/03, DC 05/04. Left message with dtr on DC date inquiring about DC plan. Will continue to follow. Addendum entered by Kadi Kelley 05/01/21 08:37: [facility] cannot accept pt. Left message with dtr to update and inquire about additional facilities. Addendum entered by Kadi Kelley 04/30/21 14:46: Dtr requests referral to [facility]. She did reiterate she cannot pay privately for PBX INSTALLER or SNF if insurance does not cover. Referral made [facility]. Original Note: Social Work IDT met with patient for Team meeting and dtr via conference call. Discussed patient's progress in therapy and nursing. IDT reports pt making great progress from initial evaluations. Pt remains limited with blindness and change in environment, but remains pleasant and can voice his needs. Dtr concerned with insurance issuing DC at NRD 05/01 as pt is making progress and she feels this is the best level of care for him to keep making progress. IDT agrees with dtr that changing him to another environment would possibly have pt regress. The goal is for pt to remain in [facility] until he is safe to return home without constant supervision/assistance. Updated dtr that [facility] denies feels they cannot meet his needs. Dtr agrees that [facility] can meet his needs and requests continued stay. SW to continue to follow for discharge planning. OZZIE Bahena
--- NOTE | 2021-04-30 15:24 | PCM.CONS.P ---
Assessment & Plan Assessment/Plan (1) Debility: (2) Traumatic brain injury: (3) Subarachnoid hemorrhage: (4) Intraventricular hemorrhage: (5) Intraparenchymal hemorrhage of brain: (6) Cognitive changes: (7) HTN (hypertension): (8) Restless leg syndrome: (9) Osteoarthritis of lumbar spine: QUALIFIERS: Spinal osteoarthritis complication: with radiculopathy Qualified Code(s): M47.26 - Other spondylosis with radiculopathy, lumbar region (10) Hyperlipidemia: (11) Generalized anxiety disorder: (12) Cervical spondylosis: (13) S/P lumbar fusion: (14) DELANEY (obstructive sleep apnea): (15) Hyponatremia: (16) Legal blindness: (17) 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 Goal is to return home alone. 1. Debility and weakness: He does have RLS, legal blindness, recent falls. He is doing fairly well with rehab. There is some confusion and ongoing risk for falls. 2. Cognitive changes: He is going to have a formal evaluation for this in May. He is oriented x3 but forgetful and repeating questions. Unclear if this is from TBIs, prior deficit, or a combination of both. 3. RLS/OA/hyperlipidemia/SHIVA/cervical spondylosis/lumbar fusion/DELANEY/hyponatremia/legal blindness/sleep-wake disorder/chronic benzodiazepine use: Complicates overall care, management, recovery, and prognosis. Thank you for the opportunity to participate in this patient's care, please do not hesitate to contact [facility] with any further questions or concerns. Palliative direct line is [phone]. We will follow up after discharge, will be contacting his daughter/POA to discuss services and what we can assist with, as well as limitations of program. Greater than 50% of F2F visit dedicated to education and counseling of palliative care services, medications, comorbid conditions and potential assistance with management, and plan of care moving forward. Start time: 1526 End time: 1614 HPI Consult Data Date of Consult: 04/30/21 HPI Narrative HPI Narrative: PER ESTRADA, is a 85 M who presented to [facility] rehab unit after being admitted 04/14/2021 to [facility] for multiple traumatic brain injuries after sustaining a fall. The patient was evaluated by neurosurgery, recommended conservative management with no surgical intervention. He was transferred to rehab for some strengthening. Palliative care consulted for supportive management when the patient is discharged. The patient would benefit from palliative services and frequent visits to monitor his progress/symptoms. Patient typically lives home alone, however he requires assistance with managing finances, grocery shopping, medications, and occasional assistance with personal care. Legally blind. He is to undergo a formal comprehensive cognitive evaluation by Dr. Elle Langley in May. Patient is incontinent of urine but continent of bowel. He has restless legs and insomnia at times. He has had some medication changes recently due to his RLS and insomnia. Gabapentin was also added due to jumping legs. Mirapex and Lyrica discontinued (taper). Since his TBIs, he is requiring more assistance with ADLs. The goal is for Per to return home alone after a short stay with his daughter. Patient denies any n/v/d. Last BM 04/28. Denies dizziness or syncope. States he is having trouble remembering some things. Asking if he can go home repetitively. No abdominal pain or other pain. Denies swelling, SOB, or chest pain. No cough or sputum production. He is on RA. Says his appetite is really good. [facility] Medical History Legal blindness Lumbar spinal stenosis Home Medications clonazepam 1 - 2 tab PO QHS 10/22/15 [History Last Taken 10/21/15] pramipexole [Mirapex] 1 - 2 tab PO BID 10/22/15 [History Last Taken 10/22/15 09:15] venlafaxine 37.5 mg PO BID 10/22/15 [History Last Taken 10/21/15] cyanocobalamin (vitamin B-12) [Vitamin B-12] 2,500 mcg PO DAILY 02/13/17 [History Last Taken Unknown] albuterol sulfate [Ventolin HFA] 2 puff INHALATION Q4H PRN PRN 07/29/18 [History Last Taken Unknown] pravastatin 40 mg PO QHS 07/29/18 [History Last Taken Unknown] tamsulosin [Flomax] 0.4 mg PO QHS 10/23/18 [History Last Taken Unknown] aspirin 81 mg PO DAILY 08/29/19 [History Last Taken Unknown] famotidine 20 mg PO BID 04/10/20 [History Last Taken Unknown] amlodipine 2.5 mg PO DAILY 09/26/20 [History Last Taken Unknown] benzonatate 100 mg PO DAILY PRN PRN 09/26/20 [History Last Taken Unknown] cholecalciferol (vitamin D3) 50,000 unit PO QWEEK 09/26/20 [History Last Taken Unknown] Allergy/AdvReac Type Severity Reaction Status Date / Time niacin Allergy Rash Verified 04/14/21 16:04 Family History Brother Diabetes Surgical History H/O inguinal hernia repair H/O lumbosacral spine surgery History of appendectomy Social History household members: other details: Lives alone with his dog pets and animals: Yes Smoking Status: Former smoker how long ago did patient quit smokin years ago alcohol intake: current details: Has 2 glasses of wine per week ROS ROS Narrative Review of systems otherwise negative from a constitutional, HEENT, respiratory, cardiovascular, GI, genitourinary, musculoskeletal, skin, neurologic, psychiatric and hematologic system unless stated above. Physical Exam Const alert and no apparent distress General Appearance: cooperative HEENT normocephalic and head/scalp atraumatic Eyes Eyes Narrative: faded bruising left outer orbit Neck supple General: trachea midline Resp normal respiratory effort Effort and Inspection: able to speak in complete sentences and symmetric chest movement Auscultation: clear to auscultation bilaterally and diminished lung sounds Cardio S1 normal heart sound and S2 normal heart sound GI normal to inspection, nondistended, normoactive bowel sounds Extremity no clubbing, cyanosis or edema Neuro CN's II-XII intact bilaterally and no focal motor deficits Neuro Narrative: alert and oriented but forgetful, takes time to answer some questions. left sided facial droop, mumbling but can understand most words. repeating questions Psych denies hallucinations Attitude: calm Activity / Motor Behavior: appropriate eye contact Thought Content: No hallucination(s) Memory / Cognition: other fluctuating alertness. sleeping a lot. intermittent confusion.
[2021-04-30] MEDS: Tamsulosin HCl 0.4 MG Capsule PO (17:38)
--- NOTE | 2021-04-30 18:35 | PN_ITS ---
Subjective Subjective Patient seen, examined on IDT rounds. He is able to feed himself, he is continent of bowel and bladder. His is at [facility] and if needed, he may discharge to [facility] from [facility]. Objective Data Objective Data Vital Signs: Vital Signs Temp Pulse Resp BP Pulse Ox 97.0 F L 64 18 133/57 H 97 04/30/21 07:47 04/30/21 07:47 04/30/21 07:47 04/30/21 07:47 04/30/21 07:47 Oxygen Flow Rate (L/min) 0 Oxygen Delivery Method Room Air Weight: 56.971 kg Body Mass Index (BMI) 24.6 Intake & Output: Intake and Output for Last 24 Hours 04/28/21 04/29/21 04/30/21 23:59 23:59 23:59 Intake Total 1200 / 1200 120 / 120 360 / 360 Balance 1200 / 1200 120 / 120 360 / 360 Lab / Micro Data Result Diagrams: 04/26/21 05:43 04/26/21 05:43 Physical Exam Const alert and oriented x3 General Appearance: cooperative HEENT normocephalic Eyes PERRL and EOMs intact bilaterally Neck supple, no JVD and no carotid bruits Resp normal respiratory effort, normal air movement and clear to auscultation bilaterally Cardio regular rate and regular rhythm GI normal to inspection, nondistended, normoactive bowel sounds, non-tender and non-distended Extremity normal capillary refill General Extremity: Negative for edema Skin no rashes or lesions noted General Skin Exam: no breakdown Psych affect normal Appearance: appropriate Assessment & Plan Assessment/Plan (1) Debility: (2) Intracranial hemorrhage: (3) Chronic obstructive pulmonary disease: (4) Hypertension: (5) Excessive cerumen in ear canal: (6) Anxiety: (7) Vitamin B12 deficiency: (8) Vitamin D deficiency: (9) Gastroesophageal reflux disease: (10) Neuropathic pain: (11) Insomnia: (12) Restless leg syndrome: (13) Hyperlipidemia: (14) Benign prostatic hyperplasia: (15) Depression: PLAN: 85 year old male with below past medical history hospitalized for intracranial hemorrhage, admitted to [facility] for great then 3 hours daily of rehabilitation, strengthening, prior to discharge. * Debility - PT/OT. * Cognition - ST. * Pain - Tylenol 1000mg Q8H. * Bowel - Senna/colace 2 tablets twice daily, Magnesium hydroxide 30ml po x 1 dose PRN, Dulcolax 10mg OH daily PRN. * COPD - Albuterol 2 puffs Q4H PRN. * Hypertension - Amlodipine 10mg daily, Hydralazine 10mg Q4H PRN. * Cerumen in ear canal - Carbamide peroxide 5gtt OTIC twice daily. * Anxiety - Clonazepam 1mg 2130. * Vitamin B12 deficiency - B12 2500mcg daily. * Vitamin D deficiency - Vitamin D2 1.25mcg qweek. * GERD - Famotidine 20mg daily. * Neuropathic pain - Gabapentin 200mg 2130, QHS. * Insomnia - Melatonin 3mg 2130 PRN. * Restless Leg syndrome - Pramipexole 0.5mg QHS. * Hyperlipidemia - Pravastatin 40mg QHS. * BPH - Tamsulosin 0.4mg 1700. * Depression - Venlafaxine XR 75mg daily. Capacity Capacity Assessment Tool Can the patient make a choice & communicate that choice?: Yes Can the patient understand benefits, risks and alternatives?: Yes Can the patient make a logical, rational choice?: Yes Is the choice the patient makes consistent w/ their values?: Yes Is there an impending, emergent risk to the patient?: No Does the patient have an Advance Directive?: Yes Is there a Surrogate Available?: Yes i.e. HCPOA: Yes i.e. close relative (spouse, child, parent, sibling)?: Yes
[2021-04-30 19:32] VITALS: BP 111/54; PULSE 67; RESP 16; TEMP 36.3; O2SAT 95
[2021-04-30 20:23] VITALS: PULSE 67; RESP 16; O2SAT 97
[2021-04-30] MEDS: Gabapentin 100 MG Capsule 200 MG PO ×2 (20:26→21:14)
[2021-04-30] MEDS: MELATONIN 3 MG TABLET PO (20:33)
[2021-04-30] MEDS: Pramipexole Di-HCl 0.5 MG Tablet PO (21:13)
[2021-04-30] MEDS: Pravastatin 40 MG Tablet PO (21:13)
[2021-04-30] MEDS: clonazePAM 1 MG Tablet PO (21:13)
[2021-05-01] MEDS: Acetaminophen 500 MG Tablet 1000 MG PO ×3 (06:41→22:09)
[2021-05-01 07:30] VITALS: BP 136/68; PULSE 66; RESP 16; TEMP 36.3; O2SAT 95
[2021-05-01] MEDS: Carbamide Peroxide 15 ML Bottle 5 DRP OTIC ×2 (08:28→21:10)
[2021-05-01] MEDS: Famotidine 20 MG Tablet PO ×2 (08:29→22:08)
[2021-05-01] MEDS: Cyanocobalamin 500 MCG Tablet 2500 MCG PO (08:29)
[2021-05-01] MEDS: Venlafaxine XR 75 MG Capsule PO (08:29)
[2021-05-01] MEDS: amLODIPine 5 MG Tablet PO (08:29)
--- NOTE | 2021-05-01 10:43 | PCM.PN.BLA ---
Progress Note Afebrile VSS blood pressure is well controlled and the heart rate is within normal limits. Maintaining appropriate oxygen saturation on RA Discussed with nursing - no problems that need addressed. Reviewed the PT/OT/ST notes Medication list reviewed. 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 Continue therapy 2. Continue weaning the Mirapex 3. family still not sure od DC plans 4. DC date is 05/05/21 Visit Charges Inpatient E&M: 65072 Subs Hosp L2
--- NOTE | 2021-05-01 14:39 | CASEMGMT ---
Addendum entered by Kadi Kelley 05/03/21 16:39: Spoke with dtr - she spoke to [facility] and pt is required to pay patient liability, which she states they cannot pay. Dtr still upset with situation, but does not want to pursue appeal. SW validated feelings. Dtr stated I guess I'll just have to take FMLA and stay at home with my dad. Offered if pt returns to his environment, his delirium/confusion could improve and be able to continue to improve with HHC therapy. Dtr to notify SW if pt to DC to his house or her house for SW to order HHC. Reiterated pt will have Palliative Care at home that can provide additional support as well. Dtr expressed appreciation. Will continue to follow to finalize DC referrals. Addendum entered by Kadi Kelley 05/03/21 15:37: Dtr inquired about appeal rights. Explained pt does have the right to appeal and this worker can assist in providing the information to complete. Explained patient liability of private pay cost if lost or not determined/lost after pt is scheduled to DC - dtr stated they cannot pay privately. SP spoke to admissions/insurance account representative to inquire about appeal information - she stated nothing was provided and would contact insurance CM. [facility] Daria provided the phone and fax numbers to the coordinator that was given to this worker, but no written paperwork with instructions. This worker contacted Daria and explained there was not any paperwork provided of LCD or appeal rights given at the time of determination. Daria stated she did not know he wanted to appeal prior to this date and is FedExing the paperwork to the patient's address and can fax that paperwork to the admissions/insurance account representative. This worker spoke with Daria at length advocating for the patient's rights and the delay in providing that information - regardless if pt requested appeal, the written information is to be provided to the patient/family at the time of determination of discontinued services. Daria stated she thought the plan from the beginning was having the pt DC to a SNF and the stated the pt was ready to DC at this last update. This worker reviewed notes and corrected Daria that there was no documentation from this worker or the to end services - referenced this worker's progress note 04/30 from Team Meeting expressing dtr's and IDTs wishes to continue with services and reiterating limitations to a successful transfer to another environment. Daria stated she would have her nurse unit manager this worker to assist further. This worker appreciative. Received Medicaid paperwork from dtr. Submitted to [facility] to process. Left several messages with [facility] to follow up on referral. Spoke with historical records administrator and admissions. Provided Medicaid to [facility] as they have not confirmed acceptance/denial - still reviewing for financial liability. Left message with dtr to provide update. Awaiting return call. Will continue to follow. Addendum entered by Kadi Kelley 05/02/21 17:18: Left message with [facility] to follow up on referral. Dtr contacted this worker reiterating her concern with pt discharging and disappointment with insurance decision. Dtr stated she spoke with [facility] about why they denied and they stated he is a TBI paitnet and they cannot accept TBI patients. Dtr inquired about pt transferring to TBI Unit because pt has declined, he is not himself, I'm afraid if he goes to a 'snf' he won't be safe and get the care he needs, he was talking out of his mind today when I visited. Offered to refer to TBI centers, but typically it is classified as IRU under insurance, therefore, typically insurance will not pay for the same level of care once issued LCD. Dtr still would like referral to [facility]. Referral made. Dtr inquired when CHRIS paperwork needs to be submitted - explained as soon as possible because DC is 05/04 and any time in unit after DC is private pay to the pt at about $1500/day. Dtr expressed understanding and will drop it off tonight or tomorrow. SW to continue to follow. Original Note: Social Work Spoke with dtr about DC plan. Discussed at length Medicaid. Dtr reports pt's is on [facility]RIS in a SNF - received information to check with [facility] if they have pt's information to determine his CHRIS eligibility. Spoke with Padmaja Ronquillo at [facility] - she provided this worker paperwork to complete to get pt enrolled in CHRIS with spouse. Forwarded to dtr and encouraged to complete RANJITH. Dtr requested referral to [facility]. Referral made. SW to continue to follow. Kadi Kelley, OZZIE THACKERW
--- NOTE | 2021-05-01 17:05 | CHAPLAIN ---
Type of Pastoral Visit ___ Initial Visit _x__ Follow-up Visit ___ On-call Visit ___ General Patient Visit ___ Spiritual Assessment ___ Family Conference ___ Bereavement ___ Rapid Response ___ Code Blue ___ Other (describe below) Pastoral Care Referral From ___ Patient ___ Family _x__ Nurse ___ Physician ___ Mechanical Equipment Sales Engineer ___ Prep Cook ___ Other (describe below) Sacrament/Intervention _x__ Active listening ___ Anointing ___ Pentecostal ___ Bereavement ___ Communion ___ Jessica exploration ___ _x__ Life review ___ Prayer ___ Reconciliation ___ Sacrament of Sick _x__ Supportive presence ___ Wedding ___ Other (describe below) Pastoral Comments patient is in hallway in chair with RN; RN invites this microbiology soil scientist to sit with patient and assist with distraction and support; pt talks with this microbiology soil scientist but insists that he go to bed now or to be taken home; pt is able to give his address and explain where his home is located; attempt at conversation was temporarily successful.
[2021-05-01] MEDS: Tamsulosin HCl 0.4 MG Capsule PO (17:14)
[2021-05-01 20:06] VITALS: BP 146/62; PULSE 98; RESP 14; TEMP 36.4; O2SAT 98
[2021-05-01] MEDS: Pravastatin 40 MG Tablet PO (21:09)
[2021-05-01] MEDS: MELATONIN 3 MG TABLET PO (21:10)
[2021-05-01] MEDS: clonazePAM 1 MG Tablet PO (21:10)
[2021-05-01] MEDS: Gabapentin 100 MG Capsule 200 MG PO ×2 (21:10→22:09)
[2021-05-01] MEDS: Pramipexole Di-HCl 0.5 MG Tablet PO (22:08)
--- NOTE | 2021-05-02 01:51 | NURSING ---
ATTEMPT TO STRAIGHT CATH PT FOR URINE SPECIMEN WITH 15 FR CATHETER WITHOUT SUCCESS MET WITH OBSTRUCTION.
[2021-05-02] MEDS: Acetaminophen 500 MG Tablet 1000 MG PO ×3 (05:51→21:06)
[2021-05-02 05:54] LABS: Mucous, Urine 0 SEEN /hpf (<or=2+); Squamous Epithelial Cells - UA 0 SEEN /hpf (0-5); White Blood Cells 0 SEEN /hpf (0-5)
[2021-05-02 05:57] LABS: Color, Urine Yellow (Yellow); Glucose, Dipstick Normal (Normal); Ketone-Dipstick Negative (Negative); Leukocyte Esterase-Dipstick Negative /ul (Negative); Nitrite-Dipstick Negative (Negative); Occult Blood-Urine 150 /ul (Negative); Protein-Dipstick 15 mg/dl (Negative); Urine Bilirubin Dipstick Negative (Negative); Urine Clarity Clear (Clear); Urine Urobilinogen Normal (Normal)
[2021-05-02 06:10] LABS: Bacteria RARE /hpf (None Seen); Red Blood Cells-Urine 10-25 SEEN /hpf (0-5)
[2021-05-02 07:33] VITALS: BP 142/71; PULSE 92; RESP 15; TEMP 36.6; O2SAT 95
[2021-05-02] MEDS: Famotidine 20 MG Tablet PO ×2 (09:45→21:06)
[2021-05-02] MEDS: Senna/Docusate Sodium 1 Tablet 2 TABLET PO ×2 (09:45→21:06)
[2021-05-02] MEDS: Venlafaxine XR 75 MG Capsule PO (09:45)
[2021-05-02] MEDS: Carbamide Peroxide 15 ML Bottle 5 DRP OTIC ×2 (09:45→21:05)
[2021-05-02] MEDS: Cyanocobalamin 500 MCG Tablet 2500 MCG PO (09:45)
[2021-05-02] MEDS: amLODIPine 5 MG Tablet PO (09:45)
[2021-05-02] MEDS: Tamsulosin HCl 0.4 MG Capsule PO (17:29)
[2021-05-02] MEDS: Gabapentin 100 MG Capsule 200 MG PO ×2 (21:04→22:07)
[2021-05-02] MEDS: MELATONIN 3 MG TABLET PO (21:05)
[2021-05-02] MEDS: clonazePAM 1 MG Tablet PO (21:05)
[2021-05-02] MEDS: Pramipexole Di-HCl 0.5 MG Tablet PO (21:06)
[2021-05-02] MEDS: Pravastatin 40 MG Tablet PO (21:06)
[2021-05-02 21:07] VITALS: BP 137/58; PULSE 92; RESP 16; TEMP 36.6; O2SAT 97
[2021-05-03] MEDS: Acetaminophen 500 MG Tablet 1000 MG PO ×3 (05:27→20:18)
[2021-05-03 07:49] VITALS: BP 136/63; PULSE 79; RESP 18; TEMP 36.3; O2SAT 95
[2021-05-03] MEDS: Venlafaxine XR 75 MG Capsule PO (11:22)
[2021-05-03] MEDS: Famotidine 20 MG Tablet PO ×2 (11:22→21:30)
[2021-05-03] MEDS: amLODIPine 5 MG Tablet PO (11:22)
[2021-05-03] MEDS: Cyanocobalamin 500 MCG Tablet 2500 MCG PO (11:22)
[2021-05-03] MEDS: Carbamide Peroxide 15 ML Bottle 5 DRP OTIC ×2 (11:23→20:19)
[2021-05-03] MEDS: Tamsulosin HCl 0.4 MG Capsule PO (16:25)
--- NOTE | 2021-05-03 17:47 | TREXTCAR_ITS ---
Diet 04/18/21 18:43 Diet: Regular - General Food consistency:: Soft & Bite Sized Liquid Consistency:: Regular/Thin Dietary Modifications:: Lactose Controlled Type of Dietary Supplement:: Ensure Clear Diet Comments: 1:1supervision,assist as needed;lactose-intolerant/dairy-free diet;ES CL 3x Routine Orders/Code Status Enema Type: Fleetz Enema Frequency: Daily PRN Suppository Type: Dulcolax 10mg Suppository Frequency: Daily PRN O2 Liters per Minute: 1-2 O2 Frequency: PRN Keep PO Greater than or Equal to (%): 90 Code Status: DNRCC-A (with intubation but no CPR) Wound(s) above l eye: Wound Type: Laceration Therapies Weight Bearing: Full weight bearing Physical Therapy: Eval and Treat Occupational Therapy: Eval and Treat Problem/Diagnosis (1) Traumatic brain injury: Status: Acute (2) Debility: Status: Acute (3) History of recent fall: Status: Acute (4) Intraventricular hemorrhage: Status: Acute (5) Subarachnoid hemorrhage: Status: Acute (6) Intraparenchymal hemorrhage of brain: Status: Acute (7) Cognitive changes: Status: Acute (8) Debility: Status: Acute (9) Intracranial hemorrhage: Status: Acute (10) Insomnia: Status: Resolved Comment: Resolved with Klonopin increase at HS to control his increased anxiety over being in a strange place and being blind with all new people around him and Gabapentin to control the RLS. (11) Chronic obstructive pulmonary disease: Status: Chronic (12) Hypertension: Status: Chronic (13) Anxiety: Status: Chronic Comment: with exacerbation due to being taken from his home into a strange place with many different care takers and voices. (14) Vitamin B12 deficiency: Status: Chronic (15) Vitamin D deficiency: Status: Chronic (16) Gastroesophageal reflux disease: Status: Chronic (17) Neuropathic pain: Status: Chronic (18) Restless leg syndrome: Status: Chronic Comment: Not adequately controlled on pramipexole......resolved with the addition of Gabapentin to the pramipexole. I suspect he has augmentation from pramipexole and we have been weaning this down. 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 Will add 240 ml ensure clear TID w/ meals. Trend weight closely ? accuracy of 56.9 Kg on 04/25---plans for reweigh tomorrow. Speech Linguistic Eval Summary: Informal cognitive evaluation completed - limited by visual impairment and significant lethargy w/ frequent verbal and tactile stimulation required before each question/instruction for patient to achieve sufficient alertness to answer/participate. 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 Mild to moderate dysarthria characterized by reduced vocal intensity and articulatory precision. Per nursing report received on admission to [facility] - the patient has L sided facial droop and slurring speech for ~20 years. Baseline intelligibility unknown, although suspect current expression to be worse than baseline d/t lethargy. Dysarthria noted to improve when alert, although only able to maintain alertness for brief periods of time. Pt reports that he lives alone and has a dog. Oriented to name, age, and reason for admission I fell. Not oriented to place [facility] - reporting at my home, but able to select correct place from choice of 3. Stated current year 93 and I don't know when asked about current month. Patient was reoriented to place and reason for admission ~5x t/o evaluation w/ poor retention of information and frequent repetition of question Am I at home?, Who is that talking in the kitchen?, etc. Able to execute 100% of simple 1 and 2 step commands, unable to recall and/or execute 3 step commands, likely complicated by lethargy. Answered yes/no questions - self/environment 5/8 accuracy, simple concepts 3/5 accuracy, comparison/complex concepts 3/5 accuracy. Recall of 3 word sequence - immediate 3/3, following brief delay 0/3. Reports I don't know when asked how to obtain help while in hospital. Reoriented to call light w/ tactile [id number] provided d/t visual impairment. States that he'd call the emergency squad if at home and needed emergency help, but I don't know when asked what number he'd dial. Pt lives alone w/ dog Evita Wood. Reports daughter & son-in-law Jm help w/ medications & finances, and he takes a taxi to appointments. Will initiate skilled ST targeting deficits in orientation, recall, problem solving and safety awareness skills s/p SAH, as this patient lived alone prior to admission. Without tx he is at risk for further cognitive decline. Follow Up Care Please Follow Up With: Christy Adames APRN, WATERMELON INSPECTOR When: Friday Please Follow Up With: Radiology with [facility] When: Friday Please Follow Up With: Lilly Ko MD,PhD When: Friday Discharge Plan Admission Admit Date/Time: 04/18/21 18:08 Primary Reason for Your Visit: Physical debility secondary to multiple traumatic brain injury due to fall Attending Provider: Marcy Mike Primary Care Provider: Vidhi Main Consulting Providers: Pat Manzo ; Jaxon Holloway ; Linnette Gallardo ; Mildred Nolen ; Ruth Thapa ; Shameka Uribe FREIGHT CAR INSPECTOR Discharge Orders/Prescriptions Prescriptions: New aspirin 81 mg capsule 81 mg PO DAILY Qty: 1 RF: 0 amlodipine 5 mg Tablet 5 mg PO DAILY Qty: 0 RF: 0 ergocalciferol (vitamin D2) [Vitamin D2] 1,250 mcg (50,000 unit) Capsule 1,250 mcg PO Jackson@1000 Qty: 0 RF: 0 clonazepam 1 mg Tablet 1 mg PO 2130 14 Days Qty: 14 RF: 0 venlafaxine 75 mg Capsule,Extended Release 24hr 75 mg PO DAILY Qty: 0 RF: 0 acetaminophen 500 mg Tablet 1,000 mg PO Q8 PRN (Reason: fever or pain) Qty: 0 RF: 0 bisacodyl 10 mg Suppository 10 mg VT .PRN X 1 PRN (Reason: Constipation) Qty: 0 RF: 0 magnesium hydroxide 400 mg/5 mL Suspension 30 ml PO .PRN X 1 PRN (Reason: Constipation) Qty: 0 RF: 0 gabapentin 100 mg Capsule See Rx Instructions .ROUTE .COMPLEX Qty: 120 RF: 0 melatonin 3 mg Tablet 3 mg PO 2130 Qty: 0 RF: 0 pramipexole 0.25 mg tablet 0.25 mg PO QHS Qty: 1 RF: 0 Continued cyanocobalamin (vitamin B-12) [Vitamin B-12] 1,000 MCG tablet 2,500 mcg PO DAILY RF: 0 albuterol sulfate [Ventolin HFA] 1 INHALER inhaler 2 puff inhalation Q4H PRN PRN (Reason: Dyspnea/Wheezing/Sob) RF: 0 pravastatin 20 MG tablet 40 mg PO QHS RF: 0 tamsulosin [Flomax] 0.4 MG capsule 0.4 mg PO QHS RF: 0 famotidine 20 MG tablet 20 mg PO BID RF: 0 Discontinued venlafaxine 37.5 MG capsule 37.5 mg PO BID RF: 0 clonazepam 1 MG tablet 1 - 2 tab PO QHS RF: 0 pramipexole [Mirapex] 0.25 MG tablet 1 - 2 tab PO BID RF: 0 aspirin 325 MG tablet 81 mg PO DAILY RF: 0 amlodipine 2.5 MG tablet 2.5 mg PO DAILY RF: 0 benzonatate 100 MG capsule 100 mg PO DAILY PRN PRN (Reason: Cough) RF: 0 cholecalciferol (vitamin D3) 1,250 MCG capsule 50,000 unit PO QWEEK RF: 0 Referrals / Follow Up: Vidhi Main MD [Primary Care Provider] -
--- NOTE | 2021-05-03 18:33 | PCM.DC.SUM ---
Providers Date of Admission: 04/18/21 Primary Care Physician: Dr. Vidhi Main MD Consultations 04/24/21 10:02 Consult: Hospice / Palliative Care Routine Consulting Provider: [facility] Reason for Consult: Palliative EMERGENT Consult: No MD Notified: Yes Date Notified: 04/20/21 Time Notified: 14:00 Method of Notification: Verbal Reason For Visit: INTRACRANIAL HEMMORRAGE Diagnosis Discharge Diagnosis (1) Debility: Status: Acute Code(s): R53.81 - Other malaise (2) History of recent fall: Status: Acute Code(s): Z91.81 - History of falling (3) Traumatic brain injury: Status: Acute Code(s): S06.9X9A - Unspecified intracranial injury with loss of consciousness of unspecified duration, initial encounter (4) Intraventricular hemorrhage: Status: Acute Code(s): I61.5 - Nontraumatic intracerebral hemorrhage, intraventricular (5) Subarachnoid hemorrhage: Status: Acute Code(s): I60.9 - Nontraumatic subarachnoid hemorrhage, unspecified (6) Intraparenchymal hemorrhage of brain: Status: Acute Code(s): I61.9 - Nontraumatic intracerebral hemorrhage, unspecified (7) Cognitive changes: Status: Acute Code(s): R41.89 - Other symptoms and signs involving cognitive functions and awareness (8) Debility: Status: Acute Code(s): R53.81 - Other malaise (9) Intracranial hemorrhage: Status: Acute Code(s): I62.9 - Nontraumatic intracranial hemorrhage, unspecified (10) Insomnia: Status: Resolved Code(s): G47.00 - Insomnia, unspecified (11) Chronic obstructive pulmonary disease: Status: Chronic Code(s): J44.9 - Chronic obstructive pulmonary disease, unspecified (12) Hypertension: Status: Chronic Code(s): I10 - Essential (primary) hypertension (13) Anxiety: Status: Chronic Code(s): F41.9 - Anxiety disorder, unspecified (14) Vitamin B12 deficiency: Status: Chronic Code(s): E53.8 - Deficiency of other specified B group vitamins (15) Vitamin D deficiency: Status: Chronic Code(s): E55.9 - Vitamin D deficiency, unspecified (16) Gastroesophageal reflux disease: Status: Chronic Code(s): K21.9 - Gastro-esophageal reflux disease without esophagitis (17) Neuropathic pain: Status: Chronic Code(s): M79.2 - Neuralgia and neuritis, unspecified (18) Restless leg syndrome: Status: Chronic Code(s): G25.81 - Restless legs syndrome (19) Hyperlipidemia: Status: Chronic Code(s): E78.5 - Hyperlipidemia, unspecified (20) Benign prostatic hyperplasia: Status: Chronic Code(s): N40.0 - Benign prostatic hyperplasia without lower urinary tract symptoms (21) Depression: Status: Chronic Code(s): F32.9 - Major depressive disorder, single episode, unspecified (22) Chronic prescription benzodiazepine use: Status: Chronic Code(s): Z79.899 - Other [place] [facility] drug therapy (23) 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 Code(s): G47.24 - Circadian rhythm sleep disorder, free running type (24) Legal blindness: Status: Acute Code(s): H54.8 - Legal blindness, as defined in [place] (25) Hyponatremia: Status: Acute Code(s): E87.1 - Hypo-osmolality and hyponatremia (26) HTN (hypertension): Status: Chronic Code(s): I10 - Essential (primary) hypertension (27) Hyperlipidemia: Status: Chronic Code(s): E78.5 - Hyperlipidemia, unspecified (28) Generalized anxiety disorder: Status: Chronic Code(s): F41.1 - Generalized anxiety disorder (29) DELANEY (obstructive sleep apnea): Status: Chronic Code(s): G47.33 - Obstructive sleep apnea (adult) (pediatric) Plan: DC home with his dtr. He will need 24/7 hour supervision at least for the first few weeks until it can be determined if he will be safe at home alone again in the future. Medications at Discharge Home Medications cyanocobalamin (vitamin B-12) [Vitamin B-12] 2,500 mcg PO DAILY 02/13/17 albuterol sulfate [Ventolin HFA] 2 puff INHALATION Q4H PRN PRN 07/29/18 pravastatin 40 mg PO QHS 07/29/18 tamsulosin [Flomax] 0.4 mg PO QHS 10/23/18 famotidine 20 mg PO BID 04/10/20 acetaminophen 1,000 mg PO Q8 PRN #0 tab 05/03/21 amlodipine 5 mg PO DAILY #0 tab 05/03/21 aspirin 81 mg PO DAILY #1 cap 05/03/21 bisacodyl 10 mg [place] .PRN X 1 PRN #0 ea 05/03/21 clonazepam 1 mg PO 2130 14 Days #14 tab 05/03/21 ergocalciferol (vitamin D2) [Vitamin D2] 1,250 mcg PO Jackson@1000 #0 cap 05/03/21 gabapentin See Rx Instructions .ROUTE .COMPLEX #120 cap 05/03/21 magnesium hydroxide 30 ml PO .PRN X 1 PRN #0 ml 05/03/21 melatonin 3 mg PO 2130 #0 tab 05/03/21 pramipexole 0.25 mg PO QHS #1 tab 05/03/21 venlafaxine 75 mg PO DAILY #0 cap 05/03/21 Hospital Course Operations None Procedures None Summary of Care Provided Minutes Spent on Discharge: 50 Hospital Course: PER ESTRADA, is a 85 YO M with a PMH of hypertension, lumbar spinal stenosis, history of laminectomy and lumbar fusion, restless leg syndrome, hyperlipidemia, osteoarthritis, 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 He was evaluated by neurosurgery who recommended nonoperative management. He is currently finishing a 7-day course of Keppra 1 g p.o. twice daily for seizure prophylaxis. Per lives alone with his dog and he is ambulatory in his community and walks his dog. He uses no AD but, he does count steps. He is normally independent with all ADL's. His daughter and son-in-law manage his finances and his medications. His daughter also does his shopping for him. He was seen by PT/OT at the previous hospital and acute inpt rehab was recommended. He was transferred to the acute inpt rehab unit at [facility] on 04/18/21. His lab at presentation to the rehab unit showed a normal white blood cell count, normal hemoglobin and normal platelets. The differential was unremarkable. The BMP showed a mildly decreased sodium at 132 and this has been stable. I suspect the hyponatremia is secondary to cerebral salt wasting related to his traumatic brain injuries. TSH and T4 were within normal limits. Serum osmolality was normal. Urine sodium was low at 12 but the urine osmolality was 316. If he had SIADH the urine sodium would be > 30. The sodium is stable and he was not placed on salt tabs. He was placed on a regular diet rather than a salt restricted diet. 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 A big part of the problem was restless leg despite pramipexole. I suspect he has Augmentation from LT use of pramipexole. He was started on gabapentin 200 mg at 9 PM and another 200 mg at 10:30 PM. He started to sleep well at night. The daytime dose of pramipexole was discontinued and he was given 0.5 mg at at bedtime. Prior to discharge this has been decreased to 0.25 mg at bedtime and he continues to sleep well and not complaining of restless leg. In another week if he is still sleeping well and has no restless leg I would discontinue pramipexole completely. Per did well in therapy after the insomnia issue was resolved and he was rested. His anxiety level was higher than normal due to strange surroundings and many new people. The Klonopin was changed to 1 mg PO every night and his anxiety improved. I also changed the Effexor from 37.5 mg twice daily to 75 mg p.o. every morning. Effexor can cause insomnia if given later in the day. He has done well for the past week with these changes in his drug regimen. Prior to discharge Per ambulated 250 feet with a wheeled walker at contact-guard assist due to blindness. He is CGA with all transfers from various surfaces. He can go up and down 5 steps with 2 handrails at contact-guard assist. He needs assistance to eat. He requires minimal assistance with grooming, upper body dressing and toileting. He is able to dress his lower body at contact-guard assist and he is able to complete a toilet transfer at standby assist. He is contact-guard assist for tub/shower transfer. Speech estimated his safety awareness was approximately 50% and problem-solving was incomplete. He often gives vague answers such as call someone. He has difficulty in identifying when to call family versus 911 in situations given at home. He is not safe to be alone at the time of DC from rehab. This may improve the further away we get from the fall and the traumatic injuries have had a time to heal. He is going home with his dtr. He will follow up with Dr. Main in 7-10 days. Physical Exam Const alert and no apparent distress Constitutional Narrative: Impulsive. Poor safety awareness General Appearance: cooperative HEENT HEENT Narrative: The laceration superior to the Left eye has healed. Neck supple General: trachea midline; Negative for lymphadenopathy Lymph Lymphatic: no lymphadenopathy noted Resp normal respiratory effort, no use of accessory muscles and clear to auscultation bilaterally Resp Narrative: Not tachypneic, no conversational dyspnea, no accessory muscle use, able to speak in full sentences. Able to take deep breaths when asked. Effort and Inspection: able to speak in complete sentences and symmetric chest movement Cardio regular rate, regular rhythm, S1 normal heart sound, S2 normal heart sound, no murmurs, no rub and no gallops Cardio Narrative: No ectopy GI normal to inspection, nondistended, normoactive bowel sounds and soft to palpation GI Narrative: Bladder is not distended Extremity normal capillary refill, no calf tenderness and no pedal edema Extremity Narrative: No restless leg currently. General Extremity: Negative for clubbing, cyanosis or edema Skin Skin Narrative: The ecchymosis around the left eye has resolved. He has no rashes and there is no skin breakdown. Rashes: no rashes Neuro no sensory deficits noted Neuro Narrative: unchanged from admission. Persistent L facial droop. this was present prior to the traumatic brain injury. Coordination / Balance: [id number] test normal Speech: speech abnormal Details: Positive for slurred (a little slurred) Psych Psych Narrative: He is polite and he is well kempt. His affect is less flat than at admission. He is impulsive and continues to try and get up and walk around without assistance. Appearance: appropriate Mood & Affect: flat affect Weight / BMI Weight Weight: 125 lb 10.616 oz Body Mass Index (BMI) 24.6 ABG / Lab / Microbiology Data Result Diagrams: 05/04/21 05:35 05/04/21 05:35 D/C Instructions Please Follow Up With: Christy Adames APRN, PRODUCTION HAND Meaningful Use Info Meaningful Use Diagnoses (Choose all that apply): None applicable Discharge Plan Admission Admit Date/Time: 04/18/21 18:08 Primary Reason for Your Visit: Physical debility secondary to multiple traumatic brain injury due to fall Attending Provider: Marcy Mike Primary Care Provider: Vidhi Main Consulting Providers: Pat Manzo ; Jaxon Holloway ; Linnette Gallardo ; Mildred Nolen ; Ruth Thapa ; Shameka Uribe DESKTOP PUBLISHING ASSOCIATE Instructions Patient Instructions: RLS What to Do Additional Instructions / Restrictions: 1. Per is on a new medication to help with the restless legs and he has been doing well. The new medication is called Gabapentin and he will take it at 9 PM with a snack and then again at 10:30 (no snack needed at 10:30). This medication has also been helping to sleep at night. We have been weaning the pramipexole dose down and he is currently only taking 0.25 mg once a day at bedtime. If he continues to do well then this can likely be discontinued in the next 2 to 3 weeks. 2. I changed the dosing of the Effexor from 37.5 mg twice a day to 75 mg in the AM. Effexor can cause insomnia if given to late in the day and he has been doing fine with the once daily dosing. 3. Per had lab on his last day in rehab and it looks very good.....nothing to worry about. 4. The BP is well controlled and he has been doing well. He is a little impulsive so he will need supervision, at least for the first few weeks until you are sure he can be safe by himself. 5. Per will now be taking Melatonin 3 mg at bedtime. This medication helps patients who are blind re-establish an appropriate sleep wake cycle. Patients who are blind frequently have sleep disturbances and it is called a non-24 hour sleep wake disturbance. Sometimes it can take a few months to get a consistent sleep pattern at night and Melatonin is one of the best drugs to use for this. 6. we did a test on Per to check the oxygen continuously throughout the night. There were no significant desaturations of oxygen and he will not need to have oxygen at night. 7. If you have any questions after leaving rehab please feel free to call me. My office number is [phone] and my cell number is [phone]. Discharge Orders/Prescriptions Prescriptions: New aspirin 81 mg capsule 81 mg PO DAILY Qty: 1 RF: 0 amlodipine 5 mg Tablet 5 mg PO DAILY Qty: 0 RF: 0 ergocalciferol (vitamin D2) [Vitamin D2] 1,250 mcg (50,000 unit) Capsule 1,250 mcg PO Jackson@1000 Qty: 0 RF: 0 clonazepam 1 mg Tablet 1 mg PO 2129 14 Days Qty: 14 RF: 0 venlafaxine 75 mg Capsule,Extended Release 24hr 75 mg PO DAILY Qty: 0 RF: 0 acetaminophen 500 mg Tablet 1,000 mg PO Q8 PRN (Reason: fever or pain) Qty: 0 RF: 0 bisacodyl 10 mg Suppository 10 mg [place] .PRN X 1 PRN (Reason: Constipation) Qty: 0 RF: 0 magnesium hydroxide 400 mg/5 mL Suspension 30 ml PO .PRN X 1 PRN (Reason: Constipation) Qty: 0 RF: 0 gabapentin 100 mg Capsule See Rx Instructions .ROUTE .COMPLEX Qty: 120 RF: 0 melatonin 3 mg Tablet 3 mg PO 2129 Qty: 0 RF: 0 pramipexole 0.25 mg tablet 0.25 mg PO QHS Qty: 1 RF: 0 Continued cyanocobalamin (vitamin B-12) [Vitamin B-12] 1,000 MCG tablet 2,500 mcg PO DAILY RF: 0 albuterol sulfate [Ventolin HFA] 1 INHALER inhaler 2 puff inhalation Q4H PRN PRN (Reason: Dyspnea/Wheezing/Sob) RF: 0 pravastatin 20 MG tablet 40 mg PO QHS RF: 0 tamsulosin [Flomax] 0.4 MG capsule 0.4 mg PO QHS RF: 0 famotidine 20 MG tablet 20 mg PO BID RF: 0 Discontinued venlafaxine 37.5 MG capsule 37.5 mg PO BID RF: 0 clonazepam 1 MG tablet 1 - 2 tab PO QHS RF: 0 pramipexole [Mirapex] 0.25 MG tablet 1 - 2 tab PO BID RF: 0 aspirin 325 MG tablet 81 mg PO DAILY RF: 0 amlodipine 2.5 MG tablet 2.5 mg PO DAILY RF: 0 benzonatate 100 MG capsule 100 mg PO DAILY PRN PRN (Reason: Cough) RF: 0 cholecalciferol (vitamin D3) 1,250 MCG capsule 50,000 unit PO QWEEK RF: 0 Referrals / Follow Up: Vidhi Main MD [Primary Care Provider] - Disposition Disposition (needs filled in before D/C Order can be placed): Home, Self Care Charges/Coding Visit Charges Inpatient E&M: 51033 Disch Hosp
[2021-05-03 20:10] VITALS: BP 125/49; PULSE 89; RESP 18; TEMP 36.7; O2SAT 97
[2021-05-03] MEDS: Pramipexole Di-HCl 0.5 MG Tablet PO (20:18)
[2021-05-03] MEDS: Pravastatin 40 MG Tablet PO (20:18)
[2021-05-03] MEDS: MELATONIN 3 MG TABLET PO (20:19)
[2021-05-03] MEDS: Gabapentin 100 MG Capsule 200 MG PO ×2 (20:19→21:29)
[2021-05-03] MEDS: clonazePAM 1 MG Tablet PO (21:30)
[2021-05-03 22:00] VITALS: BP 107/54; PULSE 76
--- NOTE | 2021-05-04 04:39 | NURSING ---
Reviewed and agree with CAR RENTAL SERVICE ATTENDANT documentation and assessment charting.
[2021-05-04 05:55] LABS: Hemoglobin 12.2 g/dL (13.0-16.5); Mean Corpuscular Hgb 30.9 pg (27.0-32.0); Mean Corpuscular Volume 93.7 fL (80-94); Mean Platelet Vol. 9.5 fl (6.2-12.0); Platelet Count 179 K/mm3 (150-450); RBC Distribution Width CV 11.9 % (11.6-14.6); Red Blood Count 3.95 M/mm3 (4.6-6.2); White Blood Count 9.8 K/mm3 (4.4-11.0)
[2021-05-04 06:15] LABS: Anion Gap 5 (5-15); BUN 17 mg/dL (7-18); BUN/Creat Ratio 17.8 RATIO (10-20); Calcium,Total 8.9 mg/dL (8.5-10.1); Chloride 107 mmol/L (98-107); Creatinine, Serum 0.95 mg/dL (0.70-1.30); EST Glomerular Filtration Rate 80 mL/min (>60); Est Glom Filt Rate - Afr Amer 97 mL/min (>60); Estimated Creatinine Clearance 47.42 ml/min; Glucose 95 mg/dL (74-106); Phosphorus 3.2 mg/dL (2.5-4.9); Sodium Level 138 mmol/L (136-145)
[2021-05-04] MEDS: Acetaminophen 500 MG Tablet 1000 MG PO ×2 (06:33→15:39)
[2021-05-04] MEDS: Venlafaxine XR 75 MG Capsule PO (07:52)
[2021-05-04] MEDS: Cyanocobalamin 500 MCG Tablet 2500 MCG PO (07:52)
[2021-05-04] MEDS: amLODIPine 5 MG Tablet PO (07:52)
[2021-05-04] MEDS: Famotidine 20 MG Tablet PO (07:53)
[2021-05-04 09:07] VITALS: BP 136/50; PULSE 73; RESP 16; TEMP 36.9; O2SAT 97
--- NOTE | 2021-05-04 11:30 | PCM.DC ---
Discharge Instructions Diet Discharge Diet: No restrictions (Regular diet. Soft moist foods with small bites and small sips. Dairy free. Needs assistance with eating.) and - (Recommend ensure or Boost once a day.) Activity Discharge Activity: May Not Drive, May Shower and Use Walker Weight Bearing Status: Full weight bearing Additional Activity Instructions:: Must have assistance with bathing and toileting until he can be safe in his new environment. Dressing / Incision Call your doctor if you observe: Fever of 101 or Higher, Numbness or Tingling, Inability to urinate, Shortness of breath, Fainting spells, Swelling in the ankles, Chest pain, Increased palpitations (irregular heartbeat), Calf discomfort and Uncontrolled pain Follow Up Care Please Follow Up With: LAYA Parker APRN When: 7-10 days Test Results: Test results from this visit will be discussed in further detail at your follow-up appointment, if applicable. Pending Tests Upon Discharge: none Discharge Plan Admission Admit Date/Time: 04/18/21 18:08 Primary Reason for Your Visit: Physical debility secondary to multiple traumatic brain injury due to fall Attending Provider: Marcy Mike Primary Care Provider: Vidhi Main Consulting Providers: Pat Manzo ; Jaxon Holloway ; Linnette Gallardo ; Mildred Nolen ; Ruth Thapa ; Shameka Uribe DISASTER RECOVERY ANALYST Instructions Patient Instructions: RLS What to Do Additional Instructions / Restrictions: 1. Per is on a new medication to help with the restless legs and he has been doing well. The new medication is called Gabapentin and he will take it at 9 PM with a snack and then again at 10:30 (no snack needed at 10:30). This medication has also been helping to sleep at night. We have been weaning the pramipexole dose down and he is currently only taking 0.25 mg once a day at bedtime. If he continues to do well then this can likely be discontinued in the next 2 to 3 weeks. 2. I changed the dosing of the Effexor from 37.5 mg twice a day to 75 mg in the AM. Effexor can cause insomnia if given to late in the day and he has been doing fine with the once daily dosing. 3. Per had lab on his last day in rehab and it looks very good.....nothing to worry about. 4. The BP is well controlled and he has been doing well. He is a little impulsive so he will need supervision, at least for the first few weeks until you are sure he can be safe by himself. 5. Per will now be taking Melatonin 3 mg at bedtime. This medication helps patients who are blind re-establish an appropriate sleep wake cycle. Patients who are blind frequently have sleep disturbances and it is called a non-24 hour sleep wake disturbance. Sometimes it can take a few months to get a consistent sleep pattern at night and Melatonin is one of the best drugs to use for this. 6. we did a test on Per to check the oxygen continuously throughout the night. There were no significant desaturations of oxygen and he will not need to have oxygen at night. 7. If you have any questions after leaving rehab please feel free to call me. My office number is [phone] and my cell number is [phone]. Discharge Orders/Prescriptions Prescriptions: New aspirin 81 mg capsule 81 mg PO DAILY Qty: 1 RF: 0 amlodipine 5 mg Tablet 5 mg PO DAILY Qty: 0 RF: 0 ergocalciferol (vitamin D2) [Vitamin D2] 1,250 mcg (50,000 unit) Capsule 1,250 mcg PO Jackson@1000 Qty: 0 RF: 0 clonazepam 1 mg Tablet 1 mg PO 2129 14 Days Qty: 14 RF: 0 venlafaxine 75 mg Capsule,Extended Release 24hr 75 mg PO DAILY Qty: 0 RF: 0 acetaminophen 500 mg Tablet 1,000 mg PO Q8 PRN (Reason: fever or pain) Qty: 0 RF: 0 bisacodyl 10 mg Suppository 10 mg [place] .PRN X 1 PRN (Reason: Constipation) Qty: 0 RF: 0 magnesium hydroxide 400 mg/5 mL Suspension 30 ml PO .PRN X 1 PRN (Reason: Constipation) Qty: 0 RF: 0 gabapentin 100 mg Capsule See Rx Instructions .ROUTE .COMPLEX Qty: 120 RF: 0 melatonin 3 mg Tablet 3 mg PO 2129 Qty: 0 RF: 0 pramipexole 0.25 mg tablet 0.25 mg PO QHS Qty: 1 RF: 0 Continued cyanocobalamin (vitamin B-12) [Vitamin B-12] 1,000 MCG tablet 2,500 mcg PO DAILY RF: 0 albuterol sulfate [Ventolin HFA] 1 INHALER inhaler 2 puff inhalation Q4H PRN PRN (Reason: Dyspnea/Wheezing/Sob) RF: 0 pravastatin 20 MG tablet 40 mg PO QHS RF: 0 tamsulosin [Flomax] 0.4 MG capsule 0.4 mg PO QHS RF: 0 famotidine 20 MG tablet 20 mg PO BID RF: 0 Discontinued venlafaxine 37.5 MG capsule 37.5 mg PO BID RF: 0 clonazepam 1 MG tablet 1 - 2 tab PO QHS RF: 0 pramipexole [Mirapex] 0.25 MG tablet 1 - 2 tab PO BID RF: 0 aspirin 325 MG tablet 81 mg PO DAILY RF: 0 amlodipine 2.5 MG tablet 2.5 mg PO DAILY RF: 0 benzonatate 100 MG capsule 100 mg PO DAILY PRN PRN (Reason: Cough) RF: 0 cholecalciferol (vitamin D3) 1,250 MCG capsule 50,000 unit PO QWEEK RF: 0 Referrals / Follow Up: Vidhi Main MD [Primary Care Provider] - Disposition Disposition (needs filled in before D/C Order can be placed): Home, Self Care
--- NOTE | 2021-05-04 12:27 | CASEMGMT ---
Addendum entered by Kadi Kelley 05/04/21 13:18: Faxed DC information to Palliative. Original Note: Social Work Spoke with dtr to get final DC plans. Dtr still unsure if pt will DC to her house or his house. She is meeting with a lady to see if she can stay with the pt at his house while she works. Explained SW to finalize DC plans this date. Dtr agreed for HHC to be ordered for pt's house and to inform HHC if that address changes when they call to schedule visit. Dtr does not have preference in HHC - agreeable to [facility]. Referral made for PT/OT/ST/SN/[facility]/SW. Mechanical Lead to continue to assist with connecting any resources in the community or if pt is not successful in the home to assist with plan. Dtr appreciative. 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 Plan: DC home alone 05/04, [facility] PT/OT/ST/SN/[facility]/SW, no DME needs OZZIE BahenaW
[2021-05-04] MEDS: Tamsulosin HCl 0.4 MG Capsule PO (15:39)
--- NOTE | 2021-05-04 18:15 | NURSING ---
Daughter given discharge instruct and verbalized understanding to 24/7 care that needs provided and with the medication regimen.
[2021-05-04 18:38] VITALS: BP 136/50; PULSE 73; RESP 16; TEMP 36.3; O2SAT 96
== END 2021-05-04 18:15 | disposition home health service (06) | DRG 949 ==
PROVIDERS: Admitting Provider Internal Medicine; PCP Internal Medicine; Visit Provider Internal Medicine
DX: S06.6X9D Traumatic subarachnoid hemorrhage with loss of consciousness of unspecified duration, subsequent encounter (principal); E87.1 Hypo-osmolality and hyponatremia; W19.XXXD Unspecified fall, subsequent encounter; I10 Essential (primary) hypertension; E78.5 Hyperlipidemia, unspecified; F41.1 Generalized anxiety disorder; K21.9 Gastro-esophageal reflux disease without esophagitis; Z23 Encounter for immunization; E55.9 Vitamin D deficiency, unspecified; N40.0 Benign prostatic hyperplasia without lower urinary tract symptoms; G25.81 Restless legs syndrome; M43.12 Spondylolisthesis, cervical region; F32.9 Major depressive disorder, single episode, unspecified; G47.33 Obstructive sleep apnea (adult) (pediatric); H54.8 Legal blindness, as defined in USA; M47.26 Other spondylosis with radiculopathy, lumbar region; J44.9 Chronic obstructive pulmonary disease, unspecified; E53.8 Deficiency of other specified B group vitamins; G47.20 Circadian rhythm sleep disorder, unspecified type; R32 Unspecified urinary incontinence; R29.810 Facial weakness; Z79.899 Other long term (current) drug therapy; Z79.82 Long term (current) use of aspirin; Z87.891 Personal history of nicotine dependence
CPT/HCPCS: 36415; 80048; 80053; 81001; 83735; 83930; 83935; 84100; 84300; 84550; 85014; 85018; 85025; 85027; 92507; 92523; 92526; 94762; 97110; 97116; 97150; 97162; 97166; 97530; 97535; G0008; 90686

== ENCOUNTER 2021-11-03 17:39 | Emergency (ER) | payer MEDICARE, MEDICAID, SELFPAY ==
[2021-11-03 17:41] VITALS: BP 153/68; BP 154/65; PULSE 91; RESP 16; TEMP 36.8; O2SAT 97; BMI 24.3
--- NOTE | 2021-11-03 17:56 | EDS_ITS ---
HPI HPI - Psych History of Present Illness Chief Complaint: Mental Health Informant: patient Onset/Context/Timing Onset: Weeks Context: Gradual Onset Conflict: Family Timing: Continuous Current Severity: Moderate Maximum Severity: Moderate Associated Symptoms Associated Symptoms - Psych: Positive for Depressed and Suicidal Thoughts Specific plan (suicidal thought): Attempted suffocation Narrative Narrative: 85-year-old male from a local nursing facility. Has a history of anxiety, depression legally blind. Patient's approximately 2 months ago in September. Said he has nothing more to live for wants to . He is expressed the same concerns at the nursing facility. Today they found him with a plastic hamburger bag over his head. He denies any other complaints. Says he has not recently been ill. Prior similar symptoms: No Recent Illness/Hospitalization: No PFSH PFSH Medical History Anxiety Benign prostatic hyperplasia Cervical spondylosis Chronic obstructive pulmonary disease Chronic prescription benzodiazepine use Depression Excessive cerumen in ear canal Gastroesophageal reflux disease Generalized anxiety disorder HTN (hypertension) Hyperlipidemia Hyperlipidemia Hypertension Insomnia Legal blindness Lumbar spinal stenosis Neuropathic pain Osteoarthritis of lumbar spine Restless leg syndrome Spondylolisthesis, cervical region Vitamin B12 deficiency Vitamin D deficiency Home Medications cyanocobalamin (vitamin B-12) [Vitamin B-12] 2,500 mcg PO DAILY 02/13/17 [History Last Taken Unknown] albuterol sulfate [Ventolin HFA] 2 puff INHALATION Q4H PRN PRN 07/29/18 [History Last Taken Unknown] pravastatin 40 mg PO QHS 07/29/18 [History Last Taken Unknown] tamsulosin [Flomax] 0.4 mg PO QHS 10/23/18 [History Last Taken Unknown] famotidine 20 mg PO BID 04/10/20 [History Last Taken Unknown] acetaminophen 1,000 mg PO Q8 PRN #0 tab 05/03/21 [Rx Last Taken Unknown] amlodipine 5 mg PO DAILY #0 tab 05/03/21 [Rx Last Taken Unknown] aspirin 81 mg PO DAILY #1 cap 05/03/21 [Rx Last Taken Unknown] bisacodyl 10 mg NV .PRN X 1 PRN #0 ea 05/03/21 [Rx Last Taken Unknown] gabapentin See Rx Instructions .ROUTE .COMPLEX #120 cap 05/03/21 [Rx Last Taken Unknown] magnesium hydroxide 30 ml PO .PRN X 1 PRN #0 ml 05/03/21 [Rx Last Taken Unknown] melatonin 3 mg PO 2130 #0 tab 05/03/21 [Rx Last Taken Unknown] carboxymethylcellulose sodium 1 drp EACH EYE TID 11/03/21 [History Last Taken Unknown] ergocalciferol (vitamin D2) [Vitamin D2] 50,000 mcg PO QWEEK 11/03/21 [History Last Taken Unknown] guaifenesin [Mucinex] 600 mg PO BID 11/03/21 [History Last Taken Unknown] pramipexole 0.25 mg PO DAILY 11/03/21 [History Last Taken Unknown] pramipexole 0.5 mg PO QHS 11/03/21 [History Last Taken Unknown] risperidone [Risperdal] 1 mg PO QHS 11/03/21 [History Last Taken Unknown] venlafaxine 37.5 mg PO BID 11/03/21 [History Last Taken Unknown] Allergy/AdvReac Type Severity Reaction Status Date / Time niacin Allergy Rash Verified 04/14/21 16:04 Family History Brother Diabetes Surgical History H/O inguinal hernia repair H/O lumbosacral spine surgery History of appendectomy S/P lumbar fusion Social History household members: other details: Lives alone with his dog pets and animals: Yes Smoking Status: Former smoker how long ago did patient quit smokin years ago alcohol intake: current details: Has 2 glasses of wine per week ROS ROS ED ROS Narrative Denies recent illness. States I never get sick Review of Systems ROS Unobtainable: Denies due to encephalopathy Constitutional Constitutional ED: Denies fever(s) Eyes Eyes: Denies change in vision ENT ENT ED: Denies ear pain Cardiovascular Cardiovascular: Denies chest pain Respiratory/Chest Respiratory/Chest: Denies cough or dyspnea Gastrointestinal Gastrointestinal: Denies abdominal pain, diarrhea, nausea or vomiting Genitourinary Genitourinary ED: Denies dysuria Musculoskeletal Musculoskeletal: Denies myalgias Integumentary Denies rash Neurologic Neurologic: Denies headache(s) Psychiatric Psychiatric: Denies depression Endocrine Endocrinology: Denies polyuria Hematologic/Lymphatic Hematologic/Lymphatic: Denies easy bruising Allergic/Immunologic Allergic/Immunologic ED: Denies urticaria EXAM Physical Exam Narrative Exam Narrative: 85-year-old male no acute distress. H EENT exam unremarkable aside likely blind. No trauma. Moist mucous membranes. Neck nontender no trauma. Lungs clear to auscultation. Heart regular rhythm no murmur. Chest wall nontender. Abdomen soft nontender. Moving all 4 extremities. 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 Dorsi plantarflexion intact. Neurologically is awake and alert. He is answering questions and following commands. He has no motor deficits. He has normal speech. Const Vital Signs: 11/03/21 17:41 Temperature 98.3 F Temperature Source Temporal Pulse Rate 91 Respiratory Rate 16 Blood Pressure 153/68 H Blood Pressure Mean 96 Pulse Ox 97 Oxygen Delivery Method Room Air Positive well nourished and well developed; Negative for obese, cachectic, contractures or unkempt General Appearance ED: well developed and NAD; Negative for unkempt, cachectic, contractures or pallor Nutritional Appearance: Negative for cachectic or obese HEENT Reports moist mucous membranes normocephalic and atraumatic; Negative for trauma or tenderness Eyes PERRL and EOMs intact bilaterally General Eye ED: Negative for pale conjunctiva or scleral icterus Neck no lymphadenopathy, supple and no JVD General: Negative for tenderness Resp normal respiratory effort and clear to auscultation bilaterally Auscultation: Negative for rales, rhonchi or wheezes Cardio S1 normal heart sound, S2 normal heart sound and no murmurs Rate: regular rate Rhythm: regular rhythm GI non-tender, non-distended and no masses Inspection: Negative for abdominal distention Auscultation: normoactive bowel sounds Palpation: soft; Negative for tender or guarding Back/Spine no CVA tenderness General Back: Negative for CVA tenderness Cervical Spine: Negative for cervical spine tenderness Thoracic Spine / Upper Back: Negative for thoracic spinal tenderness Extremity normal to inspection General Extremety ED: Negative for edema or tenderness General Extremity: Negative for edema Neuro oriented x3 Sensorium / Orientation: alert, oriented to person, oriented to place and oriented to time; Negative for confused, lethargic or stuporous Motor Exam: strength 5/5 throughout Psych mental status grossly normal, thought process normal, cooperative, affect normal, speech normal, activity/motor behavior normal and denies hallucinations; Negative for denies suicidal ideation Appearance: grossly normal, appropriate and well kempt; Negative for unkempt Attitude: calm, engaged and No paranoid Speech: normal speech, No incoherent, No excessive and No minimal Thought Content: normal thought content Skin no rashes or lesions noted General Skin Exam: Negative for jaundice or pallor Lesions: no lesions Rashes: no rashes Wounds: Negative for wounds noted MDM MDM MDM Narrative Medical decision making narrative: 85-year-old male that is depressed due to his recently passed in the last several months. He is verbalized that he wants to and has nothing else to live for. Today was found at the assisted with a hamburger bag over his head. Exam benign. I spoke to the assisted and the vp medical. They want the patient evaluated at a geriatric psychiatric facility. Patient has [employer] insurance. [facility] transfer line requested additional testing including CAT scan, EKG and tox screen which has been ordered. Patient is doing well at 10 PM. Lab Data Attestation: I reviewed the patient's lab results. Lab results narrative: GeneralizedCBC shows a white count 13.6. H&H is 16 and 46. Normal platelets. Gap of 7 normal BUN and creatinine. Glucose 107. Urinalysis negative. Alcohol negative. Covid test negative. Tox screen negative. Labs: Laboratory Results - last 24 hr 11/03/21 11/03/21 11/03/21 18:30 18:30 18:35 WBC 13.6 H RBC 5.23 Hgb 16.0 Hct 46.7 MCV 89.3 MCH 30.6 MCHC 34.3 RDW Std Deviation 44.9 H RDW Coeff of Franco 13.8 Plt Count 215 MPV 9.4 Immature Gran % (Auto) 0.500 Neut % (Auto) 46.1 L Lymph % (Auto) 45.6 H [place] % (Auto) 6.4 Eos % (Auto) 1.0 Baso % (Auto) 0.4 Absolute Neuts (auto) 6.3 Absolute Lymphs (auto) 6.22 H Nucleated RBC % 0 Differential Comment SCANNED Reactive Lymphocytes 1+ Sodium Potassium Chloride Carbon Dioxide Anion Gap BUN Creatinine Estim Creat Clear Calc Est GFR (MDRD) Af Amer Est GFR (MDRD) Non-Af BUN/Creatinine Ratio Glucose Calcium Urine Color Yellow Urine Clarity Clear Urine pH 8.0 Ur Specific Fonda 1.015 Urine Protein Negative Urine Glucose (UA) Normal Urine Ketones Negative Urine Occult Blood Negative Urine Nitrite Negative Urine Bilirubin Negative Urine Urobilinogen Normal Ur Leukocyte Esterase Negative Urine RBC 0-5 SEEN Urine WBC 0 SEEN Ur Squamous Epith Cells 0 SEEN Amorphous Sediment 1+ Urine Bacteria 0 SEEN Urine Mucus 0 SEEN Urine Opiates Screen NEGATIVE Urine Methadone Screen NEGATIVE Ur Barbiturates Screen NEGATIVE Ur Phencyclidine Scrn NEGATIVE Ur Amphetamines Screen NEGATIVE MDMA (Ecstasy) Screen NEGATIVE U Benzodiazepines Scrn NEGATIVE Urine Cocaine Screen NEGATIVE U Cannabinoids Screen NEGATIVE Ur Drug Screen Comment Ethyl Alcohol 11/03/21 11/03/21 18:35 18:35 WBC RBC Hgb Hct MCV MCH MCHC RDW Std Deviation RDW Coeff of Franco Plt Count MPV Immature Gran % (Auto) Neut % (Auto) Lymph % (Auto) [place] % (Auto) Eos % (Auto) Baso % (Auto) Absolute Neuts (auto) Absolute Lymphs (auto) Nucleated RBC % Differential Comment Reactive Lymphocytes Sodium 140 Potassium 4.0 Chloride 105 Carbon Dioxide 28.0 Anion Gap 7 BUN 13 Creatinine 0.98 Estim Creat Clear Calc 45.97 Est GFR (MDRD) Af Amer 93 Est GFR (MDRD) Non-Af 77 BUN/Creatinine Ratio 13.2 Glucose 107 H Calcium 9.6 Urine Color Urine Clarity Urine pH Ur Specific Fonda Urine Protein Urine Glucose (UA) Urine Ketones Urine Occult Blood Urine Nitrite Urine Bilirubin Urine Urobilinogen Ur Leukocyte Esterase Urine RBC Urine WBC Ur Squamous Epith Cells Amorphous Sediment Urine Bacteria Urine Mucus Urine Opiates Screen Urine Methadone Screen Ur Barbiturates Screen Ur Phencyclidine Scrn Ur Amphetamines Screen MDMA (Ecstasy) Screen U Benzodiazepines Scrn Urine Cocaine Screen U Cannabinoids Screen Ur Drug Screen Comment Ethyl Alcohol < 3.0 Rhythm Strip Rhythm Strip: Sinus Rhythm Rate: 86 Ectopy: None EKG Initial EKG: Attestation: I personally reviewed and interpreted this EKG as follows: Interpretation: Sinus Rhythm and No Acute Injury Pattern Comments: Normal sinus rhythm rate 86. No acute signs of CA or dysrhythmia. Discharge Plan Triage Chief Complaint: Mental Health ED Provider: Wu Barakat Dx/Rx/DC Orders Clinical Impression: Depressed, Depression with suicidal ideation, Suicidal behavior Prescriptions: No Action cyanocobalamin (vitamin B-12) [Vitamin B-12] 1,000 MCG tablet 2,500 mcg PO DAILY RF: 0 albuterol sulfate [Ventolin HFA] 1 INHALER inhaler 2 puff inhalation Q4H PRN PRN (Reason: Dyspnea/Wheezing/Sob) RF: 0 pravastatin 20 MG tablet 40 mg PO QHS RF: 0 tamsulosin [Flomax] 0.4 MG capsule 0.4 mg PO QHS RF: 0 famotidine 20 MG tablet 20 mg PO BID RF: 0 aspirin 81 mg capsule 81 mg PO DAILY Qty: 1 RF: 0 amlodipine 5 mg Tablet 5 mg PO DAILY Qty: 0 RF: 0 acetaminophen 500 mg Tablet 1,000 mg PO Q8 PRN (Reason: fever or pain) Qty: 0 RF: 0 bisacodyl 10 mg Suppository 10 mg NV .PRN X 1 PRN (Reason: Constipation) Qty: 0 RF: 0 magnesium hydroxide 400 mg/5 mL Suspension 30 ml PO .PRN X 1 PRN (Reason: Constipation) Qty: 0 RF: 0 gabapentin 100 mg Capsule See Rx Instructions .ROUTE .COMPLEX Qty: 120 RF: 0 melatonin 3 mg Tablet 3 mg PO 2130 Qty: 0 RF: 0 pramipexole 0.25 mg Tablet 0.25 mg PO DAILY RF: 0 risperidone [Risperdal] 1 mg Tablet 1 mg PO QHS RF: 0 carboxymethylcellulose sodium Drops 1 drp EACH EYE TID RF: 0 guaifenesin [Mucinex] 600 mg Tablet Extended Release 12hr 600 mg PO BID RF: 0 venlafaxine 75 mg capsule,extended release 24hr 37.5 mg PO BID RF: 0 pramipexole 0.25 mg tablet 0.5 mg PO QHS RF: 0 ergocalciferol (vitamin D2) [Vitamin D2] 1,250 mcg (50,000 unit) capsule 50,000 mcg PO QWEEK RF: 0 Primary Care Provider: Vidhi Main Referrals: Vidhi Main MD [Primary Care Provider] - Disposition Disposition: Psychiatric Hospital or Unit
--- NOTE | 2021-11-03 18:39 | CM.ED ---
SP Psychiatric Assessment Reason for Consult: Mental Health Informant: Patient and EMS Per chart ?EMS reports patient had a bread bag over head. Patient states he misses his and wants to be with her in [facility]? Chief Complaint: SW met with patient. Patient said that he is at the hospital due to ?depression.? Patient said, ?I couldn?t stand it any longer.? Patient reports his in September. Patient said that he got a bag over his head and wanted to . Patient said, ?there is no reason to be here.? Patient said that the bag he used was in his desk in the room. Marital /Social History: . 09/25 Identified Gender/Sexual Orientation: Male/Heterosexual Living Situation: [facility]. He reports he has been there a ?couple of months.? Patient said that the SNF is ?driving me insane and I can?t take it anymore.? Patient said that if he left the SNF he would go to his brothers or son?s residence. Support/Resources: Patient was asked about support, and he said his one brother is not well and another brother he ?hasn?t heard from? and another brother just got back from [place]. History: Denied Education and Employment History: Last grade attended was freshman year in high school. 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 Patient said, ?I always had money.? Mental Health Treatment: Patient denied any psych hospitalization or mental health treatment. Triggers/Stressors: Patient said that his daughter was supposed to bring him a phone today so he could call his brother and she never showed up so ?I couldn?t take it.? Coping Skills: Watching TV and music Abuse Issues: Denied Substance abuse Issues: Patient denied Risk to Self and Others: Suicidal: Thoughts: Patient said that he began having suicidal thoughts ?today.? Patient said that if he killed himself that J Carlos would ?give me to the devil.? Patient reports that he would ?rather be ? and ?would be happy if I fell.? Attempts: Patient put bread bag over his head Homicidal: Thoughts: Denied Violence: To Self: Denied Orientation: x3 Memory: Intact Appearance/General Behavior: Wearing hospital gown, thin, no hygiene issues Mood/Affect: Depressed Mood with flat affect Communication Pattern: Responds to questions Thought Process: Logical and Linear General Intellectual Functioning: Average Judgment: Poor Insight: Poor Patient said that 3 weeks ago he talked with J Carlos. Patient said that he talked to J Carlos ?with my brain.? Patient said that a Lithuanian woman, age 39, was coming to see him. Patient said that J Carlos told him ?What she likes to do.? Patient said that when the woman came to [place] ?I am blind, but I saw a light over her, and I saw her perfectly.? Patient said that the woman is not ?here any longer.? Patient said that he has not heard from J Carlos in 3 weeks. SW met with MD Barakat. Plan is for inpatient psych Plan: Inpatient psych Ashleigh LUNA
[2021-11-03 18:46] LABS: Bacteria 0 SEEN /hpf (None Seen); Mucous, Urine 0 SEEN /hpf (<or=2+); Squamous Epithelial Cells - UA 0 SEEN /hpf (0-5); White Blood Cells 0 SEEN /hpf (0-5)
[2021-11-03 18:48] LABS: Absolute Lymphocyte Count 6.22 X10^3/uL (0.83-4.51); Absolute Neutrophil Count 6.3 X10^3/uL (2.0-7.7); Basophil# 0.06 X10^3/uL; Basophil% 0.4 % (0-1); Eosinophil# 0.13 X10^3/uL; Hematocrit 46.7 % (40-54); Lymphocyte # 6.22 X10^3/ul (0.83-4.51); Lymphocyte % 45.6 % (19-41); Mean Corp Hgb Conc 34.3 g/dL (32-36); Mean Corpuscular Hgb 30.6 pg (27.0-32.0); Mean Corpuscular Volume 89.3 fL (80-94); Mean Platelet Vol. 9.4 fl (6.2-12.0); Monocyte# 0.87 X10^3/uL; Monocyte% 6.4 % (0-10); NRBC Flagged by Analyzer 0 % (0-5); Neutrophil # 6.29 X10^3/uL (2.7-7.7); Neutrophil % 46.1 % (47-70); POSITIVE DIFFERENTIAL YES; POSITIVE MORPHOLOGY YES; Platelet Count 215 K/mm3 (150-450); RBC Distribution Width CV 13.8 % (11.6-14.6); RBC Distribution Width SD 44.9 fl (35.1-43.9); Red Blood Count 5.23 M/mm3 (4.6-6.2); White Blood Count 13.6 K/mm3 (4.4-11.0)
[2021-11-03 18:53] LABS: Differential Indicated SCAN CRITERIA MET
[2021-11-03 18:55] LABS: Color, Urine Yellow (Yellow); Glucose, Dipstick Normal (Normal); Ketone-Dipstick Negative (Negative); Leukocyte Esterase-Dipstick Negative /ul (Negative); Nitrite-Dipstick Negative (Negative); Occult Blood-Urine Negative /ul (Negative); Protein-Dipstick Negative (Negative); Specific Gravity, Urine 1.015 (1.002-1.030); Urine Bilirubin Dipstick Negative (Negative); Urine Clarity Clear (Clear); Urine Urobilinogen Normal (Normal)
[2021-11-03 19:06] LABS: Amorphous Sediment 1+; Red Blood Cells-Urine 0-5 SEEN /hpf (0-5)
[2021-11-03 19:06] LABS: Alcohol, Blood (Medical)-Serum < 3.0 mg/dL
[2021-11-03 19:07] LABS: Anion Gap 7 (5-15); BUN 13 mg/dL (7-18); BUN/Creat Ratio 13.2 RATIO (10-20); Calcium,Total 9.6 mg/dL (8.5-10.1); Chloride 105 mmol/L (98-107); Creatinine, Serum 0.98 mg/dL (0.70-1.30); EST Glomerular Filtration Rate 77 mL/min (>60); Est Glom Filt Rate - Afr Amer 93 mL/min (>60); Estimated Creatinine Clearance 45.97 ml/min; Glucose 107 mg/dL (74-106); Sodium Level 140 mmol/L (136-145)
[2021-11-03 19:14] LABS: Differential Comment SCANNED; Reactive Lymphocyte 1+
--- NOTE | 2021-11-03 19:31 | EKG12_ITS ---
Test Reason : [facility] Blood Pressure : / mmHG Vent. Rate : 086 BPM Atrial Rate : 086 BPM P-R Int : 158 ms QRS Dur : 082 ms QT Int : 376 ms P-R-T Axes : 071 065 -04 degrees QTc Int : 449 ms Normal sinus rhythm Nonspecific ST abnormality septal NH, age undertermined, cannot be excluded Abnormal ECG Confirmed by AMANDA CALLEJAS, JENNIFER ([id number]), multimedia editor AKASH REA ([id number]) on 11/06/2021 11:59:55 AM Referred By: MAYRA Confirmed By:JENNIFER PATEL MD
[2021-11-03 20:10] LABS: Amphetamine Urine VISTA NEGATIVE (<1000 ng/mL); Barbiturate Urine VISTA NEGATIVE (< 200 ng/mL); Benzodiazepine Urine VISTA NEGATIVE (< 200 ng/mL); Cocaine Urine VISTA NEGATIVE (< 300 ng/mL); Ecstacy Urine VISTA NEGATIVE (< 500 ng/mL); Methadone Urine VISTA NEGATIVE (< 300 ng/mL); PCP Urine VISTA NEGATIVE (< 25 ng/mL); THC Urine VISTA NEGATIVE (< 50 ng/mL); Vista UDS pH Range 7
--- NOTE | 2021-11-03 20:49 | ED.RN ---
PT REMAINS CALM AND COOPERATIVE, FOLLOWS ALL COMMANDS, RESTING QUIETLY IN BED. SANDWICH AND MILKSHAKE GIVEN. PT CONVERSING WITH 1:1 SITTER, REMINISCING. PT BECOMES TEARY WHEN SPEAKING OF LATE , STATES I MISS HER SO MUCH. PT STATES I'M JUST SO HAPPY TO BE HERE, EVERYONE IS SO NICE HERE.
--- NOTE | 2021-11-03 20:56 | CM.ED ---
Addendum entered by Ashleigh Soliz 11/03/21 21:48: SW met with patient and advised him of the plan for inpatient psych. Patient asked where he is going and social media marketer advised at this time this worker was unsure where patient was going. SW agreed to update patient. Addendum: SP spoke to Ashley at [facility] she said that they have a geripsych program at [facility]. SW called [facility]. SW spoke to bottoming room supervisor. They have gt psych beds SW called and inquired about [facility] bed and intake said that there is 1 bed but they are holding for someone in the ED so NO beds available. Ashleigh Soliz ROLE PLAYER CHERYL Original Note: SW Note SW printed out face sheet that listed patient's primary insurance as [employer]. SP called [facility] and spoke to Marianna. She advised to fax referral. SP spoke to Lorin in registration. She reports patient's [employer] was NOT verified but patient had a card. SP noted that [facility]'s face sheet noted that patient had [facility] Medicare. Lorin checked the [facility] Medicare web site and patient has [facility] Medcare. SP called Marianna at [facility] and advised that patient does not have [facility]. They are full. Sp called [facility]. SW made referral to [facility]. [facility] requested 2 weeks of notes from [facility]. Sp called [facility] and spoke to patient's nurse. SW requested that they fax 2 weeks of notes to [facility]. Nurse agreed. SP called [facility]. They are on wait list. Sw called . They have no geripsych beds and are full. SP called [facility]. Went to voice mail for intake and the voice mail was full. Sp called [facility]. Staff said that they did not know who was available for intake but she recommended this typewriter assembler fax a referral. Sw faxed a referral. SP called [facility]. They have geripsych beds. SW faxed referral to [facility]. SP received call from Janet at [facility] Patient wass declined as the COOL ROOFING INSTALLER said that they couldn't manage patient. SP called [facility] and spoke to Ashley. They do have discharge so may have a bed. SW provided referral to Ashley. Ashley said to fax referral to [facility]. SW faxed referral to [facility]. SP called [facility]. SP spoke to Tara and when this typewriter assembler [facility] Tara said Unfortuately we are unable to accomodate. Plan: SP continue to follow. Inpatient psych Ashleigh LUNA
--- NOTE | 2021-11-03 22:10 | CM.ED ---
SP called Lexi at [facility] and gave handoff report regarding patient. SP called [facility]. Their admitting RN is not in till 7am tomorrow so patient will not be reviewed till then. SP called [facility] and was advised to call the mental retardation aide intake liaison at . SP called intake liason and left message for her to call this jingle writer. SP called Enriqueta at [facility]. They are reviewing referral currently. SP called [facility]. They have a [facility]. They inquired if patient is total care due to him being legally blind. SW will speak to RN. SP received call from [facility]. They will accept patient. Patient will go to [facility]. Accepting MD is Matt. [facility] requested COVID screen and pink slip faxed to [facility]. SP faxed requested paperwork to [facility]. Enriqueta from [facility] called. Patient is going to room 300 B and report is [phone]. Alma, deputy united states marshal called for transport. SP called Vladimir at [facility] and advised placement is not needed. SP called Kathia at [facility] and updated her that patient is going to [facility]. SP updated Lexi from [facility] that patient has secured placement at [facility]. SP called Ashley at [facility] and stated that patient had secured placement. SP updated patient that he is going to [facility]. Plan: [facility] Ashleigh LUNA
[2021-11-03] MEDS: LORazepam 2 MG/ML Syringe 1 MG IM (23:18)
--- NOTE | 2021-11-03 23:26 | ED.RN ---
PT BECAME UPSET AND TEARFUL WHEN TRANSPORT ARRIVED. ATIVAN GIVEN FOR ANXIETY, PT CONTINUES TO COOPERATE
--- NOTE | 2021-11-03 23:43 | ED.RN ---
NURSE TO NURSE CALLED AFTER 4 ATTEMPTS
--- NOTE | 2021-11-03 23:44 | ED.RN ---
LEFT MESSAGE FOR BROTHER ON PT TRANSFER TO GENERATIONS, PHONE NUMBER GIVEN WELL.
== END 2021-11-03 23:27 ==
PROVIDERS: Emergency Provider Emergency Medicine; PCP Internal Medicine; Visit Provider Emergency Medicine
DX: F32.A Depression, unspecified (principal); J44.9 Chronic obstructive pulmonary disease, unspecified; R45.851 Suicidal ideations; F41.9 Anxiety disorder, unspecified; I10 Essential (primary) hypertension; E78.5 Hyperlipidemia, unspecified; Z20.822 Contact with and (suspected) exposure to COVID-19; H54.8 Legal blindness, as defined in USA; K21.9 Gastro-esophageal reflux disease without esophagitis; Z79.82 Long term (current) use of aspirin; Z79.899 Other long term (current) drug therapy; Z87.891 Personal history of nicotine dependence
CPT/HCPCS: 80048; 80307; 81001; 82077; 85025; 87811; 93005; 96372; 99285

== ENCOUNTER 2021-11-14 15:17 | Emergency (ER) | payer MEDICARE, MEDICAID, SELFPAY ==
[2021-11-14 15:17] VITALS: BP 148/54; PULSE 85; RESP 16; TEMP 37.1; O2SAT 94; BMI 25.2
--- NOTE | 2021-11-14 15:21 | EKG12_ITS ---
Test Reason : MEDICAL CLEARANCE Blood Pressure : / mmHG Vent. Rate : 084 BPM Atrial Rate : 084 BPM P-R Int : 148 ms QRS Dur : 080 ms QT Int : 372 ms P-R-T Axes : 066 063 038 degrees QTc Int : 439 ms Normal sinus rhythm Nonspecific ST abnormality Abnormal ECG Confirmed by BERENICE CALLEJAS, GUS ([id number]), makeup editor MASSIEL MELO ([id number]) on 11/16/2021 12:58:01 P M Referred By: GINGER Confirmed By:ZARIA NG MD
--- NOTE | 2021-11-14 15:21 | EDS_ITS ---
HPI HPI - Psych History of Present Illness Chief Complaint: Suicidal Informant: patient, EMS and SNF Onset/Context/Timing Onset: Today Conflict: Family and - (health/blindness) Timing: Continuous Current Severity: Severe Maximum Severity: Severe Worsened by: Situational factors Relieved by: staff helping him Associated Symptoms Associated Symptoms - Psych: Positive for Depressed and Suicidal Thoughts Specific plan (suicidal thought): self-inflicted injury Narrative Narrative: Patient [facility] his head against the window saying that he did not want to live anymore and was trying to kill himself. He states he is depressed because his just in September and he is blind and feels he has no reason to live. He does have a history of dementia. He states he has a mild headache. He denies pain anywhere else right now. PFSH [facility], [facility] Medical History Anxiety Benign prostatic hyperplasia Cervical spondylosis Chronic obstructive pulmonary disease Chronic prescription benzodiazepine use Depression Excessive cerumen in ear canal Gastroesophageal reflux disease Generalized anxiety disorder HTN (hypertension) Hyperlipidemia Hyperlipidemia Hypertension Insomnia Legal blindness Lumbar spinal stenosis Neuropathic pain Osteoarthritis of lumbar spine Restless leg syndrome Spondylolisthesis, cervical region Vitamin B12 deficiency Vitamin D deficiency Home Medications cyanocobalamin (vitamin B-12) [Vitamin B-12] 2,000 mcg PO DAILY 02/13/17 [History Last Taken Unknown] albuterol sulfate [Ventolin HFA] 2 puff INHALATION Q4H PRN PRN 07/29/18 [History Last Taken Unknown] tamsulosin [Flomax] 0.4 mg PO QHS 10/23/18 [History Last Taken Unknown] famotidine 20 mg PO BID 04/10/20 [History Last Taken Unknown] amlodipine 5 mg PO DAILY #0 tab 05/03/21 [Rx Last Taken Unknown] aspirin 81 mg PO DAILY #1 cap 05/03/21 [Rx Last Taken Unknown] ergocalciferol (vitamin D2) [Vitamin D2] 50,000 mcg PO WE 11/03/21 [History Last Taken Unknown] guaifenesin [Mucinex] 600 mg PO BID 11/03/21 [History Last Taken Unknown] venlafaxine 37.5 mg PO DAILY 11/03/21 [History Last Taken Unknown] acetaminophen 650 mg PO Q8H PRN PRN 11/14/21 [History Last Taken Unknown] atorvastatin 40 mg PO QHS 11/14/21 [History Last Taken Unknown] bisacodyl 10 mg OH DAILY PRN PRN 11/14/21 [History Last Taken Unknown] gabapentin 100 mg PO BID 11/14/21 [History Last Taken Unknown] glycerin [Artificial Tears (glycerin)] 1 drp OPHTHALMIC (EYE) Q8H PRN PRN 11/14/21 [History Last Taken Unknown] magnesium hydroxide 30 ml PO DAILY PRN PRN 11/14/21 [History Last Taken Unknown] mineral oil 118 ml OH DAILY PRN 11/14/21 [History Last Taken Unknown] ropinirole 0.25 mg PO BID 11/14/21 [History Last Taken Unknown] venlafaxine 75 mg PO BID 11/14/21 [History Last Taken Unknown] Allergy/AdvReac Type Severity Reaction Status Date / Time niacin Allergy Rash Verified 11/14/21 16:25 Family History Brother Diabetes Surgical History H/O inguinal hernia repair H/O lumbosacral spine surgery History of appendectomy S/P lumbar fusion Social History household members: other details: Lives alone with his dog pets and animals: Yes Smoking Status: Former smoker how long ago did patient quit smokin years ago alcohol intake: current details: Has 2 glasses of wine per week ROS ROS ED Constitutional Constitutional ED: Denies chills or fever(s) Eyes Eyes: Denies change in vision or diplopia ENT ENT ED: Denies rhinorrhea or sore throat Cardiovascular Cardiovascular: Denies chest pain or palpitations Respiratory/Chest Respiratory/Chest: Denies cough or dyspnea Gastrointestinal Gastrointestinal: Denies abdominal pain, diarrhea, nausea or vomiting Genitourinary Genitourinary ED: Denies dysuria or hematuria Musculoskeletal Musculoskeletal: Denies back pain or neck pain Integumentary Denies abscess or rash Neurologic Neurologic: Reports headache(s); Denies paresthesias or weakness Psychiatric Psychiatric: Reports depression, suicidal ideation and suicidal thoughts; Denies homicidal ideation EXAM Physical Exam Const Vital Signs: 11/14/21 15:17 11/14/21 16:17 11/14/21 17:28 Temperature 98.8 F Temperature Source Temporal Pulse Rate 85 Respiratory Rate 16 16 16 Blood Pressure 148/54 H Blood Pressure Mean 85 Pulse Ox 94 Oxygen Delivery Method Room Air 11/14/21 20:33 11/14/21 21:05 11/14/21 22:26 Temperature Temperature Source Pulse Rate 95 89 Respiratory Rate 18 18 Blood Pressure 143/51 H Blood Pressure Mean 81 Pulse Ox 96 96 98 Oxygen Delivery Method Room Air Room Air Positive well nourished and well developed General Appearance ED: well developed and NAD HEENT Reports moist mucous membranes HEENT Narrative: Contusion right lower forehead without crepitance or depression or laceration normocephalic and atraumatic Eyes PERRL and EOMs intact bilaterally General Eye ED: Negative for scleral icterus Neck no lymphadenopathy and supple Resp normal respiratory effort and clear to auscultation bilaterally Cardio no murmurs Rate: regular rate Rhythm: regular rhythm GI non-tender and non-distended Auscultation: normoactive bowel sounds Palpation: soft Back/Spine no CVA tenderness and normal ROM Extremity normal to inspection General Extremety ED: Negative for edema General Extremity: Negative for edema Neuro CN's II-XII intact bilaterally, no sensory deficits noted and gait normal Stockett Coma Scale: document GCS findings Spontaneous Obeys Commands Oriented 15 Sensorium / Orientation: awake, alert, oriented to person and oriented to place; Negative for oriented to time Motor Exam: strength 5/5 throughout Psych mental status grossly normal, thought process normal, cooperative, activity/motor behavior normal and denies homicidal ideation Mood & Affect: depressed Thought Content: suicidality Skin Skin Narrative: Contusion right lower forehead skin intact Lesions: no lesions Rashes: no rashes MDM MDM MDM Narrative Medical decision making narrative: Labs obtained, patient medically clear, observed in emergency department and has been cooperative. We did do a CT head to ensure he did not have any intracranial injury, it was negative. When we discussed with him that social work advised readmitting him to psychiatry, he started to have quite a bit of anxiety and agitation, he asked for something else on calm down so he was offered an oral Zyprexa Zydis 5 mg which really did help and did not sedate him. He was still alert and able to walk. Lab Data Attestation: I reviewed the patient's lab results. Labs: Laboratory Results - last 24 hr 11/14/21 11/14/21 11/14/21 15:30 15:30 15:30 WBC 11.8 H RBC 4.24 L Hgb 13.1 Hct 38.5 L MCV 90.8 MCH 30.9 MCHC 34.0 RDW Std Deviation 46.2 H RDW Coeff of Franco 13.8 Plt Count 209 MPV 9.4 Immature Gran % (Auto) 0.300 Neut % (Auto) 39.2 L Lymph % (Auto) 53.7 H Clare % (Auto) 5.5 Eos % (Auto) 1.0 Baso % (Auto) 0.3 Absolute Neuts (auto) 4.6 Absolute Lymphs (auto) 6.34 H Nucleated RBC % 0 Differential Comment Sodium 138 Potassium 3.7 Chloride 104 Carbon Dioxide 30.0 Anion Gap 4 L BUN 14 Creatinine 1.08 Estim Creat Clear Calc 36.65 Est GFR (MDRD) Af Amer 84 Est GFR (MDRD) Non-Af 69 BUN/Creatinine Ratio 13.0 Glucose 154 H Calcium 9.3 Total Bilirubin 0.70 AST 13 L ALT 23 Alkaline Phosphatase 84 Total Protein 6.9 Albumin 3.5 Globulin 3.4 Albumin/Globulin Ratio 1.0 TSH 0.99 Urine Opiates Screen Urine Methadone Screen Ur Barbiturates Screen Ur Phencyclidine Scrn Ur Amphetamines Screen MDMA (Ecstasy) Screen U Benzodiazepines Scrn Urine Cocaine Screen U Cannabinoids Screen Ur Drug Screen Comment Ethyl Alcohol 9.0 11/14/21 18:05 WBC RBC Hgb Hct MCV MCH MCHC RDW Std Deviation RDW Coeff of Franco Plt Count MPV Immature Gran % (Auto) Neut % (Auto) Lymph % (Auto) Clare % (Auto) Eos % (Auto) Baso % (Auto) Absolute Neuts (auto) Absolute Lymphs (auto) Nucleated RBC % Differential Comment Sodium Potassium Chloride Carbon Dioxide Anion Gap BUN Creatinine Estim Creat Clear Calc Est GFR (MDRD) Af Amer Est GFR (MDRD) Non-Af BUN/Creatinine Ratio Glucose Calcium Total Bilirubin AST ALT Alkaline Phosphatase Total Protein Albumin Globulin Albumin/Globulin Ratio TSH Urine Opiates Screen NEGATIVE Urine Methadone Screen NEGATIVE Ur Barbiturates Screen NEGATIVE Ur Phencyclidine Scrn NEGATIVE Ur Amphetamines Screen NEGATIVE MDMA (Ecstasy) Screen NEGATIVE U Benzodiazepines Scrn NEGATIVE Urine Cocaine Screen NEGATIVE U Cannabinoids Screen NEGATIVE Ur Drug Screen Comment Ethyl Alcohol Radiography Diagnostic Testing: Clinical Impression(s) from Imaging Studies Brain CT 11/14/21 15:45 IMPRESSION: There are no acute intracranial findings. Electronically Signed: Solitario Sofia MD at 16:49 EDT Reading Location ID and State: [facility] / MD , Service support , EKG Initial EKG: Attestation: I personally reviewed and interpreted this EKG as follows: Interpretation: Sinus Rhythm, No Acute Injury Pattern and Non-Specific ST Changes Prior EKG tracings: available for review Prior: Unchanged Discharge Plan Triage Chief Complaint: Suicidal ED Provider: Claus Langley Dx/Rx/DC Orders Clinical Impression: Suicide ideation, Suicide gesture, Closed head injury without loss of consciousness, Blindness Prescriptions: No Action cyanocobalamin (vitamin B-12) [Vitamin B-12] 1,000 MCG tablet 2,000 mcg PO DAILY RF: 0 albuterol sulfate [Ventolin HFA] 1 INHALER inhaler 2 puff inhalation Q4H PRN PRN (Reason: Dyspnea/Wheezing/Sob) RF: 0 tamsulosin [Flomax] 0.4 MG capsule 0.4 mg PO QHS RF: 0 famotidine 20 MG tablet 20 mg PO BID RF: 0 aspirin 81 mg capsule 81 mg PO DAILY Qty: 1 RF: 0 amlodipine 5 mg Tablet 5 mg PO DAILY Qty: 0 RF: 0 guaifenesin [Mucinex] 600 mg Tablet Extended Release 12hr 600 mg PO BID RF: 0 venlafaxine 75 mg capsule,extended release 24hr 37.5 mg PO DAILY RF: 0 ergocalciferol (vitamin D2) [Vitamin D2] 1,250 mcg (50,000 unit) capsule 50,000 mcg PO WE RF: 0 atorvastatin 40 mg Tablet 40 mg PO QHS RF: 0 acetaminophen 325 mg Tablet 650 mg PO Q8H PRN PRN (Reason: pain/fever) RF: 0 venlafaxine 75 mg Tablet 75 mg PO BID RF: 0 mineral oil Enema 118 ml OH DAILY PRN (Reason: Constipation) RF: 0 ropinirole 0.25 mg Tablet 0.25 mg PO BID RF: 0 Artificial Tears (glycerin) Drops 1 drp OPHTHALMIC (EYE) Q8H PRN PRN (Reason: Dry Eye(S)) RF: 0 magnesium hydroxide 400 mg/5 mL suspension 30 ml PO DAILY PRN PRN (Reason: Constipation) RF: 0 bisacodyl 10 mg suppository 10 mg OH DAILY PRN PRN (Reason: Constipation) RF: 0 gabapentin 100 mg capsule 100 mg PO BID RF: 0 Primary Care Provider: Jerod Portillo Referrals: Jerod Portillo MD [Primary Care Provider] - Disposition Disposition: Psychiatric Hospital or Unit
--- NOTE | 2021-11-14 15:45 | CT_ITS ---
STUDY: CT BRAIN WITHOUT CONTRAST REASON FOR EXAM: Male, 85 years old. HEADACHE trauma TECHNIQUE: Transaxial CT imaging of the brain was performed without administration of intravenous contrast material. Individualized dose optimization techniques were used for this CT. COMPARISON: 04/14/2021 FINDINGS: Normal calvarium. Normal soft tissues. 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 There is mild cerebral atrophy with widening of the extra-axial spaces and ventricular dilatation. There are areas of decreased attenuation within the white matter tracts of the supratentorial brain, consistent with microvascular disease changes. Normal basal ganglia and thalami. Normal brainstem. Normal cerebellum. There is no intracranial hemorrhage. There are no findings of an acute ischemic infarction. There are calcifications around the carotid artery. These are noted in the cavernous carotid arteries. Normal visualized paranasal sinuses. ASPECTS 10 CT/Brain/Head without Contrast IMPRESSION: There are no acute intracranial findings. Electronically Signed: Solitario Sofia MD at 16:49 EDT ,
[2021-11-14 15:47] LABS: Absolute Lymphocyte Count 6.34 X10^3/uL (0.83-4.51); Absolute Neutrophil Count 4.6 X10^3/uL (2.0-7.7); Basophil# 0.04 X10^3/uL; Basophil% 0.3 % (0-1); Eosinophil# 0.12 X10^3/uL; Hematocrit 38.5 % (40-54); Hemoglobin 13.1 g/dL (13.0-16.5); Lymphocyte # 6.34 X10^3/ul (0.83-4.51); Lymphocyte % 53.7 % (19-41); Mean Corpuscular Hgb 30.9 pg (27.0-32.0); Mean Corpuscular Volume 90.8 fL (80-94); Mean Platelet Vol. 9.4 fl (6.2-12.0); Monocyte# 0.65 X10^3/uL; Monocyte% 5.5 % (0-10); NRBC Flagged by Analyzer 0 % (0-5); Neutrophil # 4.61 X10^3/uL (2.7-7.7); Neutrophil % 39.2 % (47-70); POSITIVE DIFFERENTIAL YES; POSITIVE MORPHOLOGY YES; Platelet Count 209 K/mm3 (150-450); RBC Distribution Width CV 13.8 % (11.6-14.6); RBC Distribution Width SD 46.2 fl (35.1-43.9); Red Blood Count 4.24 M/mm3 (4.6-6.2); White Blood Count 11.8 K/mm3 (4.4-11.0)
[2021-11-14 16:17] VITALS: RESP 16
[2021-11-14 16:20] LABS: AST(SGOT) 13 U/L (15-37); Alanine Aminotransfer ALT/SGPT 23 U/L (16-61); Albumin, Serum 3.5 g/dL (3.2-5.0); Alkaline Phosphatase 84 U/L (45-117); Anion Gap 4 (5-15); BUN 14 mg/dL (7-18); Calcium,Total 9.3 mg/dL (8.5-10.1); Chloride 104 mmol/L (98-107); Creatinine, Serum 1.08 mg/dL (0.70-1.30); EST Glomerular Filtration Rate 69 mL/min (>60); Est Glom Filt Rate - Afr Amer 84 mL/min (>60); Estimated Creatinine Clearance 36.65 ml/min; Globulin 3.4 g/dL (2.2-4.2); Glucose 154 mg/dL (74-106); Potassium 3.7 mmol/L (3.5-5.1); Protein, Total 6.9 g/dL (6.4-8.2); Sodium Level 138 mmol/L (136-145); Thyroid Stim Hormone (TSH) 0.99 uIU/mL (0.358-3.74)
[2021-11-14 16:47] LABS: Differential Indicated SCAN CRITERIA MET
[2021-11-14 17:28] VITALS: RESP 16
[2021-11-14 18:33] LABS: Amphetamine Urine VISTA NEGATIVE (<1000 ng/mL); Barbiturate Urine VISTA NEGATIVE (< 200 ng/mL); Benzodiazepine Urine VISTA NEGATIVE (< 200 ng/mL); Cocaine Urine VISTA NEGATIVE (< 300 ng/mL); Ecstacy Urine VISTA NEGATIVE (< 500 ng/mL); Methadone Urine VISTA NEGATIVE (< 300 ng/mL); PCP Urine VISTA NEGATIVE (< 25 ng/mL); THC Urine VISTA NEGATIVE (< 50 ng/mL); Vista UDS pH Range 6
--- NOTE | 2021-11-14 18:40 | CM.ED ---
Social Work Consult: Suicidal Referral source: Dr. Langley Chief Complaint: Patient was banging head against windows/barriga at [facility] (place of residence). Patient states I have nothing to live for. Marital/Social History: Living Situation: Resident at [facility] in the memory care unit. Support/Resources: Limited family support. Main family support is daughter, Patti who is apparently the HCPOA but documents are not able to be found. History: did not assess Education/Employment History: Retired. Mental Health treatment/History: History of inpatient psychiatric placement on November 03, 2021 to [facility] due to suicidal thoughts. Triggers/Stressors: Patient spouse 2 months ago. Abuse Issues: Denies Substance Abuse Hx: Denies Risk to self/others: Patient reports I have nothing to live for. Patient states desire to and was banging head on windows today as per patient I would eventually. Patient denies homicidal thoughts or plans to harm others. Patient denies history of harm to others or current legal issues. Mental Status Exam: Oriented to place and person. Unable to orient to year, does know the president. Appearance/General Behavior: Clean. Slumped. Mood/Affect: Depressed. Communication Pattern: Responds to questions. Thought Process: Appropriate. Denies visual or auditory hallucinations. Judgement: Poor Insight: Poor Assessment: Met with patient in room. Introduced self and social services manager role. Patient agreeable to speak with this social services manager. Patient states to have no reason to live. Patient then talking about patient eyes and not being able to see. Patient becoming anxious when this social services manager started to speak with patient about inpatient psychiatric placement. Patient states but what about my eyes. Patient confirms to not be able to see for awhile now. This social services manager attempting to orient patient to conversation and working through placement vs. returning to [facility]. Patient unable to contract for safety to return to [facility]. Collaborating with Dr. Langley. Inpatient psychiatric placement is recommended. PLAN: Inpatient psychiatric placement Will continue to follow. Amador HORNE, UMAIRS
--- NOTE | 2021-11-14 19:24 | CM.ED ---
Social Work Telephone call to [facility], intake. Patient has already been denied. Apparently [facility] attempted to make a direct referral from their facility prior to patient coming to hospital. Telephone call [facility]. Bernad[facility] reports to have open beds. Clinical information faxed, but not sure if anyone will look at it tonight. Telephone call to [facility]. There are open beds. Clinical information faxed. PLAN: Inpatient psychiatric Will continue to follow. Amador HORNE, LUCAS
[2021-11-14 20:33] VITALS: PULSE 95; RESP 18; O2SAT 96
[2021-11-14] MEDS: OLANZapine 5 MG/TAB TAB.RAPDIS PO (20:36)
--- NOTE | 2021-11-14 20:57 | NURSING ---
faxed requested information of med list from [facility].
--- NOTE | 2021-11-14 21:03 | NURSING ---
report given to Roberto at [facility].
[2021-11-14 21:05] VITALS: O2SAT 96
[2021-11-14 22:26] VITALS: BP 143/51; PULSE 89; RESP 18; O2SAT 98
--- NOTE | 2021-11-14 23:11 | NURSING ---
Report called to [facility] spoke with Marisabel.
[2021-11-14] MEDS: Acetaminophen 325 MG Tablet 650 MG PO (23:54)
[2021-11-15 00:02] VITALS: BP 143/53; PULSE 89; RESP 18; O2SAT 98
[2021-11-15 02:49] VITALS: RESP 16
[2021-11-15 03:40] VITALS: RESP 16
[2021-11-15 04:06] VITALS: RESP 16
[2021-11-15 06:21] VITALS: RESP 16
[2021-11-15 06:38] VITALS: BP 160/66; PULSE 83; RESP 18; TEMP 36.4; O2SAT 96
== END 2021-11-15 07:34 ==
PROVIDERS: Emergency Provider Emergency Medicine; PCP Family Medicine; Visit Provider Emergency Medicine
DX: F32.A Depression, unspecified (principal); F03.90 Unspecified dementia, unspecified severity, without behavioral disturbance, psychotic disturbance, mood disturbance, and anxiety; X83.8XXA Intentional self-harm by other specified means, initial encounter; R45.1 Restlessness and agitation; S00.83XA Contusion of other part of head, initial encounter; Y92.129 Unspecified place in nursing home as the place of occurrence of the external cause; F41.1 Generalized anxiety disorder; R45.851 Suicidal ideations; H54.8 Legal blindness, as defined in USA; J44.9 Chronic obstructive pulmonary disease, unspecified; I10 Essential (primary) hypertension; E78.5 Hyperlipidemia, unspecified; Z79.82 Long term (current) use of aspirin; Z79.899 Other long term (current) drug therapy; Z87.891 Personal history of nicotine dependence
CPT/HCPCS: 70450; 80053; 80307; 82077; 84443; 85025; 87811; 93005; 99285

== ENCOUNTER 2022-04-18 11:16 | Inpatient (IN) | payer MEDICARE, MEDICAID, SELFPAY ==
[2022-04-18] VITALS (15 sets, daily range): BP systolic 107–122; BP diastolic 51–79; PULSE 83–109; RESP 18–40; TEMP 36.3–36.9; O2SAT 89–98; BMI 22.9; BMI 22.1
--- NOTE | 2022-04-18 11:29 | EKG12_ITS ---
Test Reason : SOB Blood Pressure : / mmHG Vent. Rate : 106 BPM Atrial Rate : 106 BPM P-R Int : 132 ms QRS Dur : 082 ms QT Int : 336 ms P-R-T Axes : 063 036 008 degrees QTc Int : 446 ms Sinus tachycardia Otherwise normal ECG Confirmed by RESHMA CALLEJAS, CEDRICK ([id number]), slot editor AKASH REA ([id number]) on 04/20/2022 9:30:35 AM Referred By: Confirmed By:CEDRICK JUSTICE MD
--- NOTE | 2022-04-18 11:31 | ED.VIS.DYS ---
HPI History of Present Illness Chief Complaint: Shortness of Breath Detail of Chief Complaint: Shortness of breath for approximately 5 or 6 days. Informant: patient Narrative Narrative: Patient presents the emergency department with shortness of breath progressively worsening over the last 5 to 6 days. Patient from [facility] care facility and presents via EMS. Patient apparently had a chest x-ray and was diagnosed with pneumonia 2 days ago and started on azithromycin. Patient denies any chest pain. Cough mostly nonproductive. Patient was found to be 89% on room air by EMS as well as on arrival to the emergency department. Patient does have history of COPD. Patient not normally on oxygen. [facility] Medical History Anxiety Benign prostatic hyperplasia Cervical spondylosis Chronic obstructive pulmonary disease Chronic prescription benzodiazepine use Depression Excessive cerumen in ear canal Gastroesophageal reflux disease Generalized anxiety disorder HTN (hypertension) Hyperlipidemia Hyperlipidemia Hypertension Insomnia Legal blindness Lumbar spinal stenosis Neuropathic pain Osteoarthritis of lumbar spine Restless leg syndrome Spondylolisthesis, cervical region Vitamin B12 deficiency Vitamin D deficiency Home Medications cyanocobalamin (vitamin B-12) 1,000 mcg tablet (Vitamin B-12) 2,000 mcg PO DAILY supplement 02/13/17 [History Last Taken Unknown] albuterol sulfate 90 mcg/actuation aerosol inhaler (Ventolin HFA) 2 puff inhalation Q4H PRN PRN Dyspnea/Wheezing/Sob 07/29/18 [History Last Taken Unknown] tamsulosin 0.4 mg capsule (Flomax) 0.4 mg PO QHS Check with primary doctor 10/23/18 [History Last Taken Unknown] famotidine 20 mg tablet 20 mg PO BID Check with primary doctor 04/10/20 [History Last Taken Unknown] amlodipine 5 mg tablet 5 mg PO DAILY #0 tabs 05/03/21 [Rx Last Taken Unknown] aspirin 81 mg capsule 81 mg PO DAILY #1 cap 05/03/21 [Rx Last Taken Unknown] ergocalciferol (vitamin D2) 1,250 mcg (50,000 unit) capsule (Vitamin D2) 50,000 mcg PO WE 11/03/21 [History Last Taken Unknown] guaifenesin 600 mg tablet, extended release 12 hr (Mucinex) 600 mg PO BID 11/03/21 [History Last Taken Unknown] venlafaxine 75 mg capsule,extended release 24 hr 37.5 mg PO DAILY 11/03/21 [History Last Taken Unknown] acetaminophen 325 mg tablet 650 mg PO Q8H PRN PRN pain/fever 11/14/21 [History Last Taken Unknown] atorvastatin 40 mg tablet 40 mg PO QHS 11/14/21 [History Last Taken Unknown] bisacodyl 10 mg rectal suppository 10 mg MS DAILY PRN PRN Constipation 11/14/21 [History Last Taken Unknown] gabapentin 100 mg capsule 100 mg PO BID 11/14/21 [History Last Taken Unknown] glycerin 1 drp ophthalmic (eye) Q8H PRN PRN Dry Eye(S) 11/14/21 [History Last Taken Unknown] magnesium hydroxide 400 mg/5 mL oral suspension 30 ml PO DAILY PRN PRN Constipation 11/14/21 [History Last Taken Unknown] mineral oil 118 ml MS DAILY PRN Constipation 11/14/21 [History Last Taken Unknown] ropinirole 0.25 mg tablet 0.25 mg PO BID 11/14/21 [History Last Taken Unknown] venlafaxine 75 mg tablet 75 mg PO BID 11/14/21 [History Last Taken Unknown] Allergy/AdvReac Type Severity Reaction Status Date / Time niacin Allergy Rash Verified 04/18/22 11:17 Family History Brother Diabetes Surgical History H/O inguinal hernia repair H/O lumbosacral spine surgery History of appendectomy S/P lumbar fusion Social History household members: other details: Lives alone with his dog pets and animals: Yes Smoking Status: Former smoker how long ago did patient quit smokin years ago alcohol intake: current details: Has 2 glasses of wine per week ROS ROS ED Review of Systems ROS Unobtainable: other Constitutional Constitutional ED: Reports lethargy; Denies chills, fever(s), sweats or weight loss Eyes Eyes: Denies blurry vision, change in vision or diplopia ENT ENT ED: Denies rhinorrhea or sore throat Cardiovascular Cardiovascular: Denies chest pain, orthopnea or racing heartbeat Respiratory/Chest Respiratory/Chest: Reports cough, dyspnea and dyspnea on exertion; Denies orthopnea or sputum Gastrointestinal Gastrointestinal: Denies abdominal pain, diarrhea, nausea or vomiting Genitourinary Genitourinary ED: Denies dysuria, hematuria or urinary frequency Musculoskeletal Musculoskeletal: Denies arthralgias, back pain, myalgias or neck pain Integumentary Denies abscess, Abrasions or rash Neurologic Neurologic: Denies headache(s) or weakness Psychiatric Psychiatric: Denies anxiety, depression or suicidal thoughts Endocrine Endocrinology: Denies polydipsia, polyphagia or polyuria Hematologic/Lymphatic Hematologic/Lymphatic: Denies easy bleeding, easy bruising or lymphadenopathy Allergic/Immunologic Allergic/Immunologic ED: Denies mouth swelling, tongue swelling or urticaria EXAM Physical Exam Const Vital Signs: 04/18/22 11:17 04/18/22 11:23 04/18/22 11:26 Temperature 98.4 F 98.4 F Temperature Source Oral Oral Pulse Rate 107 H 106 H Respiratory Rate 40 H 35 H Respiratory Effort Short of Breath Labored Blood Pressure 107/79 107/79 Blood Pressure Mean 88 88 Pulse Ox 89 96 Oxygen Delivery Method Room Air Nasal Cannula Nasal Cannula Oxygen Flow Rate (L/min) 2 2 04/18/22 11:46 04/18/22 12:12 04/18/22 12:23 Temperature 98 F Temperature Source Temporal Pulse Rate 106 H 109 H Respiratory Rate 32 H 30 H Respiratory Effort Blood Pressure 122/51 H Blood Pressure Mean 74 Pulse Ox 96 96 Oxygen Delivery Method Nasal Cannula Nasal Cannula Oxygen Flow Rate (L/min) 2 04/18/22 13:18 Temperature Temperature Source Pulse Rate 101 H Respiratory Rate 32 H Respiratory Effort Blood Pressure Blood Pressure Mean Pulse Ox Oxygen Delivery Method Oxygen Flow Rate (L/min) Positive well nourished and well developed General Appearance ED: well developed and NAD HEENT Reports TM's clear and moist mucous membranes normocephalic and atraumatic; Negative for trauma or tenderness Tympanic Membrane ED: Yes TM's clear Eyes PERRL and EOMs intact bilaterally General Eye ED: Negative for pale conjunctiva or scleral icterus Neck no lymphadenopathy, supple and no JVD General: Negative for tenderness Chest Wall inspection of chest normal and palpation of chest normal Chest: Negative for tenderness Resp normal respiratory effort and clear to auscultation bilaterally Resp Narrative: Diminished breath sounds in the bases. Patient has rales noted right greater than left. Patient has expiratory wheezes bilaterally with tachypnea and some mild conversational dyspnea. Mild accessory muscle use on exam. Effort and Inspection: Negative for respiratory distress or pain with movement Auscultation: rales, rhonchi and wheezes; Negative for diminished lung sounds Cardio regular rhythm, S1 normal heart sound, S2 normal heart sound and no murmurs Rate: tachycardic Peripheral Pulses: pulses 2+ throughout GI normal to inspection, nondistended, normoactive bowel sounds, soft to palpation, non-tender, non-distended and no masses Back/Spine no CVA tenderness and no thoracic nor lumbar tenderness Extremity normal to inspection General Extremety ED: Negative for edema General Extremity: Negative for edema Neuro oriented x3, CN's II-XII intact bilaterally, no sensory deficits noted and gait normal Sensorium / Orientation: awake, alert, oriented to person, oriented to place and oriented to time Motor Exam: strength 5/5 throughout and strength abnormal Psych mental status grossly normal Skin no rashes or lesions noted and no wounds MDM MDM MDM Narrative Medical decision making narrative: IV line established on arrival. Patient was given a DuoNeb aerosol and started on Solu-Medrol 125 mg IV. Patient was placed on 2 L nasal cannula O2. Lab work obtained showed a white count of 18.2, hemoglobin 12, hematocrit 36, platelets 217. Chemistries unremarkable. Lactate was 1.7. Patient was started on Rocephin and Zithromax IV. Patient was ordered more albuterol aerosols for continued wheezing. Case will be discussed with hospitalist evaluate patient for admission for diagnosis of pneumonia and COPD exacerbation. COVID-19 testing was negative and influenza was negative. Lab Data Attestation: I reviewed the patient's lab results. Labs: Laboratory Results - last 24 hr 04/18/22 04/18/22 04/18/22 12:13 12:13 12:13 WBC 18.2 H RBC 3.84 L Hgb 12.1 L Hct 36.2 L MCV 94.3 H MCH 31.5 MCHC 33.4 RDW Std Deviation 44.6 H RDW Coeff of Franco 13.0 Plt Count 217 MPV 9.7 Immature Gran % (Auto) 1.000 H Neut % (Auto) 56.1 Lymph % (Auto) 31.1 [place] % (Auto) 10.6 H Eos % (Auto) 0.8 Baso % (Auto) 0.4 Absolute Neuts (auto) 10.2 H Absolute Lymphs (auto) 5.65 H Nucleated RBC % 0 [address] Review May foll Sodium 134 L Potassium 4.0 Chloride 95 L Carbon Dioxide 29.0 Anion Gap 10 BUN 33 H Creatinine 1.48 H Estim Creat Clear Calc 32.32 Est GFR (MDRD) Af Amer 58 L Est GFR (MDRD) Non-Af 48 L BUN/Creatinine Ratio 22.3 H Glucose 143 H Lactic Acid 1.7 Calcium 9.5 Troponin I High Sens 54 Radiography Diagnostic Testing: Clinical Impression(s) from Imaging Studies Chest X-Ray 04/18/22 12:13 IMPRESSION: Increased markings in the right hemithorax as described. Early infiltrate should be ruled out. Radiographic follow-up is recommended. Electronically Signed: Rosendo Diaz MD at 12:40 EDT , 1 view chest x-ray obtained interpreted by myself as increased markings in the right lower lobe. Radiology felt there may be early infiltrate in the right hemithorax. EKG Initial EKG: Attestation: I personally reviewed and interpreted this EKG as follows: Comments: Sinus rhythm with a ventricular rate of 106 bpm with no acute ST segment changes Discharge Plan Dx/Rx/DC Orders Clinical Impression: Pneumonia, COPD exacerbation, Hypoxemia Disposition Disposition: Acute Care [facility]
[2022-04-18] MEDS: Ipratropium/Albuterol Sulfate 3 ML AMPUL.NEB INHALATION ×2 (11:45→19:15)
[2022-04-18] MEDS: 0.9% Normal Saline 1,000 ML 150 ML IV (12:11)
[2022-04-18] MEDS: MethylPREDNISolone 125 MG/2 ML Vial IV (12:12)
--- NOTE | 2022-04-18 12:13 | RAD_ITS ---
STUDY: X-RAY CHEST REASON FOR EXAM: Male, 86 years old. dyspnea TECHNIQUE: Single AP portable view of the chest. COMPARISON: Comparison is made with prior study dated 05/24/2019. FINDINGS: EKG electrodes are seen. Increased markings are seen in the right midlung and right lung base. Early infiltrate should be ruled out. Increased markings are also seen in the right lung apex which have progressed as compared to prior study. There is no demonstrated pleural abnormality. Normal size heart. Normal mediastinum and chuck. Normal visualized pulmonary arteries. There is atherosclerotic calcification of the aortic arch with tortuosity. There are diffuse degenerative changes of the visualized thoracic spine. There is degenerative osteoarthritis of the bilateral shoulders. There is no demonstrated abnormality of the visualized soft tissue structures of the upper abdomen. RAD/Chest 1 View (Portable) IMPRESSION: Increased markings in the right hemithorax as described. Early infiltrate should be ruled out. Radiographic follow-up is recommended. Electronically Signed: Rosendo Diaz MD at 12:40 EDT ,
[2022-04-18 12:37] LABS: Absolute Lymphocyte Count 5.65 X10^3/uL (0.83-4.51); Absolute Neutrophil Count 10.2 X10^3/uL (2.0-7.7); Basophil# 0.07 X10^3/uL; Basophil% 0.4 % (0-1); Eosinophil# 0.14 X10^3/uL; Eosinophils% 0.8 % (0-5); Hematocrit 36.2 % (40-54); Hemoglobin 12.1 g/dL (13.0-16.5); Lymphocyte # 5.65 X10^3/ul (0.83-4.51); Lymphocyte % 31.1 % (19-41); Mean Corp Hgb Conc 33.4 g/dL (32-36); Mean Corpuscular Hgb 31.5 pg (27.0-32.0); Mean Corpuscular Volume 94.3 fL (80-94); Mean Platelet Vol. 9.7 fl (6.2-12.0); Monocyte# 1.93 X10^3/uL; Monocyte% 10.6 % (0-10); NRBC Flagged by Analyzer 0 % (0-5); Neutrophil # 10.19 X10^3/uL (2.7-7.7); Neutrophil % 56.1 % (47-70); POSITIVE DIFFERENTIAL YES; POSITIVE MORPHOLOGY YES; Platelet Count 217 K/mm3 (150-450); RBC Distribution Width SD 44.6 fl (35.1-43.9); Red Blood Count 3.84 M/mm3 (4.6-6.2); White Blood Count 18.2 K/mm3 (4.4-11.0)
[2022-04-18 12:38] LABS: Differential Indicated SCAN CRITERIA MET
--- NOTE | 2022-04-18 12:44 | ED.RN ---
THIS RN HEARD BANGING IN ROOM 18. UPON ENTERING FOUND PT IN THE CORNER OF ROOM. IV PULLED OUT. BLOOD ALL OVER FLOOR. PT BROUGHT BACK TO BED. O2 APPLIED. PT SAT 90. PT HAD CALL LIGHT PLACED IN HIS HAND AND REORIENTED IN HOW TO USE
[2022-04-18 13:03] LABS: Lactic Acid 1.7 mmol/L (0.4-1.9)
[2022-04-18] MEDS: Albuterol 2.5 MG/3 ML VIAL.NEB. INHALATION ×2 (13:16)
[2022-04-18 13:25] LABS: Anion Gap 10 (5-15); BUN 33 mg/dL (7-18); BUN/Creat Ratio 22.3 RATIO (10-20); Calcium,Total 9.5 mg/dL (8.5-10.1); Chloride 95 mmol/L (98-107); Creatinine, Serum 1.48 mg/dL (0.70-1.30); EST Glomerular Filtration Rate 48 mL/min (>60); Est Glom Filt Rate - Afr Amer 58 mL/min (>60); Estimated Creatinine Clearance 32.32 ml/min; Glucose 143 mg/dL (74-106); Sodium Level 134 mmol/L (136-145); Troponin-I HS 54 pg/mL (3.0-78.0)
--- NOTE | 2022-04-18 14:10 | PCM.HP.STD ---
HPI - General General Date of Admission: 04/18/22 Date of Service: 04/18/22 Chief Complaint: Shortness of breath, wheezing HPI Narrative ELDON ESTRADA, is a 86 M who presents to the emergency room at [facility] after being sent in from a local extended care facility at which she is a chronic resident, patient has multiple medical problems which include chronic obstructive pulmonary disease, chronic debility, Alzheimer's dementia, past history of traumatic brain injury, essential hypertension, and hyperlipidemia. Review of systems was not obtainable from the patient due to his dementia. Work-up in the emergency room included a chest x-ray which showed increased markings in the right hemithorax-early infiltrate cannot be ruled out, patient's white blood cell count was elevated at 18.2, creatinine was elevated at 1.48, BUN was 33, and patient was afebrile. Patient required oxygen at 2 L to maintain his pulse ox above 90%. On examination, patient had diffuse bilateral expiratory wheezes, he did not appear to be acutely short of breath however at rest. Patient was given IV Rocephin and Zithromax by the emergency room physician, he had been on oral Zithromax at the long term which had been started recently. Patient will be admitted to [place] [address] for right-sided pneumonia and exacerbation of COPD, he will be maintained on IV corticosteroids and IV antibiotics, he was given IV Solu-Medrol in the emergency room. Patient is a DNR CC arrest with no intubation according to long term records. [facility] Medical History Anxiety Benign prostatic hyperplasia Cervical spondylosis Chronic obstructive pulmonary disease Chronic prescription benzodiazepine use Depression Excessive cerumen in ear canal Gastroesophageal reflux disease Generalized anxiety disorder HTN (hypertension) Hyperlipidemia Hyperlipidemia Hypertension Insomnia Legal blindness Lumbar spinal stenosis Neuropathic pain Osteoarthritis of lumbar spine Restless leg syndrome Spondylolisthesis, cervical region Vitamin B12 deficiency Vitamin D deficiency Home Medications cyanocobalamin (vitamin B-12) 1,000 mcg tablet (Vitamin B-12) 2,000 mcg PO DAILY supplement 02/13/17 [History Last Taken Unknown] albuterol sulfate 90 mcg/actuation aerosol inhaler (Ventolin HFA) 2 puff inhalation Q4H PRN PRN Dyspnea/Wheezing/Sob 07/29/18 [History Last Taken Unknown] tamsulosin 0.4 mg capsule (Flomax) 0.4 mg PO QHS Check with primary doctor 10/23/18 [History Last Taken Unknown] famotidine 20 mg tablet 20 mg PO BID Check with primary doctor 04/10/20 [History Last Taken Unknown] amlodipine 5 mg tablet 5 mg PO DAILY #0 tabs 05/03/21 [Rx Last Taken Unknown] aspirin 81 mg capsule 81 mg PO DAILY #1 cap 05/03/21 [Rx Last Taken Unknown] ergocalciferol (vitamin D2) 1,250 mcg (50,000 unit) capsule (Vitamin D2) 50,000 mcg PO WE 11/03/21 [History Last Taken Unknown] guaifenesin 600 mg tablet, extended release 12 hr (Mucinex) 600 mg PO BID 11/03/21 [History Last Taken Unknown] venlafaxine 75 mg capsule,extended release 24 hr 37.5 mg PO DAILY 11/03/21 [History Last Taken Unknown] acetaminophen 325 mg tablet 650 mg PO Q8H PRN PRN pain/fever 11/14/21 [History Last Taken Unknown] atorvastatin 40 mg tablet 40 mg PO QHS 11/14/21 [History Last Taken Unknown] bisacodyl 10 mg rectal suppository 10 mg PA DAILY PRN PRN Constipation 11/14/21 [History Last Taken Unknown] gabapentin 100 mg capsule 100 mg PO BID 11/14/21 [History Last Taken Unknown] glycerin 1 drp ophthalmic (eye) Q8H PRN PRN Dry Eye(S) 11/14/21 [History Last Taken Unknown] magnesium hydroxide 400 mg/5 mL oral suspension 30 ml PO DAILY PRN PRN Constipation 11/14/21 [History Last Taken Unknown] mineral oil 118 ml PA DAILY PRN Constipation 11/14/21 [History Last Taken Unknown] ropinirole 0.25 mg tablet 0.25 mg PO BID 11/14/21 [History Last Taken Unknown] venlafaxine 75 mg tablet 75 mg PO BID 11/14/21 [History Last Taken Unknown] Allergy/AdvReac Type Severity Reaction Status Date / Time niacin Allergy Rash Verified 04/18/22 11:17 Family History Brother Diabetes Surgical History H/O inguinal hernia repair H/O lumbosacral spine surgery History of appendectomy S/P lumbar fusion Social History household members: other details: Lives alone with his dog pets and animals: Yes Smoking Status: Former smoker how long ago did patient quit smokin years ago alcohol intake: current details: Has 2 glasses of wine per week ROS ROS Narrative Unobtainable due to patient's dementia Vital Signs Vital Signs Vital Signs: 04/18/22 11:17 04/18/22 11:23 04/18/22 11:26 Temperature 98.4 F 98.4 F Temperature Source Oral Oral Pulse Rate 107 H 106 H Respiratory Rate 40 H 35 H Respiratory Effort Short of Breath Labored Blood Pressure 107/79 107/79 Blood Pressure Mean 88 88 Pulse Ox 89 96 Oxygen Delivery Method Room Air Nasal Cannula Nasal Cannula Oxygen Flow Rate (L/min) 2 2 04/18/22 11:46 04/18/22 12:12 04/18/22 12:23 Temperature 98 F Temperature Source Temporal Pulse Rate 106 H 109 H Respiratory Rate 32 H 30 H Respiratory Effort Blood Pressure 122/51 H Blood Pressure Mean 74 Pulse Ox 96 96 Oxygen Delivery Method Nasal Cannula Nasal Cannula Oxygen Flow Rate (L/min) 2 04/18/22 13:18 Temperature Temperature Source Pulse Rate 101 H Respiratory Rate 32 H Respiratory Effort Blood Pressure Blood Pressure Mean Pulse Ox Oxygen Delivery Method Oxygen Flow Rate (L/min) Weight Weight: 62.6 kg Body Mass Index (BMI) 22.9 Physical Exam Const alert and no apparent distress Constitutional Narrative: Patient appears older than his stated age and appears frail, he is blind General Appearance: cooperative, well kempt and well developed Orientation / Consciousness: awake HEENT normocephalic, head/scalp atraumatic and hearing grossly normal bilaterally Eyes PERRL, EOMs intact bilaterally and conjunctivae normal Neck supple, no JVD, thyroid normal and no carotid bruits General: trachea midline Resp normal respiratory effort, no retractions and no use of accessory muscles Resp Narrative: Patient has diffuse expiratory wheezing over all lung [place] Auscultation: Negative for rales, rhonchi or wheezes Cardio regular rate, regular rhythm, S1 normal heart sound, S2 normal heart sound, no murmurs, no rub and no gallops GI normal to inspection, nondistended, normoactive bowel sounds, soft to palpation, non-tender and non-distended Extremity no clubbing, cyanosis or edema Skin no rashes or lesions noted General Skin Exam: no breakdown Neuro oriented x3, CN's II-XII intact bilaterally, moves all extremities, no focal motor deficits and no sensory deficits noted Neuro Narrative: Patient is blind Sensorium / Orientation: awake and alert Speech: speech normal Psych Psych Narrative: Patient is alert, he can answer some simple questions appropriately but is confused Results Lab / Micro Data Result Diagrams: 04/18/22 12:13 04/18/22 12:13 Labs: Laboratory Results - last 24 hr 04/18/22 12:13: WBC 18.2 H, RBC 3.84 L, Hgb 12.1 L, Hct 36.2 L, MCV 94.3 H, MCH 31.5, MCHC 33.4, RDW Std Deviation 44.6 H, RDW Coeff of Franco 13.0, Plt Count 217, MPV 9.7, Immature Gran % (Auto) 1.000 H, Neut % (Auto) 56.1, Lymph % (Auto) 31.1, [place] % (Auto) 10.6 H, Eos % (Auto) 0.8, Baso % (Auto) 0.4, Absolute Neuts (auto) 10.2 H, Absolute Lymphs (auto) 5.65 H, Nucleated RBC % 0, Diff Path Review May foll 04/18/22 12:13: Sodium 134 L, Potassium 4.0, Chloride 95 L, Carbon Dioxide 29.0, Anion Gap 10, BUN 33 H, Creatinine 1.48 H, Estim Creat Clear Calc 32.32, Est GFR (MDRD) Af Amer 58 L, Est GFR (MDRD) Non-Af 48 L, BUN/Creatinine Ratio 22.3 H, Glucose 143 H, Calcium 9.5, Troponin I High Sens 54 04/18/22 12:13: Lactic Acid 1.7 Micro: Microbiology 04/18/22 12:10 Nasal Secretion SARS-CoV-2 & FLU Antigen (Rapid) - Final Radiology Impression Chest X-Ray 04/18/22 12:13 IMPRESSION: Increased markings in the right hemithorax as described. Early infiltrate should be ruled out. Radiographic follow-up is recommended. Electronically Signed: Rosendo Diaz MD at 12:40 EDT , Assessment & Plan Assessment/Plan (1) COPD exacerbation: PLAN: Plan 1. Acute exacerbation of COPD-patient will be admitted to [facility] 3, IV corticosteroids will be given as well as aerosol treatments #2 community-acquired pneumonia right lung-patient does have an elevated white blood cell count, he will be placed on Zosyn due to the fact he is a chronic resident at a long term, it is doubtful that his sputum will be obtained, I will obtain a respiratory panel, patient's COVID and flu tests were negative. #3 dementia-complicates care, management, recovery, and prognosis #4 essential hypertension-patient will remain on his present medications #6 blindness-complicates care, management, recovery, and prognosis #7 mild dehydration-patient will be given IV fluids, labs will be rechecked #8 hyperlipidemia-patient will remain on atorvastatin #9 hypoxia-pulse ox will be monitored on the floor, patient requires minimal supplemental oxygen at this time. Charges/Coding Visit Charges Inpatient E&M: 96045 Init Hosp L3
[2022-04-18] MEDS: Ceftriaxone 1 GM/50 ML BAG IV (14:22)
--- NOTE | 2022-04-18 14:54 | CASEMGMT ---
CHINO PATEL NOTE: Noted during prior admission on [facility] 04/2021, a palliative referral was made. CHINO PATEL placed [facility] to [facility] at this time. The stated pt was active with them, but discharged from Palliative services Aug, 2021. Tristin FRAGOSON CHINO PATEL
--- NOTE | 2022-04-18 15:38 | NURSING ---
pt Blind unable to read COPD handout - was not given to pt
[2022-04-18] MEDS: Pramipexole Di-HCl 0.125 MG Tablet PO (22:26)
[2022-04-18] MEDS: Gabapentin 100 MG Capsule PO (22:26)
[2022-04-18] MEDS: Heparin Injection (Vial) 5,000 UNIT/ML VIAL 5000 UNIT SC (22:26)
[2022-04-18] MEDS: 0.9% Normal Saline 1,000 ML 100 ML IV (22:26)
[2022-04-18] MEDS: Atorvastatin Calcium 40 MG Tablet PO (22:26)
[2022-04-18] MEDS: Tamsulosin HCl 0.4 MG Capsule PO (22:31)
[2022-04-19] VITALS (12 sets, daily range): BP systolic 105–144; BP diastolic 46–58; PULSE 72–105; RESP 18–24; TEMP 36.4–36.6; O2SAT 93–97
[2022-04-19] MEDS: Ipratropium/Albuterol Sulfate 3 ML AMPUL.NEB INHALATION ×4 (01:30→19:29)
[2022-04-19 06:03] LABS: Absolute Lymphocyte Count 4.49 X10^3/uL (0.83-4.51); Absolute Neutrophil Count 6.1 X10^3/uL (2.0-7.7); Basophil# 0.02 X10^3/uL; Basophil% 0.2 % (0-1); Hematocrit 30.7 % (40-54); Hemoglobin 10.2 g/dL (13.0-16.5); Lymphocyte # 4.49 X10^3/ul (0.83-4.51); Lymphocyte % 40.3 % (19-41); Mean Corp Hgb Conc 33.2 g/dL (32-36); Mean Corpuscular Hgb 31.6 pg (27.0-32.0); Monocyte# 0.51 X10^3/uL; Monocyte% 4.6 % (0-10); NRBC Flagged by Analyzer 0 % (0-5); Neutrophil # 6.05 X10^3/uL (2.7-7.7); Neutrophil % 54.2 % (47-70); Platelet Count 178 K/mm3 (150-450); RBC Distribution Width CV 13.1 % (11.6-14.6); RBC Distribution Width SD 45.9 fl (35.1-43.9); Red Blood Count 3.23 M/mm3 (4.6-6.2); White Blood Count 11.2 K/mm3 (4.4-11.0)
[2022-04-19 06:28] LABS: Anion Gap 8 (5-15); BUN 27 mg/dL (7-18); Calcium,Total 9.3 mg/dL (8.5-10.1); Chloride 102 mmol/L (98-107); Creatinine, Serum 1.04 mg/dL (0.70-1.30); EST Glomerular Filtration Rate 72 mL/min (>60); Est Glom Filt Rate - Afr Amer 87 mL/min (>60); Estimated Creatinine Clearance 45.02 ml/min; Glucose 177 mg/dL (74-106); Potassium 3.7 mmol/L (3.5-5.1); Sodium Level 138 mmol/L (136-145)
[2022-04-19] MEDS: Aspirin 81 MG TAB.CHEW PO (08:01)
[2022-04-19] MEDS: Venlafaxine XR 37.5 MG Capsule PO (08:02)
[2022-04-19] MEDS: Heparin Injection (Vial) 5,000 UNIT/ML VIAL 5000 UNIT SC ×2 (08:02→21:21)
[2022-04-19] MEDS: Cyanocobalamin 500 MCG Tablet 2000 MCG PO (08:03)
[2022-04-19] MEDS: Famotidine 20 MG Tablet PO (08:03)
[2022-04-19] MEDS: Pramipexole Di-HCl 0.125 MG Tablet PO (08:03)
[2022-04-19] MEDS: amLODIPine 5 MG Tablet PO (08:03)
[2022-04-19] MEDS: Gabapentin 100 MG Capsule PO ×2 (08:07→21:20)
--- NOTE | 2022-04-19 08:50 | CASEMGMT ---
Social Work SW met with pt to validate AD. Pt named son, Bob Hung, as HCPOA. Sw informed pt that copies of LW were on file but HCPOA document was not. Pt gave permission for this SW to call son, Bob to ask if Bob could bring copies. SW printed copy of LW from converted E-chart and placed on pt chart. HENOK Mcdowell
--- NOTE | 2022-04-19 10:07 | PCM.PN.HOSP ---
Subjective Subjective Doing well, no issues overnight. Maintaining his oxygen saturations on 2 L nasal cannula Objective Data Objective Data Vital Signs: Vital Signs Temp Pulse Resp BP Pulse Ox O2 Del Method O2 Flow Rate 97.5 F L 97 20 H 144/57 H 97 Nasal Cannula 2 04/19/22 08:27 04/19/22 08:27 04/19/22 08:27 04/19/22 08:27 04/19/22 08:27 04/19/22 08:27 04/19/22 08:27 Oxygen Flow Rate (L/min) 2 Oxygen Delivery Method Nasal Cannula Weight: 132 lb 11.492 oz Body Mass Index (BMI) 22.1 Intake & Output: Intake and Output for Last 24 Hours 04/18/22 04/19/22 04/20/22 03:59 03:59 03:59 Intake Total 1355 / 1355 400 / 400 Output Total 300 / 300 375 / 375 Balance 1055 / 1055 25 / 25 Lab / Micro Data Result Diagrams: 04/19/22 05:30 04/19/22 05:30 Labs: Laboratory Results - last 24 hr 04/18/22 12:13: WBC 18.2 H, RBC 3.84 L, Hgb 12.1 L, Hct 36.2 L, MCV 94.3 H, MCH 31.5, MCHC 33.4, RDW Std Deviation 44.6 H, RDW Coeff of Franco 13.0, Plt Count 217, MPV 9.7, Immature Gran % (Auto) 1.000 H, Neut % (Auto) 56.1, Lymph % (Auto) 31.1, [place] % (Auto) 10.6 H, Eos % (Auto) 0.8, Baso % (Auto) 0.4, Absolute Neuts (auto) 10.2 H, Absolute Lymphs (auto) 5.65 H, Nucleated RBC % 0, Diff Path Review December04/18/22 12:13: Sodium 134 L, Potassium 4.0, Chloride 95 L, Carbon Dioxide 29.0, Anion Gap 10, BUN 33 H, Creatinine 1.48 H, Estim Creat Clear Calc 32.32, Est GFR (MDRD) Af Amer 58 L, Est GFR (MDRD) Non-Af 48 L, BUN/Creatinine Ratio 22.3 H, Glucose 143 H, Calcium 9.5, Troponin I High Sens 54 04/18/22 12:13: Lactic Acid 1.7 04/19/22 05:30: WBC 11.2 H, RBC 3.23 L, Hgb 10.2 L, Hct 30.7 L, MCV 95.0 H, MCH 31.6, MCHC 33.2, RDW Std Deviation 45.9 H, RDW Coeff of Franco 13.1, Plt Count 178, MPV 10.0, Immature Gran % (Auto) 0.700, Neut % (Auto) 54.2, Lymph % (Auto) 40.3, [place] % (Auto) 4.6, Eos % (Auto) 0.0, Baso % (Auto) 0.2, Absolute Neuts (auto) 6.1, Absolute Lymphs (auto) 4.49, Nucleated RBC % 0 04/19/22 05:30: Sodium 138, Potassium 3.7, Chloride 102, Carbon Dioxide 28.0, Anion Gap 8, BUN 27 H, Creatinine 1.04, Estim Creat Clear Calc 45.02, Est GFR (MDRD) Af Amer 87, Est GFR (MDRD) Non-Af 72, BUN/Creatinine Ratio 26.0 H, Glucose 177 H, Calcium 9.3 Micro: Microbiology 04/18/22 20:40 Urine, Clean Catch Streptococcus pneumoniae Antigen (M - Final 04/18/22 20:40 Urine, Clean Catch Legionella Antigen - Final 04/18/22 14:50 Interface Orders Respiratory Panel (PCR) - Final 04/18/22 12:10 Nasal Secretion SARS-CoV-2 & FLU Antigen (Rapid) - Final Radiography Diagnostic Testing: Radiology Impression Chest X-Ray 04/18/22 12:13 IMPRESSION: Increased markings in the right hemithorax as described. Early infiltrate should be ruled out. Radiographic follow-up is recommended. Electronically Signed: Rosendo Diaz MD at 12:40 EDT , Physical Exam Narrative General: Alert, Oriented x3, Cooperative, No apparent distress HEENT: Atraumatic, EOMI, Normocephalic Oral: Moist Mucosa Neck: Supple, No JVD Lungs: Diminished, normal air movement, No rhonchi, mild wheeze, No rales Cardiovascular: Regular rate, Regular Rhythm, Normal S1, Normal S2, No murmurs Abdomen: Soft, Non Tender, Non-Distended, No Hepato-splenomegaly Extremities: No edema, Capillary Refill Less than 3 Seconds Skin: No rashes, No breakdown Musculoskeletal: No Tenderness to Palpation of Joints or Extremities Neurological: Cranial nerves II-XII grossly intact, Motor Exam 5/5 strength throughout, Sensory exam intact to light touch and pain Psych/Mental Status: Normal Affect, Appropriate Assessment & Plan Assessment/Plan (1) COPD exacerbation: PLAN: Plan 1. COPD exacerbation with community-acquired pneumonia in his right lung with acute hypoxic respiratory failure ? Continue with IV antibiotics ? Continue with steroids and breathing treatments ? COVID and flu were negative ? It does not appear that he is on chronic oxygen 2. HTN/HLD ? Blood pressures are stable ? Can resume all of his home medications 3. Depression/anxiety/dementia ? Stable ? Continue with his home Cymbalta and Depakote ? We will monitor his dementia for possible sundowning 4. Restless leg syndrome ? Stable ? Continue with his home medications DVT: Heparin Charges/Coding Visit Charges Inpatient E&M: 22000 Subs Hosp L2
[2022-04-19] MEDS: 0.9% Normal Saline 1,000 ML 100 ML IV ×2 (11:44→22:03)
--- NOTE | 2022-04-19 13:38 | CHAPLAIN ---
Type of Pastoral Visit _x__ Initial Visit ___ Follow-up Visit ___ On-call Visit ___ General Patient Visit ___ Spiritual Assessment ___ Family Conference ___ Bereavement ___ Rapid Response ___ Code Blue ___ Other (describe below) Pastoral Care Referral From _x__ Patient ___ Family ___ Nurse ___ Physician ___ Continuous Conveyor Screen Drier ___ Outsole Molder ___ Other (describe below) Sacrament/Intervention _x__ Active listening ___ Anointing ___ Druze ___ Bereavement ___ Communion _x__ Jessica exploration ___ ___ Life review _x__ Prayer ___ Reconciliation ___ Sacrament of Sick _x__ Supportive presence ___ Wedding ___ Other (describe below) Pastoral Comments patient is welcoming and invites this home economics extension worker to sit down and visit with him; pt states I think I am dying and that I am ready to go to [facility]; pt asked about his feelings and reasons for these statements; pt reiterates that he is content, has no concerns, and would welcome when it comes because I know where I am going; pt affirms his jessica; pt gives some family information which includes some of his children who are detached from him/other family members; pt is willing to talk with this home economics extension worker and expresses thanks for being present; prayer also well received
--- NOTE | 2022-04-19 15:19 | CASEMGMT ---
Social Work SW met with pt to validate AD. Pt named son, David Kwan, as HCPOA. Sw informed pt that copies of LW were on file but HCPOA document was not. Pt gave permission for this SW to call sonDavid to ask if David could bring copies. SW printed copy of LW from converted E-chart and placed on pt chart. SW called David Kwan, left message requesting bring in copies of HCPOA/LW if possible. HENOK Mcdowell
--- NOTE | 2022-04-19 15:53 | CASEMGMT ---
Addendum entered by Yee Erazo 04/19/22 16:22: Green sheet on chart, should pt be medically ready over the weekend. Original Note: Social work SW in to pt room to discuss discharge plan. Pt reports he lives at [place] and has been there for about 1 year. Pt stated feels safe at [place] and enjoys time there. SW explained pt could choose new SNF unhappy at current SNF. Pt declined a list of SNF providers at this time as he does not want to go anywhere else. PLAN: Return home to [place], detention care. HENOK Mcdowell
[2022-04-19] MEDS: 0.9% Saline Lock 10 ML Syringe IV (21:20)
[2022-04-19] MEDS: Atorvastatin Calcium 40 MG Tablet PO (21:20)
[2022-04-19] MEDS: Tamsulosin HCl 0.4 MG Capsule PO (21:20)
[2022-04-19] MEDS: Pramipexole Di-HCl 0.25 MG Tablet PO (21:20)
--- NOTE | 2022-04-19 22:02 | NURSING ---
Pt restless, confused, climbing OOB. Has pulled out IV x2. Dr Lovett notified & new order received.
[2022-04-19] MEDS: Haloperidol Lactate 5 MG/ML Vial 4 MG IM (22:03)
[2022-04-19] MEDS: Acetaminophen 325 MG Tablet 650 MG PO (22:55)
[2022-04-20] MEDS: Ipratropium/Albuterol Sulfate 3 ML AMPUL.NEB INHALATION ×2 (00:17→07:27)
[2022-04-20 00:18] VITALS: PULSE 128; RESP 22
[2022-04-20] MEDS: MELATONIN 3 MG TABLET PO (01:43)
[2022-04-20 02:31] VITALS: BP 137/63; PULSE 96; RESP 18; TEMP 36.8; O2SAT 95
[2022-04-20] MEDS: QUEtiapine 25 MG Tablet PO (03:16)
[2022-04-20] MEDS: 0.9% Saline Lock 10 ML Syringe IV (05:19)
--- NOTE | 2022-04-20 05:30 | NURSING ---
pt pulled his 4th IV overnight. pt very restless and banging his head on the side rails. pt had haldol, seroquel and melatonin last night pt still restless. chargemaster analyst texting the Dr. this RN staying with pt so he does not pull his IV out and set bed alarm.
--- NOTE | 2022-04-20 05:32 | NURSING ---
PT REMAINS RESTLESS, HITTING HIS HEAD ON THE SIDERAIL, STATING MY LEGS HURT SO BAD I CAN'T STAND IT, PULLED OUT 3RD IV OF THIS SHIFT. DR COTO NOTIFIED & NEW ORDER RECEIVED.
[2022-04-20] MEDS: oxyCODONE 5 MG Tablet PO (05:46)
[2022-04-20 06:12] LABS: Absolute Neutrophil Count 11.1 X10^3/uL (2.0-7.7); Basophil# 0.08 X10^3/uL; Basophil% 0.4 % (0-1); Hemoglobin 11.3 g/dL (13.0-16.5); Lymphocyte % 40.3 % (19-41); Mean Corp Hgb Conc 32.3 g/dL (32-36); Mean Corpuscular Volume 95.9 fL (80-94); Monocyte# 1.16 X10^3/uL; Monocyte% 5.3 % (0-10); NRBC Flagged by Analyzer 0 % (0-5); Neutrophil # 11.14 X10^3/uL (2.7-7.7); Neutrophil % 51.1 % (47-70); POSITIVE DIFFERENTIAL YES; POSITIVE MORPHOLOGY YES; Platelet Count 297 K/mm3 (150-450); RBC Distribution Width CV 13.3 % (11.6-14.6); RBC Distribution Width SD 47.3 fl (35.1-43.9); Red Blood Count 3.65 M/mm3 (4.6-6.2); White Blood Count 21.8 K/mm3 (4.4-11.0)
[2022-04-20 06:31] LABS: Differential Indicated SCAN CRITERIA MET
[2022-04-20 06:46] LABS: Anisocytosis 1+; Differential Comment SCANNED; Macrocytosis 1+
[2022-04-20 06:48] LABS: Anion Gap 9 (5-15); BUN 33 mg/dL (7-18); Calcium,Total 9.5 mg/dL (8.5-10.1); Chloride 109 mmol/L (98-107); EST Glomerular Filtration Rate 68 mL/min (>60); Est Glom Filt Rate - Afr Amer 82 mL/min (>60); Estimated Creatinine Clearance 42.57 ml/min; Glucose 137 mg/dL (74-106); Potassium 4.2 mmol/L (3.5-5.1); Sodium Level 142 mmol/L (136-145)
[2022-04-20 07:15] VITALS: PULSE 97; RESP 16; O2SAT 96
[2022-04-20] MEDS: 0.9% Normal Saline 1,000 ML 100 ML IV (08:29)
--- NOTE | 2022-04-20 08:39 | PCM.TXEXTCAR ---
Diet Diet Order/Speech Therapy: 04/18/22 14:46 Diet: Regular - General Food consistency:: Regular Liquid Consistency:: Regular/Thin Is pt able to select menu?: No Diet Comments: lactose intolerant; No MASHED POTATOES or OVERCOOKED Veggies Routine Orders/Code Status Routine Lab Work: CBC and BMP Code Status: DNRCC-A Therapies Physical Therapy: Eval and Treat Occupational Therapy: Eval and Treat Problem/Diagnosis (1) COPD exacerbation: Status: Chronic Code(s): J44.1 - Chronic obstructive pulmonary disease with (acute) exacerbation Plan 1. COPD exacerbation with community-acquired pneumonia in his right lung with acute hypoxic respiratory failure ? Continue with IV antibiotics ? Continue with steroids and breathing treatments ? COVID and flu were negative ? It does not appear that he is on chronic oxygen 2. HTN/HLD ? Blood pressures are stable ? Can resume all of his home medications 3. Depression/anxiety/dementia ? Stable ? Continue with his home Cymbalta and Depakote ? We will monitor his dementia for possible sundowning 4. Restless leg syndrome ? Stable ? Continue with his home medications DVT: Heparin Allergies/Procedures Done in Hospital Allergies niacin Allergy (Verified 04/18/22 11:17) Rash Procedures: None Type of Care/Length of Stay Estimated LOS: Convalescent Care Less Than 30 days Type of Care Needed: Skilled Rehab Potential: Good Prognosis: Good Additional Orders/Day of Discharge Day of Discharge: 04/20/22 Dietary and Speech Recommendations Dietitian Recommendations/Changes: continue regular diet; will consider ONS pending PO intake at meals. Per previous RDN notes, pt was accepting of Ensure Clear during previous hospitalizations. Discharge Plan Admission Admit Date/Time: 04/18/22 14:24 Attending Provider: Khang Crawford Primary Care Provider: Jerod Portillo Consulting Providers: Chano Marin Discharge Orders/Prescriptions Prescriptions: New atorvastatin 40 mg Tablet 40 mg PO QHS Qty: 0 0RF ipratropium-albuterol 0.5 mg-3 mg(2.5 mg base)/3 mL Solution For Nebulization 3 ml inhalation Q6H.RT Qty: 0 0RF amlodipine 5 mg Tablet 5 mg PO DAILY Qty: 0 0RF cyanocobalamin (vitamin B-12) 500 mcg Tablet 2,000 mcg PO DAILY Qty: 0 0RF tamsulosin 0.4 mg Capsule 0.4 mg PO QHS Qty: 0 0RF aspirin 81 mg Tablet,Chewable 81 mg PO DAILYCM Qty: 0 0RF amoxicillin-pot clavulanate 875-125 mg tablet 1 tab PO BID Qty: 10 0RF azithromycin 500 mg tablet 500 mg PO DAILY 3 Days Qty: 3 0RF prednisone 20 mg tablet 40 mg PO DAILY Qty: 14 0RF Continued famotidine 20 MG tablet 20 mg PO BID ergocalciferol (vitamin D2) [Vitamin D2] 1,250 mcg (50,000 unit) capsule 50,000 mcg PO WE Rx Instructions: FRIDAY gabapentin 100 mg capsule 100 mg PO BID ropinirole 0.5 mg Tablet 0.5 mg PO BID divalproex 125 mg Tablet,Delayed Release (Dr/Ec) 125 mg PO BID duloxetine 60 mg Capsule,Delayed Release(Dr/Ec) 60 mg PO DAILY Referrals / Follow Up: Jerod Portillo MD [Primary Care Provider] - Disposition Disposition (needs filled in before D/C Order can be placed): [facility]
[2022-04-20 09:10] VITALS: BP 119/45; PULSE 87; RESP 18; TEMP 36.6; O2SAT 93
--- NOTE | 2022-04-20 09:59 | PCM.DC.SUM ---
Providers Date of Admission: 04/18/22 Primary Care Physician: Dr. Jerod Portillo MD Reason For Visit: PNEUMONIA, COPD EXACERBATION Diagnosis Discharge Diagnosis (1) COPD exacerbation: Status: Chronic Code(s): J44.1 - Chronic obstructive pulmonary disease with (acute) exacerbation Plan 1. COPD exacerbation with community-acquired pneumonia in his right lung with acute hypoxic respiratory failure ? Continue with IV antibiotics ? Continue with steroids and breathing treatments ? COVID and flu were negative ? It does not appear that he is on chronic oxygen 2. HTN/HLD ? Blood pressures are stable ? Can resume all of his home medications 3. Depression/anxiety/dementia ? Stable ? Continue with his home Cymbalta and Depakote ? We will monitor his dementia for possible sundowning 4. Restless leg syndrome ? Stable ? Continue with his home medications DVT: Heparin Medications at Discharge Home Medications famotidine 20 mg tablet 20 mg PO BID Check with primary doctor 04/10/20 ergocalciferol (vitamin D2) 1,250 mcg (50,000 unit) capsule (Vitamin D2) 50,000 mcg PO WE SUPPLEMENT 11/03/21 gabapentin 100 mg capsule 100 mg PO BID NEUROPATHY 11/14/21 divalproex 125 mg tablet,delayed release 125 mg PO BID DEPRESSION 04/18/22 duloxetine 60 mg capsule,delayed release 60 mg PO DAILY DEPRESSION 04/18/22 ropinirole 0.5 mg tablet 0.5 mg PO BID RESTLESS LEG 04/18/22 amlodipine 5 mg tablet 5 mg PO DAILY #0 tabs 04/20/22 amoxicillin 875 mg-potassium clavulanate 125 mg tablet 1 tab PO BID #10 tabs 04/20/22 aspirin 81 mg chewable tablet 81 mg PO DAILYCM #0 tabs 04/20/22 atorvastatin 40 mg tablet 40 mg PO QHS #0 tabs 04/20/22 azithromycin 500 mg tablet 500 mg PO DAILY 3 days #3 tabs 04/20/22 cyanocobalamin (vitamin B-12) 500 mcg tablet 2,000 mcg PO DAILY #0 tabs 04/20/22 ipratropium 0.5 mg-albuterol 3 mg (2.5 mg base)/3 mL nebulization soln 3 ml inhalation Q6H.RT #0 mL 04/20/22 prednisone 20 mg tablet 40 mg PO DAILY #14 tabs 04/20/22 tamsulosin 0.4 mg capsule 0.4 mg PO QHS #0 caps 04/20/22 Hospital Course Operations None Procedures None Summary of Care Provided Minutes Spent on Discharge: 38 Hospital Course: Per HPI: ELDON ESTRADA, is a 86 M who presents to the emergency room at [facility] after being sent in from a local extended care facility at which she is a chronic resident, patient has multiple medical problems which include chronic obstructive pulmonary disease, chronic debility, Alzheimer's dementia, past history of traumatic brain injury, essential hypertension, and hyperlipidemia.? Review of systems was not obtainable from the patient due to his dementia. Work-up in the emergency room included a chest x-ray which showed increased markings in the right hemithorax-early infiltrate cannot be ruled out, patient's white blood cell count was elevated at 18.2, creatinine was elevated at 1.48, BUN was 33, and patient was afebrile.? Patient required oxygen at 2 L to maintain his pulse ox above 90%.? On examination, patient had diffuse bilateral expiratory wheezes, he did not appear to be acutely short of breath however at rest. Patient was given IV Rocephin and Zithromax by the emergency room physician, he had been on oral Zithromax at the long-term which had been started recently.? Patient will be admitted to [place] [id number] for right-sided pneumonia and exacerbation of COPD, he will be maintained on IV corticosteroids and IV antibiotics, he was given IV Solu-Medrol in the emergency room.? Patient is a DNR CC arrest with no intubation according to long-term records. Hospital Course: 1.? COPD exacerbation with community-acquired pneumonia in his right lung with acute hypoxic respiratory failure ? Continue with IV antibiotics ? Continue with steroids and breathing treatments ? COVID and flu were negative ? Doing well today, he did have a little bit of a restless night however this is likely due to change of environment. He is maintaining his oxygen saturations on 2 L nasal cannula. He can be discharged back to the long-term today and I would recommend continue with Augmentin for another 5 days as well as azithromycin for another 3 days. Apparently he was only on azithromycin at the long-term which in the setting of a healthcare environment is likely not enough of an antibiotic to treat a pneumonia. Continue with prednisone for another 7 days. Would also recommend outpatient pulmonary toileting. Wean oxygen as able at the long-term. Would continue with DuoNeb inhalers as an outpatient as well to the steroids has enough time to kick in. He does continue to have a leukocytosis however this is likely in relation to his steroids as well as his pneumonia, from infectious standpoint he has remained afebrile. 2.? HTN/HLD ? Blood pressures are stable ? Can resume all of his home medications 3.? Depression/anxiety/dementia ? Stable ? Continue with his home Cymbalta and Depakote ? We will monitor his dementia for possible sundowning 4.? Restless leg syndrome ? Stable ? Continue with his home medications Physical Exam Narrative General: Alert, Oriented x2, Cooperative, No apparent distress HEENT: Atraumatic, EOMI, Normocephalic Oral: Moist Mucosa Neck: Supple, No JVD Lungs: Diminished, normal air movement, No rhonchi, mild wheeze, No rales Cardiovascular: Regular rate, Regular Rhythm, Normal S1, Normal S2, No murmurs Abdomen: Soft, Non Tender, Non-Distended, No Hepato-splenomegaly Extremities: No edema, Capillary Refill Less than 3 Seconds Skin: No rashes, No breakdown Musculoskeletal: No Tenderness to Palpation of Joints or Extremities Neurological: Cranial nerves II-XII grossly intact, Motor Exam 5/5 strength throughout, Sensory exam intact to light touch and pain Psych/Mental Status: Normal Affect, Appropriate Weight / BMI Weight Weight: 132 lb 11.492 oz Body Mass Index (BMI) 22.1 ABG / Lab / Microbiology Data Result Diagrams: 04/20/22 05:35 04/20/22 05:35 Laboratory: Laboratory Results - last 24 hr 04/20/22 05:35: WBC 21.8 H, RBC 3.65 L, Hgb 11.3 L, Hct 35.0 L, MCV 95.9 H, MCH 31.0, MCHC 32.3, RDW Std Deviation 47.3 H, RDW Coeff of Franco 13.3, Plt Count 297, MPV 10.0, Immature Gran % (Auto) 2.900 H, Neut % (Auto) 51.1, Lymph % (Auto) 40.3, [place] % (Auto) 5.3, Eos % (Auto) 0.0, Baso % (Auto) 0.4, Absolute Neuts (auto) 11.1 H, Absolute Lymphs (auto) 8.80 H, Nucleated RBC % 0, Differential Comment SCANNED, Anisocytosis 1+, Macrocytosis 1+ 04/20/22 05:35: Sodium 142, Potassium 4.2, Chloride 109 H, Carbon Dioxide 24.0, Anion Gap 9, BUN 33 H, Creatinine 1.10, Estim Creat Clear Calc 42.57, Est GFR (MDRD) Af Amer 82, Est GFR (MDRD) Non-Af 68, BUN/Creatinine Ratio 30.0 H, Glucose 137 H, Calcium 9.5 Microbiology: Microbiology 04/18/22 12:13 Blood Culture (Wb) - Left Forearm Blood Culture - Preliminary No growth in 48 hours. 04/20/22 09:10 Nasal Secretion SARS-CoV-2 Antigen (Rapid) - Final 04/18/22 20:40 Urine, Clean Catch Streptococcus pneumoniae Antigen (M - Final 04/18/22 20:40 Urine, Clean Catch Legionella Antigen - Final 04/18/22 14:50 Interface Orders Respiratory Panel (PCR) - Final 04/18/22 12:10 Nasal Secretion SARS-CoV-2 & FLU Antigen (Rapid) - Final Meaningful Use Info Meaningful Use Diagnoses (Choose all that apply): None applicable Discharge Plan Admission Admit Date/Time: 04/18/22 14:24 Attending Provider: Khang Crawford Primary Care Provider: Jerod Portillo Consulting Providers: Chano Marin Discharge Orders/Prescriptions Prescriptions: New atorvastatin 40 mg Tablet 40 mg PO QHS Qty: 0 0RF ipratropium-albuterol 0.5 mg-3 mg(2.5 mg base)/3 mL Solution For Nebulization 3 ml inhalation Q6H.RT Qty: 0 0RF amlodipine 5 mg Tablet 5 mg PO DAILY Qty: 0 0RF cyanocobalamin (vitamin B-12) 500 mcg Tablet 2,000 mcg PO DAILY Qty: 0 0RF tamsulosin 0.4 mg Capsule 0.4 mg PO QHS Qty: 0 0RF aspirin 81 mg Tablet,Chewable 81 mg PO DAILYCM Qty: 0 0RF amoxicillin-pot clavulanate 875-125 mg tablet 1 tab PO BID Qty: 10 0RF azithromycin 500 mg tablet 500 mg PO DAILY 3 Days Qty: 3 0RF prednisone 20 mg tablet 40 mg PO DAILY Qty: 14 0RF Continued famotidine 20 MG tablet 20 mg PO BID ergocalciferol (vitamin D2) [Vitamin D2] 1,250 mcg (50,000 unit) capsule 50,000 mcg PO WE Rx Instructions: FRIDAY gabapentin 100 mg capsule 100 mg PO BID ropinirole 0.5 mg Tablet 0.5 mg PO BID divalproex 125 mg Tablet,Delayed Release (Dr/Ec) 125 mg PO BID duloxetine 60 mg Capsule,Delayed Release(Dr/Ec) 60 mg PO DAILY Referrals / Follow Up: Jerod Portillo MD [Primary Care Provider] - Disposition Disposition (needs filled in before D/C Order can be placed): Longterm Facility Charges/Coding Visit Charges Inpatient E&M: 21673 Disch Hosp
[2022-04-20] MEDS: Venlafaxine XR 37.5 MG Capsule PO (12:10)
[2022-04-20] MEDS: amLODIPine 5 MG Tablet PO (12:10)
[2022-04-20] MEDS: Famotidine 20 MG Tablet PO (12:10)
[2022-04-20] MEDS: Cyanocobalamin 500 MCG Tablet 2000 MCG PO (12:10)
[2022-04-20] MEDS: Pramipexole Di-HCl 0.25 MG Tablet PO (12:10)
[2022-04-20] MEDS: Aspirin 81 MG TAB.CHEW PO (12:10)
[2022-04-20] MEDS: Heparin Injection (Vial) 5,000 UNIT/ML VIAL 5000 UNIT SC (12:11)
[2022-04-20] MEDS: Gabapentin 100 MG Capsule PO (12:11)
--- NOTE | 2022-04-20 13:05 | NURSING ---
Called report to nurse Nasrin segura Whitmer. Pt to be picked up in the next 30 min.
--- NOTE | 2022-04-20 13:10 | NURSING ---
Son informed that father would be going back to [place] today.
--- NOTE | 2022-04-20 13:10 | PCA ---
[facility] to arrange transport for patient returning to [place]. Transport arranged for today 04/20/22 1330. Phone called to David pt son primary contact to make him aware of this. Copies of transfer summary and code status placed on chart.
[2022-04-22 08:58] LABS: Pathologist Review Reviewed
== END 2022-04-20 13:25 | disposition skilled nursing facility (03) | DRG 190 ==
LOC: ED 13:59 → MS3 14:35
PROVIDERS: Admitting Provider Internal Medicine; Emergency Provider Emergency Medicine; PCP Family Medicine; Visit Provider Family Medicine
DX: J44.1 Chronic obstructive pulmonary disease with (acute) exacerbation (principal); J18.9 Pneumonia, unspecified organism; F02.80 Dementia in other diseases classified elsewhere, unspecified severity, without behavioral disturbance, psychotic disturbance, mood disturbance, and anxiety; G30.9 Alzheimer's disease, unspecified; J44.0 Chronic obstructive pulmonary disease with (acute) lower respiratory infection; E86.0 Dehydration; E78.5 Hyperlipidemia, unspecified; I10 Essential (primary) hypertension; G25.81 Restless legs syndrome; H54.8 Legal blindness, as defined in USA; N40.0 Benign prostatic hyperplasia without lower urinary tract symptoms; Z20.822 Contact with and (suspected) exposure to COVID-19; Z66 Do not resuscitate; F32.A Depression, unspecified; F41.1 Generalized anxiety disorder; Z79.82 Long term (current) use of aspirin; Z79.899 Other long term (current) drug therapy; Z87.891 Personal history of nicotine dependence
CPT/HCPCS: 36415; 71045; 80048; 83605; 84484; 85025; 87040; 87426; 87428; 87449; 87633; 93005; 94640; 97802; 99251; 99285; J7030; J7050; A4216; G0463

== ENCOUNTER 2022-11-28 06:06 | Emergency (ER) | payer MEDICARE, MEDICAID, SELFPAY ==
[2022-11-28 06:08] VITALS: BP 130/50; PULSE 90; RESP 18; TEMP 36.2; O2SAT 97
--- NOTE | 2022-11-28 06:44 | RAD_ITS ---
INDICATION: pain EXAMINATION/TECHNIQUE: X-RAY - LEFT XR Hand Min 3 Views 3 VIEWS COMPARISON: none FINDINGS: SOFT TISSUES: Diffuse hand edema. No radiopaque foreign body. BONES/JOINTS: No acute fracture or subluxation.. Normal alignment. Diffuse joint space loss with minimal osteophyte formation... No sclerotic or destructive changes observed. 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 Electronically Signed: Stanley Martinez MD at 7:54 EDT ,
--- NOTE | 2022-11-28 07:06 | EDS_ITS ---
HPI History of Present Illness Chief Complaint: Upper Extremity Injury Narrative Narrative: Patient is 86-year-old male from the retirement with past medical history of restless leg syndrome cervical spondylolisthesis hyperlipidemia nontraumatic subarachnoid hemorrhage and dementia. intermediate states that he was complaining of pain to his left arm this morning with no trauma and secondary to this they sent to the patient in for evaluation. Upon arrival to the ER the patient denies any recent trauma or possible bite and he states that the pain has resolved. PFSH PFS Medical History Anxiety Benign prostatic hyperplasia Cervical spondylosis Chronic obstructive pulmonary disease Chronic prescription benzodiazepine use Depression Excessive cerumen in ear canal Gastroesophageal reflux disease Generalized anxiety disorder HTN (hypertension) Hyperlipidemia Hyperlipidemia Hypertension Insomnia Legal blindness Lumbar spinal stenosis Neuropathic pain Osteoarthritis of lumbar spine Restless leg syndrome Spondylolisthesis, cervical region Vitamin B12 deficiency Vitamin D deficiency Home Medications famotidine 20 mg tablet 20 mg PO BID Check with primary doctor 04/10/20 [History Last Taken 04/18/22] ergocalciferol (vitamin D2) 1,250 mcg (50,000 unit) capsule (Vitamin D2) 50,000 mcg PO WE SUPPLEMENT 11/03/21 [History Last Taken 04/17/22] gabapentin 100 mg capsule 100 mg PO BID NEUROPATHY 11/14/21 [History Last Taken 04/18/22] divalproex 125 mg tablet,delayed release 125 mg PO BID DEPRESSION 04/18/22 [History Last Taken 04/18/22] duloxetine 60 mg capsule,delayed release 60 mg PO DAILY DEPRESSION 04/18/22 [History Last Taken 04/18/22] ropinirole 0.5 mg tablet 0.5 mg PO BID RESTLESS LEG 04/18/22 [History Last Taken 04/18/22] amlodipine 5 mg tablet 5 mg PO DAILY #0 tabs 04/20/22 [Rx Last Taken Unknown] amoxicillin 875 mg-potassium clavulanate 125 mg tablet 1 tab PO BID #10 tabs 04/20/22 [Rx Last Taken Unknown] aspirin 81 mg chewable tablet 81 mg PO DAILYCM #0 tabs 04/20/22 [Rx Last Taken Unknown] atorvastatin 40 mg tablet 40 mg PO QHS #0 tabs 04/20/22 [Rx Last Taken Unknown] azithromycin 500 mg tablet 500 mg PO DAILY 3 days #3 tabs 04/20/22 [Rx Last Taken Unknown] cyanocobalamin (vitamin B-12) 500 mcg tablet 2,000 mcg PO DAILY #0 tabs 04/20/22 [Rx Last Taken Unknown] ipratropium 0.5 mg-albuterol 3 mg (2.5 mg base)/3 mL nebulization soln 3 ml inhalation Q6H.RT #0 mL 04/20/22 [Rx Last Taken Unknown] prednisone 20 mg tablet 40 mg PO DAILY #14 tabs 04/20/22 [Rx Last Taken Unknown] tamsulosin 0.4 mg capsule 0.4 mg PO QHS #0 caps 04/20/22 [Rx Last Taken Unknown] Allergy/AdvReac Type Severity Reaction Status Date / Time niacin Allergy Rash Verified 04/18/22 11:17 Family History Brother Diabetes Surgical History H/O inguinal hernia repair H/O lumbosacral spine surgery History of appendectomy S/P lumbar fusion Social History household members: other details: Lives alone with his dog pets and animals: Yes Smoking Status: Former smoker how long ago did patient quit smokin years ago alcohol intake: current details: Has 2 glasses of wine per week ROS ROS ED ROS Narrative He has no review of systems may be unreliable secondary to history of dementia Constitutional Constitutional ED: Denies chills or fever(s) ENT ENT ED: Denies sore throat Cardiovascular Cardiovascular: Denies chest pain Respiratory/Chest Respiratory/Chest: Denies cough or dyspnea Gastrointestinal Gastrointestinal: Denies abdominal pain, diarrhea, nausea or vomiting Genitourinary Genitourinary ED: Denies dysuria Musculoskeletal Musculoskeletal: Reports other Details: Positive left hand/arm pain Integumentary Denies rash Neurologic Neurologic: Denies headache(s) or weakness Hematologic/Lymphatic Hematologic/Lymphatic: Denies easy bleeding or easy bruising EXAM Physical Exam Const Vital Signs: 11/28/22 06:08 Temperature 97.1 F L Temperature Source Temporal Pulse Rate 90 Respiratory Rate 18 Blood Pressure 130/50 H Blood Pressure Mean 76 Pulse Ox 97 Oxygen Delivery Method Room Air Positive well nourished and well developed General Appearance ED: well developed HEENT Reports moist mucous membranes Eyes PERRL and EOMs intact bilaterally Neck supple Neck Narrative: No JVD noted Resp normal respiratory effort and clear to auscultation bilaterally Resp Narrative: No nasal flaring retractions tachypnea or accessory muscle use. no orthopnea noted Cardio regular rate and regular rhythm GI non-tender and non-distended GI Narrative: No pulsatile mass or fluid wave Auscultation: normoactive bowel sounds Palpation: soft Extremity Extremity Narrative: Patient has +2-3 pitting edema to the bilateral lower extremities from the ankle to just below the knee. Negative Homans' sign bilaterally. Left upper extremity is neurovascularly intact; AIN/PIN are intact and normal. There is mild soft tissue swelling to the dorsal aspect of the left hand without obvious abrasions or ecchymosis noted. The soft tissue swelling is mild and tracks back to the proximal wrist. There is no asymmetric swelling or pitting edema of the forearm or humerus there is no overlying erythema or lymphangitic streaking or warmth. There is soft compartments going against compartment syndrome. Neuro CN's II-XII intact bilaterally Neuro Narrative: Patient is awake and alert and at baseline mental status without focal ne urologic deficit Psych Psych Narrative: Patient has a flat affect Skin Skin Narrative: Mild soft tissue swelling to the dorsal aspect of the left hand as documented above. There is a small circular lesion along the fourth PIP joint that could be consistent with a possible insect bite but no obvious puncture wound is noted and there is no induration or fluctuance to suggest cellulitis or abscess MDM MDM MDM Narrative Medical decision making narrative: Patient presented to the ER with stable vitals at his baseline mental status and with spontaneous resolution of his pain. Differential diagnosis includes underlying trauma such as a fracture or contusion gout pseudogout cellulitis allergic reaction anasarca/CHF or compartment syndrome. The patient has peripheral edema to his lower legs but this stops below the knee and is equal and symmetric he does not have orthopnea or JVD his lungs are clear and most likely the peripheral edema is related to his amlodipine. Therefore I do not feel he is having a CHF/anasarca exacerbation. There is no redness or warmth or pain with palpation therefore I have low concern that this mild soft tissue swelling is related to gout/pseudogout or cellulitis. There is no overlying ecchymosis to suggest trauma but with a mild soft tissue swelling he could have a contusion or nondisplaced fracture so an x-ray was obtained. X-ray revealed no acute findings. Patient's compartments are soft going against compartment syndrome and as there is no asymmetric swelling up the arm concern for upper extremity DVT is low and do not feel the need for venous duplex. As there is a small area of erythema along the fourth PIP joint there is concern that he may have had a small bite from an insect which could have led to an mild allergic reaction causing the swelling and pain. The physical exam does not suggest this is an abscess in nature. Vitals did not show a fever and labs did not display an elevated white count or uric acid level and kidney function is not elevated either. Therefore this time I do not feel there is need for further evaluation and he can be placed in Gumaro wrap for compression of the soft tissue and follow- up with the doctor at the [facility] on an outpatient basis History & Record Review Discussion w/independent historian: EMS personnel and Patient Radiography Diagnostic Testing: Left hand x-rays interpreted by the emergency medicine physician reveals mild soft tissue swelling without acute fracture dislocation or foreign body Discharge Plan Triage Chief Complaint: Upper Extremity Injury ED Provider: Mal Lambert Dx/Rx/DC Orders Clinical Impression: Localized swelling on left hand, History of COPD, Hypertension Instructions: ED Peripheral Edema, Unilateral Prescriptions: No Action famotidine 20 MG tablet 20 mg PO BID ergocalciferol (vitamin D2) [Vitamin D2] 1,250 mcg (50,000 unit) capsule 50,000 mcg PO WE Rx Instructions: FRIDAY gabapentin 100 mg capsule 100 mg PO BID ropinirole 0.5 mg Tablet 0.5 mg PO BID divalproex 125 mg Tablet,Delayed Release (Dr/Ec) 125 mg PO BID duloxetine 60 mg Capsule,Delayed Release(Dr/Ec) 60 mg PO DAILY atorvastatin 40 mg Tablet 40 mg PO QHS Qty: 0 0RF ipratropium-albuterol 0.5 mg-3 mg(2.5 mg base)/3 mL Solution For Nebulization 3 ml inhalation Q6H.RT Qty: 0 0RF amlodipine 5 mg Tablet 5 mg PO DAILY Qty: 0 0RF cyanocobalamin (vitamin B-12) 500 mcg Tablet 2,000 mcg PO DAILY Qty: 0 0RF tamsulosin 0.4 mg Capsule 0.4 mg PO QHS Qty: 0 0RF aspirin 81 mg Tablet,Chewable 81 mg PO DAILYCM Qty: 0 0RF amoxicillin-pot clavulanate 875-125 mg tablet 1 tab PO BID Qty: 10 0RF azithromycin 500 mg tablet 500 mg PO DAILY 3 Days Qty: 3 0RF prednisone 20 mg tablet 40 mg PO DAILY Qty: 14 0RF Primary Care Provider: Jerod Portillo Referrals: Jerod Portillo MD [Primary Care Provider] - Activity Restrictions/Additional Instructions: Work-up today does not show any signs of infection or gout or bony injury. Wear the Gumaro wrap for compression and follow-up with your family doctor for repeat evaluation Disposition Disposition: Home, Self Care
[2022-11-28 07:08] LABS: Absolute Lymphocyte Count 3.82 X10^3/uL (0.83-4.51); Absolute Neutrophil Count 4.3 X10^3/uL (2.0-7.7); Basophil# 0.03 X10^3/uL; Basophil% 0.3 % (0-1); Eosinophil# 0.22 X10^3/uL; Eosinophils% 2.3 % (0-5); Hematocrit 34.2 % (40-54); Hemoglobin 10.9 g/dL (13.0-16.5); Lymphocyte # 3.82 X10^3/ul (0.83-4.51); Lymphocyte % 40.6 % (19-41); Mean Corp Hgb Conc 31.9 g/dL (32-36); Mean Corpuscular Hgb 28.7 pg (27.0-32.0); Mean Platelet Vol. 9.7 fl (6.2-12.0); Monocyte% 10.6 % (0-10); NRBC Flagged by Analyzer 0 % (0-5); Neutrophil # 4.28 X10^3/uL (2.7-7.7); Neutrophil % 45.7 % (47-70); Platelet Count 199 K/mm3 (150-450); RBC Distribution Width CV 14.1 % (11.6-14.6); White Blood Count 9.4 K/mm3 (4.4-11.0)
[2022-11-28 07:29] LABS: Anion Gap 4 (5-15); BUN 13 mg/dL (7-18); BUN/Creat Ratio 11.8 RATIO (10-20); Chloride 105 mmol/L (98-107); EST Glomerular Filtration Rate 68 mL/min (>60); Est Glom Filt Rate - Afr Amer 82 mL/min (>60); Estimated Creatinine Clearance 46.38 ml/min; Glucose 104 mg/dL (74-106); Potassium 3.8 mmol/L (3.5-5.1); Sodium Level 138 mmol/L (136-145); Uric Acid 5.3 mg/dL (3.5-7.2)
[2022-11-28 08:01] VITALS: PULSE 88; RESP 16; O2SAT 98
[2022-11-28 08:17] LABS: BNP,B-Type NATRIURETIC PEPTIDE 41.2 pg/mL (0-100)
--- NOTE | 2022-11-28 08:25 | ED.RN ---
brother and son contacted and updated on plan of care. pt to be discharged home to [facility]. hospice patient care secretary arranging care.
== END 2022-11-28 09:22 | disposition home or self-care (01) ==
PROVIDERS: Emergency Provider Emergency Medicine; PCP Family Medicine; Visit Provider Emergency Medicine
DX: M79.89 Other specified soft tissue disorders (principal); F03.90 Unspecified dementia, unspecified severity, without behavioral disturbance, psychotic disturbance, mood disturbance, and anxiety; J44.9 Chronic obstructive pulmonary disease, unspecified; R60.0 Localized edema; M79.602 Pain in left arm; I10 Essential (primary) hypertension; E78.5 Hyperlipidemia, unspecified; G25.81 Restless legs syndrome; K21.9 Gastro-esophageal reflux disease without esophagitis; Z79.82 Long term (current) use of aspirin; Z79.899 Other long term (current) drug therapy; Z87.891 Personal history of nicotine dependence
CPT/HCPCS: 73130; 80048; 83880; 84550; 85025; 99284

== ENCOUNTER 2022-12-22 17:56 | Emergency (ER) | payer MEDICARE, MEDICAID, SELFPAY ==
[2022-12-22 17:57] VITALS: BP 119/49; PULSE 97; RESP 16; TEMP 36.9; O2SAT 96; BMI 25.0
--- NOTE | 2022-12-22 18:12 | CT_ITS ---
STUDY: CT BRAIN WITHOUT CONTRAST REASON FOR EXAM: Male, 87 years old. Change in mental status. RADIATION DOSAGE (If Supplied By Facility): CTDIvol = ( 44.99 ) mGy, DLP = ( 829.85 ) mGycm TECHNIQUE: Transaxial CT imaging of the brain was performed without administration of intravenous contrast material. Individualized dose optimization techniques were used for this CT. COMPARISON: November 14, 2021 FINDINGS: Normal soft tissue structures. Normal calvarium. There is mild cerebral atrophy with widening of the extra-axial spaces and ventricular dilatation. There are areas of decreased attenuation within the white matter tracts of the supratentorial brain, consistent with microvascular disease changes. Remote lacunar infarct in the right basal ganglia. Normal basal ganglia and thalami. Normal brainstem. There is mild cerebellar atrophy. There is no intracranial hemorrhage. There are no findings of an acute ischemic infarction. Normal visualized paranasal sinuses. CT/Brain/Head without Contrast IMPRESSION: No acute intracranial or calvarial abnormality. No major interval change. Electronically Signed: Donta Elizabeth DO at 18:57 EDT Reading Location ID and State: [id number] Tel [phone], Service support ,
--- NOTE | 2022-12-22 18:12 | EKG12_ITS ---
Test Reason : DYSRHYTHMIA Blood Pressure : / mmHG Vent. Rate : 091 BPM Atrial Rate : 091 BPM P-R Int : 144 ms QRS Dur : 082 ms QT Int : 366 ms P-R-T Axes : 065 061 002 degrees QTc Int : 450 ms Normal sinus rhythm Nonspecific ST abnormality Abnormal ECG Confirmed by RESHMA CALLEJAS, CEDRICK ([id number]), make up editor MASSIEL MELO ([id number]) on 12/23/2022 10:19:32 AM Referred By: MADY Confirmed By:CEDRICK JUSTICE MD
--- NOTE | 2022-12-22 18:35 | RAD_ITS ---
STUDY: X-RAY CHEST REASON FOR EXAM: Male, 87 years old. Altered mental status. TECHNIQUE: Single AP portable view of the chest. COMPARISON: April 18, 2022. FINDINGS: The lungs are mildly hyperexpanded with chronic interstitial coarsening. Stable calcified granulomata are seen within the left lung There is no demonstrated pleural abnormality. Normal size heart. Normal mediastinum and chuck. Normal visualized pulmonary arteries. Normal visualized aortic arch and descending thoracic aorta. No osseous changes. There is degenerative osteoarthritis of the bilateral shoulders. There is no demonstrated abnormality of the visualized soft tissue structures of the upper abdomen. RAD/Chest 1 View (Portable) IMPRESSION: No acute cardiopulmonary disease or major interval change. Electronically Signed: Donta Elizabeth DO at 18:59 EDT ,
[2022-12-22 18:37] LABS: Absolute Lymphocyte Count 3.03 X10^3/uL (0.83-4.51); Absolute Neutrophil Count 4.7 X10^3/uL (2.0-7.7); Basophil# 0.03 X10^3/uL; Basophil% 0.3 % (0-1); Eosinophil# 0.26 X10^3/uL; Hematocrit 33.2 % (40-54); Hemoglobin 10.6 g/dL (13.0-16.5); Lymphocyte # 3.03 X10^3/ul (0.83-4.51); Lymphocyte % 34.6 % (19-41); Mean Corp Hgb Conc 31.9 g/dL (32-36); Mean Corpuscular Hgb 29.4 pg (27.0-32.0); Mean Corpuscular Volume 92.2 fL (80-94); NRBC Flagged by Analyzer 0 % (0-5); Neutrophil % 53.6 % (47-70); Platelet Count 166 K/mm3 (150-450); RBC Distribution Width SD 50.8 fl (35.1-43.9); White Blood Count 8.8 K/mm3 (4.4-11.0)
[2022-12-22 18:49] LABS: AST(SGOT) 11 U/L (15-37); Alanine Aminotransfer ALT/SGPT 15 U/L (16-61); Albumin, Serum 3.1 g/dL (3.2-5.0); Alkaline Phosphatase 100 U/L (45-117); Anion Gap 5 (5-15); BUN 16 mg/dL (7-18); BUN/Creat Ratio 12.9 RATIO (10-20); Calcium,Total 8.6 mg/dL (8.5-10.1); Chloride 106 mmol/L (98-107); Creatinine, Serum 1.24 mg/dL (0.70-1.30); EST Glomerular Filtration Rate 59 mL/min (>60); Est Glom Filt Rate - Afr Amer 71 mL/min (>60); Estimated Creatinine Clearance 37.89 ml/min; Glucose 135 mg/dL (74-106); Protein, Total 6.1 g/dL (6.4-8.2); Sodium Level 141 mmol/L (136-145)
[2022-12-22 18:53] LABS: Alcohol, Blood (Medical)-Serum < 3.0 mg/dL
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
[2022-12-22 20:09] VITALS: PULSE 87; RESP 17; O2SAT 95
--- NOTE | 2022-12-22 20:34 | ED.RN ---
Attempted to give report to [place] about pt returning to facility. No answer at this time.
== END 2022-12-22 21:34 | disposition home or self-care (01) ==
PROVIDERS: Emergency Provider Student in an Organized Health Care Education/Training Program; PCP Family Medicine; Visit Provider Student in an Organized Health Care Education/Training Program
DX: R41.89 Other symptoms and signs involving cognitive functions and awareness (principal); F03.90 Unspecified dementia, unspecified severity, without behavioral disturbance, psychotic disturbance, mood disturbance, and anxiety; J44.9 Chronic obstructive pulmonary disease, unspecified; I10 Essential (primary) hypertension; E78.5 Hyperlipidemia, unspecified; Z87.891 Personal history of nicotine dependence; Z87.820 Personal history of traumatic brain injury; Z79.899 Other long term (current) drug therapy; Z79.82 Long term (current) use of aspirin
CPT/HCPCS: 70450; 71045; 80053; 82077; 85025; 87811; 93005; 99285

== ENCOUNTER 2023-01-02 10:22 | Emergency (ER) | payer MEDICARE, MEDICAID, SELFPAY ==
[2023-01-02 10:25] VITALS: BP 122/50; PULSE 85; RESP 16; TEMP 36.5; O2SAT 96; BMI 24.3
--- NOTE | 2023-01-02 11:54 | CT_ITS ---
INDICATION: Change in Mental Status EXAMINATION: CT BRAIN - CT Head or Brain W/O Contrast Injection TECHNIQUE: Multiple axial images were obtained of the head without intravenous contrast. A radiation dose optimization technique was used for this scan. IV Contrast dosage and agent: None. RADIATION DOSAGE (If Supplied By Facility): CTDIvol = ( 44.99 ) mGy, DLP = ( 796.11 ) mGycm COMPARISON: December 22, 2022 FINDINGS: BRAIN PARENCHYMA: No intra- or extra-axial hemorrhage. There is a stable low-attenuation focus within the right basal ganglia consistent with an old lacunar infarct. No evidence of acute infarct. No intracranial mass or mass effect. There is preservation of the skaggs/white matter interface. Posterior fossa structures are unremarkable. CSF SPACES: Appropriate for age. No hydrocephalus. Basal cisterns are patent. CALVARIUM, SKULL BASE, PARANASAL SINUSES AND MASTOID AIR CELLS: Clear. No discrete lytic or blastic abnormalities. ORBITS: Both globes, extraocular muscles, optic nerves and retrobulbar fat appear unremarkable. ASPECTS Score for Acute Strokes: 10 CT/Brain/Head without Contrast IMPRESSION: No acute intracranial process. Electronically Signed: Brittni Rojas MD at 13:00 EDT ,
[2023-01-02 12:24] VITALS: BP 118/74; PULSE 72; RESP 16; O2SAT 96
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
[2023-01-02 13:16] LABS: Absolute Lymphocyte Count 4.08 X10^3/uL (0.83-4.51); Absolute Neutrophil Count 4.7 X10^3/uL (2.0-7.7); Basophil# 0.04 X10^3/uL; Basophil% 0.4 % (0-1); Eosinophil# 0.27 X10^3/uL; Eosinophils% 2.7 % (0-5); Hemoglobin 12.2 g/dL (13.0-16.5); Lymphocyte # 4.08 X10^3/ul (0.83-4.51); Lymphocyte % 41.1 % (19-41); Mean Corpuscular Hgb 30.5 pg (27.0-32.0); Mean Corpuscular Volume 92.5 fL (80-94); Mean Platelet Vol. 9.7 fl (6.2-12.0); Monocyte# 0.77 X10^3/uL; Monocyte% 7.8 % (0-10); NRBC Flagged by Analyzer 0 % (0-5); Neutrophil # 4.74 X10^3/uL (2.7-7.7); Neutrophil % 47.8 % (47-70); Platelet Count 188 K/mm3 (150-450); RBC Distribution Width SD 51.3 fl (35.1-43.9); White Blood Count 9.9 K/mm3 (4.4-11.0)
[2023-01-02 13:26] LABS: AST(SGOT) 15 U/L (15-37); Alanine Aminotransfer ALT/SGPT 16 U/L (16-61); Albumin, Serum 3.4 g/dL (3.2-5.0); Alkaline Phosphatase 108 U/L (45-117); Anion Gap 6 (5-15); BUN 11 mg/dL (7-18); BUN/Creat Ratio 8.8 RATIO (10-20); Calcium,Total 9.4 mg/dL (8.5-10.1); Chloride 105 mmol/L (98-107); Creatinine, Serum 1.25 mg/dL (0.70-1.30); EST Glomerular Filtration Rate 58 mL/min (>60); Est Glom Filt Rate - Afr Amer 71 mL/min (>60); Estimated Creatinine Clearance 37.58 ml/min; Globulin 3.5 g/dL (2.2-4.2); Glucose 95 mg/dL (74-106); Potassium 4.2 mmol/L (3.5-5.1); Protein, Total 6.9 g/dL (6.4-8.2); Sodium Level 139 mmol/L (136-145)
[2023-01-02 13:37] LABS: Amphetamine Urine VISTA NEGATIVE (<1000 ng/mL); Barbiturate Urine VISTA NEGATIVE (< 200 ng/mL); Benzodiazepine Urine VISTA NEGATIVE (< 200 ng/mL); Cocaine Urine VISTA NEGATIVE (< 300 ng/mL); Ecstacy Urine VISTA NEGATIVE (< 500 ng/mL); Methadone Urine VISTA NEGATIVE (< 300 ng/mL); PCP Urine VISTA NEGATIVE (< 25 ng/mL); THC Urine VISTA NEGATIVE (< 50 ng/mL); Vista UDS pH Range 6
[2023-01-02 13:50] LABS: Alcohol, Blood (Medical)-Serum < 3.0 mg/dL
[2023-01-02 14:00] VITALS: BP 114/71; PULSE 62; RESP 16; O2SAT 97
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
[2023-01-02 14:03] LABS: Valproic Acid (Depakene) Level 65 ug/mL (50-100)
[2023-01-02 14:42] LABS: Bacteria 0 SEEN /hpf (None Seen); Mucous, Urine 0 SEEN /hpf (<or=2+); Red Blood Cells-Urine 0 SEEN /hpf (0-5); Squamous Epithelial Cells - UA 0 SEEN /hpf (0-5); White Blood Cells 0 SEEN /hpf (0-5)
[2023-01-02 14:44] LABS: Color, Urine Yellow (Yellow); Glucose, Dipstick Normal (Normal); Ketone-Dipstick Negative (Negative); Leukocyte Esterase-Dipstick Negative /ul (Negative); Nitrite-Dipstick Negative (Negative); Occult Blood-Urine Negative /ul (Negative); Protein-Dipstick 15 mg/dl (Negative); Specific Gravity, Urine 1.015 (1.002-1.030); Urine Bilirubin Dipstick Negative (Negative); Urine Clarity Sl. Cloudy (Clear); Urine Urobilinogen 1 mg/dl (Normal)
--- NOTE | 2023-01-02 15:35 | ED.RN ---
PT RESTING QUIETLY IN BED, NO SIGNS OF DISTRESS. PT REMAINS COOPERATIVE WITH CARE.
--- NOTE | 2023-01-02 15:47 | CM.ED ---
Addendum entered by Melvi Erwin 01/02/23 19:22: Pt denied for acuity by [facility]. Still in review at [facility] and additionally referred to [place]. Phone intake done with [facility] and additional documentation sent. SW to continue working on placement. Melvi HORNE, SENIOR PATIENT ACCOUNT REPRESENTATIVE Original Note: Social Work Pt referred to [facility] for gt-psych placement. [facility] reports no male beds available today and pt is on wait list. Pt also referred to [facility] and [facility]. Melvi HORNE, SENIOR PATIENT ACCOUNT REPRESENTATIVE
[2023-01-02 18:00] VITALS: BP 121/74; PULSE 81; RESP 16; O2SAT 98
--- NOTE | 2023-01-02 20:39 | ED.RN ---
Yefri Hernandez updated on all test results. Also informed him we were still waiting on placement.
--- NOTE | 2023-01-02 20:42 | ED.RN ---
Called [facility] for med list, nurse states he will fax.
--- NOTE | 2023-01-02 21:15 | ED.RN ---
Pt resting quietly in bed, no signs of distress.
[2023-01-02] MEDS: Famotidine 20 MG Tablet PO (21:49)
[2023-01-02] MEDS: Atorvastatin Calcium 40 MG Tablet PO (21:49)
[2023-01-02] MEDS: Gabapentin 100 MG Capsule PO (21:50)
[2023-01-02] MEDS: QUEtiapine 25 MG Tablet PO (21:50)
[2023-01-02] MEDS: Tamsulosin HCl 0.4 MG Capsule PO (21:50)
[2023-01-02 21:59] VITALS: BP 123/78; PULSE 76; RESP 16; O2SAT 98
--- NOTE | 2023-01-02 22:35 | CM.ED ---
Social Work Patient referral and information given to [facility] and faxed for followup on placement. Pt pending at [facility] and [facility]. Pt on waitlist for male bed at [facility] and denied at [facility] due to acuity. Placement referrals continued, if placement is unable to be found patient may have to return to [facility] or [facility] if [facility] has secure a bed at [facility]. Melvi Erwin QUILL MACHINE OPERATOR, ASSOCIATE PROFESSOR OF LITERATURE
--- NOTE | 2023-01-02 23:49 | ED.RN ---
[facility] called looking for paperwork for patient at this time for [facility]. Called [facility] spoke to [facility]. Per nurse its her second night working there unsure of location for paperwork. Will relay information to day shift to fax over paperwork.
[2023-01-03] VITALS (11 sets, daily range): BP systolic 121–142; BP diastolic 52–94; PULSE 75–82; RESP 14–18; TEMP 36.4–36.6; O2SAT 96–98
[2023-01-03] MEDS: Pramipexole Di-HCl 0.25 MG Tablet PO (02:33)
--- NOTE | 2023-01-03 07:09 | ED.RN ---
PATIENT RESTING AT TIME OF SHIFT CHANGE, STILL PENDING [facility]
--- NOTE | 2023-01-03 08:29 | NURSING ---
FAXED EKG TO [facility]
--- NOTE | 2023-01-03 08:30 | NURSING ---
CALLED [facility]. WILL FAX POA PAPERS TO THEM TO SEND ON TO [facility]
[2023-01-03] MEDS: Famotidine 20 MG Tablet PO ×2 (09:01→22:17)
[2023-01-03] MEDS: Aspirin 81 MG TAB.CHEW PO (09:01)
[2023-01-03] MEDS: amLODIPine 5 MG Tablet PO (09:01)
[2023-01-03] MEDS: Cholecalciferol (VIT D3) 25 MCG TABLET (1,000 UNITS) 50 MCG PO (09:01)
[2023-01-03] MEDS: Gabapentin 100 MG Capsule PO ×2 (09:02→22:21)
[2023-01-03] MEDS: QUEtiapine 25 MG Tablet PO ×2 (09:02→22:17)
[2023-01-03] MEDS: Divalproex Sodium 125 MG Tablet 250 MG PO ×2 (09:02→22:22)
[2023-01-03] MEDS: Cyanocobalamin 500 MCG Tablet 2000 MCG PO (09:02)
--- NOTE | 2023-01-03 09:05 | NURSING ---
KARISSA, [facility], DECLINED PATIENT, NO BEDS
[2023-01-03] MEDS: Haloperidol 1 MG Tablet 2 MG PO (10:23)
--- NOTE | 2023-01-03 10:28 | ED.RN ---
THE POA PAPERWORK THE SON PRESENTED TO THE ED WAS NOTED TO BE FOR THE WRONG PATIENT- NILSA ESTRADA, WHO IS THE SON WHO PRESENTED IT. I SPOKE TO THE SON AND HE IS NOT SURE HOW THAT WAS POSSIBLE AND NOW WAS AT WORK AND UNABLE TO LEAVE TO SEARCH FOR DIFFERENT PAPERWORK. PATIENT IS ANXIOUS AND WALKING ABOUT HIS ROOM BUT IS REDIRECTABLE PRESENTLY.
--- NOTE | 2023-01-03 12:00 | ED.RN ---
RECEIVED THE CORRECT POA DOCUMENTS. PATIENT NOW QUIETLY ROAMING ABOUT HIS ROOM.
--- NOTE | 2023-01-03 12:00 | NURSING ---
FAXED POA TO [facility]
[2023-01-03] MEDS: BRIMONIDINE 0.2% 5ML BOTTLE 1 DRP EACH EYE ×2 (12:48→22:16)
[2023-01-03] MEDS: Atorvastatin Calcium 40 MG Tablet PO (22:17)
[2023-01-03] MEDS: Tamsulosin HCl 0.4 MG Capsule PO (22:17)
[2023-01-04 01:00] VITALS: RESP 15
[2023-01-04 03:00] VITALS: RESP 14
[2023-01-04 04:24] VITALS: BP 125/73; PULSE 69; RESP 17; O2SAT 99
--- NOTE | 2023-01-04 04:35 | ED.RN ---
[facility] CALLED TO CHECK STATUS. ASSIGNED TO 630 CREW
[2023-01-04 06:00] VITALS: RESP 18
[2023-01-04 06:22] VITALS: BP 125/73; PULSE 69; RESP 17; TEMP 37.2; O2SAT 99
== END 2023-01-04 06:49 ==
PROVIDERS: Emergency Provider Student in an Organized Health Care Education/Training Program; PCP Family Medicine; Visit Provider Student in an Organized Health Care Education/Training Program
DX: R41.0 Disorientation, unspecified (principal); F03.90 Unspecified dementia, unspecified severity, without behavioral disturbance, psychotic disturbance, mood disturbance, and anxiety; J44.9 Chronic obstructive pulmonary disease, unspecified; Z20.822 Contact with and (suspected) exposure to COVID-19; I10 Essential (primary) hypertension; E78.5 Hyperlipidemia, unspecified; N40.0 Benign prostatic hyperplasia without lower urinary tract symptoms; K21.9 Gastro-esophageal reflux disease without esophagitis; F41.1 Generalized anxiety disorder; Z79.82 Long term (current) use of aspirin; Z79.899 Other long term (current) drug therapy; Z87.891 Personal history of nicotine dependence; Z87.820 Personal history of traumatic brain injury
CPT/HCPCS: 70450; 80053; 80164; 80307; 81001; 82077; 85025; 87811; 93005; 99285

== ENCOUNTER 2023-02-03 04:30 | Emergency (ER) | payer MEDICARE, MEDICAID, SELFPAY ==
[2023-02-03 04:31] VITALS: BP 160/67; PULSE 80; RESP 16; TEMP 36.4; O2SAT 98; BMI 23.3
--- NOTE | 2023-02-03 04:50 | CT_ITS ---
INDICATION: Head injury EXAMINATION: CT BRAIN - CT Head or Brain W/O Contrast Injection TECHNIQUE: Multiple axial images were obtained of the head with sagittal and coronal reconstructed images. Individualized dose optimization techniques were used for this CT. IV contrast dosage and agent: None. COMPARISON: 01/02/2023 CT. FINDINGS: BRAIN PARENCHYMA: No evidence of an acute infarct or intracranial hemorrhage. No evidence of a mass. Chronic right basal ganglia/mejia radiata infarcts. CSF SPACES: The ventricles, sulci and subarachnoid cisterns are appropriate for age. CALVARIUM, SKULL BASE, PARANASAL SINUSES AND MASTOID AIR CELLS: No acute fracture. Mastoid air cells are clear. Visualized paranasal sinuses are unremarkable. ORBITS: The globes, extraocular muscles, optic nerves and retrobulbar fat are unremarkable. CT/Brain/Head without Contrast IMPRESSION: No acute fracture or acute intracranial abnormality. Electronically Signed: Blu Wilks DO at 5:13 EDT ,
--- NOTE | 2023-02-03 04:52 | ED.VIS.FALL ---
HPI HPI - Fall History of Present Illness Chief Complaint: Fall Informant: patient Occured/Mechanism Occurred: Today Mechanism/Context: Yes trip Pain/Injury Location: Occiput Pain Location: head Quality of Pain: Dull Worsened by: Nothing Relieved by: Nothing to Associated Symptoms Associated Symptoms: Negative for Parasthesias, Weakness, Loss of function, Inability to ambulate, Loss of consciousness or Amnesia Narrative Narrative: Patient presents with head injury that occurred today. Patient states he tripped and fell tonight. Patient states he hit his head into the wall. Patient denies any loss of consciousness. Patient denies any paresthesias or weakness. Patient states detention staff initially noticed a hematoma on his head. Patient denies any change currently. Patient denies any nausea or vomiting. Patient denies any visual changes. Patient denies any paresthesias or weakness. [facility] Medical History Anxiety Benign prostatic hyperplasia Cervical spondylosis Chronic obstructive pulmonary disease Chronic prescription benzodiazepine use Depression Excessive cerumen in ear canal Gastroesophageal reflux disease Generalized anxiety disorder HTN (hypertension) Hyperlipidemia Hyperlipidemia Hypertension Insomnia Legal blindness Lumbar spinal stenosis Neuropathic pain Osteoarthritis of lumbar spine Restless leg syndrome Spondylolisthesis, cervical region Vitamin B12 deficiency Vitamin D deficiency Home Medications famotidine 20 mg tablet 20 mg PO BID Check with primary doctor 04/10/20 [History Last Taken 04/18/22] gabapentin 100 mg capsule 100 mg PO BID NEUROPATHY 11/14/21 [History Last Taken 04/18/22] divalproex 125 mg tablet,delayed release 250 mg PO BID DEPRESSION 04/18/22 [History Last Taken 04/18/22] duloxetine 60 mg capsule,delayed release 60 mg PO DAILY DEPRESSION 04/18/22 [History Last Taken 04/18/22] ropinirole 0.5 mg tablet 0.5 mg PO BID RESTLESS LEG 04/18/22 [History Last Taken 04/18/22] amlodipine 5 mg tablet 5 mg PO DAILY #0 tabs 04/20/22 [Rx Last Taken Unknown] aspirin 81 mg chewable tablet 81 mg PO DAILYCM #0 tabs 04/20/22 [Rx Last Taken Unknown] atorvastatin 40 mg tablet 40 mg PO QHS #0 tabs 04/20/22 [Rx Last Taken Unknown] cyanocobalamin (vitamin B-12) 500 mcg tablet 2,000 mcg (4 x 500 mcg) PO DAILY #0 tabs 04/20/22 [Rx Last Taken Unknown] tamsulosin 0.4 mg capsule 0.4 mg PO QHS #0 caps 04/20/22 [Rx Last Taken Unknown] albuterol sulfate 90 mcg/actuation aerosol inhaler 2 puff inhalation Q4H PRN PRN Shortness Of Breath 01/02/23 [History Last Taken Unknown] brimonidine 0.2 % eye drops 1 drp ophthalmic (eye) BID 01/02/23 [History Last Taken Unknown] cholecalciferol (vitamin D3) 50 mcg (2,000 unit) capsule (Vitamin D3) 50 mcg PO DAILY 01/02/23 [History Last Taken Unknown] cimetidine 800 mg tablet 800 mg PO BID 01/02/23 [History Last Taken Unknown] quetiapine 25 mg tablet (Seroquel) 25 mg PO QHS 01/02/23 [History Last Taken Unknown] divalproex 125 mg capsule,delayed release sprinkle 125 mg PO .afternoon 02/03/23 [History Last Taken Unknown] olanzapine 2.5 mg tablet 5 mg PO QHS 02/03/23 [History Last Taken Unknown] olanzapine 5 mg tablet 2.5 mg PO DAILY 02/03/23 [History Last Taken Unknown] Allergy/AdvReac Type Severity Reaction Status Date / Time niacin Allergy Rash Verified 02/03/23 04:31 Family History Brother Diabetes Family History unable to obtain Surgical History H/O inguinal hernia repair H/O lumbosacral spine surgery History of appendectomy S/P lumbar fusion Social History household members: other details: Lives alone with his dog pets and animals: Yes Smoking Status: Former smoker how long ago did patient quit smokin years ago alcohol intake: current details: Has 2 glasses of wine per week ROS ROS ED Constitutional Constitutional ED: Denies chills or fever(s) Eyes Eyes: Denies blurry vision or change in vision ENT ENT ED: Denies rhinorrhea or sore throat Cardiovascular Cardiovascular: Denies chest pain or palpitations Respiratory/Chest Respiratory/Chest: Denies cough or dyspnea Gastrointestinal Gastrointestinal: Denies nausea or vomiting Genitourinary Genitourinary ED: Denies dysuria or hematuria Musculoskeletal Musculoskeletal: Denies back pain or neck pain Integumentary Denies abscess or rash Neurologic Neurologic: Denies headache(s) or weakness Allergic/Immunologic Allergic/Immunologic ED: Denies mouth swelling or urticaria EXAM Physical Exam Const Vital Signs: 02/03/23 04:31 02/03/23 04:34 Temperature 97.5 F L Temperature Source Temporal Pulse Rate 80 Respiratory Rate 16 Respiratory Effort Normal Respiratory Depth Normal Respiratory Pattern Normal Blood Pressure 160/67 H Blood Pressure Mean 98 Pulse Ox 98 Oxygen Delivery Method Room Air Room Air Positive well nourished and well developed General Appearance ED: well developed and NAD HEENT HEENT Narrative: There is minimal tenderness over the occipital scalp. There is no hematoma. There is no bony crepitance or step-off. There are no lacerations noted. Neck full ROM and supple Neuro oriented x3, CN's II-XII intact bilaterally, moves all extremities, no focal motor deficits and no sensory deficits noted Sensorium / Orientation: alert Motor Exam: strength 5/5 throughout Psych mental status grossly normal and thought process normal MDM MDM MDM Narrative Medical decision making narrative: Differential diagnosis includes intracranial bleeding, closed head injury, and scalp contusion. CT scan of the brain will be obtained to assess for intracranial bleeding. Radiography Diagnostic Testing: Clinical Impression(s) from Imaging Studies Brain CT 02/03/23 04:50 IMPRESSION: No acute fracture or acute intracranial abnormality. Electronically Signed: Blu Wilks DO at 5:13 EDT , CT scan of the brain was obtained. There is no acute intracranial abnormality. This was interpreted by the radiologist and was also independently reviewed by myself. Discharge Plan Triage Chief Complaint: Fall ED Provider: Nixon Swartz Dx/Rx/DC Orders Clinical Impression: Closed head injury, Fall Instructions: ED Head Injury (Adult) Prescriptions: No Action famotidine 20 MG tablet 20 mg PO BID gabapentin 100 mg capsule 100 mg PO BID Hold Instructions: Order Changed ropinirole 0.5 mg Tablet 0.5 mg PO BID divalproex 125 mg Tablet,Delayed Release (Dr/Ec) 250 mg PO BID duloxetine 60 mg Capsule,Delayed Release(Dr/Ec) 60 mg PO DAILY Hold Instructions: Order Changed atorvastatin 40 mg Tablet 40 mg PO QHS Qty: 0 0RF amlodipine 5 mg Tablet 5 mg PO DAILY Qty: 0 0RF Hold Instructions: Order Changed cyanocobalamin (vitamin B-12) 500 mcg Tablet 2,000 mcg PO DAILY Qty: 0 0RF Hold Instructions: Order Changed tamsulosin 0.4 mg Capsule 0.4 mg PO QHS Qty: 0 0RF aspirin 81 mg Tablet,Chewable 81 mg PO DAILYCM Qty: 0 0RF quetiapine [Seroquel] 25 mg Tablet 25 mg PO QHS cimetidine 800 mg tablet 800 mg PO BID brimonidine 0.2 % drops 1 drp ophthalmic (eye) BID Rx Instructions: both eyes albuterol sulfate 90 mcg/actuation Hfa Aerosol Inhaler 2 puff INHALATION Q4H PRN PRN (Reason: Shortness Of Breath) cholecalciferol (vitamin D3) [Vitamin D3] 50 mcg (2,000 unit) Capsule 50 mcg PO DAILY Hold Instructions: Order Changed divalproex 125 mg capsule, delayed rel sprinkle 125 mg PO .afternoon olanzapine 5 mg tablet 2.5 mg PO DAILY olanzapine 2.5 mg tablet 5 mg PO QHS Primary Care Provider: Jerod Portillo Referrals: Jerod Portillo MD [Primary Care Provider] - 5-7 Days Disposition Disposition: [facility] Facility Discharge Location: [facility]
== END 2023-02-03 06:54 | disposition skilled nursing facility (03) ==
PROVIDERS: Emergency Provider Emergency Medicine; PCP Family Medicine; Visit Provider Emergency Medicine
DX: S09.90XA Unspecified injury of head, initial encounter (principal); J44.9 Chronic obstructive pulmonary disease, unspecified; Z87.891 Personal history of nicotine dependence; E78.5 Hyperlipidemia, unspecified; I10 Essential (primary) hypertension; W01.198A Fall on same level from slipping, tripping and stumbling with subsequent striking against other object, initial encounter; Z79.899 Other long term (current) drug therapy; Y92.129 Unspecified place in nursing home as the place of occurrence of the external cause
CPT/HCPCS: 70450; 99284

== ENCOUNTER 2023-02-11 07:41 | Emergency (ER) | payer MEDICARE, MEDICAID, SELFPAY ==
[2023-02-11 07:42] VITALS: BP 137/61; PULSE 78; RESP 16; TEMP 35.9; O2SAT 97; BMI 23.8
--- NOTE | 2023-02-11 07:47 | EDS_ITS ---
HPI HPI - Fall History of Present Illness Chief Complaint: Fall PFSH PFSH Medical History Anxiety Benign prostatic hyperplasia Cervical spondylosis Chronic obstructive pulmonary disease Chronic prescription benzodiazepine use Depression Excessive cerumen in ear canal Gastroesophageal reflux disease Generalized anxiety disorder HTN (hypertension) Hyperlipidemia Hyperlipidemia Hypertension Insomnia Legal blindness Lumbar spinal stenosis Neuropathic pain Osteoarthritis of lumbar spine Restless leg syndrome Spondylolisthesis, cervical region Vitamin B12 deficiency Vitamin D deficiency Home Medications famotidine 20 mg tablet 20 mg PO BID Check with primary doctor 04/10/20 [History Last Taken 04/18/22] gabapentin 100 mg capsule 100 mg PO BID NEUROPATHY 11/14/21 [History Last Taken 04/18/22] divalproex 125 mg tablet,delayed release 250 mg PO BID DEPRESSION 04/18/22 [History Last Taken 04/18/22] duloxetine 60 mg capsule,delayed release 60 mg PO DAILY DEPRESSION 04/18/22 [History Last Taken 04/18/22] ropinirole 0.5 mg tablet 0.5 mg PO BID RESTLESS LEG 04/18/22 [History Last Taken 04/18/22] amlodipine 5 mg tablet 5 mg PO DAILY #0 tabs 04/20/22 [Rx Last Taken Unknown] aspirin 81 mg chewable tablet 81 mg PO DAILYCM #0 tabs 04/20/22 [Rx Last Taken Unknown] atorvastatin 40 mg tablet 40 mg PO QHS #0 tabs 04/20/22 [Rx Last Taken Unknown] cyanocobalamin (vitamin B-12) 500 mcg tablet 2,000 mcg (4 x 500 mcg) PO DAILY #0 tabs 04/20/22 [Rx Last Taken Unknown] tamsulosin 0.4 mg capsule 0.4 mg PO QHS #0 caps 04/20/22 [Rx Last Taken Unknown] albuterol sulfate 90 mcg/actuation aerosol inhaler 2 puff inhalation Q4H PRN PRN Shortness Of Breath 01/02/23 [History Last Taken Unknown] brimonidine 0.2 % eye drops 1 drp ophthalmic (eye) BID 01/02/23 [History Last Taken Unknown] cholecalciferol (vitamin D3) 50 mcg (2,000 unit) capsule (Vitamin D3) 50 mcg PO DAILY 01/02/23 [History Last Taken Unknown] cimetidine 800 mg tablet 400 mg PO BID 01/02/23 [History Last Taken Unknown] quetiapine 25 mg tablet (Seroquel) 25 mg PO QHS 01/02/23 [History Last Taken Unknown] divalproex 125 mg capsule,delayed release sprinkle 125 mg PO .afternoon 02/03/23 [History Last Taken Unknown] olanzapine 2.5 mg tablet 5 mg PO QHS 02/03/23 [History Last Taken Unknown] olanzapine 5 mg tablet 2.5 mg PO DAILY 02/03/23 [History Last Taken Unknown] Allergy/AdvReac Type Severity Reaction Status Date / Time niacin Allergy Rash Verified 02/11/23 07:45 Family History Brother Diabetes Family History unable to obtain Surgical History H/O inguinal hernia repair H/O lumbosacral spine surgery History of appendectomy S/P lumbar fusion Social History household members: other details: Lives alone with his dog pets and animals: Yes Smoking Status: Former smoker how long ago did patient quit smokin years ago alcohol intake: current details: Has 2 glasses of wine per week EXAM Physical Exam Const Vital Signs: 02/11/23 07:42 02/11/23 07:53 Temperature 96.6 F L Temperature Source Temporal Pulse Rate 78 Respiratory Rate 16 Respiratory Effort Normal Non-Labored Respiratory Depth Normal Blood Pressure 137/61 H Blood Pressure Mean 86 Pulse Ox 97 Oxygen Delivery Method Room Air [facility] MDM Narrative Medical decision making narrative: HISTORY OF PRESENT ILLNESS: 87-year-old male here for fall. He states he suffered a mechanical fall from standing just prior to arrival. Denies any syncope. Notes he hit his head. Complains of left elbow pain. REVIEW OF SYSTEMS: Pertinent positives: Fall, head trauma, left elbow pain Pertinent negatives: [Syncope, dizziness, chest pain PHYSICAL EXAM: Nursing triage notes reviewed, Vital signs reviewed C primary Survey Airway: Intact Breathing: Bilateral breath sounds Circulation: Palpable bilateral femorals, Palpable bilateral radial, Palpable bilateral DP and Palpable bilateral PT Disability / Spine precautions GCS Score: Eye Openin Verbal Response: 5 Motor Response: 6 Secondary Survey Constitutional: Please see MDM Head: Atraumatic, Midface stable, NO jaw malocclusion, No Cephalohematoma, and No Lacerations noted Eye: Pupils equal round and reactive to light, Extraocular muscles intact and No periorbital ecchymosis or stepoff, no evidence of entrapment ENT: Oropharynx clear, no lacerations, no hemotympanum, no raccoon eyes or webb sign Cervical spine / Neck: No cervical spine bony tenderness, crepitance, or stepoff deformity Trachea midline Lungs: Clear to auscultation, No asymmetric rise and No crepitus, no flail chest Cardiac: Regular rate and rhythm and No murmurs Abdomen: Soft, Nontender and No rebound Pelvis: Pelvis stable to compression : No evidence of genital injury Back: No midline bony tenderness to thoracic/lumbar/sacral spines Neuro: At baseline, intact strength and sensation in bilateral upper and lower extremities. 2+ patellar reflexes bilaterally. Extremities: NO gross Deformities Psych: Normal affect Nursing triage notes reviewed, Vital signs reviewed MEDICAL DECISION MAKING: Chief Complaint: Fall External records reviewed: Seen on 02/03/2023 for closed head injury. CT scan of the head at this time showed no evidence of acute fracture or acute intracranial normality. Factors affecting care: history of multiple falls, history of intracranial hemorrhage, subarachnoid hemorrhage, traumatic brain injury Social determinants of health: Elderly ALL IMAGES (IF OBTAINED) HAVE BEEN PERSONALLY REVIEWED AND INTERPRETED BY MYSELF. [facility] Narrative: Patient was hemodynamically stable, afebrile, nontoxic-appearing. Primary secondary trauma surveys were concerning for the following I considered the following differential diagnosis: ICH, C-spine injury, skull fracture, subarachnoid hemorrhage I obtained CT scans of the head and cervical spine. I offered pain medicine but patient refused initially. CT scans were negative. Tertiary exam without new traumatic injury. The patient is appropriate discharge home. The patient and/or family, caregivers express understanding. The patient and/or family, caregivers agrees with the plan. Total critical care time today provided was at least 0 minutes. This excludes separately billable procedures. Critical care time (if documented) is secondary to the patient having high probability of clinically significant/life threatening deterioration in the patient's condition which required my urgent intervention. Shared decision making: I will have a discussion with the patient and or visitors regarding risk/benefits of further testing or admission. They will be made aware of of the risk/benefits inherent in this decision they will be given the opportunity to voice understanding. Radiography Diagnostic Testing: Clinical Impression(s) from Imaging Studies Brain CT 02/11/23 07:59 IMPRESSION: Chronic involutional changes of the brain. No acute abnormality is seen. Electronically Signed: Rosendo Diaz MD at 9:00 EDT , Cervical Spine CT 02/11/23 07:59 IMPRESSION: Multilevel degenerative changes, as described above. Electronically Signed: Rosendo Diaz MD at 9:05 EDT , Discharge Plan Triage Chief Complaint: Fall ED Provider: Gabriel Navarro Dx/Rx/DC Orders Clinical Impression: History of subarachnoid hemorrhage, Fall, Contusion of head Instructions: Bruises (Contusions) Prescriptions: No Action famotidine 20 MG tablet 20 mg PO BID gabapentin 100 mg capsule 100 mg PO BID Hold Instructions: Order Changed ropinirole 0.5 mg Tablet 0.5 mg PO BID divalproex 125 mg Tablet,Delayed Release (Dr/Ec) 250 mg PO BID duloxetine 60 mg Capsule,Delayed Release(Dr/Ec) 60 mg PO DAILY Hold Instructions: Order Changed atorvastatin 40 mg Tablet 40 mg PO QHS Qty: 0 0RF amlodipine 5 mg Tablet 5 mg PO DAILY Qty: 0 0RF Hold Instructions: Order Changed cyanocobalamin (vitamin B-12) 500 mcg Tablet 2,000 mcg PO DAILY Qty: 0 0RF Hold Instructions: Order Changed tamsulosin 0.4 mg Capsule 0.4 mg PO QHS Qty: 0 0RF aspirin 81 mg Tablet,Chewable 81 mg PO DAILYCM Qty: 0 0RF quetiapine [Seroquel] 25 mg Tablet 25 mg PO QHS Hold Instructions: unknown cimetidine 800 mg tablet 400 mg PO BID brimonidine 0.2 % drops 1 drp ophthalmic (eye) BID Rx Instructions: both eyes albuterol sulfate 90 mcg/actuation Hfa Aerosol Inhaler 2 puff INHALATION Q4H PRN PRN (Reason: Shortness Of Breath) cholecalciferol (vitamin D3) [Vitamin D3] 50 mcg (2,000 unit) Capsule 50 mcg PO DAILY Hold Instructions: Order Changed divalproex 125 mg capsule, delayed rel sprinkle 125 mg PO .afternoon olanzapine 5 mg tablet 2.5 mg PO DAILY olanzapine 2.5 mg tablet 5 mg PO QHS Primary Care Provider: Jerod Portillo Referrals: Jerod Portillo MD [Primary Care Provider] - Activity Restrictions/Additional Instructions: Thank you for trusting us with your care today! Please take Tylenol (2 pills, 650 mg) every 6 hours as needed for pain and fever control. Please return to the emergency department if your symptoms change or worsen. Please follow with your primary care physician for further outpatient evaluation and management. Disposition Disposition: Home, Self Care
--- NOTE | 2023-02-11 07:59 | CT_ITS ---
STUDY: CT BRAIN WITHOUT CONTRAST REASON FOR EXAM: Male, 87 years old. Fall, head trauma RADIATION DOSAGE (If Supplied By Facility): CTDIvol = ( 44.99 ) mGy, DLP = ( 846.73 ) mGycm TECHNIQUE: Transaxial CT imaging of the brain was performed without administration of intravenous contrast material. Individualized dose optimization techniques were used for this CT. COMPARISON: Comparison is made with prior study of February 03, 2023. FINDINGS: Normal soft tissue structures. Normal calvarium. There is mild cerebral atrophy with widening of the extra-axial spaces and ventricular dilatation. There are areas of decreased attenuation within the white matter tracts of the supratentorial brain, consistent with microvascular disease changes. 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 Normal brainstem. Normal cerebellum. There is no intracranial hemorrhage. There are no findings of an acute ischemic infarction. Atherosclerotic calcification of the cavernous portions of the internal carotid arteries bilaterally. Normal visualized paranasal sinuses. CT/Brain/Head without Contrast IMPRESSION: Chronic involutional changes of the brain. No acute abnormality is seen. Electronically Signed: Rosendo Diaz MD at 9:00 EDT ,
--- NOTE | 2023-02-11 07:59 | CT_ITS ---
STUDY: CT CERVICAL SPINE WITHOUT CONTRAST REASON FOR EXAM: Male, 87 years old. Fall, head trauma RADIATION DOSAGE (If Supplied By Facility): CTDIvol = ( 14.31 ) mGy, DLP = ( 315.35 ) mGycm TECHNIQUE: High resolution transaxial imaging was performed without contrast material. Sagittal and coronal images were reconstructed. Individualized dose optimization techniques were used for this CT. COMPARISON: Comparison is made with prior study dated April 14, 2021. FINDINGS: Normal craniovertebral junction. There are degenerative changes of the anterior atlantoaxial articulation. Normal odontoid process. There is straightening of the normal cervical lordosis. Normal vertebral bodies and posterior osseous elements. C2-3: Facet joint osteoarthritis and hypertrophy. This is worse on the right side. No significant stenosis seen. C3-4: Facet joint osteoarthritis and hypertrophy worse on the left side. Mild degree of left neural foraminal stenosis. C4-5: Facet joint osteoarthritis and hypertrophy. Uncovertebral arthrosis. Mild degree of bilateral neural foraminal stenosis. C5-6: Moderate degree of disc space narrowing and spondylosis. No significant stenosis seen. C6-7: Normal endplates. Normal disc height and morphology. Normal central canal and intervertebral neuroforamina. C7-T1: Normal endplates. Normal disc height and morphology. Normal central canal and intervertebral neuroforamina. Focal infiltrate and/or scarring in the right upper lobe CT/Spine Cervical without Contras IMPRESSION: Multilevel degenerative changes, as described above. Electronically Signed: Rosendo Diaz MD at 9:05 EDT ,
[2023-02-11 09:45] VITALS: RESP 16
== END 2023-02-11 09:45 | disposition home or self-care (01) ==
PROVIDERS: Emergency Provider Emergency Medicine; PCP Family Medicine; Visit Provider Emergency Medicine
DX: S00.93XA Contusion of unspecified part of head, initial encounter (principal); J44.9 Chronic obstructive pulmonary disease, unspecified; M25.522 Pain in left elbow; W01.10XA Fall on same level from slipping, tripping and stumbling with subsequent striking against unspecified object, initial encounter; I10 Essential (primary) hypertension; E78.5 Hyperlipidemia, unspecified; Z79.82 Long term (current) use of aspirin; Z79.899 Other long term (current) drug therapy; Z87.891 Personal history of nicotine dependence
CPT/HCPCS: 70450; 72125; 99284

== ENCOUNTER 2023-02-17 05:07 | Emergency (ER) | payer MEDICARE, MEDICAID, SELFPAY ==
[2023-02-17 05:09] VITALS: BP 155/81; PULSE 85; RESP 16; TEMP 37.1; O2SAT 97; BMI 23.2
[2023-02-17 05:24] VITALS: O2SAT 95
--- NOTE | 2023-02-17 05:26 | CT_ITS ---
INDICATION: head injury EXAMINATION: CT CERVICAL SPINE - CT Spine Cervical W/O Contrast Injection COMPARISON: 04/14/[address] A radiation dose optimization technique was used for this scan. Findings: Serial CT axial images through the cervical spine, with coronal and sagittal reformatted series. BONES: No evidence of cervical spine fracture or subluxation. No concerning bony lesion or abnormal sclerosis to suggest lesion. DISCS/JOINTS: No significant degenerative change. SOFT TISSUES: Right apical scarring again noted. CT/Spine Cervical without Contras IMPRESSION: Cervical spine without evidence of acute fracture. Electronically Signed: Kenny Savage MD at 6:07 EDT ,
--- NOTE | 2023-02-17 05:26 | RAD_ITS ---
INDICATION: pain EXAMINATION/TECHNIQUE: X-RAY - XR Pelvis 1 or 2 Views COMPARISON: None. FINDINGS: Single frontal view of the pelvis. BONES: Normal anatomic alignment without evidence of fracture or subluxation. No concerning bony lesion or abnormal sclerosis to suggest lesion. JOINTS: Lower lumbar orthopedic jaswinder and pedicle screw constructs, only partially imaged, although no obvious hardware complication. SOFT TISSUES: Lower pelvic mesh anchors are in place. RAD/Pelvis 1 or 2 Views IMPRESSION: No acute osseous abnormality of the pelvis. Electronically Signed: Kenny Savage MD at 6:14 EDT ,
--- NOTE | 2023-02-17 05:26 | CT_ITS ---
INDICATION: head injury EXAMINATION: CT BRAIN - CT Head or Brain W/O Contrast Injection TECHNIQUE: Serial CT axial images were obtained of the head without intravenous contrast. A radiation dose optimization technique was used for this scan. COMPARISON: 02/11/[address] Findings: Serial CT axial images of the head without contrast. BRAIN PARENCHYMA: Right basal ganglia encephalomalacia. Diffuse periventricular hypoattenuation likely chronic white matter ischemic changes. Moderate diffuse volume loss. No evidence of intraparenchymal hemorrhage or hyperattenuating extra-axial fluid collection. VASCULAR STRUCTURES: Atherosclerotic vascular calcifications. BONES: Maxillary sinus mucosal thickening. SCALP/REMAINING SOFT TISSUES: Facial post procedure change. ASPECTS Score for Acute Strokes, if applicable: 10 CT/Brain/Head without Contrast IMPRESSION: Age-related changes as above, without evidence of acute intracranial hemorrhage in this noncontrast head CT. Electronically Signed: Kenny Savage MD at 6:02 EDT ,
[2023-02-17] MEDS: Gabapentin 100 MG Capsule PO (05:51)
[2023-02-17 06:01] VITALS: BP 139/78; PULSE 82; RESP 16; O2SAT 97
--- NOTE | 2023-02-17 06:50 | EX.ED.DYSGE1 ---
HPI History of Present Illness Chief Complaint: Fall Informant: patient, EMS, SNF and other Narrative Narrative: Patient is an 87-year-old male from [place] with past medical history of a subarachnoid hemorrhage as well as COPD and debility. senior living reports that had an unwitnessed fall and with his history of TBI wanted him evaluated for potential injury. Patient states that he tried to stand up and lost his balance and fell. He denies hitting his head or any loss of consciousness. He states he was on the ground only for a short time prior to being helped up. He denies any pain at this time. [facility] Medical History Anxiety Benign prostatic hyperplasia Cervical spondylosis Chronic obstructive pulmonary disease Chronic prescription benzodiazepine use Depression Excessive cerumen in ear canal Gastroesophageal reflux disease Generalized anxiety disorder HTN (hypertension) Hyperlipidemia Hyperlipidemia Hypertension Insomnia Legal blindness Lumbar spinal stenosis Neuropathic pain Osteoarthritis of lumbar spine Restless leg syndrome Spondylolisthesis, cervical region Vitamin B12 deficiency Vitamin D deficiency Home Medications famotidine 20 mg tablet 20 mg PO BID Check with primary doctor 04/10/20 [History Last Taken 04/18/22] gabapentin 100 mg capsule 100 mg PO BID NEUROPATHY 11/14/21 [History Last Taken 04/18/22] divalproex 125 mg tablet,delayed release 250 mg PO BID DEPRESSION 04/18/22 [History Last Taken 04/18/22] duloxetine 60 mg capsule,delayed release 60 mg PO DAILY DEPRESSION 04/18/22 [History Last Taken 04/18/22] ropinirole 0.5 mg tablet 0.5 mg PO BID RESTLESS LEG 04/18/22 [History Last Taken 04/18/22] amlodipine 5 mg tablet 5 mg PO DAILY #0 tabs 04/20/22 [Rx Last Taken Unknown] aspirin 81 mg chewable tablet 81 mg PO DAILYCM #0 tabs 04/20/22 [Rx Last Taken Unknown] atorvastatin 40 mg tablet 40 mg PO QHS #0 tabs 04/20/22 [Rx Last Taken Unknown] cyanocobalamin (vitamin B-12) 500 mcg tablet 2,000 mcg (4 x 500 mcg) PO DAILY #0 tabs 04/20/22 [Rx Last Taken Unknown] tamsulosin 0.4 mg capsule 0.4 mg PO QHS #0 caps 04/20/22 [Rx Last Taken Unknown] albuterol sulfate 90 mcg/actuation aerosol inhaler 2 puff inhalation Q4H PRN PRN Shortness Of Breath 01/02/23 [History Last Taken Unknown] brimonidine 0.2 % eye drops 1 drp ophthalmic (eye) BID 01/02/23 [History Last Taken Unknown] cholecalciferol (vitamin D3) 50 mcg (2,000 unit) capsule (Vitamin D3) 50 mcg PO DAILY 01/02/23 [History Last Taken Unknown] cimetidine 800 mg tablet 400 mg PO BID 01/02/23 [History Last Taken Unknown] quetiapine 25 mg tablet (Seroquel) 25 mg PO QHS 01/02/23 [History Last Taken Unknown] divalproex 125 mg capsule,delayed release sprinkle 125 mg PO .afternoon 02/03/23 [History Last Taken Unknown] olanzapine 2.5 mg tablet 5 mg PO QHS 02/03/23 [History Last Taken Unknown] olanzapine 5 mg tablet 2.5 mg PO DAILY 02/03/23 [History Last Taken Unknown] acetaminophen 325 mg capsule (Tylenol) 650 mg PO Q6H 02/17/23 [History Last Taken Unknown] bisacodyl 10 mg rectal suppository 10 mg ND DAILY PRN constipation 02/17/23 [History Last Taken Unknown] Allergy/AdvReac Type Severity Reaction Status Date / Time niacin Allergy Rash Verified 02/11/23 07:45 Family History Brother Diabetes Family History unable to obtain Surgical History H/O inguinal hernia repair H/O lumbosacral spine surgery History of appendectomy S/P lumbar fusion Social History household members: other details: Lives alone with his dog pets and animals: Yes Smoking Status: Former smoker how long ago did patient quit smokin years ago alcohol intake: current details: Has 2 glasses of wine per week ROS ROS ED Constitutional Constitutional ED: Denies chills or fever(s) Eyes Eyes: Denies change in vision ENT ENT ED: Denies sore throat Cardiovascular Cardiovascular: Denies chest pain Respiratory/Chest Respiratory/Chest: Denies cough or dyspnea Gastrointestinal Gastrointestinal: Denies abdominal pain, diarrhea, nausea or vomiting Genitourinary Genitourinary ED: Denies dysuria Musculoskeletal Musculoskeletal: Denies back pain, myalgias or neck pain Integumentary Denies Abrasions or rash Neurologic Neurologic: Denies headache(s) Hematologic/Lymphatic Hematologic/Lymphatic: Denies easy bleeding or easy bruising EXAM Physical Exam Const Vital Signs: 02/17/23 05:09 02/17/23 05:24 02/17/23 06:01 Temperature 98.7 F Temperature Source Oral Pulse Rate 85 82 Respiratory Rate 16 16 Respiratory Effort Normal Respiratory Depth Normal Respiratory Pattern Normal Blood Pressure 155/81 H 139/78 H Blood Pressure Mean 105 98 Pulse Ox 97 95 97 Oxygen Delivery Method Room Air Room Air Positive well nourished and well developed General Appearance ED: well developed HEENT HEENT Narrative: Normocephalic atraumatic No signs of depressed or basilar skull fracture Eyes PERRL and EOMs intact bilaterally Neck supple Neck Narrative: No bony deformity or step-off of the cervical spine no midline pain with palpation Chest Wall palpation of chest normal Resp normal respiratory effort and clear to auscultation bilaterally Cardio regular rate and regular rhythm Rate: other Other Details: Radial pulses are plus 2 out of 4 bilaterally are equal and symmetric GI normal to inspection, nondistended, normoactive bowel sounds, non-tender, non-distended and no masses Auscultation: normoactive bowel sounds Palpation: soft Back/Spine Back/Spine Narrative: No bony deformity or step-off of the thoracic or lumbar spine no midline pain on palpation Extremity normal to inspection Extremity Narrative: Pelvis is stable there is no shortening or external rotation of either lower extremity. Bilateral upper extremities are normal as well with full active range of motion Neuro CN's II-XII intact bilaterally Neuro Narrative: Patient is at his baseline mental status without focal neurologic findings Sensorium / Orientation: alert Psych Psych Narrative: Patient has a flat affect Skin no rashes or lesions noted Skin Narrative: No abrasions or ecchymosis noted MDM MDM MDM Narrative Medical decision making narrative: Patient presented to the ER at his baseline mental status with stable vitals. Physical exam did not reveal any obvious signs of acute trauma. Differential diagnosis includes traumatic skull fracture versus subarachnoid versus subdural epidural hematoma. Patient also could have potential pelvic fracture or concussion. Patient is at his baseline mental status and denies nausea vomiting or light sensitivity going against concussion. Physical exam does not show any signs of long bone injury or reason to perform imaging of the thoracic or lumbar spine. With his history of traumatic brain injury and subarachnoid hemorrhage I did elect to perform a CT of his head and neck which revealed chronic findings without acute bleed or trauma. Therefore at this time the patient's imaging and exam revealed no signs of underlying trauma and as he is at his baseline mental status with stable vitals he is otherwise safe for discharge History & Record Review Discussion w/independent historian: Patient Radiography Diagnostic Testing: Clinical Impression(s) from Imaging Studies Brain CT 02/17/23 05:26 IMPRESSION: Age-related changes as above, without evidence of acute intracranial hemorrhage in this noncontrast head CT. Electronically Signed: Kenny Savage MD at 6:02 EDT , Cervical Spine CT 02/17/23 05:26 IMPRESSION: Cervical spine without evidence of acute fracture. Electronically Signed: Kenny Savage MD at 6:07 EDT , Pelvis X-Ray 02/17/23 05:26 IMPRESSION: No acute osseous abnormality of the pelvis. Electronically Signed: Kenny Savage MD at 6:14 EDT , Pelvis x-ray as interpreted by the emergency medicine physician reveals no acute fracture or dislocation Discharge Plan Triage Chief Complaint: Fall ED Provider: Mal Lambert Dx/Rx/DC Orders Clinical Impression: Accidental fall, History of subarachnoid hemorrhage, Debility Instructions: Exercises to Prevent Falls Prescriptions: No Action famotidine 20 MG tablet 20 mg PO BID gabapentin 100 mg capsule 100 mg PO BID Hold Instructions: Order Changed ropinirole 0.5 mg Tablet 0.5 mg PO BID divalproex 125 mg Tablet,Delayed Release (Dr/Ec) 250 mg PO BID duloxetine 60 mg Capsule,Delayed Release(Dr/Ec) 60 mg PO DAILY Hold Instructions: Order Changed atorvastatin 40 mg Tablet 40 mg PO QHS Qty: 0 0RF amlodipine 5 mg Tablet 5 mg PO DAILY Qty: 0 0RF Hold Instructions: Order Changed cyanocobalamin (vitamin B-12) 500 mcg Tablet 2,000 mcg PO DAILY Qty: 0 0RF Hold Instructions: Order Changed tamsulosin 0.4 mg Capsule 0.4 mg PO QHS Qty: 0 0RF aspirin 81 mg Tablet,Chewable 81 mg PO DAILYCM Qty: 0 0RF quetiapine [Seroquel] 25 mg Tablet 25 mg PO QHS Hold Instructions: unknown cimetidine 800 mg tablet 400 mg PO BID brimonidine 0.2 % drops 1 drp ophthalmic (eye) BID Rx Instructions: both eyes albuterol sulfate 90 mcg/actuation Hfa Aerosol Inhaler 2 puff INHALATION Q4H PRN PRN (Reason: Shortness Of Breath) cholecalciferol (vitamin D3) [Vitamin D3] 50 mcg (2,000 unit) Capsule 50 mcg PO DAILY Hold Instructions: Order Changed divalproex 125 mg capsule, delayed rel sprinkle 125 mg PO .afternoon olanzapine 5 mg tablet 2.5 mg PO DAILY olanzapine 2.5 mg tablet 5 mg PO QHS acetaminophen [Tylenol] 325 mg capsule 650 mg PO Q6H bisacodyl 10 mg suppository 10 mg ND DAILY PRN (Reason: constipation) Primary Care Provider: Jerod Portillo Referrals: Jerod Portillo MD [Primary Care Provider] - Disposition Disposition: Home, Self Care
--- NOTE | 2023-02-17 07:40 | ED.RN ---
report called to Camila at [facility] for ETA of [id number] return to SNF
== END 2023-02-17 08:43 | disposition home or self-care (01) ==
PROVIDERS: Emergency Provider Emergency Medicine; PCP Family Medicine; Visit Provider Emergency Medicine
DX: Z04.3 Encounter for examination and observation following other accident (principal); J44.9 Chronic obstructive pulmonary disease, unspecified; W19.XXXA Unspecified fall, initial encounter; Y92.129 Unspecified place in nursing home as the place of occurrence of the external cause; R53.81 Other malaise; I10 Essential (primary) hypertension; E78.5 Hyperlipidemia, unspecified; K21.9 Gastro-esophageal reflux disease without esophagitis; F41.1 Generalized anxiety disorder; Z79.82 Long term (current) use of aspirin; Z79.899 Other long term (current) drug therapy; Z87.891 Personal history of nicotine dependence; Z87.820 Personal history of traumatic brain injury
CPT/HCPCS: 70450; 72125; 72170; 99284